=== PATIENT | female | born 1970 | race Caucasian/White ===

== ENCOUNTER 2023-01-21 00:21 | Inpatient (IN) | payer MEDICAID, SELFPAY ==
[2023-01-21] VITALS (17 sets, daily range): BP systolic 100–178; BP diastolic 54–98; PULSE 78–92; RESP 16–22; TEMP 36.9–37.3; O2SAT 88–97; BMI 44.4
--- NOTE | ~2023-01-21 | XR_ITS ---
EXAMINATION: XR CHEST CLINICAL INFORMATION: Shortness of breath COMPARISON: 11/08/2013 TECHNIQUE: Frontal view of the chest was obtained. FINDINGS: Lung volumes are symmetric. Evaluation is limited due to patient rotation. Central vascular appears prominent which may indicate a degree of congestion. No focal consolidation is seen. No evidence of pneumothorax or significant pleural effusion. Cardiac silhouette appears prominent. Partially visualized right shoulder arthroplasty hardware. XR/XR chest 1V IMPRESSION: Limited assessment due to patient rotation. Prominent central vasculature may indicate a degree of congestion.
--- NOTE | 2023-01-21 00:27 | ECG_ITS ---
Test Reason : Shortness of breath Blood Pressure : / mmHG Vent. Rate : 081 BPM Atrial Rate : 081 BPM P-R Int : 134 ms QRS Dur : 086 ms QT Int : 416 ms P-R-T Axes : 059 000 025 degrees QTc Int : 483 ms Normal sinus rhythm Septal infarct , age undetermined Abnormal ECG When compared with ECG of 03-MAR-2002 16:53, Septal infarct is now Present QT has lengthened Referred By: Fina Gaston Electronically Signed By:LIS BELL MD
[2023-01-21] MEDS: methylPREDNISolone Sod Succ 125 MG/2 ML VIAL IVPUSH (00:28)
[2023-01-21] MEDS: Albuterol Sulfate (0.083%) 2.5 MG/3 ML VIAL.NEB 10 MG INHALE (00:28)
--- NOTE | 2023-01-21 00:40 | ED.SOB ---
HPI - SOB/Dyspnea General Chief Complaint: Dyspnea Stated Complaint: Resp Distress Time Seen by Provider: 01/21/23 00:27 Source: patient and EMS Mode of arrival: EMS History of Present Illness HPI Narrative: 52-year-old female with history of CHF, COPD who presents with worsening shortness of breath throughout the day not associated with any fever, chills, chest pain. Patient states she did not take her diuretic today either. Related Data Allergies Allergy/AdvReac Type Severity Reaction Status Date / Time aspirin [ASPIRIN] Allergy Unknown N/V Unverified 08/10/20 15:34 fentanyl [FENTANYL] Allergy Unknown NAUSEA & Unverified 08/10/20 15:34 VOMITING lithium [LITHIUM] Allergy Unknown RASH/HIVES/ Unverified 08/10/20 15:34 VOMITING naproxen [From NAPROSYN] Allergy Unknown N/V Unverified 08/10/20 15:34 Adhesive Bandages Allergy Unknown Uncoded 08/18/13 00:00 FENTANYL Allergy Unknown itching Uncoded 08/18/13 00:00 PLASTIC TAPE Allergy Unknown REDNESS Uncoded 08/10/20 15:34 Review of Systems Review of Systems: Pertinent positives and negatives as stated in HPI PMFSH Past Medical History Source: nursing notes reviewed Social History Social History Alcohol intake: never Smoked in Last 30 Days: No Use of substances other than those prescribed or required for medical reasons: No Advance Directives: No Patient : No Physical Exam Vital Signs: Vital Signs: Last Vital Signs Pulse 86 01/21/23 01:36 Resp 20 01/21/23 01:46 BP 177/82 H 01/21/23 01:09 Pulse Ox 97 01/21/23 01:09 O2 Del Method 01/21/23 01:09 O2 Flow Rate 7 01/21/23 01:09 BMI result Body Mass Index 44.4 VITAL SIGNS: Reviewed. GENERAL: Well developed, well nourished, in no acute distress. HEAD: Normocephalic/atraumatic EYES: PERRLA, EOMI OROPHARYNX: no oral lesions noted, posterior pharynx clear NECK: Supple, no adenopathy LUNGS: Decreased breath sounds bilaterally with expiratory wheeze. Tachypnea+ SpO2<93> 6 L oxygen while receiving albuterol CARDIOVASCULAR: Regular rate and rhythm without noted murmurs, no JVD or lower extremity edema. ABDOMEN: Soft, non-tender, non-distended with bowel sounds. MUSCULOSKELETAL: No tenderness, deformities, or effusions noted on gross inspection. EXTREMITIES: No cyanosis, clubbing or edema. SKIN: Inspection of the skin reveals no rashes NEUROLOGIC: Alert and oriented x 4. Strength and sensation to light touch were grossly intact x 4. Medications Administered Discontinued Medications Generic Name Dose Route Start Last Admin Trade Name Nateq PRN Reason Stop Dose Admin Albuterol Sulfate 10 mg 01/21/23 00:27 01/21/23 00:28 Albuterol Sulfate (0.083%) 2.5 Mg/3 Ml Vial.Neb INHALE 01/21/23 00:28 10 mg ONCE ONE Administration Albuterol Sulfate 10 mg/ 0 mg 01/21/23 01:08 01/21/23 01:31 Ipratropium [place] 0.5 mg INHALE 01/21/23 01:09 1 each ONCE ONE Administration Furosemide 80 mg 01/21/23 01:40 01/21/23 01:46 Furosemide 100 Mg/10 Ml Vial IVPUSH 01/21/23 01:41 80 mg ONCE ONE Administration Protocol Methylprednisolone Sodium Succinate 125 mg 01/21/23 00:27 01/21/23 00:28 Methylprednisolone Sod Succ 125 Mg/2 Ml Vial IVPUSH 01/21/23 00:28 125 mg ONCE ONE Administration Medical Decision Making Medical Decision Making [facility] Narrative: 0045: 52-year-old female with history and clinical presentation consistent with acute respiratory failure likely a combination of medical comorbidities. Patient receiving nebulized treatments, steroids, Lasix. No evidence to suggest acute infection, no increased sputum production so this time antibiotics are not given. Reviewed all investigations, there is no leukocytosis, patient is afebrile and on re-evaluation she is improving and will repeat VBG keep the patient on BiPAP at this time and re-evaluate after VBG and viral testing. Patient is signed out to Dr Shaw. Differential Diagnosis Please see the discussion above Lab Data Please see the discussion above 01/21/23 00:46 01/21/23 00:46 Labs: Lab Results 01/21/23 01/21/23 01/21/23 Range/Units 00:46 00:46 00:46 WBC 8.6 (4.8-10.8) X10*3/uL RBC 4.72 (4.20-5.50) X10*6/uL Hgb 13.5 (12.0-16.0) g/dl Hct 43.8 (37.0-47.0) % MCV 92.8 (80.0-98.0) fL MCH 28.6 (27.0-33.0) pg MCHC 30.8 L (31.0-35.0) g/dl RDW 13.2 (11.0-16.0) % Plt Count 222 (160-400) X10*3/uL MPV 9.1 L (9.4-12.3) fL Immature Gran % (Auto) 0.1 (0.0-0.4) % Neut % (Auto) 57.6 (45-73) % Lymph % (Auto) 33.1 (20-40) % [place] % (Auto) 7.3 (2-11) % Eos % (Auto) 1.7 (0-4) % Baso % (Auto) 0.2 (0-2) % Lymph # (Auto) 2.9 (1.2-4.9) X10*3/uL [place] # (Auto) 0.6 (0.1-1.2) X10*3/uL Eos # (Auto) 0.2 (0.0-0.4) X10*3/uL Baso # (Auto) 0.0 (0.0-0.2) X10*3/uL Abs Immat Gran (auto) 0.01 (0.00-0.03) X10*3/uL Absolute Neuts (auto) 5.0 (2.0-8.3) x10*3/uL Absolute Nucleated RBC 0.000 (0.0-0.012) X10*3/uL Nucleated RBC % (auto) 0.0 (0.0-0.2) /100WBC PT 10.4 (10.0-13.1) SEC INR 0.9 (0.9-1.1) VBG pH (7.32-7.43) VBG pCO2 mmHg VBG pO2 mmHg VBG HCO3 (22-26) mmol/L VBG O2 Saturation % VBG Base Excess mmol/L Sodium 144 (135-145) mmol/L Potassium 4.1 (3.3-5.1) mmol/L Chloride 97 (96-108) mmol/L Carbon Dioxide 40 H* (22-29) mmol/L Anion Gap 11 L (12-20) BUN 14 (9-16) mg/dL Creatinine 0.68 (0.5-1.4) mg/dL Estim Creat Clear Calc 108.9 Estimated GFR > 60 Random Glucose 110 (60-115) mg/dL Lactic Acid (0.5-2.0) mmol/L Calcium 9.3 (8.4-10.2) mg/dL Total Bilirubin 0.2 (0.0-1.0) mg/dL AST 15 (5-31) U/L ALT 17 (0-31) U/L Alkaline Phosphatase 77 (39-117) U/L Troponin I High Sens (<3.5-17.0) ng/L B-Natriuretic Peptide (<100) pg/mL Total Protein 6.4 L (6.5-8.0) g/dL Albumin 4.3 (3.5-5.0) g/dL 01/21/23 01/21/23 01/21/23 Range/Units 00:46 00:46 00:49 WBC (4.8-10.8) X10*3/uL RBC (4.20-5.50) X10*6/uL Hgb (12.0-16.0) g/dl Hct (37.0-47.0) % MCV (80.0-98.0) fL MCH (27.0-33.0) pg MCHC (31.0-35.0) g/dl RDW (11.0-16.0) % Plt Count (160-400) X10*3/uL MPV (9.4-12.3) fL Immature Gran % (Auto) (0.0-0.4) % Neut % (Auto) (45-73) % Lymph % (Auto) (20-40) % [place] % (Auto) (2-11) % Eos % (Auto) (0-4) % Baso % (Auto) (0-2) % Lymph # (Auto) (1.2-4.9) X10*3/uL [place] # (Auto) (0.1-1.2) X10*3/uL Eos # (Auto) (0.0-0.4) X10*3/uL Baso # (Auto) (0.0-0.2) X10*3/uL Abs Immat Gran (auto) (0.00-0.03) X10*3/uL Absolute Neuts (auto) (2.0-8.3) x10*3/uL Absolute Nucleated RBC (0.0-0.012) X10*3/uL Nucleated RBC % (auto) (0.0-0.2) /100WBC PT (10.0-13.1) SEC INR (0.9-1.1) VBG pH 7.27 L (7.32-7.43) VBG pCO2 94 mmHg VBG pO2 98 mmHg VBG HCO3 44 H (22-26) mmol/L VBG O2 Saturation 96.0 % VBG Base Excess 12.6 mmol/L Sodium (135-145) mmol/L Potassium (3.3-5.1) mmol/L Chloride (96-108) mmol/L Carbon Dioxide (22-29) mmol/L Anion Gap (12-20) BUN (9-16) mg/dL Creatinine (0.5-1.4) mg/dL Estim Creat Clear Calc Estimated GFR Random Glucose (60-115) mg/dL Lactic Acid (0.5-2.0) mmol/L Calcium (8.4-10.2) mg/dL Total Bilirubin (0.0-1.0) mg/dL AST (5-31) U/L ALT (0-31) U/L Alkaline Phosphatase (39-117) U/L Troponin I High Sens 13.3 (<3.5-17.0) ng/L B-Natriuretic Peptide 83 (<100) pg/mL Total Protein (6.5-8.0) g/dL Albumin (3.5-5.0) g/dL 01/21/23 Range/Units 01:13 WBC (4.8-10.8) X10*3/uL RBC (4.20-5.50) X10*6/uL Hgb (12.0-16.0) g/dl Hct (37.0-47.0) % MCV (80.0-98.0) fL MCH (27.0-33.0) pg MCHC (31.0-35.0) g/dl RDW (11.0-16.0) % Plt Count (160-400) X10*3/uL MPV (9.4-12.3) fL Immature Gran % (Auto) (0.0-0.4) % Neut % (Auto) (45-73) % Lymph % (Auto) (20-40) % [place] % (Auto) (2-11) % Eos % (Auto) (0-4) % Baso % (Auto) (0-2) % Lymph # (Auto) (1.2-4.9) X10*3/uL [place] # (Auto) (0.1-1.2) X10*3/uL Eos # (Auto) (0.0-0.4) X10*3/uL Baso # (Auto) (0.0-0.2) X10*3/uL Abs Immat Gran (auto) (0.00-0.03) X10*3/uL Absolute Neuts (auto) (2.0-8.3) x10*3/uL Absolute Nucleated RBC (0.0-0.012) X10*3/uL Nucleated RBC % (auto) (0.0-0.2) /100WBC PT (10.0-13.1) SEC INR (0.9-1.1) VBG pH (7.32-7.43) VBG pCO2 mmHg VBG pO2 mmHg VBG HCO3 (22-26) mmol/L VBG O2 Saturation % VBG Base Excess mmol/L Sodium (135-145) mmol/L Potassium (3.3-5.1) mmol/L Chloride (96-108) mmol/L Carbon Dioxide (22-29) mmol/L Anion Gap (12-20) BUN (9-16) mg/dL Creatinine (0.5-1.4) mg/dL Estim Creat Clear Calc Estimated GFR Random Glucose (60-115) mg/dL Lactic Acid 0.7 (0.5-2.0) mmol/L Calcium (8.4-10.2) mg/dL Total Bilirubin (0.0-1.0) mg/dL AST (5-31) U/L ALT (0-31) U/L Alkaline Phosphatase (39-117) U/L Troponin I High Sens (<3.5-17.0) ng/L B-Natriuretic Peptide (<100) pg/mL Total Protein (6.5-8.0) g/dL Albumin (3.5-5.0) g/dL Independent Interpretation I performed an independent interpretation of an: EKG Interpretation: Normal sinus rhythm, HR-81, no STEMI, TX/QRS/QTC is within normal limits. Critical Care Time Critical Care Time Critical Care Time: Yes Total Critical Care Time: 45 Attestation: I personally attest to this time spent taking care of the patient. Discharge Plan Discharge Clinical Impression: COPD exacerbation, CHF exacerbation, Acute respiratory failure Patient Disposition: Still a Patient
[2023-01-21 00:52] LABS: Basophils Percent Auto 0.2 % (0-2); Eosinophils Absolute Auto 0.2 X10*3/uL (0.0-0.4); Eosinophils Percent Auto 1.7 % (0-4); Hematocrit 43.8 % (37.0-47.0); Hemoglobin 13.5 g/dl (12.0-16.0); Imm Gran Abs Auto 0.01 X10*3/uL (0.00-0.03); Imm Gran Pct Auto 0.1 % (0.0-0.4); Lymphocytes Absolute Auto 2.9 X10*3/uL (1.2-4.9); Lymphocytes Percent Auto 33.1 % (20-40); MANUAL DIFF FLAG NO; Mean Corpuscular HGB Conc 30.8 g/dl (31.0-35.0); Mean Corpuscular Hemoglobin 28.6 pg (27.0-33.0); Mean Corpuscular Volume 92.8 fL (80.0-98.0); Mean Platelet Volume 9.1 fL (9.4-12.3); Monocytes Absolute Auto 0.6 X10*3/uL (0.1-1.2); Monocytes Percent Auto 7.3 % (2-11); Neutrophils Percent Auto 57.6 % (45-73); Platelet Count 222 X10*3/uL (160-400); Red Blood Count 4.72 X10*6/uL (4.20-5.50); Red Cell Distribution Width 13.2 % (11.0-16.0); White Blood Count 8.6 X10*3/uL (4.8-10.8)
[2023-01-21 00:58] LABS: Venous Blood Gas Refer to POC result
[2023-01-21 00:58] LABS: VBG Base Excess 12.6 mmol/L; VBG HCO3 44 mmol/L (22-26); VBG pCO2 94 mmHg; VBG pH 7.27 (7.32-7.43); VBG pO2 98 mmHg
[2023-01-21 00:58] LABS: INTERNATIONAL NORM RATIO 0.9 (0.9-1.1); Prothrombin Time 10.4 SEC (10.0-13.1)
[2023-01-21 01:12] LABS: B Type Natriuretic Peptide 83 pg/mL (<100); Troponin-I High Sensitivity 13.3 ng/L (<3.5-17.0)
[2023-01-21 01:13] LABS: Alanine Aminotransferase 17 U/L (0-31); Albumin Level 4.3 g/dL (3.5-5.0); Alkaline Phosphatase 77 U/L (39-117); Anion Gap 11 (12-20); Aspartate Amino Transferase 15 U/L (5-31); Bilirubin Total 0.2 mg/dL (0.0-1.0); Blood Urea Nitrogen 14 mg/dL (9-16); Calcium 9.3 mg/dL (8.4-10.2); Carbon Dioxide 40 mmol/L (22-29); Chloride 97 mmol/L (96-108); Creatinine Clr Calc Pharmacy 108.9; Estimated Glomerular Filt Rate > 60; Glucose Random 110 mg/dL (60-115); Potassium 4.1 mmol/L (3.3-5.1); Sodium 144 mmol/L (135-145); Total Protein 6.4 g/dL (6.5-8.0)
[2023-01-21 01:32] LABS: Lactic Acid 0.7 mmol/L (0.5-2.0)
[2023-01-21] MEDS: Furosemide 100 MG/10 ML VIAL 80 MG IVPUSH (01:46)
[2023-01-21 02:45] LABS: COVID-19 Test Negative (Negative); IDNOW Serial# 16C4AD1C; IDNOW Serial# BCCEAD1C; Influenza A Negative (Negative); Influenza B2 Negative (Negative)
[2023-01-21 03:02] LABS: VBG HCO3 45 mmol/L (22-26); VBG pCO2 89 mmHg; VBG pO2 78 mmHg
[2023-01-21 03:30] LABS: Venous Blood Gas Refer to POC result
--- NOTE | 2023-01-21 04:11 | PC.NURSE ---
Pt presented to ER with shortness of breath lasting all day. Pt has hx of COPD and CHF, on 3 LPM via NC at baseline. EMS gave a duoneb with improvement, and pt was put on 7 LPM via oximask. An IV was placed on the left hand and pt was put on continuous cardiac and O2 monitoring. Respiratory has been at the bedside throughout pt's viisit. CPAP is being administered. Pt is able to be shaken awake and will answer questions appropriately, but struggles to stay awake. Oxygen has been decreasing when pt falls asleep as she slumps to her right side. Oxygen is remaining around 89%. Provider and RT are aware of pt condition. No new orders at this time.
--- NOTE | 2023-01-21 05:00 | PC.NURSE ---
Addendum entered by Deirdre Ledbetter RN 01/21/23 05:13: Jenkins catheter placed, initial output 1400mL. Urine is clear and light yun in color, no clots, discharge, or blood noted in the urine. Pt tolerated placement well. Original Note: Pt has not been voiding urine despite getting lasix. A bladder scan was done and resulted in >999 mL in the bladder. MD aware, verbal ordered a jenkins catheter.
[2023-01-21 05:07] LABS: Venous Blood Gas Refer to POC result
[2023-01-21 05:08] LABS: VBG Base Excess 13.4 mmol/L; VBG HCO3 43 mmol/L (22-26); VBG pCO2 79 mmHg; VBG pH 7.34 (7.32-7.43); VBG pO2 64 mmHg
--- NOTE | 2023-01-21 05:23 | MHC.EDTECH ---
Pt bed pads and pillow case changed. Pt given warm blanket and call abdalla in reach. Pt Goodman emptied at 1400
[2023-01-21 05:34] LABS: Appearance Urine Clear; Color Urine Yellow; Glucose Urine UA >=1000 mg/dL (Negative); Leukocyte Esterase Urine Negative (Negative); Nitrite Urine Negative (Negative); Specific Gravity - Urine 1.015 (1.005-1.025); UMIC TRIGGER UACC YES; Urine Blood Negative (Negative); Urine Ketones Negative (Negative); Urine Protein 30 (1+) mg/dL (Neg-Trace)
[2023-01-21 05:39] LABS: Bacteria Urine None Seen (None Seen); Hyaline Casts Urine 0-2 /LPF (0-2); RBC Urine 0-2 /HPF (0-2); Squamous Epithelial Cell Urine 0-2 /HPF (0-2); WBC Urine 0-5 /HPF (0-5)
[2023-01-21 08:27] LABS: ABG Base Excess 10.8 mmol/L; ABG HCO3 38 mmol/L (22-26); ABG pCO2 64 mmHg (32-45); ABG pH 7.38 (7.35-7.45); ABG pO2 61 mmHg (83-108)
[2023-01-21] MEDS: Acetaminophen 325 MG TABLET 975 MG PO (09:46)
[2023-01-21] MEDS: oxyCODONE HCl Immed Release 5 MG TABLET 10 MG PO (09:47)
--- NOTE | 2023-01-21 12:57 | PM.IMHP ---
History of Present Illness Date of Service: 01/21/23 Chief Complaint: Shortness of breath 52-year-old woman presented to the ER with complaints of worsening shortness of breath over the last several days. She has a history of COPD and reports that she smokes maybe 1-2 cigarettes a day. She had been previously heavy smoker for over 20 years. She is on chronic oxygen 2 L via nasal cannula. Patient denied chest pain, nausea, vomiting, diarrhea, recent travel, sick contacts. COVID, flu and RSV negative, no overt consolidation on chest x-ray. Labs all within acceptable limits. BNP 83, troponin 13.3. VBG 7.27/94/98/44, placed on BiPAP in the ER with good effect. Patient now on 2 L via nasal cannula. She was given IV Solu-Medrol, albuterol, IV Lasix, Reglan, Benadryl, aspirin, Tylenol, oxycodone. She will be admitted for further management and treatment of acute hypoxic/hypercarbic respiratory failure secondary to COPD exacerbation possible CHF. Review of Systems Review of Systems: Appearing in no acute distress head is normocephalic atraumatic eyes pupils are PERRLA sclera is anicteric mouth throat mucous membranes are intact and moist neck is supple no lymphadenopathy, no JVD noted lung sounds are clear to auscultation heart regular rate rhythm, clear S1, S2 positive bowel sounds, abdomen is soft, nontender neuro patient is alert x3, no focal deficits [facility] Medical History (Updated 01/21/23 @ 13:25 by Lorena Delgado NP) Anxiety Asthma Bipolar disorder COPD (chronic obstructive pulmonary disease) Depression Diabetes mellitus Fibromyalgia GERD (gastroesophageal reflux disease) Hypertension Obstructive sleep apnea Pertinent family history: no cardiac disease Surgical History (Updated 01/21/23 @ 13:25 by Lorena Delgado NP) H/O: hysterectomy Social History (Updated 01/21/23 @ 13:31 by Lorena Delgado NP) Alcohol intake: never Patient Tobacco Use Status: Current someday Tobacco user Tobacco use type: Cigarette Cigarettes Per Day: 2 Smoked in Last 30 Days: No Use of substances other than those prescribed or required for medical reasons: No Advance Directives: No Nutrition Risks: No Nutritional Risk Patient : No Meds Allergies Allergy/AdvReac Type Severity Reaction Status Date / Time aspirin [ASPIRIN] Allergy Unknown N/V Unverified 08/10/20 15:34 fentanyl [FENTANYL] Allergy Unknown NAUSEA & Unverified 08/10/20 15:34 VOMITING lithium [LITHIUM] Allergy Unknown RASH/HIVES/ Unverified 08/10/20 15:34 VOMITING naproxen [From NAPROSYN] Allergy Unknown N/V Unverified 08/10/20 15:34 Adhesive Bandages Allergy Unknown Uncoded 08/18/13 00:00 FENTANYL Allergy Unknown itching Uncoded 08/18/13 00:00 PLASTIC TAPE Allergy Unknown REDNESS Uncoded 08/10/20 15:34 Active Medications: Current Medications Pharmacy Consult (Consult Rx Perform Med Rec) 1 each MISCELLANE ONCE PRN PRN Reason: Consult order Home Medications Medication Instructions Recorded Confirmed Last Taken Type albuterol sulfate 2.5 mg/3 mL 2.5 mg inhalation BID PRN Wheezing 01/21/23 01/21/23 01/20/23 History (0.083 %) solution for nebulization albuterol sulfate 90 mcg/actuation 1 inh inhalation QID PRN Wheezing 01/21/23 01/21/23 01/20/23 History aerosol inhaler aluminum chloride in alcohol 6.25 1 appl topical BEDTIME 01/21/23 01/21/23 01/20/23 History % topical solution amiodarone 400 mg tablet 400 mg PO DAILY 01/21/23 01/21/23 01/20/23 History aripiprazole 10 mg tablet (Abilify) 10 mg PO DAILY 01/21/23 01/21/23 01/20/23 History ascorbic acid (vitamin C) 250 mg 1,000 mg PO DAILY 01/21/23 01/21/23 01/20/23 History tablet aspirin 81 mg tablet,delayed 81 mg PO DAILY 01/21/23 01/21/23 01/20/23 History release atorvastatin 80 mg tablet 80 mg PO DAILY 01/21/23 01/21/23 01/20/23 History azithromycin 250 mg tablet 250 mg PO DAILY 01/21/23 01/21/23 01/20/23 History bupropion HCl 150 mg 24 hr tablet, 150 mg PO QAM 01/21/23 01/21/23 01/20/23 History extended release ezchouhtpu-abcqhbqsdiyei-vragzqsb 1 tab PO DAILY PRN Headache 01/21/23 01/21/23 01/20/23 History 50 mg-325 mg-40 mg tablet calcium carbonate 600 mg calcium 600 mg PO BID 01/21/23 01/21/23 01/20/23 History (1,500 mg) tablet carvedilol 25 mg tablet 25 mg PO BID 01/21/23 01/21/23 01/20/23 History cholecalciferol (vitamin D3) 50 50 mcg PO DAILY 01/21/23 01/21/23 01/20/23 History mcg (2,000 unit) capsule (Vitamin D3) clonazepam 0.5 mg tablet 0.5 mg PO BID PRN Anxiety 01/21/23 01/21/23 01/20/23 History clotrimazole 1 % topical cream 1 appl topical BID 01/21/23 01/21/23 01/20/23 History cyanocobalamin (vitamin B-12) 5,000 mcg PO DAILY 01/21/23 01/21/23 01/20/23 History 2,500 mcg tablet dapagliflozin 10 mg tablet 10 mg PO DAILY 01/21/23 01/21/23 01/20/23 History diclofenac sodium 1 % topical gel 2 g topical TID 01/21/23 01/21/23 01/20/23 History dicyclomine 10 mg capsule 10 mg PO TID PRN Spasms 01/21/23 01/21/23 01/20/23 History dulaglutide 1.5 mg/0.5 mL 1.5 mg subcut QWEEK 01/21/23 01/21/23 Unknown History subcutaneous pen injector (Trulicity) duloxetine 60 mg capsule,delayed 60 mg PO DAILY 01/21/23 01/21/23 01/20/23 History release dupilumab 300 mg/2 mL subcutaneous 300 mg subcut Q2W 01/21/23 01/21/23 Unknown History pen injector (Dupixent) fenofibrate micronized 134 mg 134 mg PO DAILY 01/21/23 01/21/23 01/20/23 History capsule fluticasone propionate 250 1 inh inhalation BID 01/21/23 01/21/23 01/20/23 History mcg/actuation blister powder for inhalation (Flovent Diskus) fluticasone propionate 50 1 spray intranasal BID 01/21/23 01/21/23 01/20/23 History mcg/actuation nasal spray,suspension gabapentin 300 mg capsule 600 mg PO TID 01/21/23 01/21/23 01/20/23 History hydroxyzine HCl 25 mg tablet 25 mg PO BID PRN Itching 01/21/23 01/21/23 01/20/23 History insulin glargine 100 unit/mL (3 5 unit subcut BEDTIME 01/21/23 01/21/23 01/20/23 History mL) subcutaneous pen (Lantus Solostar U-100 Insulin) insulin lispro 100 unit/mL 1 sliding scale dose subcut 01/21/23 01/21/23 01/20/23 History subcutaneous pen USEASDIRECTD ipratropium 0.5 mg-albuterol 3 mg 3 ml inhalation BID 01/21/23 01/21/23 01/20/23 History (2.5 mg base)/3 mL nebulization soln loratadine 10 mg tablet 10 mg PO DAILY 01/21/23 01/21/23 01/20/23 History magnesium 250 mg tablet 500 mg PO DAILY 01/21/23 01/21/23 01/20/23 History metoprolol succinate 200 mg 200 mg PO DAILY 01/21/23 01/21/23 01/20/23 History tablet,extended release 24 hr montelukast 10 mg tablet 10 mg PO BEDTIME 01/21/23 01/21/23 01/20/23 History multivitamin 1 tab PO DAILY 01/21/23 01/21/23 01/20/23 History nystatin 100,000 unit/gram topical 1 appl topical BID 01/21/23 01/21/23 01/20/23 History powder nystatin 100,000 unit/mL oral 5 ml PO Q6H 01/21/23 01/21/23 01/20/23 History suspension omega 7-mvt-rie-fish oil 1,000 mg 1 cap PO DAILY 01/21/23 01/21/23 01/20/23 History (120 mg-180 mg) capsule (Fish Oil) omeprazole 20 mg capsule,delayed 20 mg PO BID 01/21/23 01/21/23 01/20/23 History release ondansetron 4 mg disintegrating 4 mg PO DAILY PRN Nausea And 01/21/23 01/21/23 01/20/23 History tablet Vomiting oxybutynin chloride 10 mg 10 mg PO DAILY 01/21/23 01/21/23 01/20/23 History tablet,extended release 24 hr oxycodone-acetaminophen 5 mg-325 1 - 2 tab PO Q4H PRN Pain 01/21/23 01/21/23 01/20/23 History mg tablet prednisone 1 mg tablet 3 mg PO DAILY 01/21/23 01/21/23 01/20/23 History roflumilast 500 mcg tablet 500 mcg PO DAILY 01/21/23 01/21/23 01/20/23 History (Daliresp) ropinirole 1 mg tablet 1 - 2 mg PO BEDTIME 01/21/23 01/21/23 01/20/23 History sacubitril 49 mg-valsartan 51 mg 1 tab PO BID 01/21/23 01/21/23 01/20/23 History tablet (Entresto) tobramycin with nebulizer 300 mg/5 300 mg inhalation BID 01/21/23 01/21/23 01/20/23 History mL solution for nebulization torsemide 10 mg tablet 20 mg PO DAILY 01/21/23 01/21/23 01/20/23 History valacyclovir 1 gram tablet 1,000 mg PO BID 01/21/23 01/21/23 01/20/23 History zileuton 600 mg tablet (Zyflo) 600 mg PO QID 01/21/23 01/21/23 01/20/23 History Physical Exam Vital Signs and Narrative: Vital Signs: Last Vital Signs Temp 98.6 F 01/21/23 09:13 Pulse 90 01/21/23 09:13 Resp 19 01/21/23 09:13 BP 127/54 L 01/21/23 09:13 Pulse Ox 92 01/21/23 05:42 O2 Del Method Nasal Cannula 01/21/23 09:13 O2 Flow Rate 7 01/21/23 01:09 BMI result Body Mass Index 44.4 Results Labs 01/21/23 00:46 01/21/23 00:46 Labs: Laboratory Results - last 24 hr 01/21/23 01/21/23 01/21/23 00:46 00:46 00:46 MCV 92.8 MCH 28.6 MCHC 30.8 L RDW 13.2 Plt Count 222 MPV 9.1 L Immature Gran % (Auto) 0.1 Neut % (Auto) 57.6 Lymph % (Auto) 33.1 [place] % (Auto) 7.3 Eos % (Auto) 1.7 Baso % (Auto) 0.2 Lymph # (Auto) 2.9 [place] # (Auto) 0.6 Eos # (Auto) 0.2 Baso # (Auto) 0.0 Abs Immat Gran (auto) 0.01 Absolute Neuts (auto) 5.0 Absolute Nucleated RBC 0.000 Nucleated RBC % (auto) 0.0 PT 10.4 INR 0.9 O2 Saturation ABG pH at Pt Temp ABG pCO2 at Pt Temp ABG pO2 at Pt Temp ABG HCO3 ABG Base Excess (Actual) VBG pH VBG pCO2 VBG pO2 VBG HCO3 VBG O2 Saturation VBG Base Excess Anion Gap 11 L Estim Creat Clear Calc 108.9 Estimated GFR > 60 Random Glucose 110 Lactic Acid Calcium 9.3 Total Bilirubin 0.2 AST 15 ALT 17 Alkaline Phosphatase 77 Troponin I High Sens B-Natriuretic Peptide Total Protein 6.4 L Albumin 4.3 Urine Color Urine Appearance Urine pH Ur Specific [place] Urine Protein Urine Glucose (UA) Urine Ketones Urine Blood Urine Nitrite Ur Leukocyte Esterase Urine RBC Urine WBC Ur Squamous Epith Cells Urine Bacteria Hyaline Casts COVID-19 ([facility]) COVID-19 Clin Com Influenza Type A (HU) Influenza Type B (HU) Influenza A & B Note 01/21/23 01/21/23 01/21/23 00:46 00:46 00:49 MCV MCH MCHC RDW Plt Count MPV Immature Gran % (Auto) Neut % (Auto) Lymph % (Auto) [place] % (Auto) Eos % (Auto) Baso % (Auto) Lymph # (Auto) [place] # (Auto) Eos # (Auto) Baso # (Auto) Abs Immat Gran (auto) Absolute Neuts (auto) Absolute Nucleated RBC Nucleated RBC % (auto) PT INR O2 Saturation ABG pH at Pt Temp ABG pCO2 at Pt Temp ABG pO2 at Pt Temp ABG HCO3 ABG Base Excess (Actual) VBG pH 7.27 L VBG pCO2 94 VBG pO2 98 VBG HCO3 44 H VBG O2 Saturation 96.0 VBG Base Excess 12.6 Anion Gap Estim Creat Clear Calc Estimated GFR Random Glucose Lactic Acid Calcium Total Bilirubin AST ALT Alkaline Phosphatase Troponin I High Sens 13.3 B-Natriuretic Peptide 83 Total Protein Albumin Urine Color Urine Appearance Urine pH Ur Specific [place] Urine Protein Urine Glucose (UA) Urine Ketones Urine Blood Urine Nitrite Ur Leukocyte Esterase Urine RBC Urine WBC Ur Squamous Epith Cells Urine Bacteria Hyaline Casts COVID-19 ([facility]) COVID-19 Clin Com Influenza Type A (HU) Influenza Type B (HU) Influenza A & B Note 01/21/23 01/21/23 01/21/23 01:13 02:21 02:21 MCV MCH MCHC RDW Plt Count MPV Immature Gran % (Auto) Neut % (Auto) Lymph % (Auto) [place] % (Auto) Eos % (Auto) Baso % (Auto) Lymph # (Auto) [place] # (Auto) Eos # (Auto) Baso # (Auto) Abs Immat Gran (auto) Absolute Neuts (auto) Absolute Nucleated RBC Nucleated RBC % (auto) PT INR O2 Saturation ABG pH at Pt Temp ABG pCO2 at Pt Temp ABG pO2 at Pt Temp ABG HCO3 ABG Base Excess (Actual) VBG pH VBG pCO2 VBG pO2 VBG HCO3 VBG O2 Saturation VBG Base Excess Anion Gap Estim Creat Clear Calc Estimated GFR Random Glucose Lactic Acid 0.7 Calcium Total Bilirubin AST ALT Alkaline Phosphatase Troponin I High Sens B-Natriuretic Peptide Total Protein Albumin Urine Color Urine Appearance Urine pH Ur Specific [place] Urine Protein Urine Glucose (UA) Urine Ketones Urine Blood Urine Nitrite Ur Leukocyte Esterase Urine RBC Urine WBC Ur Squamous Epith Cells Urine Bacteria Hyaline Casts COVID-19 ([facility]) Negative COVID-19 Clin Com See Note Influenza Type A (HU) Negative Influenza Type B (HU) Negative Influenza A & B Note See Note 01/21/23 01/21/23 01/21/23 02:51 05:00 05:20 MCV MCH MCHC RDW Plt Count MPV Immature Gran % (Auto) Neut % (Auto) Lymph % (Auto) [place] % (Auto) Eos % (Auto) Baso % (Auto) Lymph # (Auto) [place] # (Auto) Eos # (Auto) Baso # (Auto) Abs Immat Gran (auto) Absolute Neuts (auto) Absolute Nucleated RBC Nucleated RBC % (auto) PT INR O2 Saturation ABG pH at Pt Temp ABG pCO2 at Pt Temp ABG pO2 at Pt Temp ABG HCO3 ABG Base Excess (Actual) VBG pH 7.30 L 7.34 VBG pCO2 89 79 VBG pO2 78 64 VBG HCO3 45 H 43 H VBG O2 Saturation 92.0 88.0 VBG Base Excess 14.0 13.4 Anion Gap Estim Creat Clear Calc Estimated GFR Random Glucose Lactic Acid Calcium Total Bilirubin AST ALT Alkaline Phosphatase Troponin I High Sens B-Natriuretic Peptide Total Protein Albumin Urine Color Yellow Urine Appearance Clear Urine pH 6.0 Ur Specific [place] 1.015 Urine Protein 30 (1+) H Urine Glucose (UA) >=1000 H Urine Ketones Negative Urine Blood Negative Urine Nitrite Negative Ur Leukocyte Esterase Negative Urine RBC 0-2 Urine WBC 0-5 Ur Squamous Epith Cells 0-2 Urine Bacteria None Seen Hyaline Casts 0-2 COVID-19 ([facility]) COVID-19 Clin Com Influenza Type A (HU) Influenza Type B (HU) Influenza A & B Note 01/21/23 08:20 MCV MCH MCHC RDW Plt Count MPV Immature Gran % (Auto) Neut % (Auto) Lymph % (Auto) [place] % (Auto) Eos % (Auto) Baso % (Auto) Lymph # (Auto) [place] # (Auto) Eos # (Auto) Baso # (Auto) Abs Immat Gran (auto) Absolute Neuts (auto) Absolute Nucleated RBC Nucleated RBC % (auto) PT INR O2 Saturation 86.0 ABG pH at Pt Temp 7.38 ABG pCO2 at Pt Temp 64 H* ABG pO2 at Pt Temp 61 L ABG HCO3 38 H ABG Base Excess (Actual) 10.8 VBG pH VBG pCO2 VBG pO2 VBG HCO3 VBG O2 Saturation VBG Base Excess Anion Gap Estim Creat Clear Calc Estimated GFR Random Glucose Lactic Acid Calcium Total Bilirubin AST ALT Alkaline Phosphatase Troponin I High Sens B-Natriuretic Peptide Total Protein Albumin Urine Color Urine Appearance Urine pH Ur Specific [place] Urine Protein Urine Glucose (UA) Urine Ketones Urine Blood Urine Nitrite Ur Leukocyte Esterase Urine RBC Urine WBC Ur Squamous Epith Cells Urine Bacteria Hyaline Casts COVID-19 ([facility]) COVID-19 Clin Com Influenza Type A (HU) Influenza Type B (HU) Influenza A & B Note Imaging Radiologist's Impressions: Impressions Chest X-Ray 01/21/23 01:17 IMPRESSION: Limited assessment due to patient rotation. Prominent central vasculature may indicate a degree of congestion. Assessment and Plan (1) COPD exacerbation: Status: Acute Plan 52 year old women admitted with acute respiratory failure sec to COPD exacerbation Acute hypoxic/hypercarbic respiratory failure secondary to COPD exacerbation Placed on BiPAP in the ER and weaned off. ABG 7.8/64/61/38 Now on 2 L of nasal cannula Continue schedule steroids, DuoNebs every 4 hours while awake Cough suppressant as needed No consolidation on chest x-ray Acute on chronic respiratory failure hx of COPD on 2 liters baseline oxygen CHF, unspecified Not appear to be in overt failure at this time Patient reported that she missed her diuretic today Continue Entresto and torsemide Limited echocardiogram Diabetes ss, ada diet HLD statin BASSEM not complaint at home ordered cpap for inpatient Mental health continue home medications Morbid obesity. BMI 44.4 Discussed importance of weight management as this may be contributing to worsening of other comorbidities DVT prophylaxis with [facility] attending attending Dr. Lazar Full code Patient requires 2 inpatient midnights for treatment of acute on chronic respiratory failure required BiPAP, close monitoring, IV steroids and scheduled DuoNebs Time Spent With Patient Time: Total time managing care of this patient today ____ minutes. Quality Stroke Does the patient have a stroke diagnosis?: No VTE Prior VTE?: No VTE Risk Level:: Medical - moderate - high VTE Device Contraindication: Treatment Not Indicated VTE Drug Contraindication: N/A - Med Ordered
[2023-01-21 14:38] LABS: ABG Refer to POC result
[2023-01-21] MEDS: Albuterol Sulfate (0.083%) 2.5 MG/3 ML VIAL.NEB INHALE ×2 (14:49→20:09)
[2023-01-21] MEDS: Enoxaparin Sodium 40 MG/0.4 ML SYRINGE SUBCUT (15:22)
[2023-01-21] MEDS: Gabapentin 300 MG CAPSULE 600 MG PO ×2 (15:22→20:08)
[2023-01-21] MEDS: buPROPion HCl XL 150 MG TAB.ER.24H PO (15:22)
[2023-01-21] MEDS: Nystatin Oral Susp 500,000 UNIT/5 ML ORAL.SUSP 500000 UNIT PO ×2 (15:22→20:08)
[2023-01-21] MEDS: methylPREDNISolone Sod Succ 40 MG/ML VIAL IVPUSH ×2 (15:23→21:30)
[2023-01-21] MEDS: oxyCODONE HCl Immed Release 5 MG TABLET PO ×2 (15:32→21:44)
[2023-01-21] MEDS: Nystatin Powder 15 GM BOTTLE 1 APPL TOPICAL (15:32)
[2023-01-21] MEDS: Acetaminophen 325 MG TABLET 650 MG PO ×2 (15:32→21:44)
[2023-01-21] MEDS: Omeprazole 20 MG CAPSULE.DR PO (15:33)
[2023-01-21] MEDS: valACYclovir HCL 1,000 MG TABLET 1000 MG PO (20:08)
[2023-01-21] MEDS: clonazePAM 0.5 MG TABLET PO (20:08)
[2023-01-21] MEDS: carvediloL 25 MG TABLET PO (20:08)
[2023-01-21] MEDS: Fluticasone Propionate 250 MCG BLST.W.DEV 1 PUFF INHALE (20:09)
[2023-01-21] MEDS: Montelukast Sodium 10 MG TABLET PO (20:09)
[2023-01-21] MEDS: Insulin Glargine,Hum.rec.anlog 100 UNIT/ML 10 ML VIAL SUBCUT (20:09)
[2023-01-21] MEDS: Fluticasone Propionate Nasal 16 GM SPRAY 1 SPRAY NOSTRIL-B (21:30)
[2023-01-21] MEDS: rOPINIRole HCL 1 MG TABLET PO (21:30)
[2023-01-21] MEDS: Sacubitril/Valsartan 49/51 1 TAB TABLET PO (21:31)
--- NOTE | 2023-01-21 22:00 | PC.NURSE ---
Assumed care of pt at 1900. Pt aox4 sitting upright, with four pillows, on a reclyner for comfort. O2 sat 88% on 4L NC. O2 sat decreases with movement/exertion. Goodman cath in place with clear yellow urine inside the collection bag. Pt reports back and leg pain, 08/03. States oxycodone and tylenol is not helping for the pain. Pt is also requesting medication for sleep. Baxter text sent to Dr Castle with these concerns. Pt medicated as ordered and tolerated well. Provided with food and liquid. Pt aware of plan of care and will continue to monitor.
[2023-01-22] VITALS (12 sets, daily range): BP systolic 140–185; BP diastolic 67–101; PULSE 75–87; RESP 15–20; TEMP 36.4–37; O2SAT 88–98
--- NOTE | 2023-01-22 00:31 | MHC.EDTECH ---
Patient giving a sandwich and a cup of diet gingerale.Patient is sitting in recliner with call abdalla in reach.
[2023-01-22] MEDS: Morphine Sulfate 2 MG/ML CARTRIDGE IVPUSH (02:04)
[2023-01-22] MEDS: diphenhydrAMINE HCL 50 MG/ML VIAL IVPUSH (02:05)
[2023-01-22] MEDS: 0.9 % Sodium Chloride Flush 3 ML SYRINGE IVFLUSH ×3 (02:05→15:37)
[2023-01-22] MEDS: Nystatin Oral Susp 500,000 UNIT/5 ML ORAL.SUSP 500000 UNIT PO ×4 (02:05→21:04)
--- NOTE | 2023-01-22 02:20 | PC.RT ---
Pt refusing CPAP for NOC support. Pt requests to stay on NC for night. will call for respiratory if she changes her mind. RN aware
--- NOTE | 2023-01-22 04:00 | PC.NURSE ---
Pt assisted into bed. Head of the bed elevated and four pillows applied. O2 sat 88% 4L NC. Will continue to monitor.
[2023-01-22 04:48] LABS: Basophils Percent Auto 0.1 % (0-2); Eosinophils Percent Auto 0.1 % (0-4); Hematocrit 42.4 % (37.0-47.0); Hemoglobin 13.7 g/dl (12.0-16.0); Imm Gran Abs Auto 0.05 X10*3/uL (0.00-0.03); Imm Gran Pct Auto 0.5 % (0.0-0.4); Lymphocytes Absolute Auto 1.3 X10*3/uL (1.2-4.9); MANUAL DIFF FLAG SCAN; Mean Corpuscular HGB Conc 32.3 g/dl (31.0-35.0); Mean Corpuscular Hemoglobin 29.2 pg (27.0-33.0); Mean Corpuscular Volume 90.4 fL (80.0-98.0); Mean Platelet Volume 10.4 fL (9.4-12.3); Monocytes Absolute Auto 0.4 X10*3/uL (0.1-1.2); Monocytes Percent Auto 4.1 % (2-11); Neutrophils Absolute Auto 8.4 x10*3/uL (2.0-8.3); Neutrophils Percent Auto 82.2 % (45-73); PLT CLUMP 1; Red Blood Count 4.69 X10*6/uL (4.20-5.50); Red Cell Distribution Width 13.1 % (11.0-16.0); SCAN SMEAR FLAG 1
[2023-01-22 04:49] LABS: White Blood Count 10.2 X10*3/uL (4.8-10.8)
[2023-01-22 05:05] LABS: Platelet Count 199 X10*3/uL (160-400); SLIDE REVIEW VERIFIED
[2023-01-22 05:21] LABS: Alanine Aminotransferase 17 U/L (0-31); Albumin Level 4.3 g/dL (3.5-5.0); Alkaline Phosphatase 70 U/L (39-117); Anion Gap 11 (12-20); Aspartate Amino Transferase 13 U/L (5-31); Bilirubin Total 0.2 mg/dL (0.0-1.0); Blood Urea Nitrogen 16 mg/dL (9-16); Calcium 9.5 mg/dL (8.4-10.2); Carbon Dioxide 38 mmol/L (22-29); Chloride 97 mmol/L (96-108); Creatinine Clr Calc Pharmacy 125.5; Estimated Glomerular Filt Rate > 60; Glucose Random 140 mg/dL (60-115); Potassium 4.4 mmol/L (3.3-5.1); Sodium 142 mmol/L (135-145); Total Protein 6.6 g/dL (6.5-8.0)
[2023-01-22] MEDS: Omeprazole 20 MG CAPSULE.DR PO ×2 (06:16→16:48)
[2023-01-22] MEDS: methylPREDNISolone Sod Succ 40 MG/ML VIAL IVPUSH ×3 (06:16→21:15)
--- NOTE | 2023-01-22 07:00 | CA_ITS ---
Transthoracic Echocardiogram Patient (Last, First, Middle): Merle Guillen M Gender: Female Date of : 1970 Age: 52 Procedure Date: 01/22/2023 Procedure Type: Transthoracic Echocardiogram Location: [facility] [place] Height: 154.94 cm Weight: 106.6 kg BSA: 2.02 m2 Heart Rate: 80 bpm BP: 150 / 75 mmHg Head End Desizing Machine Operator: BEL Bullock MD: Lorena Delgado NP Fire Lieutenant: Rodo Mancilla MD Symptoms: CHF Study Quality: Adequate/Contrast ECG Rhythm: Sinus Conclusions: - 1. Technically difficult study despite use of contrast agent 2. Normal LV systolic function with mild LVH with impaired relaxation filling pattern, in adequate information to calculate filling pressures 3. Mitral and calcification with limited but cardiac valvular Dopplers within normal limits 4. Normal right atrial pressures Findings Procedure Information Contrast agent, definity, is being given per protocol without apparent complications. Left Ventricle Normal left ventricular size and systolic function. There is mildly increased left ventricular wall thickness. The visually estimated ejection fraction is between 55-60%. Spectral Doppler is indicative of an impaired relaxation filling pattern. Right Ventricle The right ventricle was not well visualized. Atria The left atrium is normal in size. Interatrial shunt cannot be excluded. The right atrium was not well visualized. Aortic Valve The aortic valve was not well visualized. There is no aortic valve stenosis. There is no aortic valve regurgitation. Mitral Valve The mitral valve was not well visualized. There is no mitral valve regurgitation. There is no mitral valve stenosis. Pulmonic Valve The pulmonic valve was not well visualized. Tricuspid Valve The tricuspid valve was not well visualized. Tricuspid regurgitation envelope is inadequate for calculation of right ventricular systolic pressure. Normal right atrial pressure. Great Vessels The aorta was not well visualized. The pulmonary artery was not well visualized. Venous The inferior vena cava is normal in size and collapses greater than 50% with inspiration. Pericardium/Pleural The pericardium was not well visualized. Prior Study Comparison No prior study available for comparison. Measurements 2D Linear Measurements IVSd: 1.19 0.6-0.9/0.6-1.0 cm LVIDd: 6.20 3.9-5.3/4.2-5.9 cm LVIDd Index: 3.07 2.4-3.2/2.2-3.1 cm/m2 LVIDs: 4.21 2.0-3.6 cm LVPWd: 1.29 0.7-1.1 cm LA Diam: 4.20 2.7-3.8/3.0-4.0 cm LAIDs Index: 2.08 1.5-2.3 cm/m2 LV Mass: 432.27 67-162/88-224 g LV Mass Index: 213.99 43-95/49-115 g/m2 LVOT Diam: 2.10 3.0+(-)1.3 cm 2D Systolic Function EF 4C: 54.80 >55% EF 2C: 61.30 >55% EF BiP: 58.90 >55% Mitral Valve MV Pk E: 1.04 MV PK A: 1.42 MV Decel Time: 293.00 E/A: 0.70 E'Lateral: 6.09 E'Medial: 4.03 E/E' Med: 25.80 E/E' Lat: 17.10 PHT: 86.00 MVA PHT: 2.56 Decel [place]: 3.55 Aortic Valve AoV Pk Wade: 1.84 AoV Mn Wade: 1.28 AoV VTI: 0.35 AoV Pk Grad: 14.00 Aov Mn Grad: 7.00 DUNIA Cont.VTI: 2.16 LVOT LVOT Pk Wade: 0.98 LVOT Mn Wade: 0.78 LVOT VTI: 0.22 LVOT Pk Grad: 4.00 LVOT Mn Grad: 3.00 LVOT Diam: 2.10 LVOT Area: 3.46 Diastolic Function MV Pk E: 1.04 MV Pk A: 1.42 E/A: 0.70 E'Medial: 4.03 E/E' Med: 25.80 E' Laterial: 6.09 E/E' Lat: 17.10 Right Ventricle TAPSE (mm): 27.50 TVS' Wade: 17.40 Tricuspid Valve RA Press: 8.00 Great Vessels Aorta Sinus of Valsalva: 3.10 2.0-3.5 cm Ao Asc: 3.30 2.1-3.4 cm Updated in Other Vendor System with Status of Final Rodo Mancilla MD electronically signed on 01/22/2023 1:53:40 PM with status of Final
[2023-01-22] MEDS: Torsemide 20 MG TABLET PO (08:07)
[2023-01-22] MEDS: Albuterol Sulfate (0.083%) 2.5 MG/3 ML VIAL.NEB INHALE ×4 (08:07→19:54)
[2023-01-22] MEDS: Cyanocobalamin (Vitamin B-12) 1,000 MCG TABLET 5000 MCG PO (08:07)
[2023-01-22] MEDS: oxyBUTYnin chloride ER 5 MG TAB.ER.24 10 MG PO (08:08)
[2023-01-22] MEDS: Multivitamin TABLET 1 TAB PO (08:08)
[2023-01-22] MEDS: Gabapentin 300 MG CAPSULE 600 MG PO ×3 (08:08→21:05)
[2023-01-22] MEDS: Cholecalciferol (Vitamin D3) 25 MCG TABLET 50 MCG PO (08:08)
[2023-01-22] MEDS: Ascorbic Acid 500 MG TABLET 1000 MG PO (08:09)
[2023-01-22] MEDS: Atorvastatin Calcium 80 MG TABLET PO (08:09)
[2023-01-22] MEDS: Metoprolol Succinate ER 100 MG TAB.ER.24H 200 MG PO (08:09)
[2023-01-22] MEDS: valACYclovir HCL 1,000 MG TABLET 1000 MG PO ×2 (08:09→21:04)
[2023-01-22] MEDS: buPROPion HCl XL 150 MG TAB.ER.24H PO (08:09)
[2023-01-22] MEDS: DULoxetine HCl 60 MG CAPSULE.DR PO (08:10)
[2023-01-22] MEDS: Loratadine 10 MG TABLET PO (08:10)
[2023-01-22] MEDS: Amiodarone HCL 200 MG TABLET 400 MG PO (08:10)
[2023-01-22] MEDS: Magnesium Oxide 400 MG TABLET PO (08:11)
[2023-01-22] MEDS: Fluticasone Propionate 250 MCG BLST.W.DEV 1 PUFF INHALE ×2 (08:12→20:38)
--- NOTE | 2023-01-22 08:26 | PC.NURSE ---
pt tolerated breakfast, currently getting resp treatments, jenkins care done. facial swelling noted on 2l nc etco2 31 will be admitted to [id number]
--- NOTE | 2023-01-22 08:50 | MHC.CM.PN ---
Addendum entered by Faiza Marquis 01/22/23 09:10: HCP COMPLETED AND IN RECORD HODAN FERNANDES PRIMARY AGENT MARIS EULOGIO ALTERNATE AGENT Original Note: PT REPORTS SHE LIVES AT HOME WITH HER PARENTS SHE HAS DAILY GYNAECOLOGICAL ONCOLOGIST SERVICES THROUGH [employer] SHE SAYS SHE USES A ROLLATOR, HOME O2, NEBULIZER, AND CPAP SHE REPORTS SHE IS COVID VAX AND BOOSTED PER REPORT, HER PCP IS MADISON THOMAS AND SHE ALSO SEES [facility] SHE WILL CONSIDER COMPLETING A HCP WHILE HERE SHE REPORTS SHE WILL NAME HER MOTHER, HODAN FERNANDES, AND DAUGHTER, MARIS KRISHNAN, HER AGENTS SHE WILL DECIDE WHO IS PRIMARY PRIOR TO COMPLETION DCP: HOME, RESUME GYNAECOLOGICAL ONCOLOGIST SERVICES FAMILY TO TRANSPORT
--- NOTE | 2023-01-22 10:21 | P.PNIM_ITS ---
Subjective Subjective Date of Service: 01/22/23 Review of Systems Follow up COPD exaacerbation feeling better today no sob feeling shaky Physical Exam Vital Signs: Vital Signs: Last Vital Signs Temp 97.5 F 01/22/23 09:54 Pulse 83 01/22/23 09:54 Resp 20 01/22/23 09:54 BP 185/101 H 01/22/23 09:54 Pulse Ox 92 01/22/23 09:54 O2 Del Method 01/22/23 09:54 O2 Flow Rate 3 01/22/23 09:54 BMI result Body Mass Index 44.4 Appearing in no acute distress lung sounds exp wheezing, dim heart regular rate rhythm, clear S1, S2 positive bowel sounds, abdomen is soft, nontender neuro patient is alert x3, no focal deficits Objective Data Active Medications Acetaminophen (Acetaminophen 325 Mg Tablet) 650 mg PO Q6H PRN PRN Reason: Pain, Mild (Pain Scale 1-3) Last Admin: 01/21/23 21:44 Dose: 650 mg Documented By: LISA Acetaminophen/Butalbital/Caffeine (Butalb/Acetamin/Caff 50/325/40 Tablet) 1 tab PO DAILY PRN PRN Reason: Headache Albuterol Sulfate (Albuterol Sulfate (0.083%) 2.5 Mg/3 Ml Vial.Neb) 2.5 mg INHALE RQ4H WHILE AWAKE [facility] Last Admin: 01/22/23 08:07 Dose: 2.5 mg Documented By: KOREY Amiodarone HCl (Amiodarone Hcl 200 Mg Tablet) 400 mg PO DAILY [facility] Last Admin: 01/22/23 08:10 Dose: 400 mg Documented By: TALITA Aripiprazole (Aripiprazole 10 Mg Tablet) 10 mg PO DAILY [facility] Ascorbic Acid (Ascorbic Acid 500 Mg Tablet) 1,000 mg PO DAILY [facility] Last Admin: 01/22/23 08:09 Dose: 1,000 mg Documented By: TALITA Aspirin (Aspirin Enteric Coated 81 Mg Tablet.) 81 mg PO DAILY [facility] Atorvastatin Calcium (Atorvastatin Calcium 80 Mg Tablet) 80 mg PO DAILY [facility] Last Admin: 01/22/23 08:09 Dose: 80 mg Documented By: TALITA Benzonatate (Benzonatate 100 Mg Capsule) 100 mg PO TID PRN PRN Reason: Cough Bupropion HCl (Bupropion Hcl Xl 150 Mg Tab.Er.24h) 150 mg PO DAILY [facility] Last Admin: 01/22/23 08:09 Dose: 150 mg Documented By: TALITA Calcium Carbonate (Calcium Carbonate 500 Mg Tablet) 500 mg PO BID [facility] Last Admin: 01/22/23 08:10 Dose: 500 mg Documented By: TALITA Carvedilol (Carvedilol 25 Mg Tablet) 25 mg PO BID [facility]; Protocol Last Admin: 01/21/23 20:08 Dose: 25 mg Documented By: LISA Clonazepam (Clonazepam 0.5 Mg Tablet) 0.5 mg PO BID PRN PRN Reason: Anxiety Last Admin: 01/21/23 20:08 Dose: 0.5 mg Documented By: LISA Cyanocobalamin (Cyanocobalamin (Vitamin B-12) 1,000 Mcg Tablet) 5,000 mcg PO DAILY [facility] Last Admin: 01/22/23 08:07 Dose: 5,000 mcg Documented By: TALITA Dicyclomine HCl (Dicyclomine Hcl 10 Mg Capsule) 10 mg PO TID PRN PRN Reason: Spasms Duloxetine HCl (Duloxetine Hcl 60 Mg Capsule.Dr) 60 mg PO DAILY [facility] Last Admin: 01/22/23 08:10 Dose: 60 mg Documented By: TALITA Empagliflozin (Empagliflozin 10 Mg Tablet) 10 mg PO DAILY [facility] Enoxaparin Sodium (Enoxaparin Sodium 40 Mg/0.4 Ml Syringe) 40 mg SUBCUT Q24H [facility] Last Admin: 01/21/23 15:22 Dose: 40 mg Documented By: HITESH Fenofibrate (Fenofibrate,Micronized 134 Mg Capsule) 134 mg PO DAILY [facility] Fluticasone Propionate (Fluticasone Propionate 250 Mcg Blst.W.Dev) 1 puff INHAL E RBID [facility] Last Admin: 01/22/23 08:12 Dose: 1 puff Documented By: KOREY Fluticasone Propionate (Fluticasone Propionate Nasal 16 Gm [place]) 1 spray NOSTRIL-B BID [facility] Last Admin: 01/21/23 21:30 Dose: 1 spray Documented By: LISA Gabapentin (Gabapentin 300 Mg Capsule) 600 mg PO TID [facility] Last Admin: 01/22/23 08:08 Dose: 600 mg Documented By: TALITA Hydroxyzine HCl (Hydroxyzine Hcl 25 Mg Tablet) 25 mg PO BID PRN PRN Reason: Itching Insulin Glargine (Insulin Glargine,Hum.Rec.Anlog 100 Unit/Ml 10 Ml Vial) 5 unit SUBCUT BEDTIME [facility] Last Admin: 01/21/23 20:09 Dose: 5 unit Documented By: LISA Loratadine (Loratadine 10 Mg Tablet) 10 mg PO DAILY [facility] Last Admin: 01/22/23 08:10 Dose: 10 mg Documented By: TALITA Magnesium Oxide (Magnesium Oxide 400 Mg Tablet) 400 mg PO DAILY [facility] Last Admin: 01/22/23 08:11 Dose: 400 mg Documented By: TALITA Methylprednisolone Sodium Succinate (Methylprednisolone Sod Succ 40 Mg/Ml Vial) 40 mg IVPUSH Q8H [facility] Last Admin: 01/22/23 06:16 Dose: 40 mg Documented By: LISA Metoprolol Succinate (Metoprolol Succinate Er 100 Mg Tab.Er.24h) 200 mg PO DAILY [facility]; Protocol Last Admin: 01/22/23 08:09 Dose: 200 mg Documented By: TALITA Montelukast Sodium (Montelukast Sodium 10 Mg Tablet) 10 mg PO BEDTIME [facility] Last Admin: 01/21/23 20:09 Dose: 10 mg Documented By: LISA Multivitamins/Vitamin C (Multivitamin Tablet) 1 tab PO DAILY [facility] Last Admin: 01/22/23 08:08 Dose: 1 tab Documented By: TALITA Non-Formulary Medication (Roflumilast [Daliresp]) 500 mcg PO DAILY [facility] Nystatin (Nystatin Powder 15 Gm Bottle) 1 appl TOPICAL BID [facility]; Protocol Last Admin: 01/21/23 15:32 Dose: 1 appl Documented By: HITESH Nystatin (Nystatin Oral Susp 500,000 Unit/5 Ml Oral.Susp) 500,000 unit PO Q6H [facility]; Protocol Last Admin: 01/22/23 08:06 Dose: 500,000 unit Documented By: TALITA Omeprazole (Omeprazole 20 Mg Capsule.Dr) 20 mg PO BID@0630,1630 [facility] Last Admin: 01/22/23 06:16 Dose: 20 mg Documented By: LISA Ondansetron HCl (Ondansetron Hcl 4 Mg/2 Ml Vial) 4 mg IVPUSH Q8H PRN PRN Reason: Nausea and Vomiting Oxybutynin Chloride (Oxybutynin Chloride Er 5 Mg Tab.Er.24) 10 mg PO DAILY [facility] Last Admin: 01/22/23 08:08 Dose: 10 mg Documented By: TALITA Oxycodone HCl (Oxycodone Hcl Immed Release 5 Mg Tablet) 5 mg PO Q6H PRN PRN Reason: Pain, Severe (Pain Scale 7-10) Last Admin: 01/21/23 21:44 Dose: 5 mg Documented By: LISA Pharmacy Consult (Consult Rx Perform Med Rec) 1 each MISCELLANE ONCE PRN PRN Reason: Consult order Ropinirole HCl (Ropinirole Hcl 1 Mg Tablet) 1 - 2 mg PO BEDTIME [facility] Last Admin: 01/21/23 21:30 Dose: 1 mg Documented By: LISA Sacubitril/Valsartan (Sacubitril/Valsartan 49/51 1 Tab Tablet) 1 tab PO BID [facility]; Protocol Last Admin: 01/21/23 21:31 Dose: 1 tab Documented By: LISA Sodium Chloride (0.9 % Sodium Chloride Flush 3 Ml Syringe) 3 ml IVFSH [facility] Last Admin: 01/22/23 02:05 Dose: 3 ml Documented By: LISA Torsemide (Torsemide 20 Mg Tablet) 20 mg PO DAILY [facility]; Protocol Last Admin: 01/22/23 08:07 Dose: 20 mg Documented By: TALITA Valacyclovir HCl (Valacyclovir Hcl 1,000 Mg Tablet) 1,000 mg PO BID [facility] Last Admin: 01/22/23 08:09 Dose: 1,000 mg Documented By: TALITA Vitamin D (Cholecalciferol (Vitamin D3) 25 Mcg Tablet) 50 mcg PO DAILY [facility] Last Admin: 01/22/23 08:08 Dose: 50 mcg Documented By: TALITA Labs 01/22/23 04:41 01/22/23 04:41 Labs: Laboratory Results - last 24 hr 01/22/23 01/22/23 04:41 04:41 MCV 90.4 MCH 29.2 MCHC 32.3 RDW 13.1 Plt Count 199 MPV 10.4 Immature Gran % (Auto) 0.5 H Neut % (Auto) 82.2 H Lymph % (Auto) 13.0 L [place] % (Auto) 4.1 Eos % (Auto) 0.1 Baso % (Auto) 0.1 Lymph # (Auto) 1.3 [place] # (Auto) 0.4 Eos # (Auto) 0.0 Baso # (Auto) 0.0 Abs Immat Gran (auto) 0.05 H Absolute Neuts (auto) 8.4 H Absolute Nucleated RBC 0.000 Nucleated RBC % (auto) 0.0 Smear Tech's Comments VERIFIED Anion Gap 11 L Estim Creat Clear Calc 125.5 Estimated GFR > 60 Random Glucose 140 H Calcium 9.5 Total Bilirubin 0.2 AST 13 ALT 17 Alkaline Phosphatase 70 Total Protein 6.6 Albumin 4.3 Microbiology Microbiology Results: Microbiology 01/21/23 01:13 Blood Culture - Preliminary Blood - Venous No growth after 24 hours. 01/21/23 01:13 Blood Culture - Preliminary Blood - Venous No growth after 24 hours. Assessment and Plan (1) COPD exacerbation: Status: Acute Plan 52 year old women admitted with acute respiratory failure sec to COPD exa cerbation Acute hypoxic/hypercarbic respiratory failure secondary to COPD exacerbation Placed on BiPAP in the ER and weaned off. ABG 7.8/64/61/38 Now on 2 L of nasal cannula Continue schedule steroids, DuoNebs every 4 hours while awake Cough suppressant as needed No consolidation on chest x-ray Acute on chronic respiratory failure hx of COPD on 2-3 liters baseline oxygen CHF, unspecified Not appear to be in overt failure at this time Patient reported that she missed her diuretic today Continue Entresto and torsemide Limited echocardiogram Diabetes ss, ada diet HLD statin BASSEM not complaint at home ordered cpap for inpatient Mental health continue home medications Morbid obesity. BMI 44.4 Discussed importance of weight management as this may be contributing to worsening of other comorbidities DVT prophylaxis with Lovenox attending Dr. Lazar Full code continued hospital stay for treatment of acute on chronic respiratory failure required BiPAP, close monitoring, IV steroids and scheduled DuoNebs Time Spent With Patient Time: Total time managing care of this patient today ____ minutes. Quality Stroke Does the patient have a stroke diagnosis?: No VTE Prior VTE?: No VTE Risk Level:: Medical - moderate - high VTE Device Contraindication: Treatment Not Indicated VTE Drug Contraindication: N/A - Med Ordered
[2023-01-22 11:11] LABS: Glucose, Whole Blood 220 mg/dL (60-115)
[2023-01-22] MEDS: Empagliflozin 10 MG TABLET PO (11:42)
[2023-01-22] MEDS: Sacubitril/Valsartan 49/51 1 TAB TABLET PO ×2 (11:42→21:05)
[2023-01-22] MEDS: Fenofibrate,Micronized 134 MG CAPSULE PO (11:42)
[2023-01-22] MEDS: ARIPiprazole 10 MG TABLET PO (11:42)
[2023-01-22] MEDS: Aspirin Enteric Coated 81 MG TABLET.DR PO (11:49)
[2023-01-22] MEDS: Dicyclomine HCl 10 MG CAPSULE PO (11:50)
[2023-01-22] MEDS: oxyCODONE HCl Immed Release 5 MG TABLET PO ×2 (11:50→17:35)
[2023-01-22] MEDS: carvediloL 25 MG TABLET PO ×2 (11:50→21:05)
[2023-01-22] MEDS: clonazePAM 0.5 MG TABLET PO (12:37)
[2023-01-22] MEDS: Enoxaparin Sodium 40 MG/0.4 ML SYRINGE SUBCUT (14:35)
[2023-01-22 16:06] LABS: Glucose, Whole Blood 112 mg/dL (60-115)
[2023-01-22] MEDS: Butalb/Acetamin/Caff 50/325/40 TABLET 1 TAB PO (16:48)
[2023-01-22 19:56] LABS: Glucose, Whole Blood 155 mg/dL (60-115)
[2023-01-22] MEDS: rOPINIRole HCL 1 MG TABLET PO (21:04)
[2023-01-22] MEDS: Montelukast Sodium 10 MG TABLET PO (21:05)
[2023-01-22] MEDS: Insulin Glargine,Hum.rec.anlog 100 UNIT/ML 10 ML VIAL SUBCUT (22:30)
[2023-01-22] MEDS: Insulin Lispro 100 UNIT/ML 3 ML VIAL SUBCUT (22:30)
[2023-01-22] MEDS: oxyCODONE HCl Immed Release 5 MG TABLET 10 MG PO (22:56)
[2023-01-23] VITALS (10 sets, daily range): BP systolic 132–184; BP diastolic 61–89; PULSE 65–93; RESP 18–24; TEMP 35.8–37.1; O2SAT 89–99
[2023-01-23] MEDS: Nystatin Oral Susp 500,000 UNIT/5 ML ORAL.SUSP 500000 UNIT PO ×4 (01:35→20:29)
[2023-01-23] MEDS: Acetaminophen 325 MG TABLET 650 MG PO (01:35)
[2023-01-23] MEDS: 0.9 % Sodium Chloride Flush 3 ML SYRINGE IVFLUSH ×4 (01:38→20:31)
[2023-01-23] MEDS: oxyCODONE HCl Immed Release 5 MG TABLET 10 MG PO ×4 (04:07→20:59)
[2023-01-23] MEDS: methylPREDNISolone Sod Succ 40 MG/ML VIAL IVPUSH ×3 (05:43→20:29)
[2023-01-23] MEDS: Omeprazole 20 MG CAPSULE.DR PO ×2 (05:43→17:04)
[2023-01-23 07:31] LABS: Glucose, Whole Blood 157 mg/dL (60-115)
[2023-01-23] MEDS: Albuterol Sulfate (0.083%) 2.5 MG/3 ML VIAL.NEB INHALE ×3 (08:06→20:03)
[2023-01-23] MEDS: Fluticasone Propionate 250 MCG BLST.W.DEV 1 PUFF INHALE ×2 (08:07→20:05)
[2023-01-23 08:43] LABS: Venous Blood Gas Refer to POC result
[2023-01-23] MEDS: Insulin Lispro 100 UNIT/ML 3 ML VIAL SUBCUT ×2 (08:44→20:30)
[2023-01-23] MEDS: Cholecalciferol (Vitamin D3) 25 MCG TABLET 50 MCG PO (08:45)
[2023-01-23 08:46] LABS: VBG Base Excess 15.1 mmol/L; VBG HCO3 43 mmol/L (22-26); VBG pCO2 67 mmHg; VBG pH 7.41 (7.32-7.43); VBG pO2 35 mmHg
[2023-01-23] MEDS: Metoprolol Succinate ER 100 MG TAB.ER.24H 200 MG PO (08:46)
[2023-01-23] MEDS: Multivitamin TABLET 1 TAB PO (08:46)
[2023-01-23] MEDS: valACYclovir HCL 1,000 MG TABLET 1000 MG PO ×2 (08:46→20:28)
[2023-01-23] MEDS: Empagliflozin 10 MG TABLET PO (08:46)
[2023-01-23] MEDS: oxyBUTYnin chloride ER 5 MG TAB.ER.24 10 MG PO (08:46)
[2023-01-23] MEDS: DULoxetine HCl 60 MG CAPSULE.DR PO (08:47)
[2023-01-23] MEDS: buPROPion HCl XL 150 MG TAB.ER.24H PO (08:47)
[2023-01-23] MEDS: Atorvastatin Calcium 80 MG TABLET PO (08:47)
[2023-01-23] MEDS: Ascorbic Acid 500 MG TABLET 1000 MG PO (08:47)
[2023-01-23] MEDS: Gabapentin 300 MG CAPSULE 600 MG PO ×2 (08:47→14:28)
[2023-01-23] MEDS: carvediloL 25 MG TABLET PO ×2 (08:47→20:29)
[2023-01-23] MEDS: ARIPiprazole 10 MG TABLET PO (08:48)
[2023-01-23] MEDS: Loratadine 10 MG TABLET PO (08:48)
[2023-01-23] MEDS: Cyanocobalamin (Vitamin B-12) 1,000 MCG TABLET 5000 MCG PO (08:48)
[2023-01-23] MEDS: Sacubitril/Valsartan 49/51 1 TAB TABLET PO ×2 (08:48→20:28)
[2023-01-23] MEDS: Aspirin Enteric Coated 81 MG TABLET.DR PO (08:48)
[2023-01-23] MEDS: Fenofibrate,Micronized 134 MG CAPSULE PO (08:48)
[2023-01-23] MEDS: Amiodarone HCL 200 MG TABLET 400 MG PO (08:48)
[2023-01-23] MEDS: Torsemide 20 MG TABLET PO (08:49)
[2023-01-23] MEDS: Magnesium Oxide 400 MG TABLET PO (08:50)
[2023-01-23] MEDS: ondansetron HCL 4 MG/2 ML VIAL IVPUSH (08:55)
[2023-01-23 09:57] LABS: Hemoglobin 14.2 g/dl (12.0-16.0); Mean Corpuscular HGB Conc 31.6 g/dl (31.0-35.0); Mean Corpuscular Hemoglobin 28.7 pg (27.0-33.0); Mean Corpuscular Volume 90.9 fL (80.0-98.0); Mean Platelet Volume 9.7 fL (9.4-12.3); Platelet Count 244 X10*3/uL (160-400); Red Blood Count 4.95 X10*6/uL (4.20-5.50); Red Cell Distribution Width 13.2 % (11.0-16.0); White Blood Count 10.5 X10*3/uL (4.8-10.8)
[2023-01-23 11:24] LABS: Glucose, Whole Blood 147 mg/dL (60-115)
[2023-01-23 11:43] LABS: ABG HCO3 39 mmol/L (22-26); ABG pCO2 63 mmHg (32-45); ABG pH 7.39 (7.35-7.45); ABG pO2 87 mmHg (83-108)
--- NOTE | 2023-01-23 11:51 | HO.PM.IMPN ---
Subjective Subjective Date of Service: 01/23/23 Interval History: seen and examined this morning follow up for COPD exacerbation patient falling asleep in chair - moved to bed. continued to be sleepy but was easily arousable to verbal stimuli, answering questions appropriately Review of Systems Review of Systems: Yes all other systems are reviewed and are negative Constitutional Constitutional: Denies chills and Denies fever(s) Cardiovascular Cardiovascular: Denies chest pain and Denies palpitations Gastrointestinal Gastrointestinal: Reports abdominal pain (lower abdominal pain; intermitent blood in stool) Endocrine Endocrine: Denies palpitations Physical Exam Vital Signs: Vital Signs: Last Vital Signs Temp 98.2 F 01/23/23 11:39 Pulse 75 01/23/23 11:39 Resp 24 H 01/23/23 11:39 BP 158/74 H 01/23/23 11:39 Pulse Ox 90 L 01/23/23 11:39 O2 Del Method 01/23/23 11:39 O2 Flow Rate 3 01/23/23 11:39 BMI result Body Mass Index 44.4 Const: Other: sleepy but easily arousable to verbal stimuli General: comfortable and no acute distress Nutritional Appearance: obese Orientation/consciousness: patient oriented x3 Resp: Other: diminished breath sounds Effort & Inspection: normal respiratory effort, no respiratory distress and no use of accessory muscles Cardio: Rate: regular rate Heart sounds: S1 normal heart sound present and S2 normal heart sound present GI: Inspection: No distended and Yes obesity Palpation (GI): Soft to palpation and nontender Neuro: General: patient oriented x3 and CN's II-XI intact bilaterally Extrem: General: Yes no pedal edema Objective Data Active Medications Acetaminophen (Acetaminophen 325 Mg Tablet) 650 mg PO Q6H PRN PRN Reason: Pain, Mild (Pain Scale 1-3) Last Admin: 01/23/23 01:35 Dose: 650 mg Documented By: JOANA Acetaminophen/Butalbital/Caffeine (Butalb/Acetamin/Caff 50/325/40 Tablet) 1 tab PO DAILY PRN PRN Reason: Headache Last Admin: 01/22/23 16:48 Dose: 1 tab Documented By: FUNMILAYO Albuterol Sulfate (Albuterol Sulfate (0.083%) 2.5 Mg/3 Ml Vial.Neb) 2.5 mg INHALE RQ4H WHILE AWAKE [facility] Last Admin: 01/23/23 11:15 Dose: Not Given Documented By: SIMONA Non-Admin Reason: pt not avia; Amiodarone HCl (Amiodarone Hcl 200 Mg Tablet) 400 mg PO DAILY [facility] Last Admin: 01/23/23 08:48 Dose: 400 mg Documented By: ANA PAULA Aripiprazole (Aripiprazole 10 Mg Tablet) 10 mg PO DAILY [facility] Last Admin: 01/23/23 08:48 Dose: 10 mg Documented By: ANA PAULA Ascorbic Acid (Ascorbic Acid 500 Mg Tablet) 1,000 mg PO DAILY [facility] Last Admin: 01/23/23 08:47 Dose: 1,000 mg Documented By: ANA PAULA Aspirin (Aspirin Enteric Coated 81 Mg Tablet.) 81 mg PO DAILY [facility] Last Admin: 01/23/23 08:48 Dose: 81 mg Documented By: ANA PAULA Atorvastatin Calcium (Atorvastatin Calcium 80 Mg Tablet) 80 mg PO DAILY [facility] Last Admin: 01/23/23 08:47 Dose: 80 mg Documented By: ANA PAULA Benzonatate (Benzonatate 100 Mg Capsule) 100 mg PO TID PRN PRN Reason: Cough Bupropion HCl (Bupropion Hcl Xl 150 Mg Tab.Er.24h) 150 mg PO DAILY [facility] Last Admin: 01/23/23 08:47 Dose: 150 mg Documented By: ANA PAULA Calcium Carbonate (Calcium Carbonate 500 Mg Tablet) 500 mg PO BID [facility] Last Admin: 01/23/23 08:50 Dose: 500 mg Documented By: ANA PAULA Carvedilol (Carvedilol 25 Mg Tablet) 25 mg PO BID [facility]; Protocol Last Admin: 01/23/23 08:47 Dose: 25 mg Documented By: ANA PAULA Clonazepam (Clonazepam 0.5 Mg Tablet) 0.5 mg PO BID PRN PRN Reason: Anxiety Last Admin: 01/22/23 12:37 Dose: 0.5 mg Documented By: BRYCE Cyanocobalamin (Cyanocobalamin (Vitamin B-12) 1,000 Mcg Tablet) 5,000 mcg PO DAILY [facility] Last Admin: 01/23/23 08:48 Dose: 5,000 mcg Documented By: ANA PAULA Dextrose (Dextrose 50 % 25 Gm/50 Ml Vial) 25 gm IVPUSH Q15M PRN; Protocol PRN Reason: per Hypoglycemia Standing Ord. Dicyclomine HCl (Dicyclomine Hcl 10 Mg Capsule) 10 mg PO TID PRN PRN Reason: Spasms Last Admin: 01/22/23 11:50 Dose: 10 mg Documented By: TONNY Duloxetine HCl (Duloxetine Hcl 60 Mg Capsule.) 60 mg PO DAILY [facility] Last Admin: 01/23/23 08:47 Dose: 60 mg Documented By: ANA PAULA Empagliflozin (Empagliflozin 10 Mg Tablet) 10 mg PO DAILY [facility] Last Admin: 01/23/23 08:46 Dose: 10 mg Documented By: ANA PAULA Enoxaparin Sodium (Enoxaparin Sodium 40 Mg/0.4 Ml Syringe) 40 mg SUBCUT Q24H [facility] Last Admin: 01/22/23 14:35 Dose: 40 mg Documented By: BRYCE Fenofibrate (Fenofibrate,Micronized 134 Mg Capsule) 134 mg PO DAILY [facility] Last Admin: 01/23/23 08:48 Dose: 134 mg Documented By: ANA PAULA Fluticasone Propionate (Fluticasone Propionate 250 Mcg Blst.W.Dev) 1 puff INHALE RBID [facility] Last Admin: 01/23/23 08:07 Dose: 1 puff Documented By: SIMONA Fluticasone Propionate (Fluticasone Propionate Nasal 16 Gm [place]) 1 spray NOSTRIL-B BID [facility] Last Admin: 01/23/23 10:32 Dose: Not Given Documented By: DEEP Non-Admin Reason: call pharmacy Gabapentin (Gabapentin 300 Mg Capsule) 600 mg PO TID [facility] Last Admin: 01/23/23 08:47 Dose: 600 mg Documented By: ANA PAULA Glucose (Glucose Gel 15 Gm Gel..Gram.) 15 gm PO Q15M PRN; Protocol PRN Reason: per Hypoglycemia Standing Ord. Hydroxyzine HCl (Hydroxyzine Hcl 25 Mg Tablet) 25 mg PO BID PRN PRN Reason: Itching Insulin Glargine (Insulin Glargine,Hum.Rec.Anlog 100 Unit/Ml 10 Ml Vial) 5 unit SUBCUT BEDTIME [facility] Last Admin: 01/22/23 22:30 Dose: 5 unit Documented By: JOANA Insulin Human Lispro (Insulin Lispro 100 Unit/Ml 3 Ml Vial) 0 unit SUBCUT QIDACHS [facility]; Protocol Last Admin: 01/23/23 11:08 Dose: Not Given Documented By: DEPE Non-Admin Reason: No Insulin Coverage Loratadine (Loratadine 10 Mg Tablet) 10 mg PO DAILY [facility] Last Admin: 01/23/23 08:48 Dose: 10 mg Documented By: ANA PAULA Magnesium Oxide (Magnesium Oxide 400 Mg Tablet) 400 mg PO DAILY [facility] Last Admin: 01/23/23 08:50 Dose: 400 mg Documented By: ANA PAULA Methylprednisolone Sodium Succinate (Methylprednisolone Sod Succ 40 Mg/Ml Vial) 40 mg IVPUSH Q8H [facility] Last Admin: 01/23/23 05:43 Dose: 40 mg Documented By: JOANA Metoprolol Succinate (Metoprolol Succinate Er 100 Mg Tab.Er.24h) 200 mg PO DAILY [facility]; Protocol Last Admin: 01/23/23 08:46 Dose: 200 mg Documented By: ANA PAULA Montelukast Sodium (Montelukast Sodium 10 Mg Tablet) 10 mg PO BEDTIME [facility] Last Admin: 01/22/23 21:05 Dose: 10 mg Documented By: JOANA Multivitamins/Vitamin C (Multivitamin Tablet) 1 tab PO DAILY [facility] Last Admin: 01/23/23 08:46 Dose: 1 tab Documented By: ANA PAULA Non-Formulary Medication (Roflumilast [Daliresp]) 500 mcg PO DAILY [facility] Nystatin (Nystatin Powder 15 Gm Bottle) 1 appl TOPICAL BID [facility]; Protocol Last Admin: 01/23/23 10:32 Dose: Not Given Documented By: DEEP Non-Admin Reason: called pharmacyy Nystatin (Nystatin Oral Susp 500,000 Unit/5 Ml Oral.Susp) 500,000 unit PO Q6H [facility]; Protocol Last Admin: 01/23/23 08:45 Dose: 500,000 unit Documented By: ANA PAULA Omeprazole (Omeprazole 20 Mg Capsule.Dr) 20 mg PO BID@0630,1630 [facility] Last Admin: 01/23/23 05:43 Dose: 20 mg Documented By: JOANA Ondansetron HCl (Ondansetron Hcl 4 Mg/2 Ml Vial) 4 mg IVPUSH Q8H PRN PRN Reason: Nausea and Vomiting Last Admin: 01/23/23 08:55 Dose: 4 mg Documented By: ANA PAULA Oxybutynin Chloride (Oxybutynin Chloride Er 5 Mg Tab.Er.24) 10 mg PO DAILY [facility] Last Admin: 01/23/23 08:46 Dose: 10 mg Documented By: ANA PAULA Oxycodone HCl (Oxycodone Hcl Immed Release 5 Mg Tablet) 10 mg PO Q4H PRN PRN Reason: Pain, Severe (Pain Scale 7-10) Last Admin: 01/23/23 04:07 Dose: 10 mg Documented By: JOANA Pharmacy Consult (Consult Rx Perform Med Rec) 1 each MISCELLANE ONCE PRN PRN Reason: Consult order Ropinirole HCl (Ropinirole Hcl 1 Mg Tablet) 1 - 2 mg PO BEDTIME [facility] Last Admin: 01/22/23 21:04 Dose: 1 mg Documented By: JOANA Sacubitril/Valsartan (Sacubitril/Valsartan 49/51 1 Tab Tablet) 1 tab PO BID [facility]; Protocol Last Admin: 01/23/23 08:48 Dose: 1 tab Documented By: ANA PAULA Sodium Chloride (0.9 % Sodium Chloride Flush 3 Ml Syringe) [facility] Last Admin: 01/23/23 08:52 Dose: 3 ml Documented By: ANA PAULA Torsemide (Torsemide 20 Mg Tablet) 20 mg PO DAILY [facility]; Protocol Last Admin: 01/23/23 08:49 Dose: 20 mg Documented By: ANA PAULA Valacyclovir HCl (Valacyclovir Hcl 1,000 Mg Tablet) 1,000 mg PO BID [facility] Last Admin: 01/23/23 08:46 Dose: 1,000 mg Documented By: ANA PAULA Vitamin D (Cholecalciferol (Vitamin D3) 25 Mcg Tablet) 50 mcg PO DAILY [facility] Last Admin: 01/23/23 08:45 Dose: 50 mcg Documented By: ANA PAULA Labs 01/23/23 09:28 01/22/23 04:41 Labs: Laboratory Results - last 24 hr 01/22/23 01/22/23 01/23/23 15:58 19:13 07:20 MCV MCH MCHC RDW Plt Count MPV Absolute Nucleated RBC Nucleated RBC % (auto) O2 Saturation ABG pH at Pt Temp ABG pCO2 at Pt Temp ABG pO2 at Pt Temp ABG HCO3 ABG Base Excess (Actual) VBG pH VBG pCO2 VBG pO2 VBG HCO3 VBG O2 Saturation VBG Base Excess POC Glucose 112 155 H 157 H 01/23/23 01/23/23 01/23/23 08:40 09:28 11:06 MCV 90.9 MCH 28.7 MCHC 31.6 RDW 13.2 Plt Count 244 MPV 9.7 Absolute Nucleated RBC 0.000 Nucleated RBC % (auto) 0.0 O2 Saturation ABG pH at Pt Temp ABG pCO2 at Pt Temp ABG pO2 at Pt Temp ABG HCO3 ABG Base Excess (Actual) VBG pH 7.41 VBG pCO2 67 VBG pO2 35 VBG HCO3 43 H VBG O2 Saturation 49.0 VBG Base Excess 15.1 POC Glucose 147 H 01/23/23 11:35 MCV MCH MCHC RDW Plt Count MPV Absolute Nucleated RBC Nucleated RBC % (auto) O2 Saturation 93.0 ABG pH at Pt Temp 7.39 ABG pCO2 at Pt Temp 63 H* ABG pO2 at Pt Temp 87 ABG HCO3 39 H ABG Base Excess (Actual) 11.0 VBG pH VBG pCO2 VBG pO2 VBG HCO3 VBG O2 Saturation VBG Base Excess POC Glucose Microbiology Microbiology Results: Microbiology 01/21/23 01:13 Blood Culture - Preliminary Blood - Venous No growth after 48 hours. 01/21/23 01:13 Blood Culture - Preliminary Blood - Venous No growth after 48 hours. Assessment and Plan (1) COPD exacerbation: Status: Acute (2) Acute respiratory failure: Status: Acute Plan 52 year old women admitted with acute respiratory failure sec to COPD exacerbation Acute hypoxic/hypercarbic respiratory failure secondary to COPD exacerbation Placed on BiPAP in the ER and weaned off. ABG 7.8/64/61/38 Now on 4 L of nasal cannula - hypoxia with o2 sat 85-88%; goal o2 saturation around 88-92%- avoid over-oxygenating to prevent co2 retention Continue schedule steroids, DuoNebs every 4 hours while awake Cough suppressant as needed No consolidation on chest x-ray sleepy but easily arousable - will check ABG pulmonary evaluation Acute on chronic respiratory failure hx of COPD on 2-3 liters baseline oxygen likely multifactorial r/t COPD, BASSEM, and obesity hypoventilation CHF, appears to be diastolic limited echo technically difficult but EF appears 55-60% Not appear to be in overt failure at this time Continue Entresto and torsemide Rectal bleeding pt reports h/o Crohns dz has intermittent rectal bleeding CBC WNL Diabetes ss, ada diet HLD statin BASSEM not complaint at home continue cpap for inpatient Mental health continue home medications Morbid obesity. BMI 44.4 Discussed importance of weight management as this may be contributing to worsening of other comorbidities DVT prophylaxis with Lovenox attending Dr. Rose Full code continued hospital stay for treatment of acute on chronic respiratory failure required BiPAP, close monitoring, IV steroids and scheduled DuoNebs Time Spent With Patient Time: Total time managing care of this patient today ____ minutes. Quality Stroke Does the patient have a stroke diagnosis?: No VTE Prior VTE?: No VTE Risk Level:: Medical - moderate - high VTE Device Contraindication: Treatment Not Indicated VTE Drug Contraindication: N/A - Med Ordered
[2023-01-23] MEDS: Enoxaparin Sodium 40 MG/0.4 ML SYRINGE SUBCUT (14:29)
[2023-01-23 14:47] LABS: ABG Refer to POC result
--- NOTE | 2023-01-23 14:52 | P.CDIM_ITS ---
PROVIDER RESPONSE TEXT: To clarify, the appropriate diagnosis supported by the clinical indicators: Other (explain): HTN. no end organ damage. likely related to alcohol withdrawal QUERY TEXT: PHYSICIAN'S DOCUMENTATION REQUEST Date of Query: 01/23/2023 02:34 PM EST Patient Name: Merle Guillen Admit Date: 01/21/2023 Dear Merissa Haque, A review of the medical record indicates additional documentation may be needed. Please review below and update the documentation accordingly. Clinical Indicators: Per provider progress notes: PMH: HTN Vitals: BP on 01/22 - 185/101 BP on 01/23 - 184/89 Current medications: -Coreg -Metoprolol Clarify which, if any of the following, is a more accurate diagnosis reflecting the type and acuity o f the documented hypertension: Hypertensive emergency Hypertensive urgency Other (explain) Clinically unable to determine (explain) Thank you, Susie Horn MS, RN, CCRN Use of terms such as suspected, likely, concern for, or probable (associated with a specific diagnosi s that is being evaluated, monitored, or treated as if it exists) are acceptable and can be coded in the inpatient se tting, when documented at the time of discharge. Please use your independent medical judgment in providing your response. THIS QUERY IS PART OF THE PERMANENT MEDICAL RECORD
--- NOTE | 2023-01-23 15:37 | P.CDIM_ITS ---
PROVIDER RESPONSE TEXT: To clarify, the appropriate diagnosis supported by the clinical indicators: Other (explain): HTN. few High bp readings, but not consistently in 180s and no end organ damage QUERY TEXT: PHYSICIAN'S DOCUMENTATION REQUEST Date of Query: 01/23/2023 03:07 PM EST Patient Name: Merle Guillen Admit Date: 01/21/2023 Dear Merissa Haque, A review of the medical record indicates additional documentation may be needed. Please review below and update the documentation accordingly. Clinical Indicators: Per provider progress notes: PMH: HTN Vitals: BP on 01/22 - 185/101 BP on 01/23 - 184/89 Current medications: -Coreg -Metoprolol Clarify which, if any of the following, is a more accurate diagnosis reflecting the type and acuity o f the documented hypertension: Hypertensive emergency Hypertensive urgency Other (explain) Clinically unable to determine (explain) Thank you, Susie Horn MS, RN, CCRN Use of terms such as suspected, likely, concern for, or probable (associated with a specific diagnosi s that is being evaluated, monitored, or treated as if it exists) are acceptable and can be coded in the inpatient se tting, when documented at the time of discharge. Please use your independent medical judgment in providing your response. THIS QUERY IS PART OF THE PERMANENT MEDICAL RECORD
[2023-01-23 16:05] LABS: Glucose, Whole Blood 130 mg/dL (60-115)
--- NOTE | 2023-01-23 17:31 | PM.CNPUL ---
History of Present Illness History of Present Illness Consult date: 01/23/23 Reason for consult: dyspnea, cough, COPD and hypoxemia Chief complaint: COPD exacerabation Narrative: I have seen this patient for pulmonary consultation. 52 years old female with morbid obesity and longstanding history of obstructive sleep apnea/hypoventilation syndrome. She also has chronic obstructive and restrictive pulmonary disorder with ongoing respiratory failure. 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 Javier , but admits that she has not seen her for long time. She does have history of chronic respiratory failure and is supposed to be on a BiPAP at nighttime. She confessed that she has not been using it regularly. She does also use oxygen 2 L/minute at night and day time. She has a longstanding history of smoking even though currently she admits of smoking only a few cigarettes per day. This time she is admitted with the chief complaint of increased shortness of breath over the last many days, she has slight increase in the cough without much expectoration. She feels tired and somewhat sleepy, sort of fogged out. Evaluation in the emergency room has shown that she has is serious degree of respiratory failure with hypercapnia. She was started on BiPAP therapy in the emergency room and, did use last night also, with some improvement in the level of PCO 2. *VBG 7.27/94/98/44 . Past history includes the diabetes mellitus,, bipolar disorder, and depression. [facility] reviewed . Review of Systems Review of Systems:?? ?Appearing in no acute distress Review of Systems Review of Systems: Yes all other systems are reviewed and are negative [facility] Past Medical History Medical History (Updated 01/23/23 @ 17:33 by Wilda William MD) Anxiety Asthma Bipolar disorder COPD (chronic obstructive pulmonary disease) Depression Diabetes mellitus Fibromyalgia GERD (gastroesophageal reflux disease) Hypertension Obesity hypoventilation syndrome Obstructive sleep apnea BASSEM (obstructive sleep apnea) Respiratory failure with hypoxia and hypercapnia Surgical History Surgical History (Updated 01/21/23 @ 13:25 by Lorena Delgado NP) H/O: hysterectomy Social History Social History (Updated 01/21/23 @ 13:31 by Lorena Delgado NP) Household Members: Family Housing: House Do you presently have visiting nurse or other home services: No Alcohol intake: never Patient Tobacco Use Status: Current everyday Tobacco user Tobacco use type: Cigarette Cigarettes Per Day: 1 Smoked in Last 30 Days: No Patient Interested in Nicotine Replacement: Yes Use of substances other than those prescribed or required for medical reasons: No Currently Displaying Signs/Symptoms of Drug Intoxication Withdrawal: No Have you been hit, kicked, punched, or otherwise hurt by someone within the past year? If so, by whom?: No Do you feel safe in your current relationship?: Yes Is there a partner from a previous relationship who is making you feel unsafe now?: No Are you made to feel afraid or neglected: No Advance Directives: Yes Advance Directives on File: Yes Advance Directives Date on File: 01/22/23 Do you have thoughts of harming others: None Do you have a plan to hurt others: No Plan Recently lost weight without trying: No Nutrition Risks: No Nutritional Risk Patient : No : No Poor oral hygiene: No service: No Current occupational status: disabled Meds Allergies Allergy/AdvReac Type Severity Reaction Status Date / Time aspirin [ASPIRIN] Allergy Unknown N/V Verified 01/22/23 08:06 fentanyl [FENTANYL] Allergy Unknown NAUSEA & Verified 01/22/23 08:06 VOMITING lithium [LITHIUM] Allergy Unknown RASH/HIVES/ Verified 01/22/23 08:06 VOMITING naproxen [From NAPROSYN] Allergy Unknown N/V Verified 01/22/23 08:06 Adhesive Bandages Allergy Unknown Rash Uncoded 01/22/23 08:06 FENTANYL Allergy Unknown itching Uncoded 08/18/13 00:00 PLASTIC TAPE Allergy Unknown REDNESS Uncoded 08/10/20 15:34 Active Medications: Current Medications Acetaminophen (Acetaminophen 325 Mg Tablet) 650 mg PO Q6H PRN PRN Reason: Pain, Mild (Pain Scale 1-3) Last Admin: 01/23/23 01:35 Dose: 650 mg Acetaminophen/Butalbital/Caffeine (Butalb/Acetamin/Caff 50/325/40 Tablet) 1 tab PO DAILY PRN PRN Reason: Headache Last Admin: 01/22/23 16:48 Dose: 1 tab Albuterol Sulfate (Albuterol Sulfate (0.083%) 2.5 Mg/3 Ml Vial.Neb) 2.5 mg INHALE RQ4H WHILE AWAKE BRYAN Last Admin: 01/23/23 15:57 Dose: 2.5 mg Amiodarone HCl (Amiodarone Hcl 200 Mg Tablet) 400 mg PO DAILY [facility] Last Admin: 01/23/23 08:48 Dose: 400 mg Aripiprazole (Aripiprazole 10 Mg Tablet) 10 mg PO DAILY [facility] Last Admin: 01/23/23 08:48 Dose: 10 mg Ascorbic Acid (Ascorbic Acid 500 Mg Tablet) 1,000 mg PO DAILY [facility] Last Admin: 01/23/23 08:47 Dose: 1,000 mg Aspirin (Aspirin Enteric Coated 81 Mg Tablet.) 81 mg PO DAILY [facility] Last Admin: 01/23/23 08:48 Dose: 81 mg Atorvastatin Calcium (Atorvastatin Calcium 80 Mg Tablet) 80 mg PO DAILY [facility] Last Admin: 01/23/23 08:47 Dose: 80 mg Benzonatate (Benzonatate 100 Mg Capsule) 100 mg PO TID PRN PRN Reason: Cough Bupropion HCl (Bupropion Hcl Xl 150 Mg Tab.Er.24h) 150 mg PO DAILY [facility] Last Admin: 01/23/23 08:47 Dose: 150 mg Calcium Carbonate (Calcium Carbonate 500 Mg Tablet) 500 mg PO BID [facility] Last Admin: 01/23/23 08:50 Dose: 500 mg Carvedilol (Carvedilol 25 Mg Tablet) 25 mg PO BID [facility]; Protocol Last Admin: 01/23/23 08:47 Dose: 25 mg Clonazepam (Clonazepam 0.5 Mg Tablet) 0.5 mg PO BID PRN PRN Reason: Anxiety Last Admin: 01/22/23 12:37 Dose: 0.5 mg Cyanocobalamin (Cyanocobalamin (Vitamin B-12) 1,000 Mcg Tablet) 5,000 mcg PO DAILY [facility] Last Admin: 01/23/23 08:48 Dose: 5,000 mcg Dextrose (Dextrose 50 % 25 Gm/50 Ml Vial) 25 gm IVPUSH Q15M PRN; Protocol PRN Reason: per Hypoglycemia Standing Ord. Dicyclomine HCl (Dicyclomine Hcl 10 Mg Capsule) 10 mg PO TID PRN PRN Reason: Spasms Last Admin: 01/22/23 11:50 Dose: 10 mg Duloxetine HCl (Duloxetine Hcl 60 Mg Capsule.) 60 mg PO DAILY [facility] Last Admin: 01/23/23 08:47 Dose: 60 mg Empagliflozin (Empagliflozin 10 Mg Tablet) 10 mg PO DAILY [facility] Last Admin: 01/23/23 08:46 Dose: 10 mg Enoxaparin Sodium (Enoxaparin Sodium 40 Mg/0.4 Ml Syringe) 40 mg SUBCUT Q24H [facility] Last Admin: 01/23/23 14:29 Dose: 40 mg Fenofibrate (Fenofibrate,Micronized 134 Mg Capsule) 134 mg PO DAILY [facility] Last Admin: 01/23/23 08:48 Dose: 134 mg Fluticasone Propionate (Fluticasone Propionate 250 Mcg Blst.W.Dev) 1 puff INHALE RBID [facility] Last Admin: 01/23/23 08:07 Dose: 1 puff Fluticasone Propionate (Fluticasone Propionate Nasal 16 Gm [place]) 1 spray NOSTRIL-B BID [facility] Last Admin: 01/23/23 10:32 Dose: Not Given Gabapentin (Gabapentin 300 Mg Capsule) 600 mg PO TID [facility] Last Admin: 01/23/23 14:28 Dose: 600 mg Glucose (Glucose Gel 15 Gm Gel..Gram.) 15 gm PO Q15M PRN; Protocol PRN Reason: per Hypoglycemia Standing Ord. Hydroxyzine HCl (Hydroxyzine Hcl 25 Mg Tablet) 25 mg PO BID PRN PRN Reason: Itching Insulin Glargine (Insulin Glargine,Hum.Rec.Anlog 100 Unit/Ml 10 Ml Vial) 5 unit SUBCUT BEDTIME [facility] Last Admin: 01/22/23 22:30 Dose: 5 unit Insulin Human Lispro (Insulin Lispro 100 Unit/Ml 3 Ml Vial) 0 unit SUBCUT QIDACHS [facility]; Protocol Last Admin: 01/23/23 16:10 Dose: Not Given Loratadine (Loratadine 10 Mg Tablet) 10 mg PO DAILY [facility] Last Admin: 01/23/23 08:48 Dose: 10 mg Magnesium Oxide (Magnesium Oxide 400 Mg Tablet) 400 mg PO DAILY [facility] Last Admin: 01/23/23 08:50 Dose: 400 mg Methylprednisolone Sodium Succinate (Methylprednisolone Sod Succ 40 Mg/Ml Vial) 40 mg IVPUSH Q8H [facility] Last Admin: 01/23/23 14:29 Dose: 40 mg Metoprolol Succinate (Metoprolol Succinate Er 100 Mg Tab.Er.24h) 200 mg PO DAILY [facility]; Protocol Last Admin: 01/23/23 08:46 Dose: 200 mg Montelukast Sodium (Montelukast Sodium 10 Mg Tablet) 10 mg PO BEDTIME [facility] Last Admin: 01/22/23 21:05 Dose: 10 mg Multivitamins/Vitamin C (Multivitamin Tablet) 1 tab PO DAILY [facility] Last Admin: 01/23/23 08:46 Dose: 1 tab Non-Formulary Medication (Roflumilast [Daliresp]) 500 mcg PO DAILY [facility] Nystatin (Nystatin Powder 15 Gm Bottle) 1 appl TOPICAL BID [facility]; Protocol Last Admin: 01/23/23 10:32 Dose: Not Given Nystatin (Nystatin Oral Susp 500,000 Unit/5 Ml Oral.Susp) 500,000 unit PO Q6H [facility]; Protocol Last Admin: 01/23/23 14:28 Dose: 500,000 unit Omeprazole (Omeprazole 20 Mg Capsule.Dr) 20 mg PO BID@0630,1630 [facility] Last Admin: 01/23/23 17:04 Dose: 20 mg Ondansetron HCl (Ondansetron Hcl 4 Mg/2 Ml Vial) 4 mg IVPUSH Q8H PRN PRN Reason: Nausea and Vomiting Last Admin: 01/23/23 08:55 Dose: 4 mg Oxybutynin Chloride (Oxybutynin Chloride Er 5 Mg Tab.Er.24) 10 mg PO DAILY [facility] Last Admin: 01/23/23 08:46 Dose: 10 mg Oxycodone HCl (Oxycodone Hcl Immed Release 5 Mg Tablet) 10 mg PO Q6H PRN PRN Reason: Pain, Severe (Pain Scale 7-10) Pharmacy Consult (Consult Rx Perform Med Rec) 1 each MISCELLANE ONCE PRN PRN Reason: Consult order Ropinirole HCl (Ropinirole Hcl 1 Mg Tablet) 1 - 2 mg PO BEDTIME [facility] Last Admin: 01/22/23 21:04 Dose: 1 mg Sacubitril/Valsartan (Sacubitril/Valsartan 49/51 1 Tab Tablet) 1 tab PO BID [facility]; Protocol Last Admin: 01/23/23 08:48 Dose: 1 tab Sodium Chloride (0.9 % Sodium Chloride Flush 3 Ml Syringe) 3 ml IVFLUSH QSHIFT [facility] Last Admin: 01/23/23 16:10 Dose: 3 ml Torsemide (Torsemide 20 Mg Tablet) 20 mg PO DAILY [facility]; Protocol Last Admin: 01/23/23 08:49 Dose: 20 mg Valacyclovir HCl (Valacyclovir Hcl 1,000 Mg Tablet) 1,000 mg PO BID [facility] Last Admin: 01/23/23 08:46 Dose: 1,000 mg Vitamin D (Cholecalciferol (Vitamin D3) 25 Mcg Tablet) 50 mcg PO DAILY [facility] Last Admin: 01/23/23 08:45 Dose: 50 mcg Home Medications Medication Instructions Recorded Confirmed Last Taken Type albuterol sulfate 2.5 mg/3 mL 2.5 mg inhalation BID PRN Wheezing 01/21/23 01/21/23 01/20/23 History (0.083 %) solution for nebulization albuterol sulfate 90 mcg/actuation 1 inh inhalation QID PRN Wheezing 01/21/23 01/21/23 01/20/23 History aerosol inhaler aluminum chloride in alcohol 6.25 1 appl topical BEDTIME 01/21/23 01/21/23 01/20/23 History % topical solution amiodarone 400 mg tablet 400 mg PO DAILY 01/21/23 01/21/23 01/20/23 History aripiprazole 10 mg tablet (Abilify) 10 mg PO DAILY 01/21/23 01/21/23 01/20/23 History ascorbic acid (vitamin C) 250 mg 1,000 mg PO DAILY 01/21/23 01/21/23 01/20/23 History tablet aspirin 81 mg tablet,delayed 81 mg PO DAILY 01/21/23 01/21/23 01/20/23 History release atorvastatin 80 mg tablet 80 mg PO DAILY 01/21/23 01/21/23 01/20/23 History azithromycin 250 mg tablet 250 mg PO DAILY 01/21/23 01/21/23 01/20/23 History bupropion HCl 150 mg 24 hr tablet, 150 mg PO QAM 01/21/23 01/21/23 01/20/23 History extended release [id number] 1 tab PO DAILY PRN Headache 01/21/23 01/21/23 01/20/23 History 50 mg-325 mg-40 mg tablet calcium carbonate 600 mg calcium 600 mg PO BID 01/21/23 01/21/23 01/20/23 History (1,500 mg) tablet carvedilol 25 mg tablet 25 mg PO BID 01/21/23 01/21/23 01/20/23 History cholecalciferol (vitamin D3) 50 50 mcg PO DAILY 01/21/23 01/21/23 01/20/23 History mcg (2,000 unit) capsule (Vitamin D3) clonazepam 0.5 mg tablet 0.5 mg PO BID PRN Anxiety 01/21/23 01/21/23 01/20/23 History clotrimazole 1 % topical cream 1 appl topical BID 01/21/23 01/21/23 01/20/23 History cyanocobalamin (vitamin B-12) 5,000 mcg PO DAILY 01/21/23 01/21/23 01/20/23 History 2,500 mcg tablet dapagliflozin 10 mg tablet 10 mg PO DAILY 01/21/23 01/21/23 01/20/23 History diclofenac sodium 1 % topical gel 2 g topical TID 01/21/23 01/21/23 01/20/23 History dicyclomine 10 mg capsule 10 mg PO TID PRN Spasms 01/21/23 01/21/23 01/20/23 History dulaglutide 1.5 mg/0.5 mL 1.5 mg subcut QWEEK 01/21/23 01/21/23 Unknown History subcutaneous pen injector (Trulicity) duloxetine 60 mg capsule,delayed 60 mg PO DAILY 01/21/23 01/21/23 01/20/23 History release dupilumab 300 mg/2 mL subcutaneous 300 mg subcut Q2W 01/21/23 01/21/23 Unknown History pen injector (Dupixent) fenofibrate micronized 134 mg 134 mg PO DAILY 01/21/23 01/21/23 01/20/23 History capsule fluticasone propionate 250 1 inh inhalation BID 01/21/23 01/21/23 01/20/23 History mcg/actuation blister powder for inhalation (Flovent Diskus) fluticasone propionate 50 1 spray intranasal BID 01/21/23 01/21/23 01/20/23 History mcg/actuation nasal spray,suspension gabapentin 300 mg capsule 600 mg PO TID 01/21/23 01/21/23 01/20/23 History hydroxyzine HCl 25 mg tablet 25 mg PO BID PRN Itching 01/21/23 01/21/23 01/20/23 History insulin glargine 100 unit/mL (3 5 unit subcut BEDTIME 01/21/23 01/21/23 01/20/23 History mL) subcutaneous pen (Lantus Solostar U-100 Insulin) insulin lispro 100 unit/mL 1 sliding scale dose subcut 01/21/23 01/21/23 01/20/23 History subcutaneous pen USEASDIRECTD ipratropium 0.5 mg-albuterol 3 mg 3 ml inhalation BID 01/21/23 01/21/23 01/20/23 History (2.5 mg base)/3 mL nebulization soln loratadine 10 mg tablet 10 mg PO DAILY 01/21/23 01/21/23 01/20/23 History magnesium 250 mg tablet 500 mg PO DAILY 01/21/23 01/21/23 01/20/23 History metoprolol succinate 200 mg 200 mg PO DAILY 01/21/23 01/21/23 01/20/23 History tablet,extended release 24 hr montelukast 10 mg tablet 10 mg PO BEDTIME 01/21/23 01/21/23 01/20/23 History multivitamin 1 tab PO DAILY 01/21/23 01/21/23 01/20/23 History nystatin 100,000 unit/gram topical 1 appl topical BID 01/21/23 01/21/23 01/20/23 History powder nystatin 100,000 unit/mL oral 5 ml PO Q6H 01/21/23 01/21/23 01/20/23 History suspension omega 2-laq-ppe-fish oil 1,000 mg 1 cap PO DAILY 01/21/23 01/21/23 01/20/23 History (120 mg-180 mg) capsule (Fish Oil) omeprazole 20 mg capsule,delayed 20 mg PO BID 01/21/23 01/21/23 01/20/23 History release ondansetron 4 mg disintegrating 4 mg PO DAILY PRN Nausea And 01/21/23 01/21/23 01/20/23 History tablet Vomiting oxybutynin chloride 10 mg 10 mg PO DAILY 01/21/23 01/21/23 01/20/23 History tablet,extended release 24 hr oxycodone-acetaminophen 5 mg-325 1 - 2 tab PO Q4H PRN Pain 01/21/23 01/21/23 01/20/23 History mg tablet prednisone 1 mg tablet 3 mg PO DAILY 01/21/23 01/21/23 01/20/23 History roflumilast 500 mcg tablet 500 mcg PO DAILY 01/21/23 01/21/23 01/20/23 History (Daliresp) ropinirole 1 mg tablet 1 - 2 mg PO BEDTIME 01/21/23 01/21/23 01/20/23 History sacubitril 49 mg-valsartan 51 mg 1 tab PO BID 01/21/23 01/21/23 01/20/23 History tablet (Entresto) tobramycin with nebulizer 300 mg/5 300 mg inhalation BID 01/21/23 01/21/23 01/20/23 History mL solution for nebulization torsemide 10 mg tablet 20 mg PO DAILY 01/21/23 01/21/23 01/20/23 History valacyclovir 1 gram tablet 1,000 mg PO BID 01/21/23 01/21/23 01/20/23 History zileuton 600 mg tablet (Zyflo) 600 mg PO QID 01/21/23 01/21/23 01/20/23 History Physical Exam Vital Signs: Vital Signs: Last Vital Signs Temp 98.7 F 01/23/23 15:53 Pulse 82 01/23/23 16:00 Resp 18 01/23/23 16:00 BP 139/77 01/23/23 15:53 Pulse Ox 93 01/23/23 15:53 O2 Del Method 01/23/23 15:53 O2 Flow Rate 2 01/23/23 15:53 BMI result Body Mass Index 44.4 Patient is morbidly obese, she is in a wheelchair, she is relatively immobile by. Has a round face , obese neck, and very narrow oropharynx, features typical of obstructive sleep apnea. Const: General: healthy appearing, comfortable, no acute distress, alert and awake Orientation/consciousness: patient oriented x3 HEENT: Head: Yes normal to inspection General nose exam: No nasal polyps present and No nasal discharge present Face and sinus: Yes sinuses nontender Mouth: oropharynx abnormals (Narrow and crowded) Throat: Yes posterior oropharynx normal Eyes: General: appearance normal, both eyes and all related structures Neck: Neck: Yes normal visual inspection, Yes no lymphadenopathy, Yes trachea midline, Yes no JVD and Yes other (Neck is short and very obese) Thyroid: Thyroid normal Chest: Chest palpation & inspection: normal inspection of the chest, normal palpation of entire chest wall and no tenderness Resp: Other: Percussion note is not perceptible due to thick chest wall. Breath sounds are distant with prolonged expiratory phase, especially decreased over the basilar areas. No wheezes or rhonchi are heard. Cardio: Palpation: PMI not normal (Not palpable) Rate: regular rate Rhythm: regular rhythm Heart sounds: no gallops and no murmurs GI: Palpation (GI): not soft, nontender, No hepatosplenomegaly present, Palpable mass present and Other GI palpation findings present (Abdomen grossly obese and protuberant) Back/Spine/Pelvis: Other: Not examine Skin: General skin exam: no rashes or lesions noted Neuro: General: patient oriented x3, No gait normal (Patient markedly impaired gait) and no focal motor deficits Cranial nerves: Yes CN's II-XII intact bilaterally Extrem: General: Yes normal to inspection, Yes no calf tenderness and Yes venous stasis dermatitis Psych: Appearance: well kempt Mental Status: mental status grossly normal Results Laboratory Findings 01/23/23 09:28 01/22/23 04:41 ABG, PT/INR, D-dimer: PT/INR, D-dimer PT 10.4 SEC (10.0-13.1) 01/21/23 00:46 INR 0.9 (0.9-1.1) 01/21/23 00:46 Abnormal lab findings: Abnormal Labs 01/21/23 01/21/23 01/21/23 00:46 00:46 00:49 MCHC 30.8 L MPV 9.1 L Immature Gran % (Auto) Neut % (Auto) Lymph % (Auto) Abs Immat Gran (auto) Absolute Neuts (auto) ABG pCO2 at Pt Temp ABG pO2 at Pt Temp ABG HCO3 VBG pH 7.27 L VBG HCO3 44 H Carbon Dioxide 40 H* Anion Gap 11 L POC Glucose Random Glucose Total Protein 6.4 L Urine Protein Urine Glucose (UA) 01/21/23 01/21/23 01/21/23 02:51 05:00 05:20 MCHC MPV Immature Gran % (Auto) Neut % (Auto) Lymph % (Auto) Abs Immat Gran (auto) Absolute Neuts (auto) ABG pCO2 at Pt Temp ABG pO2 at Pt Temp ABG HCO3 VBG pH 7.30 L VBG HCO3 45 H 43 H Carbon Dioxide Anion Gap POC Glucose Random Glucose Total Protein Urine Protein 30 (1+) H Urine Glucose (UA) >=1000 H 01/21/23 01/22/23 01/22/23 08:20 04:41 04:41 MCHC MPV Immature Gran % (Auto) 0.5 H Neut % (Auto) 82.2 H Lymph % (Auto) 13.0 L Abs Immat Gran (auto) 0.05 H Absolute Neuts (auto) 8.4 H ABG pCO2 at Pt Temp 64 H* ABG pO2 at Pt Temp 61 L ABG HCO3 38 H VBG pH VBG HCO3 Carbon Dioxide 38 H Anion Gap 11 L POC Glucose Random Glucose 140 H Total Protein Urine Protein Urine Glucose (UA) 01/22/23 01/22/23 01/23/23 11:07 19:13 07:20 MCHC MPV Immature Gran % (Auto) Neut % (Auto) Lymph % (Auto) Abs Immat Gran (auto) Absolute Neuts (auto) ABG pCO2 at Pt Temp ABG pO2 at Pt Temp ABG HCO3 VBG pH VBG HCO3 Carbon Dioxide Anion Gap POC Glucose 220 H 155 H 157 H Random Glucose Total Protein Urine Protein Urine Glucose (UA) 01/23/23 01/23/23 01/23/23 08:40 11:06 11:35 MCHC MPV Immature Gran % (Auto) Neut % (Auto) Lymph % (Auto) Abs Immat Gran (auto) Absolute Neuts (auto) ABG pCO2 at Pt Temp 63 H* ABG pO2 at Pt Temp ABG HCO3 39 H VBG pH VBG HCO3 43 H Carbon Dioxide Anion Gap POC Glucose 147 H Random Glucose Total Protein Urine Protein Urine Glucose (UA) 01/23/23 16:00 MCHC MPV Immature Gran % (Auto) Neut % (Auto) Lymph % (Auto) Abs Immat Gran (auto) Absolute Neuts (auto) ABG pCO2 at Pt Temp ABG pO2 at Pt Temp ABG HCO3 VBG pH VBG HCO3 Carbon Dioxide Anion Gap POC Glucose 130 H Random Glucose Total Protein Urine Protein Urine Glucose (UA) Microbiology: Microbiology 01/21/23 01:13 Blood - Venous Blood Culture - Preliminary No growth after 48 hours. 01/21/23 01:13 Blood - Venous Blood Culture - Preliminary No growth after 48 hours. Diagnostic Findings Chest x-ray: report reviewed and image reviewed Assessment and Plan (1) COPD exacerbation: Status: Acute (2) Obesity hypoventilation syndrome: Status: Acute (3) BASSEM (obstructive sleep apnea): Status: Acute (4) Respiratory failure with hypoxia and hypercapnia: Status: Acute Plan THIS PATIENT WITH MORBID OBESITY, IS A CASE OF BASSEM/ OBESITY REALLY RELATED HYPOVENTILATION SYNDROME. SHE ALSO HAS RESTRICTIVE PULMONARY DISORDER WELL COPD. SHE HAS LONG-STANDING HISTORY OF RESPIRATORY FAILURE. SHE NEEDS TO BE ON BIPAP TREATMENT , PRESSURE SETTING 16-6 CM, FOR 8 HOURS EVERY NIGHT. O2 SUPPLEMENTATION TO KEEP O2 SAT JUST BETWEEN 88-92% IS FINE. SHE WILL DO BETTER WITH DUONEB UPDRAFT TREATMENTS Q 6 HOURS WHILE AWAKE AND ALBUTEROL UPDRAFT ONLY P.R.N.. SHE SHOULD BE ENCOURAGED TO DO DEEP BREATHING EXERCISES WITH PURSED LIP TECHNIQUE. MONITOR VENOUS BLOOD GAS DAILY, HER CHRONIC BASELINE PCO2 IS EXPECTED TO BE IN MID 60S. Time Spent With Patient Time: Total time managing care of this patient today ____ minutes. Procedures Date of Service Date of Service: 01/23/23
[2023-01-23 20:06] LABS: Glucose, Whole Blood 165 mg/dL (60-115)
[2023-01-23] MEDS: Montelukast Sodium 10 MG TABLET PO (20:28)
[2023-01-23] MEDS: Insulin Glargine,Hum.rec.anlog 100 UNIT/ML 10 ML VIAL SUBCUT (20:29)
[2023-01-23] MEDS: rOPINIRole HCL 1 MG TABLET PO (20:29)
[2023-01-23 21:25] LABS: OBS Int Ctl Valid YES; OBS1 NEGATIVE (NEGATIVE)
[2023-01-24] VITALS (9 sets, daily range): BP systolic 137–179; BP diastolic 72–94; PULSE 61–96; RESP 18–20; TEMP 36.1–37; O2SAT 91–100
[2023-01-24] MEDS: methylPREDNISolone Sod Succ 40 MG/ML VIAL IVPUSH ×3 (06:05→20:48)
[2023-01-24] MEDS: Omeprazole 20 MG CAPSULE.DR PO ×2 (06:05→16:28)
[2023-01-24] MEDS: oxyCODONE HCl Immed Release 5 MG TABLET 10 MG PO ×4 (06:18→22:56)
[2023-01-24 07:34] LABS: Glucose, Whole Blood 122 mg/dL (60-115)
[2023-01-24] MEDS: Fluticasone Propionate Nasal 16 GM SPRAY 1 SPRAY NOSTRIL-B ×2 (07:46→20:50)
[2023-01-24] MEDS: Nystatin Powder 15 GM BOTTLE 1 APPL TOPICAL (07:46)
[2023-01-24] MEDS: Cyanocobalamin (Vitamin B-12) 1,000 MCG TABLET 5000 MCG PO (07:47)
[2023-01-24] MEDS: Ascorbic Acid 500 MG TABLET 1000 MG PO (07:48)
[2023-01-24] MEDS: ARIPiprazole 10 MG TABLET PO (07:48)
[2023-01-24] MEDS: carvediloL 25 MG TABLET PO ×2 (07:48→20:49)
[2023-01-24] MEDS: Sacubitril/Valsartan 49/51 1 TAB TABLET PO ×2 (07:48→20:48)
[2023-01-24] MEDS: Atorvastatin Calcium 80 MG TABLET PO (07:48)
[2023-01-24] MEDS: Metoprolol Succinate ER 100 MG TAB.ER.24H 200 MG PO (07:48)
[2023-01-24] MEDS: oxyBUTYnin chloride ER 5 MG TAB.ER.24 10 MG PO (07:49)
[2023-01-24] MEDS: Cholecalciferol (Vitamin D3) 25 MCG TABLET 50 MCG PO (07:49)
[2023-01-24] MEDS: Fenofibrate,Micronized 134 MG CAPSULE PO (07:49)
[2023-01-24] MEDS: Amiodarone HCL 200 MG TABLET 400 MG PO (07:49)
[2023-01-24] MEDS: Torsemide 20 MG TABLET PO (07:50)
[2023-01-24] MEDS: valACYclovir HCL 1,000 MG TABLET 1000 MG PO ×2 (07:50→20:48)
[2023-01-24] MEDS: Multivitamin TABLET 1 TAB PO (07:50)
[2023-01-24] MEDS: Empagliflozin 10 MG TABLET PO (07:50)
[2023-01-24] MEDS: buPROPion HCl XL 150 MG TAB.ER.24H PO (07:50)
[2023-01-24] MEDS: DULoxetine HCl 60 MG CAPSULE.DR PO (07:50)
[2023-01-24] MEDS: Aspirin Enteric Coated 81 MG TABLET.DR PO (07:50)
[2023-01-24] MEDS: Magnesium Oxide 400 MG TABLET PO (07:51)
[2023-01-24] MEDS: Loratadine 10 MG TABLET PO (07:51)
[2023-01-24] MEDS: Nystatin Oral Susp 500,000 UNIT/5 ML ORAL.SUSP 500000 UNIT PO ×3 (07:51→18:31)
[2023-01-24] MEDS: 0.9 % Sodium Chloride Flush 3 ML SYRINGE IVFLUSH ×3 (07:51→20:52)
[2023-01-24] MEDS: Fluticasone Propionate 250 MCG BLST.W.DEV 1 PUFF INHALE ×2 (08:05→19:05)
[2023-01-24] MEDS: Albuterol Sulfate (0.083%) 2.5 MG/3 ML VIAL.NEB INHALE ×3 (08:05→19:05)
[2023-01-24 11:05] LABS: Glucose, Whole Blood 241 mg/dL (60-115)
--- NOTE | 2023-01-24 11:07 | P.DS_ITS ---
DS: Providers Provider Date of Service: 01/24/23 Date of admission: 01/21/23 13:32 Date of discharge: 01/24/23 Primary care physician: Nerissa Sousa NP Consults: 01/23/23 11:54 Consult to Pulmonology Routine Consulting Provider: Wilda William Reason for consultation: bassem, copd, hypoxia, sleepy Has provider been notified: No Attending physician on discharge: Noam Rose Discharging clinician: Merissa Haque DS: Diagnosis Discharge Diagnosis (1) COPD exacerbation: Status: Acute (2) Obesity hypoventilation syndrome: Status: Acute (3) BASSEM (obstructive sleep apnea): Status: Acute (4) Respiratory failure with hypoxia and hypercapnia: Status: Acute DS: Summary Hospital Course Hospital Course: From H&P on day of admission 52-year-old woman presented to the ER with complaints of worsening shortness of breath over the last several days.? She has a history of COPD and reports that she smokes maybe 1-2 cigarettes a day.? She had been previously heavy smoker for over 20 years.? She is on chronic oxygen 2 L via nasal cannula.? Patient denied chest pain, nausea, vomiting, diarrhea, recent travel, sick contacts.? COVID, flu and RSV negative, no overt consolidation on chest x-ray.? Labs all within acceptable limits.? BNP 83, troponin 13.3. VBG 7.27/94/98/44, placed on NIV in the ER with good effect.? Patient now on 2 L via nasal cannula.? She was given IV Solu-Medrol, albuterol, IV Lasix, Reglan, Benadryl, aspirin, Tylenol, oxycodone.? She will be admitted for further management and treatment of acute hypoxic/hypercarbic respiratory failure secondary to COPD exacerbation possible CHF. Acute hypoxic/hypercarbic respiratory failure secondary to COPD exacerbation Placed on NIV in the ER and weaned off. goal o2 saturation around 88-92% No consolidation on chest x-ray much more awake today - likely sedating medications contributing - will start to wean gabapentin seen by pulm - recommend NIV at home. patient will need noninvasive ventilator at home to help with gas exchange and to help improve quality of life recommend outpatient follow up with primary fraud prevention analyst she will be discharged with burst of prednisone Acute on chronic respiratory failure hx of COPD on 2-3 liters baseline oxygen likely multifactorial r/t COPD, BASSEM, and obesity hypoventilation, sedating medications CHF, appears to be diastolic limited echo technically difficult but? EF appears 55-60% Not appear to be in overt failure at this time Continue Entresto and torsemide Rectal bleeding pt reports h/o Crohns dz has intermittent rectal bleeding stool occult negative and CBC stable. recommend outpatient follow up Time Spent with Patient Time attestation: Total time managing care of this patient today ____ minutes. Discharge coordination time: Greater than 30 minutes Quality: Safe Use of Opioids Does Pt have an Active Cancer Diagnosis on the Problem List?: No Quality: Stroke Does the patient have a stroke diagnosis?: No Physical Exam 2 Vital Signs: Vital Signs: Last Vital Signs Temp 97.1 F 01/24/23 07:46 Pulse 95 01/24/23 08:09 Resp 18 01/24/23 08:09 BP 179/85 H 01/24/23 07:46 Pulse Ox 99 01/24/23 07:46 O2 Del Method 01/24/23 07:46 O2 Flow Rate 2.5 01/24/23 07:46 BMI result Body Mass Index 44.4 DS: Data Data Completed and Pending Labs on day of discharge: Laboratory Results - last 24 hr 01/23/23 01/23/23 01/23/23 11:06 11:35 16:00 O2 Saturation 93.0 ABG pH at Pt Temp 7.39 ABG pCO2 at Pt Temp 63 H* ABG pO2 at Pt Temp 87 ABG HCO3 39 H ABG Base Excess (Actual) 11.0 POC Glucose 147 H 130 H Stool Occult Blood 01/23/23 01/23/23 01/24/23 20:01 21:00 07:24 O2 Saturation ABG pH at Pt Temp ABG pCO2 at Pt Temp ABG pO2 at Pt Temp ABG HCO3 ABG Base Excess (Actual) POC Glucose 165 H 122 H Stool Occult Blood NEGATIVE 01/24/23 11:01 O2 Saturation ABG pH at Pt Temp ABG pCO2 at Pt Temp ABG pO2 at Pt Temp ABG HCO3 ABG Base Excess (Actual) POC Glucose 241 H Stool Occult Blood Preliminary micro results at discharge 01/21/23 01:13 Blood Culture - Preliminary Blood - Venous No growth after 48 hours. 01/21/23 01:13 Blood Culture - Preliminary Blood - Venous No growth after 48 hours. Discharge Plan Discharge Anticipated Discharge Date/Time: 01/24/23 13:30 Patient Disposition: Home Health Service Discharge Diagnosis: acute on chronic respiratory failure with hypercarbia and hypoxia Referrals: [facility] [Other] - 1 Week Nerissa Sousa RUBBER OFF [Primary Care Provider] - 1 Week Discharge Medications: New gabapentin 400 mg capsule 400 mg PO TID 30 Days Qty: 90 0RF prednisone 20 mg tablet 40 mg PO DAILY 5 Days Qty: 10 0RF avaps AE See Rx Instructions .ROUTE .COMPLEX Qty: 1 0RF Rx Instructions: [employer] ID #[id number] length of need 99 months or lifetime Diagnosis codes J96.20 & J44.9 Settings epap - 5-15 target rate 15 pressure support 5-25 title volume 3-600 equipment [id number] Patient will need Noninvasive ventilator at home to help with gas exchange and to help improve quality of life Continued atorvastatin 80 mg Tablet 80 mg PO DAILY albuterol sulfate 2.5 mg /3 mL (0.083 %) Solution For Nebulization 2.5 mg INHALATION BID PRN (Reason: Wheezing) aspirin 81 mg Tablet,Delayed Release (Dr/Ec) 81 mg PO DAILY [id number] 50-325-40 mg Tablet 1 tab PO DAILY PRN (Reason: Headache) calcium carbonate 600 mg calcium (1,500 mg) Tablet 600 mg PO BID amiodarone 400 mg Tablet 400 mg PO DAILY ascorbic acid (vitamin C) 250 mg Tablet 1,000 mg PO DAILY aluminum chloride in alcohol 6.25 % Solution 1 appl TOPICAL BEDTIME albuterol sulfate 90 mcg/actuation Hfa Aerosol Inhaler 1 inh INHALATION QID PRN (Reason: Wheezing) aripiprazole [Abilify] 10 mg Tablet 10 mg PO DAILY bupropion HCl 150 mg Tablet Extended Release 24 Hr 150 mg PO QAM carvedilol 25 mg Tablet 25 mg PO BID Rx Instructions: must administer with a meal/food clonazepam 0.5 mg Tablet 0.5 mg PO BID PRN (Reason: Anxiety) clotrimazole 1 % Cream 1 appl TOPICAL BID Rx Instructions: APPLY TO RASH UNDER BREAST dicyclomine 10 mg Capsule 10 mg PO TID PRN (Reason: Spasms) duloxetine 60 mg Capsule,Delayed Release(Dr/Ec) 60 mg PO DAILY diclofenac sodium 1 % Gel 2 g TOPICAL TID Rx Instructions: APPLY TO BILATERAL IT BANDS roflumilast [Daliresp] 500 mcg Tablet 500 mcg PO DAILY dapagliflozin 10 mg Tablet 10 mg PO DAILY cyanocobalamin (vitamin B-12) 2,500 mcg Tablet 5,000 mcg PO DAILY Dupixent Pen 300 mg/2 mL Pen Injector 300 mg SUBCUT Q2W fenofibrate micronized 134 mg Capsule 134 mg PO DAILY hydroxyzine HCl 25 mg Tablet 25 mg PO BID PRN (Reason: Itching) magnesium 250 mg Tablet 500 mg PO DAILY Flovent Diskus 250 mcg/actuation Blister With Device 1 inh INHALATION BID fluticasone propionate 50 mcg/actuation [place],Suspension 1 spray INTRANASAL BID Rx Instructions: administer into each nostril loratadine 10 mg Tablet 10 mg PO DAILY insulin lispro 100 unit/mL Insulin Pen 1 sliding scale dose SUBCUT USEASDIRECTD insulin glargine [Lantus Solostar U-100 Insulin] 100 unit/mL (3 mL) Insulin Pen 5 unit SUBCUT BEDTIME multivitamin Tablet 1 tab PO DAILY nystatin 100,000 unit/mL Suspension 5 ml PO Q6H Rx Instructions: swish and swallow ropinirole 1 mg Tablet 1 - 2 mg PO BEDTIME Rx Instructions: administer 1-3 hours before bedtime oxybutynin chloride 10 mg Tablet Extended Release 24hr 10 mg PO DAILY valacyclovir 1 gram Tablet 1,000 mg PO BID metoprolol succinate 200 mg Tablet Extended Release 24 Hr 200 mg PO DAILY torsemide 10 mg Tablet 20 mg PO DAILY Zyflo 600 mg Tablet 600 mg PO QID oxycodone-acetaminophen 5-325 mg Tablet 1 - 2 tab PO Q4H PRN (Reason: Pain) omeprazole 20 mg Capsule,Delayed Release(Dr/Ec) 20 mg PO BID montelukast 10 mg Tablet 10 mg PO BEDTIME nystatin 100,000 unit/gram Powder 1 appl TOPICAL BID cholecalciferol (vitamin D3) [Vitamin D3] 50 mcg (2,000 unit) Capsule 50 mcg PO DAILY omega [id number] oil [Fish Oil] 1,000 mg (120 mg-180 mg) Capsule 1 cap PO DAILY Trulicity 1.5 mg/0.5 mL Pen Injector 1.5 mg SUBCUT QWEEK tobramycin with nebulizer 300 mg/5 mL Solution For Nebulization 300 mg INHALATION BID Rx Instructions: separate doses by at least 6 hours Entresto 49-51 mg Tablet 1 tab PO BID Changed ipratropium-albuterol 0.5 mg-3 mg(2.5 mg base)/3 mL Solution For Nebulization 3 ml INHALATION .q6h while awake Qty: 90 0RF Held prednisone 1 mg Tablet 3 mg PO DAILY Hold Instructions: resume home dose of prednisone after completing predisone burst Discontinued gabapentin 300 mg Capsule 600 mg PO TID ondansetron 4 mg Tablet,Disintegrating 4 mg PO DAILY PRN (Reason: Nausea And Vomiting) azithromycin 250 mg Tablet 250 mg PO DAILY Rx Instructions: start on day 2 of therapy Discharge Orders: Discharge Order (Routine); Ordered 01/27/23 Ordered By: Lorena Delgado Diet: Advance to usual diet Activity on Discharge: As tolerated Stand Alone Forms: Patient Portal Discharge page Care Plan Goals: Use AVAP as prescribed Health Concerns: acute COPD exacerbation Plan of Treatment: Take prednisone as prescribed Follow up with your primary care provider Assessment: see discharge summary Discharge Date/Time: 01/27/23 12:33
[2023-01-24 11:08] LABS: VBG Base Excess 15.1 mmol/L; VBG HCO3 43 mmol/L (22-26); VBG pCO2 63 mmHg; VBG pH 7.43 (7.32-7.43); VBG pO2 40 mmHg
[2023-01-24 11:09] LABS: Venous Blood Gas Refer to POC result
[2023-01-24] MEDS: Insulin Lispro 100 UNIT/ML 3 ML VIAL SUBCUT ×3 (11:36→20:48)
--- NOTE | 2023-01-24 12:19 | HO.PM.IMPN ---
Subjective Subjective Date of Service: 01/24/23 Interval History: seen and examined this morning follow up for respiratory failure observed sitting up in bed, awake and alert feeling much better today asking for changing pain meds back to q4h Review of Systems Review of Systems: Yes all other systems are reviewed and are negative Constitutional Constitutional: Denies chills and Denies fever(s) Cardiovascular Cardiovascular: Denies chest pain, Denies palpitations and Denies dyspnea Respiratory Respiratory: Denies dyspnea Gastrointestinal Gastrointestinal: Denies abdominal pain Endocrine Endocrine: Denies palpitations Physical Exam Vital Signs: Vital Signs: Last Vital Signs Temp 97.0 F 01/24/23 11:57 Pulse 67 01/24/23 11:57 Resp 20 01/24/23 11:57 BP 167/72 H 01/24/23 11:57 Pulse Ox 93 01/24/23 11:57 O2 Del Method 01/24/23 11:57 O2 Flow Rate 2 01/24/23 11:57 BMI result Body Mass Index 44.4 Const: General: cooperative, comfortable, no acute distress, alert and awake Nutritional Appearance: obese Orientation/consciousness: patient oriented x3 Resp: Other: diminished breath sounds Effort & Inspection: normal respiratory effort, able to speak in complete sentences, no respiratory distress and no use of accessory muscles Cardio: Rate: regular rate Heart sounds: S1 normal heart sound present and S2 normal heart sound present GI: Inspection: No distended and Yes obesity Palpation (GI): Soft to palpation and nontender Neuro: General: patient oriented x3 and CN's II-XI intact bilaterally Extrem: General: Yes no pedal edema Objective Data Active Medications Acetaminophen (Acetaminophen 325 Mg Tablet) 650 mg PO Q6H PRN PRN Reason: Pain, Mild (Pain Scale 1-3) Last Admin: 01/23/23 01:35 Dose: 650 mg Documented By: JOANA Acetaminophen/Butalbital/Caffeine (Butalb/Acetamin/Caff 50/325/40 Tablet) 1 tab PO DAILY PRN PRN Reason: Headache Last Admin: 01/22/23 16:48 Dose: 1 tab Documented By: FUNMILAYO Albuterol Sulfate (Albuterol Sulfate (0.083%) 2.5 Mg/3 Ml Vial.Neb) 2.5 mg INHALE RQ4H WHILE AWAKE BRYAN Last Admin: 01/24/23 11:47 Dose: 2.5 mg Documented By: SIMONA Amiodarone HCl (Amiodarone Hcl 200 Mg Tablet) 400 mg PO DAILY ON LICENSE OF [facility] Last Admin: 01/24/23 07:49 Dose: 400 mg Documented By: ANA PAULA Aripiprazole (Aripiprazole 10 Mg Tablet) 10 mg PO DAILY ON LICENSE OF [facility] Last Admin: 01/24/23 07:48 Dose: 10 mg Documented By: ANA PAULA Ascorbic Acid (Ascorbic Acid 500 Mg Tablet) 1,000 mg PO DAILY ON LICENSE OF [facility] Last Admin: 01/24/23 07:48 Dose: 1,000 mg Documented By: ANA PAULA Aspirin (Aspirin Enteric Coated 81 Mg Tablet.) 81 mg PO DAILY ON LICENSE OF [facility] Last Admin: 01/24/23 07:50 Dose: 81 mg Documented By: ANA PAULA Atorvastatin Calcium (Atorvastatin Calcium 80 Mg Tablet) 80 mg PO DAILY ON LICENSE OF [facility] Last Admin: 01/24/23 07:48 Dose: 80 mg Documented By: ANA PAULA Benzonatate (Benzonatate 100 Mg Capsule) 100 mg PO TID PRN PRN Reason: Cough Bupropion HCl (Bupropion Hcl Xl 150 Mg Tab.Er.24h) 150 mg PO DAILY ON LICENSE OF [facility] Last Admin: 01/24/23 07:50 Dose: 150 mg Documented By: ANA PAULA Calcium Carbonate (Calcium Carbonate 500 Mg Tablet) 500 mg PO BID ON LICENSE OF [facility] Last Admin: 01/24/23 07:51 Dose: 500 mg Documented By: ANA PAULA Carvedilol (Carvedilol 25 Mg Tablet) 25 mg PO BID ON LICENSE OF [facility]; Protocol Last Admin: 01/24/23 07:48 Dose: 25 mg Documented By: ANA PAULA Clonazepam (Clonazepam 0.5 Mg Tablet) 0.5 mg PO BID PRN PRN Reason: Anxiety Last Admin: 01/22/23 12:37 Dose: 0.5 mg Documented By: BRYCE Cyanocobalamin (Cyanocobalamin (Vitamin B-12) 1,000 Mcg Tablet) 5,000 mcg PO DAILY ON LICENSE OF [facility] Last Admin: 01/24/23 07:47 Dose: 5,000 mcg Documented By: ANA PAULA Dextrose (Dextrose 50 % 25 Gm/50 Ml Vial) 25 gm IVPUSH Q15M PRN; Protocol PRN Reason: per Hypoglycemia Standing Ord. Dicyclomine HCl (Dicyclomine Hcl 10 Mg Capsule) 10 mg PO TID PRN PRN Reason: Spasms Last Admin: 01/22/23 11:50 Dose: 10 mg Documented By: TONNY Duloxetine HCl (Duloxetine Hcl 60 Mg Capsule.Dr) 60 mg PO DAILY ON LICENSE OF [facility] Last Admin: 01/24/23 07:50 Dose: 60 mg Documented By: ANA PAULA Empagliflozin (Empagliflozin 10 Mg Tablet) 10 mg PO DAILY ON LICENSE OF [facility] Last Admin: 01/24/23 07:50 Dose: 10 mg Documented By: ANA PAULA Enoxaparin Sodium (Enoxaparin Sodium 40 Mg/0.4 Ml Syringe) 40 mg SUBCUT Q24H ON LICENSE OF [facility] Last Admin: 01/23/23 14:29 Dose: 40 mg Documented By: DEEP Fenofibrate (Fenofibrate,Micronized 134 Mg Capsule) 134 mg PO DAILY ON LICENSE OF [facility] Last Admin: 01/24/23 07:49 Dose: 134 mg Documented By: ANA PAULA Fluticasone Propionate (Fluticasone Propionate 250 Mcg Blst.W.Dev) 1 puff INHALE RBID ON LICENSE OF [facility] Last Admin: 01/24/23 08:05 Dose: 1 puff Documented By: SIMONA Fluticasone Propionate (Fluticasone Propionate Nasal 16 Gm [place]) 1 spray NOSTRIL-B BID ON LICENSE OF [facility] Last Admin: 01/24/23 07:46 Dose: 1 spray Documented By: ANA PAULA Gabapentin (Gabapentin 300 Mg Capsule) 600 mg PO TID ON LICENSE OF [facility] Last Admin: 01/23/23 14:28 Dose: 600 mg Documented By: DEEP Glucose (Glucose Gel 15 Gm Gel..Gram.) 15 gm PO Q15M PRN; Protocol PRN Reason: per Hypoglycemia Standing Ord. Hydroxyzine HCl (Hydroxyzine Hcl 25 Mg Tablet) 25 mg PO BID PRN PRN Reason: Itching Insulin Glargine (Insulin Glargine,Hum.Rec.Anlog 100 Unit/Ml 10 Ml Vial) 5 unit SUBCUT BEDTIME ON LICENSE OF [facility] Last Admin: 01/23/23 20:29 Dose: 5 unit Documented By: MACKENZIE Insulin Human Lispro (Insulin Lispro 100 Unit/Ml 3 Ml Vial) 0 unit SUBCUT QIDACHS ON LICENSE OF [facility]; Protocol Last Admin: 01/24/23 11:36 Dose: 4 unit Documented By: BIA Loratadine (Loratadine 10 Mg Tablet) 10 mg PO DAILY ON LICENSE OF [facility] Last Admin: 01/24/23 07:51 Dose: 10 mg Documented By: ANA PAULA Magnesium Oxide (Magnesium Oxide 400 Mg Tablet) 400 mg PO DAILY ON LICENSE OF [facility] Last Admin: 01/24/23 07:51 Dose: 400 mg Documented By: ANA PAULA Methylprednisolone Sodium Succinate (Methylprednisolone Sod Succ 40 Mg/Ml Vial) 40 mg IVPUSH Q8H ON LICENSE OF [facility] Last Admin: 01/24/23 06:05 Dose: 40 mg Documented By: JOANA Metoprolol Succinate (Metoprolol Succinate Er 100 Mg Tab.Er.24h) 200 mg PO DAILY ON LICENSE OF [facility]; Protocol Last Admin: 01/24/23 07:48 Dose: 200 mg Documented By: ANA PAULA Montelukast Sodium (Montelukast Sodium 10 Mg Tablet) 10 mg PO BEDTIME ON LICENSE OF [facility] Last Admin: 01/23/23 20:28 Dose: 10 mg Documented By: MACKENZIE Multivitamins/Vitamin C (Multivitamin Tablet) 1 tab PO DAILY ON LICENSE OF [facility] Last Admin: 01/24/23 07:50 Dose: 1 tab Documented By: ANA PAULA Non-Formulary Medication (Roflumilast [Daliresp]) 500 mcg PO DAILY ON LICENSE OF [facility] Nystatin (Nystatin Powder 15 Gm Bottle) 1 appl TOPICAL BID ON LICENSE OF [facility]; Protocol Last Admin: 01/24/23 07:46 Dose: 1 appl Documented By: ANA PAULA Nystatin (Nystatin Oral Susp 500,000 Unit/5 Ml Oral.Susp) 500,000 unit PO Q6H ON LICENSE OF [facility]; Protocol Last Admin: 01/24/23 07:51 Dose: 500,000 unit Documented By: ANA PAULA Omeprazole (Omeprazole 20 Mg Capsule.Dr) 20 mg PO BID@0630,1630 ON LICENSE OF [facility] Last Admin: 01/24/23 06:05 Dose: 20 mg Documented By: JOANA Ondansetron HCl (Ondansetron Hcl 4 Mg/2 Ml Vial) 4 mg IVPUSH Q8H PRN PRN Reason: Nausea and Vomiting Last Admin: 01/23/23 08:55 Dose: 4 mg Documented By: ANA PAULA Oxybutynin Chloride (Oxybutynin Chloride Er 5 Mg Tab.Er.24) 10 mg PO DAILY ON LICENSE OF [facility] Last Admin: 01/24/23 07:49 Dose: 10 mg Documented By: ANA PAULA Oxycodone HCl (Oxycodone Hcl Immed Release 5 Mg Tablet) 10 mg PO Q6H PRN PRN Reason: Pain, Severe (Pain Scale 7-10) Last Admin: 01/24/23 12:10 Dose: 10 mg Documented By: ANA PAULA Pharmacy Consult (Consult Rx Perform Med Rec) 1 each MISCELLANE ONCE PRN PRN Reason: Consult order Ropinirole HCl (Ropinirole Hcl 1 Mg Tablet) 1 - 2 mg PO BEDTIME ON LICENSE OF [facility] Last Admin: 01/23/23 20:29 Dose: 1 mg Documented By: MACKENZIE Sacubitril/Valsartan (Sacubitril/Valsartan 1 Tab Tablet) 1 tab PO BID ON LICENSE OF [facility]; Protocol Last Admin: 01/24/23 07:48 Dose: 1 tab Documented By: ANA PAULA Sodium Chloride (0.9 % Sodium Chloride Flush 3 Ml Syringe) [facility] Last Admin: 01/24/23 07:51 Dose: 3 ml Documented By: ANA PAULA Torsemide (Torsemide 20 Mg Tablet) 20 mg PO DAILY ON LICENSE OF [facility]; Protocol Last Admin: 01/24/23 07:50 Dose: 20 mg Documented By: ANA PAULA Valacyclovir HCl (Valacyclovir Hcl 1,000 Mg Tablet) 1,000 mg PO BID ON LICENSE OF [facility] Last Admin: 01/24/23 07:50 Dose: 1,000 mg Documented By: ANA PAULA Vitamin D (Cholecalciferol (Vitamin D3) 25 Mcg Tablet) 50 mcg PO DAILY ON LICENSE OF [facility] Last Admin: 01/24/23 07:49 Dose: 50 mcg Documented By: ANA PAULA Labs 01/23/23 09:28 01/22/23 04:41 Labs: Laboratory Results - last 24 hr 01/23/23 01/23/23 01/23/23 16:00 20:01 21:00 VBG pH VBG pCO2 VBG pO2 VBG HCO3 VBG O2 Saturation VBG Base Excess POC Glucose 130 H 165 H Stool Occult Blood NEGATIVE 01/24/23 01/24/23 01/24/23 07:24 11:00 11:01 VBG pH 7.43 VBG pCO2 63 VBG pO2 40 VBG HCO3 43 H VBG O2 Saturation 56.0 VBG Base Excess 15.1 POC Glucose 122 H 241 H Stool Occult Blood Assessment and Plan (1) Respiratory failure with hypoxia and hypercapnia: Status: Acute (2) BASSEM (obstructive sleep apnea): Status: Acute (3) COPD exacerbation: Status: Acute (4) Obesity hypoventilation syndrome: Status: Acute Plan 52 year old women admitted with acute respiratory failure sec to COPD exacerbation Acute hypoxic/hypercarbic respiratory failure secondary to COPD exacerbation Placed on BiPAP in the ER and weaned off. ABG 7.8/64/61/38 Now on 4 L of nasal cannula - hypoxia with o2 sat 85-88%; goal o2 saturation around 88-92%- avoid over-oxygenating to prevent co2 retention Continue schedule steroids, DuoNebs every 4 hours while awake Cough suppressant as needed No consolidation on chest x-ray much more awake today - likely sedating medications contributing - will start to wean gabapentin seen by pulm - recommend bipap at home, will eval if pt qualifies for avaps prior to discharge outpatient follow up with primary medical office asst Acute on chronic respiratory failure hx of COPD on 2-3 liters baseline oxygen likely multifactorial r/t COPD, BASSEM, and obesity hypoventilation, sedating medications CHF, appears to be diastolic limited echo technically difficult but EF appears 55-60% Not appear to be in overt failure at this time Continue Entresto and torsemide Rectal bleeding pt reports h/o Crohns dz has intermittent rectal bleeding stool occult negative CBC stable Diabetes ss, ada diet HLD statin BASSEM not complaint at home continue cpap for inpatient Mental health continue home medications Morbid obesity. BMI 44.4 Discussed importance of weight management as this may be contributing to worsening of other comorbidities DVT prophylaxis with Lovenox attending Dr. Rose Full code continued hospital stay for treatment of acute on chronic respiratory failure required BiPAP, close monitoring, IV steroids and scheduled DuoNebs Time Spent With Patient Time: Total time managing care of this patient today ____ minutes. Quality Stroke Does the patient have a stroke diagnosis?: No VTE Prior VTE?: No VTE Risk Level:: Medical - moderate - high VTE Device Contraindication: Treatment Not Indicated VTE Drug Contraindication: N/A - Med Ordered
[2023-01-24] MEDS: Enoxaparin Sodium 40 MG/0.4 ML SYRINGE SUBCUT (13:49)
[2023-01-24] MEDS: Gabapentin 400 MG CAPSULE PO ×2 (16:28→20:48)
[2023-01-24 16:53] LABS: Glucose, Whole Blood 151 mg/dL (60-115)
[2023-01-24 20:14] LABS: Glucose, Whole Blood 225 mg/dL (60-115)
[2023-01-24] MEDS: Insulin Glargine,Hum.rec.anlog 100 UNIT/ML 10 ML VIAL SUBCUT (20:48)
[2023-01-24] MEDS: rOPINIRole HCL 1 MG TABLET PO (20:48)
[2023-01-24] MEDS: Montelukast Sodium 10 MG TABLET PO (20:49)
[2023-01-25] VITALS (10 sets, daily range): BP systolic 139–182; BP diastolic 80–98; PULSE 63–78; RESP 15–20; TEMP 36.1–36.4; O2SAT 93–98
[2023-01-25] MEDS: Nystatin Oral Susp 500,000 UNIT/5 ML ORAL.SUSP 500000 UNIT PO ×4 (00:48→20:54)
[2023-01-25] MEDS: Acetaminophen 325 MG TABLET 650 MG PO (00:48)
[2023-01-25] MEDS: oxyCODONE HCl Immed Release 5 MG TABLET 10 MG PO ×5 (03:34→20:55)
[2023-01-25] MEDS: Butalb/Acetamin/Caff 50/325/40 TABLET 1 TAB PO (05:10)
[2023-01-25] MEDS: Omeprazole 20 MG CAPSULE.DR PO ×2 (05:10→16:01)
[2023-01-25] MEDS: methylPREDNISolone Sod Succ 40 MG/ML VIAL IVPUSH ×3 (05:11→20:54)
[2023-01-25] MEDS: Fluticasone Propionate 250 MCG BLST.W.DEV 1 PUFF INHALE ×2 (07:36→19:21)
[2023-01-25] MEDS: Albuterol Sulfate (0.083%) 2.5 MG/3 ML VIAL.NEB INHALE ×4 (07:36→19:17)
[2023-01-25] MEDS: Magnesium Oxide 400 MG TABLET PO (07:46)
[2023-01-25] MEDS: ARIPiprazole 10 MG TABLET PO (07:46)
[2023-01-25] MEDS: Cyanocobalamin (Vitamin B-12) 1,000 MCG TABLET 5000 MCG PO (07:46)
[2023-01-25] MEDS: Multivitamin TABLET 1 TAB PO (07:46)
[2023-01-25] MEDS: DULoxetine HCl 60 MG CAPSULE.DR PO (07:46)
[2023-01-25] MEDS: Loratadine 10 MG TABLET PO (07:47)
[2023-01-25] MEDS: Amiodarone HCL 200 MG TABLET 400 MG PO (07:47)
[2023-01-25] MEDS: Atorvastatin Calcium 80 MG TABLET PO (07:47)
[2023-01-25] MEDS: Torsemide 20 MG TABLET PO (07:47)
[2023-01-25] MEDS: Metoprolol Succinate ER 100 MG TAB.ER.24H 200 MG PO (07:47)
[2023-01-25] MEDS: Fenofibrate,Micronized 134 MG CAPSULE PO (07:47)
[2023-01-25] MEDS: Aspirin Enteric Coated 81 MG TABLET.DR PO (07:48)
[2023-01-25] MEDS: valACYclovir HCL 1,000 MG TABLET 1000 MG PO ×2 (07:48→20:56)
[2023-01-25] MEDS: Sacubitril/Valsartan 49/51 1 TAB TABLET PO ×2 (07:48→20:56)
[2023-01-25] MEDS: oxyBUTYnin chloride ER 5 MG TAB.ER.24 10 MG PO (07:48)
[2023-01-25] MEDS: Cholecalciferol (Vitamin D3) 25 MCG TABLET 50 MCG PO (07:48)
[2023-01-25] MEDS: Empagliflozin 10 MG TABLET PO (07:49)
[2023-01-25] MEDS: Gabapentin 400 MG CAPSULE PO (07:49)
[2023-01-25] MEDS: buPROPion HCl XL 150 MG TAB.ER.24H PO (07:49)
[2023-01-25] MEDS: carvediloL 25 MG TABLET PO ×2 (07:49→20:55)
[2023-01-25 07:52] LABS: Glucose, Whole Blood 233 mg/dL (60-115)
[2023-01-25] MEDS: Nystatin Powder 15 GM BOTTLE 1 APPL TOPICAL (08:06)
[2023-01-25] MEDS: Insulin Lispro 100 UNIT/ML 3 ML VIAL SUBCUT ×4 (08:06→20:57)
[2023-01-25] MEDS: 0.9 % Sodium Chloride Flush 3 ML SYRINGE IVFLUSH ×3 (08:26→20:58)
[2023-01-25] MEDS: Ascorbic Acid 500 MG TABLET 1000 MG PO (09:02)
--- NOTE | 2023-01-25 10:37 | HO.PM.IMPN ---
Subjective Subjective Date of Service: 01/25/23 Interval History: seen and examined this morning follow up for respiratory failure observed sitting up in bed, awake and alert feeling much better today Review of Systems Review of Systems: Yes all other systems are reviewed and are negative Constitutional Constitutional: Denies chills and Denies fever(s) Cardiovascular Cardiovascular: Denies chest pain, Denies palpitations and Denies dyspnea Respiratory Respiratory: Denies dyspnea Gastrointestinal Gastrointestinal: Denies abdominal pain Endocrine Endocrine: Denies palpitations Physical Exam Vital Signs: Vital Signs: Last Vital Signs Temp 97.6 F 01/25/23 07:14 Pulse 69 01/25/23 07:37 Resp 16 01/25/23 07:37 BP 174/82 H 01/25/23 07:14 Pulse Ox 95 01/25/23 07:14 O2 Del Method 01/25/23 07:14 O2 Flow Rate 3 01/25/23 07:14 BMI result Body Mass Index 44.4 Appearing in no acute distress lung sounds are clear to auscultation heart regular rate rhythm, clear S1, S2 positive bowel sounds, abdomen is soft, nontender neuro patient is alert x3, no focal deficits Objective Data Active Medications Acetaminophen (Acetaminophen 325 Mg Tablet) 650 mg PO Q6H PRN PRN Reason: Pain, Mild (Pain Scale 1-3) Last Admin: 01/25/23 00:48 Dose: 650 mg Documented By: JOSE Acetaminophen/Butalbital/Caffeine (Butalb/Acetamin/Caff 50/325/40 Tablet) 1 tab PO DAILY PRN PRN Reason: Headache Last Admin: 01/25/23 05:10 Dose: 1 tab Documented By: JOSE Albuterol Sulfate (Albuterol Sulfate (0.083%) 2.5 Mg/3 Ml Vial.Neb) 2.5 mg INHALE RQ4H WHILE AWAKE [facility] Last Admin: 01/25/23 07:36 Dose: 2.5 mg Documented By: ALISHA Amiodarone HCl (Amiodarone Hcl 200 Mg Tablet) 400 mg PO DAILY [facility] Last Admin: 01/25/23 07:47 Dose: 400 mg Documented By: JOSEPHINE Aripiprazole (Aripiprazole 10 Mg Tablet) 10 mg PO DAILY [facility] Last Admin: 01/25/23 07:46 Dose: 10 mg Documented By: JOSEPHINE Ascorbic Acid (Ascorbic Acid 500 Mg Tablet) 1,000 mg PO DAILY [facility] Last Admin: 01/24/23 07:48 Dose: 1,000 mg Documented By: ANA PAULA Aspirin (Aspirin Enteric Coated 81 Mg Tablet.) 81 mg PO DAILY [facility] Last Admin: 01/25/23 07:48 Dose: 81 mg Documented By: JOSEPHINE Atorvastatin Calcium (Atorvastatin Calcium 80 Mg Tablet) 80 mg PO DAILY [facility] Last Admin: 01/25/23 07:47 Dose: 80 mg Documented By: JOSEPHINE Benzonatate (Benzonatate 100 Mg Capsule) 100 mg PO TID PRN PRN Reason: Cough Bupropion HCl (Bupropion Hcl Xl 150 Mg Tab.Er.24h) 150 mg PO DAILY [facility] Last Admin: 01/25/23 07:49 Dose: 150 mg Documented By: JOSEPHINE Calcium Carbonate (Calcium Carbonate 500 Mg Tablet) 500 mg PO BID [facility] Last Admin: 01/25/23 07:47 Dose: 500 mg Documented By: JOSEPHINE Carvedilol (Carvedilol 25 Mg Tablet) 25 mg PO BID [facility]; Protocol Last Admin: 01/25/23 07:49 Dose: 25 mg Documented By: JOSEPHINE Clonazepam (Clonazepam 0.5 Mg Tablet) 0.5 mg PO BID PRN PRN Reason: Anxiety Last Admin: 01/22/23 12:37 Dose: 0.5 mg Documented By: BRYCE Cyanocobalamin (Cyanocobalamin (Vitamin B-12) 1,000 Mcg Tablet) 5,000 mcg PO DAILY [facility] Last Admin: 01/25/23 07:46 Dose: 5,000 mcg Documented By: JOSEPHINE Dextrose (Dextrose 50 % 25 Gm/50 Ml Vial) 25 gm IVPUSH Q15M PRN; Protocol PRN Reason: per Hypoglycemia Standing Ord. Dicyclomine HCl (Dicyclomine Hcl 10 Mg Capsule) 10 mg PO TID PRN PRN Reason: Spasms Last Admin: 01/22/23 11:50 Dose: 10 mg Documented By: TONNY Duloxetine HCl (Duloxetine Hcl 60 Mg Capsule.) 60 mg PO DAILY [facility] Last Admin: 01/25/23 07:46 Dose: 60 mg Documented By: JOSEPHINE Empagliflozin (Empagliflozin 10 Mg Tablet) 10 mg PO DAILY [facility] Last Admin: 01/25/23 07:49 Dose: 10 mg Documented By: JOSEPHINE Enoxaparin Sodium (Enoxaparin Sodium 40 Mg/0.4 Ml Syringe) 40 mg SUBCUT Q24H [facility] Last Admin: 01/24/23 13:49 Dose: 40 mg Documented By: BIA Fenofibrate (Fenofibrate,Micronized 134 Mg Capsule) 134 mg PO DAILY [facility] Last Admin: 01/25/23 07:47 Dose: 134 mg Documented By: JOSEPHINE Fluticasone Propionate (Fluticasone Propionate 250 Mcg Blst.W.Dev) 1 puff INHALE RBID [facility] Last Admin: 01/25/23 07:36 Dose: 1 puff Documented By: ALISHA Fluticasone Propionate (Fluticasone Propionate Nasal 16 Gm [place]) 1 spray NOSTRIL-B BID [facility] Last Admin: 01/24/23 20:50 Dose: 1 spray Documented By: JOSE Gabapentin (Gabapentin 400 Mg Capsule) 400 mg PO TID [facility] Last Admin: 01/25/23 07:49 Dose: 400 mg Documented By: JOSEPHINE Glucose (Glucose Gel 15 Gm Gel..Gram.) 15 gm PO Q15M PRN; Protocol PRN Reason: per Hypoglycemia Standing Ord. Hydroxyzine HCl (Hydroxyzine Hcl 25 Mg Tablet) 25 mg PO BID PRN PRN Reason: Itching Insulin Glargine (Insulin Glargine,Hum.Rec.Anlog 100 Unit/Ml 10 Ml Vial) 5 unit SUBCUT BEDTIME [facility] Last Admin: 01/24/23 20:48 Dose: 5 unit Documented By: JOSE Insulin Human Lispro (Insulin Lispro 100 Unit/Ml 3 Ml Vial) 0 unit SUBCUT QIDACHS [facility]; Protocol Last Admin: 01/25/23 08:06 Dose: 4 unit Documented By: JOSEPHINE Loratadine (Loratadine 10 Mg Tablet) 10 mg PO DAILY [facility] Last Admin: 01/25/23 07:47 Dose: 10 mg Documented By: JOSEPHINE Magnesium Oxide (Magnesium Oxide 400 Mg Tablet) 400 mg PO DAILY [facility] Last Admin: 01/25/23 07:46 Dose: 400 mg Documented By: JOSEPHINE Methylprednisolone Sodium Succinate (Methylprednisolone Sod Succ 40 Mg/Ml Vial) 40 mg IVPUSH Q8H [facility] Last Admin: 01/25/23 05:11 Dose: 40 mg Documented By: JOSE Metoprolol Succinate (Metoprolol Succinate Er 100 Mg Tab.Er.24h) 200 mg PO DAILY [facility]; Protocol Last Admin: 01/25/23 07:47 Dose: 200 mg Documented By: JOSEPHINE Montelukast Sodium (Montelukast Sodium 10 Mg Tablet) 10 mg PO BEDTIME [facility] Last Admin: 01/24/23 20:49 Dose: 10 mg Documented By: JOSE Multivitamins/Vitamin C (Multivitamin Tablet) 1 tab PO DAILY [facility] Last Admin: 01/25/23 07:46 Dose: 1 tab Documented By: JOSEPHINE Non-Formulary Medication (Roflumilast [Daliresp]) 500 mcg PO DAILY [facility] Nystatin (Nystatin Powder 15 Gm Bottle) 1 appl TOPICAL BID [facility]; Protocol Last Admin: 01/25/23 08:06 Dose: 1 appl Documented By: JOSEPHINE Nystatin (Nystatin Oral Susp 500,000 Unit/5 Ml Oral.Susp) 500,000 unit PO Q6H [facility]; Protocol Last Admin: 01/25/23 08:26 Dose: 500,000 unit Documented By: JOSEPHINE Omeprazole (Omeprazole 20 Mg Capsule.Dr) 20 mg PO BID@0630,1630 [facility] Last Admin: 01/25/23 05:10 Dose: 20 mg Documented By: JOSE Ondansetron HCl (Ondansetron Hcl 4 Mg/2 Ml Vial) 4 mg IVPUSH Q8H PRN PRN Reason: Nausea and Vomiting Last Admin: 01/23/23 08:55 Dose: 4 mg Documented By: ANA PAULA Oxybutynin Chloride (Oxybutynin Chloride Er 5 Mg Tab.Er.24) 10 mg PO DAILY [facility] Last Admin: 01/25/23 07:48 Dose: 10 mg Documented By: JOSEPHINE Oxycodone HCl (Oxycodone Hcl Immed Release 5 Mg Tablet) 10 mg PO Q4H PRN PRN Reason: Pain, Severe (Pain Scale 7-10) Last Admin: 01/25/23 07:49 Dose: 10 mg Documented By: JOSEPHINE Pharmacy Consult (Consult Rx Perform Med Rec) 1 each MISCELLANE ONCE PRN PRN Reason: Consult order Ropinirole HCl (Ropinirole Hcl 1 Mg Tablet) 1 - 2 mg PO BEDTIME [facility] Last Admin: 01/24/23 20:48 Dose: 1 mg Documented By: JOSE Sacubitril/Valsartan (Sacubitril/Valsartan 49/51 1 Tab Tablet) 1 tab PO BID [facility]; Protocol Last Admin: 01/25/23 07:48 Dose: 1 tab Documented By: JOSEPHINE Sodium Chloride (0.9 % Sodium Chloride Flush 3 Ml Syringe) 3 ml IVFLUSH QSHIFT [facility] Last Admin: 01/25/23 08:26 Dose: 3 ml Documented By: JOSEPHINE Torsemide (Torsemide 20 Mg Tablet) 20 mg PO DAILY [facility]; Protocol Last Admin: 01/25/23 07:47 Dose: 20 mg Documented By: JOSEPHINE Valacyclovir HCl (Valacyclovir Hcl 1,000 Mg Tablet) 1,000 mg PO BID [facility] Last Admin: 01/25/23 07:48 Dose: 1,000 mg Documented By: JOSEPHINE Vitamin D (Cholecalciferol (Vitamin D3) 25 Mcg Tablet) 50 mcg PO DAILY [facility] Last Admin: 01/25/23 07:48 Dose: 50 mcg Documented By: JOSEPHINE Labs 01/23/23 09:28 01/22/23 04:41 Labs: Laboratory Results - last 24 hr 01/24/23 01/24/23 01/24/23 11:00 11:01 15:24 VBG pH 7.43 VBG pCO2 63 VBG pO2 40 VBG HCO3 43 H VBG O2 Saturation 56.0 VBG Base Excess 15.1 POC Glucose 241 H 151 H 01/24/23 01/25/23 20:10 07:16 VBG pH VBG pCO2 VBG pO2 VBG HCO3 VBG O2 Saturation VBG Base Excess POC Glucose 225 H 233 H Assessment and Plan (1) Respiratory failure with hypoxia and hypercapnia: Status: Acute (2) BASSEM (obstructive sleep apnea): Status: Acute (3) COPD exacerbation: Status: Acute (4) Obesity hypoventilation syndrome: Status: Acute Plan 52 year old women admitted with acute respiratory failure sec to COPD exacerbation Acute hypoxic/hypercarbic respiratory failure secondary to COPD exacerbation Placed on BiPAP in the ER and weaned off. 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 Acute on chronic respiratory failure hx of COPD on 2-3 liters baseline oxygen likely multifactorial r/t COPD, BASSEM, and obesity hypoventilation, sedating medications CHF, appears to be diastolic limited echo technically difficult but EF appears 55-60% Not appear to be in overt failure at this time Continue Entresto and torsemide Rectal bleeding pt reports h/o Crohns dz has intermittent rectal bleeding stool occult negative CBC stable Diabetes ss, ada diet HLD statin BASSEM not complaint at home continue cpap for inpatient waiting for [facility] [place] to deliver AVAP to home, possibly Friday Mental health continue home medications Fibromyalgia Currently tapering gabapentin, 300 mg TID Morbid obesity. BMI 44.4 Discussed importance of weight management as this may be contributing to worsening of other comorbidities DVT prophylaxis with Lovenox attending Dr. Gutierrez Full code continued hospital stay for treatment of acute on chronic respiratory failure required BiPAP, close monitoring, IV steroids and scheduled DuoNebs Time Spent With Patient Time: Total time managing care of this patient today ____ minutes. Quality Stroke Does the patient have a stroke diagnosis?: No VTE Prior VTE?: No VTE Risk Level:: Medical - moderate - high VTE Device Contraindication: Treatment Not Indicated VTE Drug Contraindication: N/A - Med Ordered
[2023-01-25 11:30] LABS: Glucose, Whole Blood 171 mg/dL (60-115)
[2023-01-25] MEDS: Fluticasone Propionate Nasal 16 GM SPRAY 1 SPRAY NOSTRIL-B ×2 (12:33→20:58)
[2023-01-25] MEDS: Enoxaparin Sodium 40 MG/0.4 ML SYRINGE SUBCUT (12:38)
[2023-01-25] MEDS: Gabapentin 300 MG CAPSULE PO ×2 (16:01→22:42)
[2023-01-25 16:58] LABS: Glucose, Whole Blood 157 mg/dL (60-115)
[2023-01-25 20:52] LABS: Glucose, Whole Blood 191 mg/dL (60-115)
[2023-01-25] MEDS: Montelukast Sodium 10 MG TABLET PO (20:55)
[2023-01-25] MEDS: Insulin Glargine,Hum.rec.anlog 100 UNIT/ML 10 ML VIAL SUBCUT (20:56)
[2023-01-25] MEDS: SUMAtriptan succinate 50 MG TABLET PO (20:56)
[2023-01-25] MEDS: rOPINIRole HCL 1 MG TABLET PO (20:56)
[2023-01-26] VITALS (12 sets, daily range): BP systolic 130–168; BP diastolic 60–94; PULSE 62–82; RESP 16–20; TEMP 36–36.4; O2SAT 92–98
[2023-01-26] MEDS: oxyCODONE HCl Immed Release 5 MG TABLET 10 MG PO ×5 (04:05→21:39)
[2023-01-26] MEDS: Butalb/Acetamin/Caff 50/325/40 TABLET 1 TAB PO ×2 (05:38→22:24)
[2023-01-26] MEDS: Omeprazole 20 MG CAPSULE.DR PO ×2 (05:38→16:09)
[2023-01-26] MEDS: methylPREDNISolone Sod Succ 40 MG/ML VIAL IVPUSH (05:38)
[2023-01-26] MEDS: Albuterol Sulfate (0.083%) 2.5 MG/3 ML VIAL.NEB INHALE ×4 (07:39→19:56)
[2023-01-26] MEDS: Fluticasone Propionate 250 MCG BLST.W.DEV 1 PUFF INHALE ×2 (07:39→19:56)
[2023-01-26 07:45] LABS: Glucose, Whole Blood 160 mg/dL (60-115)
[2023-01-26] MEDS: Insulin Lispro 100 UNIT/ML 3 ML VIAL SUBCUT ×4 (08:34→21:28)
[2023-01-26] MEDS: carvediloL 25 MG TABLET PO ×2 (08:36→21:26)
[2023-01-26] MEDS: Nystatin Oral Susp 500,000 UNIT/5 ML ORAL.SUSP 500000 UNIT PO ×3 (08:36→21:26)
[2023-01-26] MEDS: Cyanocobalamin (Vitamin B-12) 1,000 MCG TABLET 5000 MCG PO (08:36)
[2023-01-26] MEDS: Ascorbic Acid 500 MG TABLET 1000 MG PO (08:36)
[2023-01-26] MEDS: buPROPion HCl XL 150 MG TAB.ER.24H PO (08:36)
[2023-01-26] MEDS: DULoxetine HCl 60 MG CAPSULE.DR PO (08:37)
[2023-01-26] MEDS: Amiodarone HCL 200 MG TABLET 400 MG PO (08:37)
[2023-01-26] MEDS: Cholecalciferol (Vitamin D3) 25 MCG TABLET 50 MCG PO (08:37)
[2023-01-26] MEDS: Fenofibrate,Micronized 134 MG CAPSULE PO (08:37)
[2023-01-26] MEDS: Torsemide 20 MG TABLET PO (08:37)
[2023-01-26] MEDS: ARIPiprazole 10 MG TABLET PO (08:37)
[2023-01-26] MEDS: Multivitamin TABLET 1 TAB PO (08:37)
[2023-01-26] MEDS: Loratadine 10 MG TABLET PO (08:38)
[2023-01-26] MEDS: Empagliflozin 10 MG TABLET PO (08:38)
[2023-01-26] MEDS: Sacubitril/Valsartan 49/51 1 TAB TABLET PO ×2 (08:38→21:26)
[2023-01-26] MEDS: Metoprolol Succinate ER 100 MG TAB.ER.24H 200 MG PO (08:38)
[2023-01-26] MEDS: oxyBUTYnin chloride ER 5 MG TAB.ER.24 10 MG PO (08:38)
[2023-01-26] MEDS: Aspirin Enteric Coated 81 MG TABLET.DR PO (08:38)
[2023-01-26] MEDS: valACYclovir HCL 1,000 MG TABLET 1000 MG PO ×2 (08:38→21:27)
[2023-01-26] MEDS: Atorvastatin Calcium 80 MG TABLET PO (08:38)
[2023-01-26] MEDS: Gabapentin 300 MG CAPSULE PO ×3 (08:39→21:26)
[2023-01-26] MEDS: Nystatin Powder 15 GM BOTTLE 1 APPL TOPICAL (08:39)
[2023-01-26] MEDS: Fluticasone Propionate Nasal 16 GM SPRAY 1 SPRAY NOSTRIL-B ×2 (08:39→21:36)
[2023-01-26] MEDS: Magnesium Oxide 400 MG TABLET PO (08:39)
[2023-01-26] MEDS: 0.9 % Sodium Chloride Flush 3 ML SYRINGE IVFLUSH ×3 (08:39→21:28)
--- NOTE | 2023-01-26 09:40 | P.PNIM_ITS ---
Subjective Subjective Date of Service: 01/26/23 Interval History: seen and examined this morning follow up for respiratory failure observed sitting up in bed, awake and alert feeling much better today Review of Systems Review of Systems: Yes all other systems are reviewed and are negative Constitutional Constitutional: Denies chills and Denies fever(s) Cardiovascular Cardiovascular: Denies chest pain, Denies palpitations and Denies dyspnea Respiratory Respiratory: Denies dyspnea Gastrointestinal Gastrointestinal: Denies abdominal pain Endocrine Endocrine: Denies palpitations Physical Exam Vital Signs: Vital Signs: Last Vital Signs Temp 97.4 F 01/26/23 07:26 Pulse 65 01/26/23 07:40 Resp 18 01/26/23 07:40 BP 150/85 H 01/26/23 07:26 Pulse Ox 95 01/26/23 07:26 O2 Del Method 01/26/23 07:26 O2 Flow Rate 3 01/26/23 07:26 BMI result Body Mass Index 44.4 Appearing in no acute distress lung sound, dim heart regular rate rhythm, clear S1, S2 positive bowel sounds, abdomen is soft, nontender neuro patient is alert x3, no focal deficits Objective Data Active Medications Acetaminophen (Acetaminophen 325 Mg Tablet) 650 mg PO Q6H PRN PRN Reason: Pain, Mild (Pain Scale 1-3) Last Admin: 01/25/23 00:48 Dose: 650 mg Documented By: JOSE Acetaminophen/Butalbital/Caffeine (Butalb/Acetamin/Caff 50/325/40 Tablet) 1 tab PO DAILY PRN PRN Reason: Headache Last Admin: 01/26/23 05:38 Dose: 1 tab Documented By: JOSE Albuterol Sulfate (Albuterol Sulfate (0.083%) 2.5 Mg/3 Ml Vial.Neb) 2.5 mg INHALE RQ4H WHILE AWAKE [facility] Last Admin: 01/26/23 07:39 Dose: 2.5 mg Documented By: ALISHA Amiodarone HCl (Amiodarone Hcl 200 Mg Tablet) 400 mg PO DAILY [facility] Last Admin: 01/26/23 08:37 Dose: 400 mg Documented By: JOSEPHINE Aripiprazole (Aripiprazole 10 Mg Tablet) 10 mg PO DAILY [facility] Last Admin: 01/26/23 08:37 Dose: 10 mg Documented By: JOSEPHINE Ascorbic Acid (Ascorbic Acid 500 Mg Tablet) 1,000 mg PO DAILY [facility] Last Admin: 01/26/23 08:36 Dose: 1,000 mg Documented By: JOSEPHINE Aspirin (Aspirin Enteric Coated 81 Mg Tablet.) 81 mg PO DAILY [facility] Last Admin: 01/26/23 08:38 Dose: 81 mg Documented By: JOSEPHINE Atorvastatin Calcium (Atorvastatin Calcium 80 Mg Tablet) 80 mg PO DAILY [facility] Last Admin: 01/26/23 08:38 Dose: 80 mg Documented By: JOSEPHINE Benzonatate (Benzonatate 100 Mg Capsule) 100 mg PO TID PRN PRN Reason: Cough Bupropion HCl (Bupropion Hcl Xl 150 Mg Tab.Er.24h) 150 mg PO DAILY [facility] Last Admin: 01/26/23 08:36 Dose: 150 mg Documented By: JOSEPHINE Calcium Carbonate (Calcium Carbonate 500 Mg Tablet) 500 mg PO BID [facility] Last Admin: 01/26/23 08:38 Dose: 500 mg Documented By: JOSEPHINE Carvedilol (Carvedilol 25 Mg Tablet) 25 mg PO BID [facility]; Protocol Last Admin: 01/26/23 08:36 Dose: 25 mg Documented By: JOSEPHINE Clonazepam (Clonazepam 0.5 Mg Tablet) 0.5 mg PO BID PRN PRN Reason: Anxiety Last Admin: 01/22/23 12:37 Dose: 0.5 mg Documented By: BRYCE Cyanocobalamin (Cyanocobalamin (Vitamin B-12) 1,000 Mcg Tablet) 5,000 mcg PO DAILY [facility] Last Admin: 01/26/23 08:36 Dose: 5,000 mcg Documented By: JOSEPHINE Dextrose (Dextrose 50 % 25 Gm/50 Ml Vial) 25 gm IVPUSH Q15M PRN; Protocol PRN Reason: per Hypoglycemia Standing Ord. Dicyclomine HCl (Dicyclomine Hcl 10 Mg Capsule) 10 mg PO TID PRN PRN Reason: Spasms Last Admin: 01/22/23 11:50 Dose: 10 mg Documented By: TONNY Duloxetine HCl (Duloxetine Hcl 60 Mg Capsule.) 60 mg PO DAILY [facility] Last Admin: 01/26/23 08:37 Dose: 60 mg Documented By: JOSEPHINE Empagliflozin (Empagliflozin 10 Mg Tablet) 10 mg PO DAILY [facility] Last Admin: 01/26/23 08:38 Dose: 10 mg Documented By: JOSEPHINE Enoxaparin Sodium (Enoxaparin Sodium 40 Mg/0.4 Ml Syringe) 40 mg SUBCUT Q24H [facility] Last Admin: 01/25/23 12:38 Dose: 40 mg Documented By: JOSEPHINE Fenofibrate (Fenofibrate,Micronized 134 Mg Capsule) 134 mg PO DAILY [facility] Last Admin: 01/26/23 08:37 Dose: 134 mg Documented By: JOSEPHINE Fluticasone Propionate (Fluticasone Propionate 250 Mcg Blst.W.Dev) 1 puff INHALE RBID [facility] Last Admin: 01/26/23 07:39 Dose: 1 puff Documented By: ALISHA Fluticasone Propionate (Fluticasone Propionate Nasal 16 Gm [place]) 1 spray NOSTRIL-B BID [facility] Last Admin: 01/26/23 08:39 Dose: 1 spray Documented By: JOSEPHINE Gabapentin (Gabapentin 300 Mg Capsule) 300 mg PO TID [facility] Last Admin: 01/26/23 08:39 Dose: 300 mg Documented By: JOSEPHINE Glucose (Glucose Gel 15 Gm Gel..Gram.) 15 gm PO Q15M PRN; Protocol PRN Reason: per Hypoglycemia Standing Ord. Hydroxyzine HCl (Hydroxyzine Hcl 25 Mg Tablet) 25 mg PO BID PRN PRN Reason: Itching Insulin Glargine (Insulin Glargine,Hum.Rec.Anlog 100 Unit/Ml 10 Ml Vial) 5 unit SUBCUT BEDTIME [facility] Last Admin: 01/25/23 20:56 Dose: 5 unit Documented By: JOSE Insulin Human Lispro (Insulin Lispro 100 Unit/Ml 3 Ml Vial) 0 unit SUBCUT QIDACHS [facility]; Protocol Last Admin: 01/26/23 08:34 Dose: 2 unit Documented By: JOSEPHINE Loratadine (Loratadine 10 Mg Tablet) 10 mg PO DAILY [facility] Last Admin: 01/26/23 08:38 Dose: 10 mg Documented By: JOSEPHINE Magnesium Oxide (Magnesium Oxide 400 Mg Tablet) 400 mg PO DAILY [facility] Last Admin: 01/26/23 08:39 Dose: 400 mg Documented By: JOSEPHINE Methylprednisolone Sodium Succinate (Methylprednisolone Sod Succ 40 Mg/Ml Vial) 40 mg IVPUSH Q8H [facility] Last Admin: 01/26/23 05:38 Dose: 40 mg Documented By: JOSE Metoprolol Succinate (Metoprolol Succinate Er 100 Mg Tab.Er.24h) 200 mg PO DAILY [facility]; Protocol Last Admin: 01/26/23 08:38 Dose: 200 mg Documented By: JOSEPHINE Montelukast Sodium (Montelukast Sodium 10 Mg Tablet) 10 mg PO BEDTIME [facility] Last Admin: 01/25/23 20:55 Dose: 10 mg Documented By: JOSE Multivitamins/Vitamin C (Multivitamin Tablet) 1 tab PO DAILY [facility] Last Admin: 01/26/23 08:37 Dose: 1 tab Documented By: JOSEPHINE Non-Formulary Medication (Roflumilast [Daliresp]) 500 mcg PO DAILY [facility] Nystatin (Nystatin Powder 15 Gm Bottle) 1 appl TOPICAL BID [facility]; Protocol Last Admin: 01/26/23 08:39 Dose: 1 appl Documented By: JOSEPHINE Nystatin (Nystatin Oral Susp 500,000 Unit/5 Ml Oral.Susp) 500,000 unit PO Q6H [facility]; Protocol Last Admin: 01/26/23 08:36 Dose: 500,000 unit Documented By: JOSEPHINE Omeprazole (Omeprazole 20 Mg Capsule.Dr) 20 mg PO BID@0630,1630 [facility] Last Admin: 01/26/23 05:38 Dose: 20 mg Documented By: JOSE Ondansetron HCl (Ondansetron Hcl 4 Mg/2 Ml Vial) 4 mg IVPUSH Q8H PRN PRN Reason: Nausea and Vomiting Last Admin: 01/23/23 08:55 Dose: 4 mg Documented By: ANA PAULA Oxybutynin Chloride (Oxybutynin Chloride Er 5 Mg Tab.Er.24) 10 mg PO DAILY [facility] Last Admin: 01/26/23 08:38 Dose: 10 mg Documented By: JOSEPHINE Oxycodone HCl (Oxycodone Hcl Immed Release 5 Mg Tablet) 10 mg PO Q4H PRN PRN Reason: Pain, Severe (Pain Scale 7-10) Last Admin: 01/26/23 08:50 Dose: 10 mg Documented By: JOSEPHINE Pharmacy Consult (Consult Rx Perform Med Rec) 1 each MISCELLANE ONCE PRN PRN Reason: Consult order Ropinirole HCl (Ropinirole Hcl 1 Mg Tablet) 1 - 2 mg PO BEDTIME [facility] Last Admin: 01/25/23 20:56 Dose: 1 mg Documented By: JOSE Sacubitril/Valsartan (Sacubitril/Valsartan 49/51 1 Tab Tablet) 1 tab PO BID [facility]; Protocol Last Admin: 01/26/23 08:38 Dose: 1 tab Documented By: JOSEPHINE Sodium Chloride (0.9 % Sodium Chloride Flush 3 Ml Syringe) 3 ml IVFLUSH QSHIFT [facility] Last Admin: 01/26/23 08:39 Dose: 3 ml Documented By: JOSEPHINE Torsemide (Torsemide 20 Mg Tablet) 20 mg PO DAILY [facility]; Protocol Last Admin: 01/26/23 08:37 Dose: 20 mg Documented By: JOSEPHINE Valacyclovir HCl (Valacyclovir Hcl 1,000 Mg Tablet) 1,000 mg PO BID [facility] Last Admin: 01/26/23 08:38 Dose: 1,000 mg Documented By: JOSEPHINE Vitamin D (Cholecalciferol (Vitamin D3) 25 Mcg Tablet) 50 mcg PO DAILY [facility] Last Admin: 01/26/23 08:37 Dose: 50 mcg Documented By: JOSEPHINE Labs 01/23/23 09:28 01/22/23 04:41 Labs: Laboratory Results - last 24 hr 01/25/23 01/25/23 01/25/23 11:09 16:45 20:41 POC Glucose 171 H 157 H 191 H 01/26/23 07:27 POC Glucose 160 H Microbiology Microbiology Results: Microbiology 01/21/23 01:13 Blood Culture - Final Blood - Venous No growth after 5 days. 01/21/23 01:13 Blood Culture - Final Blood - Venous No growth after 5 days. Assessment and Plan (1) Respiratory failure with hypoxia and hypercapnia: Status: Acute (2) BASSEM (obstructive sleep apnea): Status: Acute (3) COPD exacerbation: Status: Acute (4) Obesity hypoventilation syndrome: Status: Acute Plan 52 year old women admitted with acute respiratory failure sec to COPD exacerbation Acute hypoxic/hypercarbic respiratory failure secondary to COPD exacerbation Placed on BiPAP in the ER and weaned off. 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 Acute on chronic respiratory failure hx of COPD on 2-3 liters baseline oxygen likely multifactorial r/t COPD, BASSEM, and obesity hypoventilation, sedating medications CHF, appears to be diastolic limited echo technically difficult but EF appears 55-60% Not appear to be in overt failure at this time Continue Entresto and torsemide Rectal bleeding pt reports h/o Crohns dz has intermittent rectal bleeding stool occult negative CBC stable Diabetes ss, ada diet HLD statin BASSEM not complaint at home continue cpap for inpatient waiting for [facility] [place] to deliver AVAP to home, possibly Friday Mental health continue home medications Fibromyalgia Currently tapering gabapentin, 300 mg TID Morbid obesity. BMI 44.4 Discussed importance of weight management as this may be contributing to worsening of other comorbidities migrain headache sumatriptan prn DVT prophylaxis with Lovenox attending Dr. Gutierrez Full code continued hospital stay for treatment of acute on chronic respiratory failure required BiPAP, close monitoring, IV steroids and scheduled DuoNebs Time Spent With Patient Time: Total time managing care of this patient today ____ minutes. Quality Stroke Does the patient have a stroke diagnosis?: No VTE Prior VTE?: No VTE Risk Level:: Medical - moderate - high VTE Device Contraindication: Treatment Not Indicated VTE Drug Contraindication: N/A - Med Ordered
[2023-01-26 11:32] LABS: Glucose, Whole Blood 166 mg/dL (60-115)
[2023-01-26] MEDS: SUMAtriptan succinate 25 MG TABLET PO (12:18)
[2023-01-26] MEDS: Enoxaparin Sodium 40 MG/0.4 ML SYRINGE SUBCUT (13:08)
[2023-01-26 16:41] LABS: Glucose, Whole Blood 158 mg/dL (60-115)
[2023-01-26 21:05] LABS: Glucose, Whole Blood 342 mg/dL (60-115)
[2023-01-26] MEDS: Montelukast Sodium 10 MG TABLET PO (21:26)
[2023-01-26] MEDS: rOPINIRole HCL 1 MG TABLET PO (21:26)
[2023-01-26] MEDS: Insulin Glargine,Hum.rec.anlog 100 UNIT/ML 10 ML VIAL SUBCUT (21:27)
[2023-01-26] MEDS: clonazePAM 0.5 MG TABLET PO (22:24)
[2023-01-27 01:42] VITALS: RESP 18
[2023-01-27 03:17] VITALS: BP 142/66; PULSE 59; RESP 20; O2SAT 95
[2023-01-27] MEDS: oxyCODONE HCl Immed Release 5 MG TABLET 10 MG PO ×3 (04:09→12:31)
[2023-01-27] MEDS: Omeprazole 20 MG CAPSULE.DR PO (04:09)
[2023-01-27 07:13] VITALS: BP 116/57; PULSE 66; RESP 20; O2SAT 94
[2023-01-27 07:45] LABS: Glucose, Whole Blood 140 mg/dL (60-115)
[2023-01-27] MEDS: Fluticasone Propionate 250 MCG BLST.W.DEV 1 PUFF INHALE (08:01)
[2023-01-27] MEDS: Albuterol Sulfate (0.083%) 2.5 MG/3 ML VIAL.NEB INHALE (08:01)
[2023-01-27 08:03] VITALS: PULSE 65; RESP 18; O2SAT 94
[2023-01-27] MEDS: Nystatin Oral Susp 500,000 UNIT/5 ML ORAL.SUSP 500000 UNIT PO ×2 (09:34→12:31)
[2023-01-27] MEDS: oxyBUTYnin chloride ER 5 MG TAB.ER.24 10 MG PO (09:35)
[2023-01-27] MEDS: Amiodarone HCL 200 MG TABLET 400 MG PO (09:35)
[2023-01-27] MEDS: Acetaminophen 325 MG TABLET 650 MG PO (09:35)
[2023-01-27] MEDS: Cholecalciferol (Vitamin D3) 25 MCG TABLET 50 MCG PO (09:35)
[2023-01-27] MEDS: Multivitamin TABLET 1 TAB PO (09:36)
[2023-01-27] MEDS: Metoprolol Succinate ER 100 MG TAB.ER.24H 200 MG PO (09:36)
[2023-01-27] MEDS: carvediloL 25 MG TABLET PO (09:36)
[2023-01-27] MEDS: Fenofibrate,Micronized 134 MG CAPSULE PO (09:36)
[2023-01-27] MEDS: Sacubitril/Valsartan 49/51 1 TAB TABLET PO (09:36)
[2023-01-27] MEDS: Atorvastatin Calcium 80 MG TABLET PO (09:36)
[2023-01-27] MEDS: buPROPion HCl XL 150 MG TAB.ER.24H PO (09:36)
[2023-01-27] MEDS: Cyanocobalamin (Vitamin B-12) 1,000 MCG TABLET 5000 MCG PO (09:36)
[2023-01-27] MEDS: valACYclovir HCL 1,000 MG TABLET 1000 MG PO (09:36)
[2023-01-27] MEDS: Gabapentin 300 MG CAPSULE PO (09:37)
[2023-01-27] MEDS: ARIPiprazole 10 MG TABLET PO (09:37)
[2023-01-27] MEDS: Ascorbic Acid 500 MG TABLET 1000 MG PO (09:37)
[2023-01-27] MEDS: Torsemide 20 MG TABLET PO (09:37)
[2023-01-27] MEDS: Empagliflozin 10 MG TABLET PO (09:37)
[2023-01-27] MEDS: DULoxetine HCl 60 MG CAPSULE.DR PO (09:39)
[2023-01-27] MEDS: Aspirin Enteric Coated 81 MG TABLET.DR PO (09:40)
[2023-01-27] MEDS: Nystatin Powder 15 GM BOTTLE 1 APPL TOPICAL (09:40)
[2023-01-27] MEDS: Fluticasone Propionate Nasal 16 GM SPRAY 1 SPRAY NOSTRIL-B (09:40)
[2023-01-27] MEDS: Loratadine 10 MG TABLET PO (09:40)
[2023-01-27] MEDS: Magnesium Oxide 400 MG TABLET PO (09:40)
[2023-01-27] MEDS: 0.9 % Sodium Chloride Flush 3 ML SYRINGE IVFLUSH (09:41)
--- NOTE | 2023-01-27 10:23 | PM.DS ---
DS: Providers Provider Date of Service: 01/27/23 Date of admission: 01/21/23 13:32 Primary care physician: Nerissa Sousa NP Consults: 01/23/23 11:54 Consult to Pulmonology Routine Consulting Provider: Wilda William Reason for consultation: bassem, copd, hypoxia, sleepy Has provider been notified: No Attending physician on discharge: Gal Gutierrez Discharging clinician: Lorena Delgado DS: Diagnosis Discharge Diagnosis (1) Respiratory failure with hypoxia and hypercapnia: Status: Acute (2) BASSEM (obstructive sleep apnea): Status: Acute (3) COPD exacerbation: Status: Acute (4) Obesity hypoventilation syndrome: Status: Acute DS: Summary Hospital Course Hospital Course: From H&P on day of admission 52-year-old woman presented to the ER with complaints of worsening shortness of breath over the last several days.? She has a history of COPD and reports that she smokes maybe 1-2 cigarettes a day.? She had been previously heavy smoker for over 20 years.? She is on chronic oxygen 2 L via nasal cannula.? Patient denied chest pain, nausea, vomiting, diarrhea, recent travel, sick contacts.? COVID, flu and RSV negative, no overt consolidation on chest x-ray.? Labs all within acceptable limits.? BNP 83, troponin 13.3. VBG 7.27/94/98/44, placed on NIV in the ER with good effect.? Patient now on 2 L via nasal cannula.? She was given IV Solu-Medrol, albuterol, IV Lasix, Reglan, Benadryl, aspirin, Tylenol, oxycodone.? She will be admitted for further management and treatment of acute hypoxic/hypercarbic respiratory failure secondary to COPD exacerbation possible CHF. Acute hypoxic/hypercarbic respiratory failure secondary to COPD exacerbation Placed on NIV in the ER and weaned off. goal o2 saturation around 88-92% No consolidation on chest x-ray much more awake today - likely sedating medications contributing - will start to wean gabapentin seen by pulm - recommend NIV at home. 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 EF appears 55-60% Not appear to be in overt failure at this time Continue Entresto and torsemide Rectal bleeding pt reports h/o Crohns dz has intermittent rectal bleeding stool occult negative and CBC stable. recommend outpatient follow up Time Spent with Patient Time attestation: Total time managing care of this patient today ____ minutes. Discharge coordination time: Greater than 30 minutes Quality: Safe Use of Opioids Does Pt have an Active Cancer Diagnosis on the Problem List?: No Quality: Stroke Does the patient have a stroke diagnosis?: No Physical Exam Vital Signs: Vital Signs: Last Vital Signs Temp 96.9 F 01/26/23 23:37 Pulse 65 01/27/23 08:03 Resp 18 01/27/23 08:03 BP 116/57 L 01/27/23 07:13 Pulse Ox 94 01/27/23 07:13 O2 Del Method 01/27/23 07:13 O2 Flow Rate 3 01/27/23 07:13 BMI result Body Mass Index 44.4 Appearing in no acute distress head is normocephalic atraumatic eyes pupils are PERRLA sclera is anicteric mouth throat mucous membranes are intact and moist neck is supple no lymphadenopathy, no JVD noted lung sounds are clear to auscultation heart regular rate rhythm, clear S1, S2 positive bowel sounds, abdomen is soft, nontender neuro patient is alert x3, no focal deficits DS: Data Data Completed and Pending Labs on day of discharge: Laboratory Results - last 24 hr 01/26/23 01/26/23 01/26/23 11:22 16:34 21:02 POC Glucose 166 H 158 H 342 H 01/27/23 07:12 POC Glucose 140 H Discharge Plan Discharge Anticipated Discharge Date/Time: 01/24/23 13:30 Patient Disposition: Home Health Service Discharge Diagnosis: acute on chronic respiratory failure with hypercarbia and hypoxia Referrals: Nerissa Sousa NP [Primary Care Provider] - 1 Week Discharge Medications: New gabapentin 400 mg capsule 400 mg PO TID 30 Days Qty: 90 0RF prednisone 20 mg tablet 40 mg PO DAILY 5 Days Qty: 10 0RF avaps AE See Rx Instructions .ROUTE .COMPLEX Qty: 1 0RF Rx Instructions: [employer] ID #[id number] length of need 99 months or lifetime Diagnosis codes J96.20 & J44.9 Settings epap - 5-15 target rate 15 pressure support 5-25 title volume 3-600 equipment [id number] Patient will need Noninvasive ventilator at home to help with gas exchange and to help improve quality of life Continued atorvastatin 80 mg Tablet 80 mg PO DAILY albuterol sulfate 2.5 mg /3 mL (0.083 %) Solution For Nebulization 2.5 mg INHALATION BID PRN (Reason: Wheezing) aspirin 81 mg Tablet,Delayed Release (Dr/Ec) 81 mg PO DAILY [id number] 50-325-40 mg Tablet 1 tab PO DAILY PRN (Reason: Headache) calcium carbonate 600 mg calcium (1,500 mg) Tablet 600 mg PO BID amiodarone 400 mg Tablet 400 mg PO DAILY ascorbic acid (vitamin C) 250 mg Tablet 1,000 mg PO DAILY aluminum chloride in alcohol 6.25 % Solution 1 appl TOPICAL BEDTIME albuterol sulfate 90 mcg/actuation Hfa Aerosol Inhaler 1 inh INHALATION QID PRN (Reason: Wheezing) aripiprazole [Abilify] 10 mg Tablet 10 mg PO DAILY bupropion HCl 150 mg Tablet Extended Release 24 Hr 150 mg PO QAM carvedilol 25 mg Tablet 25 mg PO BID Rx Instructions: must administer with a meal/food clonazepam 0.5 mg Tablet 0.5 mg PO BID PRN (Reason: Anxiety) clotrimazole 1 % Cream 1 appl TOPICAL BID Rx Instructions: APPLY TO RASH UNDER BREAST dicyclomine 10 mg Capsule 10 mg PO TID PRN (Reason: Spasms) duloxetine 60 mg Capsule,Delayed Release(Dr/Ec) 60 mg PO DAILY diclofenac sodium 1 % Gel 2 g TOPICAL TID Rx Instructions: APPLY TO BILATERAL IT BANDS roflumilast [Daliresp] 500 mcg Tablet 500 mcg PO DAILY dapagliflozin 10 mg Tablet 10 mg PO DAILY cyanocobalamin (vitamin B-12) 2,500 mcg Tablet 5,000 mcg PO DAILY Dupixent Pen 300 mg/2 mL Pen Injector 300 mg SUBCUT Q2W fenofibrate micronized 134 mg Capsule 134 mg PO DAILY hydroxyzine HCl 25 mg Tablet 25 mg PO BID PRN (Reason: Itching) magnesium 250 mg Tablet 500 mg PO DAILY Flovent Diskus 250 mcg/actuation Blister With Device 1 inh INHALATION BID fluticasone propionate 50 mcg/actuation [place],Suspension 1 spray INTRANASAL BID Rx Instructions: administer into each nostril loratadine 10 mg Tablet 10 mg PO DAILY insulin lispro 100 unit/mL Insulin Pen 1 sliding scale dose SUBCUT USEASDIRECTD insulin glargine [Lantus Solostar U-100 Insulin] 100 unit/mL (3 mL) Insulin Pen 5 unit SUBCUT BEDTIME multivitamin Tablet 1 tab PO DAILY nystatin 100,000 unit/mL Suspension 5 ml PO Q6H Rx Instructions: swish and swallow ropinirole 1 mg Tablet 1 - 2 mg PO BEDTIME Rx Instructions: administer 1-3 hours before bedtime oxybutynin chloride 10 mg Tablet Extended Release 24hr 10 mg PO DAILY valacyclovir 1 gram Tablet 1,000 mg PO BID metoprolol succinate 200 mg Tablet Extended Release 24 Hr 200 mg PO DAILY torsemide 10 mg Tablet 20 mg PO DAILY Zyflo 600 mg Tablet 600 mg PO QID oxycodone-acetaminophen 5-325 mg Tablet 1 - 2 tab PO Q4H PRN (Reason: Pain) omeprazole 20 mg Capsule,Delayed Release(Dr/Ec) 20 mg PO BID montelukast 10 mg Tablet 10 mg PO BEDTIME nystatin 100,000 unit/gram Powder 1 appl TOPICAL BID cholecalciferol (vitamin D3) [Vitamin D3] 50 mcg (2,000 unit) Capsule 50 mcg PO DAILY omega 0-olp-gar-fish oil [Fish Oil] 1,000 mg (120 mg-180 mg) Capsule 1 cap PO DAILY Trulicity 1.5 mg/0.5 mL Pen Injector 1.5 mg SUBCUT QWEEK tobramycin with nebulizer 300 mg/5 mL Solution For Nebulization 300 mg INHALATION BID Rx Instructions: separate doses by at least 6 hours Entresto 49-51 mg Tablet 1 tab PO BID Changed ipratropium-albuterol 0.5 mg-3 mg(2.5 mg base)/3 mL Solution For Nebulization 3 ml INHALATION .q6h while awake Qty: 90 0RF Held prednisone 1 mg Tablet 3 mg PO DAILY Hold Instructions: resume home dose of prednisone after completing predisone burst Discontinued gabapentin 300 mg Capsule 600 mg PO TID ondansetron 4 mg Tablet,Disintegrating 4 mg PO DAILY PRN (Reason: Nausea And Vomiting) azithromycin 250 mg Tablet 250 mg PO DAILY Rx Instructions: start on day 2 of therapy Discharge Orders: Discharge Order (Routine); Ordered 01/27/23 Ordered By: Lorena Delgado Diet: Advance to usual diet Activity on Discharge: As tolerated Stand Alone Forms: Patient Portal Discharge page Care Plan Goals: Use AVAP as prescribed Health Concerns: acute COPD exacerbation Plan of Treatment: Take prednisone as prescribed Follow up with your primary care provider Assessment: see discharge summary
[2023-01-27] MEDS: predniSONE 20 MG TABLET 40 MG PO (10:34)
--- NOTE | 2023-01-27 11:26 | W.MHC.F2F ---
Service Date Service Date: 01/27/23 Encounter Date of encounter: 01/27/23 Reasons for Services Signs and symptoms assessed: Hypoxemia, COPD Reason for senior care: CV/CP assess and/or care and teach disease management Homebound: Leaving the home is medically contraindicated at this time without the asist of a device and/or another person due th the listed conditions above and below. Reason homebound: shortness of breath with minimal effort Certification: Based on the above findings, I certify that this patient is confined to the home and needs intermittent senior care care, physical therapy and/or speech therapy, or continues to need occupational therapy. The patient is under my care, and I have initiated the establishment of the plan of care. The patient will be followed by a physician who will periodically review the plan of care. Time Spent With Patient Time: Total time managing care of this patient today ____ minutes.
[2023-01-27 11:40] VITALS: PULSE 67; PULSE 71; PULSE 80; O2SAT 87; O2SAT 91
[2023-01-27 11:50] LABS: Glucose, Whole Blood 149 mg/dL (60-115)
--- NOTE | 2023-01-27 12:12 | MHC.CM.PN ---
pt requests to see a garage supervisor steve does not have a garage supervisor to see pt at home says she will need to talk with her pcp for that arrangement
== END 2023-01-27 12:33 | disposition home health service (06) | DRG 140 ==
LOC: HO.ED 09:12 → HO.EDOVER 13:37 → HO.IMC 01-22 08:19
PROVIDERS: Internal Medicine; Physician Assistant Medical; Student in an Organized Health Care Education/Training Program; Admitting Provider Nurse Practitioner Acute Care; Emergency Provider Emergency Medicine Emergency Medical Services; PCP Nurse Practitioner Family; Visit Provider Nurse Practitioner Acute Care
DX: J44.1 Chronic obstructive pulmonary disease with (acute) exacerbation (principal); J96.21 Acute and chronic respiratory failure with hypoxia; I50.32 Chronic diastolic (congestive) heart failure; I11.0 Hypertensive heart disease with heart failure; E66.2 Morbid (severe) obesity with alveolar hypoventilation; K50.911 Crohn's disease, unspecified, with rectal bleeding; J96.22 Acute and chronic respiratory failure with hypercapnia; F31.9 Bipolar disorder, unspecified; F17.210 Nicotine dependence, cigarettes, uncomplicated; Z20.822 Contact with and (suspected) exposure to COVID-19; Z71.6 Tobacco abuse counseling; G43.909 Migraine, unspecified, not intractable, without status migrainosus; Z91.199 Patient's noncompliance with other medical treatment and regimen due to unspecified reason; Z68.41 Body mass index [BMI] 40.0-44.9, adult; M79.7 Fibromyalgia; Z88.5 Allergy status to narcotic agent; Z88.6 Allergy status to analgesic agent; Z79.4 Long term (current) use of insulin; Z79.51 Long term (current) use of inhaled steroids; Z79.84 Long term (current) use of oral hypoglycemic drugs; Z79.899 Other long term (current) drug therapy
CPT/HCPCS: 36415; 36600; 71045; 80053; 81001; 82272; 82803; 82947; 83605; 83880; 84484; 85025; 85027; 85610; 87040; 87502; 87635; 93005; 93306; 94640; 94660; 99285; C1758; J1200; J1650; J1940; J2270; J2405; J2920; J2930; Q9957

== ENCOUNTER 2023-04-01 23:55 | Emergency (ER) | payer MEDICAID, OTHER, SELFPAY ==
--- NOTE | ~2023-04-01 | XR_ITS ---
EXAMINATION: XR LUMBOSACRAL SPINE CLINICAL INFORMATION: Back pain COMPARISON: 09/18/2015 TECHNIQUE: Three views of the lumbosacral spine. FINDINGS: There is a mild levoscoliosis of the lumbar spine. There is slight grade 1 anterolisthesis of L2 on L3. There is grade 2 anterolisthesis of L4 on L5 with significant disc space narrowing. This is new from 2014 and could be chronic in the setting of worsening facet arthropathy, though acute injury would be difficult to exclude in the proper clinical setting. Disc spacer is present at L5-S1. There is mild disc space narrowing in the upper lumbar spine. Vertebral body heights are maintained. Sacroiliac joints appear intact. There is atherosclerotic calcification along the aorta. XR/XR lumbar spine 2-3V IMPRESSION: 1. Grade 2 anterolisthesis of L4 on L5 which is new from 2014 and could be chronic in the setting of worsening facet arthropathy, though acute injury would be difficult to exclude in the proper clinical setting. This may be further assessed with CT as clinically warranted. 2. Slight grade 1 anterolisthesis of L2 on L3. Mild disc space narrowing in the upper lumbar spine.
--- NOTE | ~2023-04-01 | XR_ITS ---
EXAMINATION: XR HIP, LEFT CLINICAL INFORMATION: Pain COMPARISON: None available. TECHNIQUE: Two views of the left hip. FINDINGS: Alignment across the hips is anatomic with mild joint space narrowing. No acute fracture is seen. Sacroiliac joints and pubic symphysis appear intact. Moderate stool noted in the visualized colon. XR/XR hip LT w PEL1V IMPRESSION: No acute findings identified.
[2023-04-02 00:13] VITALS: BP 139/80; BP 170/90; PULSE 75; PULSE 89; RESP 20; TEMP 36.8; O2SAT 96; BMI 43.9
--- NOTE | 2023-04-02 00:52 | ED.BACK ---
HPI - Back Pain/Injury General Chief Complaint: Back Pain/Injury Stated Complaint: lower back pain Time Seen by Provider: 04/02/23 00:37 Source: patient and EMS Mode of arrival: EMS Limitations: no limitations History of Present Illness HPI Narrative: A 52-year-old female came in for evaluation of low back pain and left hip started about 6 days ago, patient declined any trauma or falling recently, patient still able to ambulate at home. Patient takes 10 mg of oxycodone every 6 hours for chronic pain daily which is not helping her pain. Patient is known to have history of osteoarthritis. Patient lives home with her parents independently. Related Data Home Medications Medication Instructions Recorded Confirmed albuterol sulfate 2.5 mg/3 mL 2.5 mg inhalation BID PRN Wheezing 01/21/23 01/21/23 (0.083 %) solution for nebulization albuterol sulfate 90 mcg/actuation 1 inh inhalation QID PRN Wheezing 01/21/23 01/21/23 aerosol inhaler aluminum chloride in alcohol 6.25 1 appl topical BEDTIME 01/21/23 01/21/23 % topical solution amiodarone 400 mg tablet 400 mg PO DAILY 01/21/23 01/21/23 aripiprazole 10 mg tablet (Abilify) 10 mg PO DAILY 01/21/23 01/21/23 ascorbic acid (vitamin C) 250 mg 1,000 mg PO DAILY 01/21/23 01/21/23 tablet aspirin 81 mg tablet,delayed 81 mg PO DAILY 01/21/23 01/21/23 release atorvastatin 80 mg tablet 80 mg PO DAILY 01/21/23 01/21/23 bupropion HCl 150 mg 24 hr tablet, 150 mg PO QAM 01/21/23 01/21/23 extended release fqawitkhni-usvrnofizlfyq-huryhqae 1 tab PO DAILY PRN Headache 01/21/23 01/21/23 50 mg-325 mg-40 mg tablet calcium carbonate 600 mg calcium 600 mg PO BID 01/21/23 01/21/23 (1,500 mg) tablet carvedilol 25 mg tablet 25 mg PO BID 01/21/23 01/21/23 cholecalciferol (vitamin D3) 50 50 mcg PO DAILY 01/21/23 01/21/23 mcg (2,000 unit) capsule (Vitamin D3) clonazepam 0.5 mg tablet 0.5 mg PO BID PRN Anxiety 01/21/23 01/21/23 clotrimazole 1 % topical cream 1 appl topical BID 01/21/23 01/21/23 cyanocobalamin (vitamin B-12) 5,000 mcg PO DAILY 01/21/23 01/21/23 2,500 mcg tablet dapagliflozin 10 mg tablet 10 mg PO DAILY 01/21/23 01/21/23 diclofenac sodium 1 % topical gel 2 g topical TID 01/21/23 01/21/23 dicyclomine 10 mg capsule 10 mg PO TID PRN Spasms 01/21/23 01/21/23 dulaglutide 1.5 mg/0.5 mL 1.5 mg subcut QWEEK 01/21/23 01/21/23 subcutaneous pen injector ([employer]) duloxetine 60 mg capsule,delayed 60 mg PO DAILY 01/21/23 01/21/23 release dupilumab 300 mg/2 mL subcutaneous 300 mg subcut Q2W 01/21/23 01/21/23 pen injector ([employer]) fenofibrate micronized 134 mg 134 mg PO DAILY 01/21/23 01/21/23 capsule fluticasone propionate 250 1 inh inhalation BID 01/21/23 01/21/23 mcg/actuation blister powder for inhalation (Flovent Diskus) fluticasone propionate 50 1 spray intranasal BID 01/21/23 01/21/23 mcg/actuation nasal spray,suspension hydroxyzine HCl 25 mg tablet 25 mg PO BID PRN Itching 01/21/23 01/21/23 insulin glargine 100 unit/mL (3 5 unit subcut BEDTIME 01/21/23 01/21/23 mL) subcutaneous pen (Lantus Solostar U-100 Insulin) insulin lispro 100 unit/mL 1 sliding scale dose subcut 01/21/23 01/21/23 subcutaneous pen USEASDIRECTD loratadine 10 mg tablet 10 mg PO DAILY 01/21/23 01/21/23 magnesium 250 mg tablet 500 mg PO DAILY 01/21/23 01/21/23 metoprolol succinate 200 mg 200 mg PO DAILY 01/21/23 01/21/23 tablet,extended release 24 hr montelukast 10 mg tablet 10 mg PO BEDTIME 01/21/23 01/21/23 multivitamin 1 tab PO DAILY 01/21/23 01/21/23 nystatin 100,000 unit/gram topical 1 appl topical BID 01/21/23 01/21/23 powder nystatin 100,000 unit/mL oral 5 ml PO Q6H 01/21/23 01/21/23 suspension omega 8-njn-swj-fish oil 1,000 mg 1 cap PO DAILY 01/21/23 01/21/23 (120 mg-180 mg) capsule (Fish Oil) omeprazole 20 mg capsule,delayed 20 mg PO BID 01/21/23 01/21/23 release oxybutynin chloride 10 mg 10 mg PO DAILY 01/21/23 01/21/23 tablet,extended release 24 hr oxycodone-acetaminophen 5 mg-325 1 - 2 tab PO Q4H PRN Pain 01/21/23 01/21/23 mg tablet prednisone 1 mg tablet 3 mg PO DAILY 01/21/23 01/21/23 roflumilast 500 mcg tablet 500 mcg PO DAILY 01/21/23 01/21/23 (Daliresp) ropinirole 1 mg tablet 1 - 2 mg PO BEDTIME 01/21/23 01/21/23 sacubitril 49 mg-valsartan 51 mg 1 tab PO BID 01/21/23 01/21/23 tablet (Entresto) tobramycin with nebulizer 300 mg/5 300 mg inhalation BID 01/21/23 01/21/23 mL solution for nebulization torsemide 10 mg tablet 20 mg PO DAILY 01/21/23 01/21/23 valacyclovir 1 gram tablet 1,000 mg PO BID 01/21/23 01/21/23 zileuton 600 mg tablet (Zyflo) 600 mg PO QID 01/21/23 01/21/23 Previous Rx's Medication Instructions Recorded avaps AE See Rx Instructions .Route 01/24/23 .COMPLEX #1 ea gabapentin 400 mg capsule 400 mg PO TID 30 days #90 caps 01/24/23 ipratropium 0.5 mg-albuterol 3 mg 3 ml inhalation .q6h while awake 01/24/23 (2.5 mg base)/3 mL nebulization #90 mL soln prednisone 20 mg tablet 40 mg PO DAILY 5 days #10 tabs 01/24/23 Allergies Allergy/AdvReac Type Severity Reaction Status Date / Time aspirin [ASPIRIN] Allergy Unknown N/V Verified 01/22/23 08:06 fentanyl [FENTANYL] Allergy Unknown NAUSEA & Verified 01/22/23 08:06 VOMITING lithium [LITHIUM] Allergy Unknown RASH/HIVES/ Verified 01/22/23 08:06 VOMITING naproxen [From NAPROSYN] Allergy Unknown N/V Verified 01/22/23 08:06 Adhesive Bandages Allergy Unknown Rash Uncoded 01/22/23 08:06 FENTANYL Allergy Unknown itching Uncoded 08/18/13 00:00 PLASTIC TAPE Allergy Unknown REDNESS Uncoded 08/10/20 15:34 Review of Systems Review of Systems: All other systems are reviewed and are negative Constitutional: Reports as per HPI and Reports no additional constitutional complaints Eyes: Reports as per HPI and Reports no additional eye complaints Reports system reviewed and no additional complaints, except as documented Cardiovascular: Reports as per HPI and Reports no additional cardiovascular complaints Respiratory: Reports as per HPI and Reports no additional respiratory complaints Gastrointestinal: Reports as per HPI and Reports no additional gastrointestinal complaints Genitourinary: Reports no additional female genitourinary complaints Musculoskeletal: Reports no additional musculoskeletal complaints Skin/Breast: Reports system reviewed and no additional complaints, except as docu Psychiatric: Reports no additional psychiatric complaints Endocrine: Reports no additional endocrine complaints Hematologic/Lymphatic: Reports no additional hematologic/lymphatic complaints Allergic/Immunologic: Reports no additional allergic/immunologic complaints Reports system reviewed and no additional complaints, except as documented and Reports Abnormal speech present [facility] Past Medical History Medical History Anxiety Asthma Bipolar disorder COPD (chronic obstructive pulmonary disease) Depression Diabetes mellitus Fibromyalgia GERD (gastroesophageal reflux disease) Hypertension Obesity hypoventilation syndrome Obstructive sleep apnea BASSEM (obstructive sleep apnea) Respiratory failure with hypoxia and hypercapnia Surgical History H/O: hysterectomy Social History Social History Household Members: Family Housing: House Do you presently have visiting nurse or other home services: No Alcohol intake: never Patient Tobacco Use Status: Current everyday Tobacco user Tobacco use type: Cigarette Cigarettes Per Day: 1 Advance Directives: Yes Advance Directives on File: Yes Advance Directives Date on File: 01/22/23 service: No Current occupational status: disabled Physical Exam Vital Signs: Vital Signs: Last Vital Signs Temp 98.1 F 04/02/23 02:45 Pulse 86 04/02/23 02:45 Resp 18 04/02/23 02:45 BP 172/76 H 04/02/23 02:45 Pulse Ox 94 04/02/23 02:45 O2 Del Method Room Air 04/02/23 02:45 O2 Flow Rate 2 04/02/23 02:45 Oxygen Flow Rate 3 04/02/23 00:13 BMI result Body Mass Index 43.9 Vital signs have been reviewed as appeared to be correct. Blood pressure normal. Heart rate normal. Respiration rate normal. Temperature normal. Oxygen saturation normal. Appearance: Alert. Oriented X3. No acute distress. Head: Normal external exam. Normocephalic. Atraumatic. No Campos signs noted. No raccoon eyes noted Eyes: PERRLA. EOMI. Conjunctiva and sclera normal. Eyelids normal. ENT: TM's Normal. Pharynx normal. Uvula midline. Moist mucous membranes. No trismus noted. No drooling noted. No muffled voice noted. Neck: Normal inspection. Neck supple. FROM. No adenopathy. Thyroid Normal. No meningeal signs. No neck mass noted. CVS: Normal heart rate and rhythm. Heart sound normal. No murmurs noted. Pulses normal throughout. Respiratory: No respiratory distress. Painless inspiration. Breath sounds normal. No wheezes/rales/rhonchi noted. Chest nontender. No accessory muscle usage noted or decreased air movement noted. Abdomen: Soft and nontender. Bowel sounds normal in all 4 quadrants. No distention noted. No organomegaly noted. No visible injury noted. Back: No CVA tenderness. Full range of motion noted. Skin: Skin warm and dry. Normal skin color. Normal skin turgor. No rashes/lesions/lacerations noted. Extremities: No lower extremity edema. Extremities exhibit normal range of motion. Extremities nontender. Neuro: Oriented X 3. Cranial nerve exam: II-XII are grossly intact No motor deficit. No sensory deficit. Reflexes normal. Course Course Course Narrative: Lower back and left pelvic pain is much better after patient was given Dilaudid in the emergency department. Patient takes 10 mg of oxycodone daily every 6 hours if needed for pain, patient was instructed to follow-up with her PCP and get pain management clinic referral. Medications Administered Discontinued Medications Generic Name Dose Route Start Last Admin Trade Name Freq PRN Reason Stop Dose Admin Hydromorphone HCl 2 mg 04/02/23 00:50 04/02/23 01:40 Hydromorphone Hcl 2 Mg/Ml Vial IM 04/02/23 00:51 2 mg ONCE ONE Administration Protocol Medical Decision Making Differential Diagnosis Differential Diagnoses: The differential diagnosis associated with the presentation includes (Lumbar spine trauma, fracture, osteoarthritis) Independent Interpretation I performed an independent interpretation of an: Plain X-Ray (Lumbar spine/left hip and pelvis:1. Grade 2 anterolisthesis of L4 on L5 which is new from 2015 and could be chronic in the setting of worsening facet arthropathy, though acute injury would be difficult to exclude in the proper clinical setting. This may be further assessed with CT as clinically war) Radiology Impression Discussion of test interpretation with radiology: I have reviewed the radiologist's reading. Discharge Plan Discharge Clinical Impression: Strain of lumbar region, Sciatica Patient Disposition: Home, Self-Care Instructions: Acute Low Back Pain (ED) Additional Instructions: Follow-up with your PCP. Prescriptions: No Action atorvastatin 80 mg Tablet 80 mg PO DAILY albuterol sulfate 2.5 mg /3 mL (0.083 %) Solution For Nebulization 2.5 mg INHALATION BID PRN (Reason: Wheezing) aspirin 81 mg Tablet,Delayed Release (Dr/Ec) 81 mg PO DAILY spoekdxquj-zpltuycdjiflb-mkto 50-325-40 mg Tablet 1 tab PO DAILY PRN (Reason: Headache) calcium carbonate 600 mg calcium (1,500 mg) Tablet 600 mg PO BID amiodarone 400 mg Tablet 400 mg PO DAILY ascorbic acid (vitamin C) 250 mg Tablet 1,000 mg PO DAILY aluminum chloride in alcohol 6.25 % Solution 1 appl TOPICAL BEDTIME albuterol sulfate 90 mcg/actuation Hfa Aerosol Inhaler 1 inh INHALATION QID PRN (Reason: Wheezing) aripiprazole [Abilify] 10 mg Tablet 10 mg PO DAILY bupropion HCl 150 mg Tablet Extended Release 24 Hr 150 mg PO QAM carvedilol 25 mg Tablet 25 mg PO BID Rx Instructions: must administer with a meal/food clonazepam 0.5 mg Tablet 0.5 mg PO BID PRN (Reason: Anxiety) clotrimazole 1 % Cream 1 appl TOPICAL BID Rx Instructions: APPLY TO RASH UNDER BREAST dicyclomine 10 mg Capsule 10 mg PO TID PRN (Reason: Spasms) duloxetine 60 mg Capsule,Delayed Release(Dr/Ec) 60 mg PO DAILY diclofenac sodium 1 % Gel 2 g TOPICAL TID Rx Instructions: APPLY TO BILATERAL IT BANDS roflumilast [Daliresp] 500 mcg Tablet 500 mcg PO DAILY dapagliflozin 10 mg Tablet 10 mg PO DAILY cyanocobalamin (vitamin B-12) 2,500 mcg Tablet 5,000 mcg PO DAILY Dupixent Pen 300 mg/2 mL Pen Injector 300 mg SUBCUT Q2W fenofibrate micronized 134 mg Capsule 134 mg PO DAILY hydroxyzine HCl 25 mg Tablet 25 mg PO BID PRN (Reason: Itching) magnesium 250 mg Tablet 500 mg PO DAILY Flovent Diskus 250 mcg/actuation Blister With Device 1 inh INHALATION BID fluticasone propionate 50 mcg/actuation [place],Suspension 1 spray INTRANASAL BID Rx Instructions: administer into each nostril loratadine 10 mg Tablet 10 mg PO DAILY insulin lispro 100 unit/mL Insulin Pen 1 sliding scale dose SUBCUT USEASDIRECTD insulin glargine [Lantus Solostar U-100 Insulin] 100 unit/mL (3 mL) Insulin Pen 5 unit SUBCUT BEDTIME multivitamin Tablet 1 tab PO DAILY nystatin 100,000 unit/mL Suspension 5 ml PO Q6H Rx Instructions: swish and swallow ropinirole 1 mg Tablet 1 - 2 mg PO BEDTIME Rx Instructions: administer 1-3 hours before bedtime oxybutynin chloride 10 mg Tablet Extended Release 24hr 10 mg PO DAILY valacyclovir 1 gram Tablet 1,000 mg PO BID metoprolol succinate 200 mg Tablet Extended Release 24 Hr 200 mg PO DAILY torsemide 10 mg Tablet 20 mg PO DAILY Zyflo 600 mg Tablet 600 mg PO QID oxycodone-acetaminophen 5-325 mg Tablet 1 - 2 tab PO Q4H PRN (Reason: Pain) omeprazole 20 mg Capsule,Delayed Release(Dr/Ec) 20 mg PO BID montelukast 10 mg Tablet 10 mg PO BEDTIME nystatin 100,000 unit/gram Powder 1 appl TOPICAL BID cholecalciferol (vitamin D3) [Vitamin D3] 50 mcg (2,000 unit) Capsule 50 mcg PO DAILY omega 1-mma-lla-fish oil [Fish Oil] 1,000 mg (120 mg-180 mg) Capsule 1 cap PO DAILY Trulicity 1.5 mg/0.5 mL Pen Injector 1.5 mg SUBCUT QWEEK tobramycin with nebulizer 300 mg/5 mL Solution For Nebulization 300 mg INHALATION BID Rx Instructions: separate doses by at least 6 hours prednisone 1 mg Tablet 3 mg PO DAILY Hold Instructions: resume home dose of prednisone after completing predisone burst Entresto 49-51 mg Tablet 1 tab PO BID gabapentin 400 mg capsule 400 mg PO TID 30 Days Qty: 90 0RF ipratropium-albuterol 0.5 mg-3 mg(2.5 mg base)/3 mL Solution For Nebulization 3 ml INHALATION .q6h while awake Qty: 90 0RF prednisone 20 mg tablet 40 mg PO DAILY 5 Days Qty: 10 0RF avaps AE See Rx Instructions .ROUTE .COMPLEX Qty: 1 0RF Rx Instructions: [facility] ID #[id number] length of need 99 months or lifetime Diagnosis codes J96.20 & J44.9 Settings epap - 5-15 target rate 15 pressure support 5-25 title volume 3-600 equipment [id number] Patient will need Noninvasive ventilator at home to help with gas exchange and to help improve quality of life
[2023-04-02] MEDS: HYDROmorphone HCl 2 MG/ML VIAL IM (01:40)
[2023-04-02 02:45] VITALS: BP 172/76; PULSE 86; RESP 18; TEMP 36.7; O2SAT 94
[2023-04-02 05:01] VITALS: BP 169/70; PULSE 95; RESP 18; TEMP 36.3; O2SAT 93
[2023-04-02] MEDS: HYDROmorphone HCl 1 MG/ML SYRINGE IM (05:02)
--- NOTE | 2023-04-02 05:27 | PC.NURSE ---
late entry- pt medicated according to jan. pt reporting 9/10 pain. pt calm and cooperative
--- NOTE | 2023-04-02 05:28 | PC.NURSE ---
late entry- pt up for discharge. pt called father for ride home. pt's father arrived for ride home without portable oxygen tank. pt father will return with portable tank to transport pt home with as pt wears oxygen at baseline
--- NOTE | 2023-04-02 05:29 | PC.NURSE ---
pt medicated for continued pain. this rn assisted pt to transfer into wheelchair for ride to pt's fathers vehicle for ride home. pt provided with discharge packet. pt verbalized understanding of discharge plan
== END 2023-04-02 05:31 | disposition home or self-care (01) ==
PROVIDERS: Emergency Provider Emergency Medicine; PCP Nurse Practitioner Family
DX: M54.42 Lumbago with sciatica, left side (principal); S39.012A Strain of muscle, fascia and tendon of lower back, initial encounter; X58.XXXA Exposure to other specified factors, initial encounter; G89.4 Chronic pain syndrome; E11.9 Type 2 diabetes mellitus without complications; I10 Essential (primary) hypertension; F17.210 Nicotine dependence, cigarettes, uncomplicated; E66.2 Morbid (severe) obesity with alveolar hypoventilation; Z68.41 Body mass index [BMI] 40.0-44.9, adult; Z79.891 Long term (current) use of opiate analgesic; Z79.82 Long term (current) use of aspirin; Z79.02 Long term (current) use of antithrombotics/antiplatelets; Z79.899 Other long term (current) drug therapy; Z79.4 Long term (current) use of insulin; Y93.89 Activity, other specified; Y92.9 Unspecified place or not applicable; Y99.9 Unspecified external cause status
CPT/HCPCS: 72100; 73502; 96372; 99284; J1170

== ENCOUNTER → 2023-05-05 13:10 | Outpatient (BNVA) | payer OTHER, SELFPAY | PROVIDERS: PCP Nurse Practitioner Family; Visit Provider Internal Medicine ==

== ENCOUNTER 2023-06-30 11:25 | Outpatient (AMB) | payer OTHER, SELFPAY ==
[2023-06-30 11:27] VITALS: BP 190/88; PULSE 120; RESP 14; BMI 43.5
--- NOTE | 2023-06-30 11:27 | MHC.OFFVIS ---
Intake Vital Signs 06/30/23 11:27 Height 5 ft 1 in Weight 230 lb BMI 43.5 BP 190/88 H Blood Pressure Location Lt radial Position Sitting Respiration 14 Pulse 120 H Pulse Source Pulse Oximeter Intake Visit Reasons: MRI Results Allergies fentanyl [FENTANYL] Allergy (Unknown, Verified 06/30/23 11:30) NAUSEA & VOMITING lithium [LITHIUM] Allergy (Unknown, Verified 06/30/23 11:30) RASH/HIVES/VOMITING naproxen [From NAPROSYN] Allergy (Unknown, Verified 06/30/23 11:30) N/V gabapentin Adverse Reaction (Severe, Verified 06/30/23 11:30) lethargy Adhesive Bandages Allergy (Unknown, Uncoded 06/30/23 11:30) Rash PLASTIC TAPE Allergy (Unknown, Uncoded 06/30/23 11:30) REDNESS HPI MRI Results HPI Details 53-year-old female presenting today for a review of MRI scan result. She has a past history of lumbar spine surgery that she recalls as targeting the L3, L4, and L5 region about [address] Jerry, possibly ALIF. Walking and exercise makes the pain worse and interferes with her daily activities and sleep. Sitting and resting alleviates the pain. She notices an occasional popping sound in her back when she wakes up in the morning. The patient is currently on 3L of oxygen through a nasal cannula. She is also using a CPAP machine. She has SOB while ambulating, and her pain triggers her anxiety. She is currently on oxycodone and tolerating it well. She states that her oxycodone dose was weaned down to 1-2 pills per four hours by her prescribing provider. She states she tolerated her previous regimen for years without problems . She is occasionally using Clonazepam P.R.N. for her anxiety. She requests facilitation to restore her pain medications to her original dosage of 280 percocets/month. She is amenable to cutting down on the clonazepam. She last had anesthesia for her surgery about 13 years ago. At that time, she was not on portable oxygen. [facility] Medical History (Updated 05/05/23 @ 13:55 by Oscar Calero MD) Anxiety Asthma Bipolar disorder COPD (chronic obstructive pulmonary disease) Depression Diabetes mellitus Fibromyalgia GERD (gastroesophageal reflux disease) Hypertension Obesity hypoventilation syndrome Obstructive sleep apnea BASSEM (obstructive sleep apnea) Respiratory failure with hypoxia and hypercapnia Surgical History (Updated 05/05/23 @ 14:01 by Dani Brady) H/O: hysterectomy History of lumbar fusion History of right shoulder replacement Social History Household Members: Family Housing: House Do you presently have visiting nurse or other home services: No Alcohol intake: never Patient Tobacco Use Status: Current everyday Tobacco user Tobacco use type: Cigarette Cigarettes Per Day: 1 Advance Directives Date on File: 01/22/23 service: No Current occupational status: disabled Review of Systems Const All systems reviewed & are unremarkable except as noted in HPI and below Physical Exam Vital Signs: Last Vital Signs Pulse 120 H 06/30/23 11:27 Resp 14 06/30/23 11:27 BP 190/88 H 06/30/23 11:27 BMI result Body Mass Index 43.5 General: Appears afebrile. Alert and oriented. Mood and affect appropriate. Follows and participates in conversation appropriately. Respiratory effort is unlabored. Able to transition from sit to stand unassisted. Ambulates with bilaterally normal heel strike and toe off. Results Reviewed Results Reviewed: 06/14/23: MR LUMBAR SPINE WO CONTRAST Assessment & Plan Assessment & Plan (1) Lumbar radicular pain: Code(s): M54.16 - Radiculopathy, lumbar region (2) Spinal stenosis of lumbar region with neurogenic claudication: Code(s): M48.062 - Spinal stenosis, lumbar region with neurogenic claudication Plan Ordered a flex ex x-ray of the lumbar spine for further evaluation of spondylolisthesis. We discussed both SCS and surgical correction as possible treatment options. I reviewed the risks of anesthesia with her that both those options would entail. She understands the risks but is willing to think about it. I will discuss the case with anesthesia and see if they have reservations. Meanwhile, given her past tolerance to 90 MME of daily oxycodone usage, I think it's reasonable to restore that dose given her poorly controlled pain symptoms. She is amenable to weaning down her clonazepam to reduce risk of cumulative sedative effect with Percocet. I did inform her that our office is not accepting new patients on chronic narcotics and that she would have to continue to follow-up with her primary care provider regarding this potential change in prescription. Patient expressed understanding. Scribed for Dr. Calero by Dani Brady, medical assistant float, on 06/30/2023. I, Dr. Calero, have personally reviewed and agree with the information entered by the scribe. Orders: Orders XR lumbar spine 6V w bending 06/30/23 M54.16 - Radiculopathy, lumbar region Coding Level of Care Code Est Pt Level 4 (92377) Diagnoses Lumbar radicular pain M54.16 Spinal stenosis of lumbar region with neurogenic claudication M48.062
== END 2023-06-30 11:54 | disposition home or self-care (01) ==
PROVIDERS: PCP Nurse Practitioner Family; Visit Provider Internal Medicine
DX: M54.16 Radiculopathy, lumbar region (principal); M48.062 Spinal stenosis, lumbar region with neurogenic claudication
CPT/HCPCS: 99214

== ENCOUNTER 2023-06-30 11:25 | Outpatient (REF) | payer OTHER, SELFPAY ==
--- NOTE | ~2023-06-30 | XR_ITS ---
EXAMINATION: XR LUMBOSACRAL SPINE WITH OBLIQUES CLINICAL INFORMATION: Radiculopathy of lumbar region. COMPARISON: Lumbar spine radiographs from 04/02/2023. Lumbar MRI from 09/18/2015. TECHNIQUE: 7 views of the lumbar spine, including lateral views obtained during flexion and extension. 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 Prior discectomy, bone graft fusion at L5-S1. Mild multilevel narrowing of disc space and anterior vertebral osteophyte formation of the lumbar spine with exception of L4-L5. At L4-L5, there is facet osteoarthritis, severe loss of disc space with subarticular endplate sclerosis and mild kyphosis. There is 0.6 cm of grade 1 anterolisthesis of L4 on L5; this is unchanged on flexion and extension. There is mild, approximately 0.3 cm of anterolisthesis of L2 on L3; this does not significantly change during flexion or extension. Otherwise, lumbar vertebra have normal alignment. No compression fractures or pars interarticularis defects. There is atherosclerotic calcification of aorta and iliac arteries. XR/XR lumbar spine 6V w bending IMPRESSION: The main abnormalities within the lumbar spine are facet osteoarthritis, degenerative disc disease and grade 1 anterolisthesis at L4-L5. No worsening of the vertebral subluxation during flexion or extension. Also noted is mild degenerative anterolisthesis at L2-L3. There are no vertebral compression fractures.
== END 2023-06-30 11:26 | disposition home or self-care (01) ==
LOC: HO.XRAY 11:25
PROVIDERS: PCP Nurse Practitioner Family; Visit Provider Internal Medicine
DX: M54.16 Radiculopathy, lumbar region (principal); M48.062 Spinal stenosis, lumbar region with neurogenic claudication
CPT/HCPCS: 72114

== ENCOUNTER 2023-07-07 13:17 | Outpatient (AMB) | payer OTHER, SELFPAY ==
--- NOTE | 2023-07-07 13:17 | A.OFFVIS_ITS ---
Intake Intake Visit Reasons: XRAY RESULTS Allergies fentanyl [FENTANYL] Allergy (Unknown, Verified 06/30/23 11:30) NAUSEA & VOMITING lithium [LITHIUM] Allergy (Unknown, Verified 06/30/23 11:30) RASH/HIVES/VOMITING naproxen [From NAPROSYN] Allergy (Unknown, Verified 06/30/23 11:30) N/V gabapentin Adverse Reaction (Severe, Verified 06/30/23 11:30) lethargy Adhesive Bandages Allergy (Unknown, Uncoded 06/30/23 11:30) Rash PLASTIC TAPE Allergy (Unknown, Uncoded 06/30/23 11:30) REDNESS HPI XRAY RESULTS HPI Details 53-year-old female is presenting today on tele-health visit for a follow-up review of x-ray result. The patient states that she has thought more about considering the surgical option. She understands the risks of anesthesia, but would like to at least get a consultation with the neurosurgeon. On review, there is no evidence of instability on the x-ray. [facility] Medical History (Updated 05/05/23 @ 13:55 by Oscar Calero MD) Anxiety Asthma Bipolar disorder COPD (chronic obstructive pulmonary disease) Depression Diabetes mellitus Fibromyalgia GERD (gastroesophageal reflux disease) Hypertension Obesity hypoventilation syndrome Obstructive sleep apnea BASSEM (obstructive sleep apnea) Respiratory failure with hypoxia and hypercapnia Surgical History (Updated 05/05/23 @ 14:01 by Dani Brady) H/O: hysterectomy History of lumbar fusion History of right shoulder replacement Social History Household Members: Family Housing: House Do you presently have visiting nurse or other home services: No Alcohol intake: never Patient Tobacco Use Status: Current everyday Tobacco user Tobacco use type: Cigarette Cigarettes Per Day: 1 Advance Directives Date on File: 01/22/23 service: No Current occupational status: disabled Review of Systems Const All systems reviewed & are unremarkable except as noted in HPI and below Results Reviewed Results Reviewed: 06/30/23: XR LUMBOSACRAL SPINE WITH OBLIQUES FINDINGS: Again noted is rotatory levoscoliosis of the degenerated lumbar spine. Prior discectomy, bone graft fusion at L5-S1. Mild multilevel narrowing of disc space and anterior vertebral osteophyte formation of the lumbar spine with exception of L4-L5. At L4-L5, there is facet osteoarthritis, severe loss of disc space with subarticular endplate sclerosis and mild kyphosis. There is 0.6 cm of grade 1 anterolisthesis of L4 on L5; this is unchanged on flexion and extension. There is mild, approximately 0.3 cm of anterolisthesis of L2 on L3; this does not significantly change during flexion or extension. Otherwise, lumbar vertebra have normal alignment. No compression fractures or pars interarticularis defects. There is atherosclerotic calcification of aorta and iliac arteries. IMPRESSION: The main abnormalities within the lumbar spine are facet osteoarthritis, degenerative disc disease and grade 1 anterolisthesis at L4-L5. No worsening of the vertebral subluxation during flexion or extension. Also noted is mild degenerative anterolisthesis at L2-L3. There are no vertebral compression fractures. Assessment & Plan Assessment & Plan (1) Post laminectomy syndrome: Code(s): M96.1 - Postlaminectomy syndrome, not elsewhere classified (2) Spinal stenosis of lumbar region with neurogenic claudication: Code(s): M48.062 - Spinal stenosis, lumbar region with neurogenic claudication Plan A referral was provided for neurosurgery to discuss surgical intervention for her lumbar spinal stenosis/spondylolisthesis. The patient will receive a call to schedule an appointment. If she is deemed non-surgical due to her spinal condition and co-morbidities, we can see her back for consideration of neuromo dulation therapies. Scribed for Dr. Calero by Dani Brady, medical technologist microbiology, on 07/07/2023. I, Dr. Calero, have personally reviewed and agree with the information entered by the scribe. Orders: Referrals Neurosurgery Referral M48.062 - Spinal stenosis, lumbar region with neurogenic claudication, M96.1 - Postlaminectomy syndrome, not elsewhere classified Telehealth Telehealth Location of provider rendering services: practice address Location of patient: address on file Patient Identification confirmed using: Name, : Yes Telehealth method: voice only Patient verbally consented to treatment: Yes Patient verbally consented to billing insurance company: Yes Patient informed of any privacy concerns related to visit: Yes Minutes spent on Phone/Video with Pt.: 3 Coding Level of Care Code Tele Est Pt Level 3 (77883) Diagnoses Post laminectomy syndrome M96.1 Spinal stenosis of lumbar region with neurogenic claudication M48.062
== END 2023-07-07 13:17 | disposition home or self-care (01) ==
LOC: HO.PMC 13:17
PROVIDERS: PCP Nurse Practitioner Family; Visit Provider Internal Medicine
DX: M96.1 Postlaminectomy syndrome, not elsewhere classified (principal); M48.062 Spinal stenosis, lumbar region with neurogenic claudication
CPT/HCPCS: 99213

== ENCOUNTER → 2023-07-07 13:17 | Outpatient (BNVA) | payer OTHER, SELFPAY | PROVIDERS: PCP Nurse Practitioner Family; Visit Provider Internal Medicine ==

== ENCOUNTER 2023-08-04 11:28 | Outpatient (REF) | payer OTHER, SELFPAY ==
--- NOTE | ~2023-08-04 | XR_ITS ---
EXAMINATION: XR LUMBOSACRAL SPINE CLINICAL INFORMATION: Spondylolisthesis. COMPARISON: Most recent lumbar spine radiographs dated 06/30/2023. TECHNIQUE: AP, lateral, flexion, and extension views of the lumbosacral spine. FINDINGS: Levocurvature of the lumbar spine is redemonstrated. The lumbar lordosis is maintained. Grade 1 anterolisthesis of L4 on L5 which is not significantly changed with flexion or extension. This appears similar when compared to the prior radiographs. No acute fracture. No loss of vertebral body height. Multilevel loss of intervertebral disc height with degenerative endplate changes and facet arthropathy, similar when compared to the prior examination. Prominent atherosclerotic calcifications. XR/XR lumbar spine 4V min IMPRESSION: 1. Grade 1 anterolisthesis of L4 on L5, not significantly changed with flexion or extension. 2. Levocurvature of the lumbar spine, unchanged. 3. Multilevel degenerative disc disease and facet arthropathy, unchanged.
== END 2023-08-04 11:29 | disposition home or self-care (01) ==
LOC: HO.HOSX 11:28
PROVIDERS: PCP Nurse Practitioner Family; Visit Provider Physician Assistant
DX: M43.16 Spondylolisthesis, lumbar region (principal)
CPT/HCPCS: 72110

== ENCOUNTER 2023-08-04 11:28 | Outpatient (AMB) | payer OTHER, SELFPAY ==
--- NOTE | 2023-08-04 12:33 | A.SPINEOV_ITS ---
Intake Intake Visit Reasons: low back pain Intake Note: Ms. Guillen is here today c/o low back pain. MRI done @ [facility]/brought disc. 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: No Allergies fentanyl [FENTANYL] Allergy (Unknown, Verified 06/30/23 11:30) NAUSEA & VOMITING lithium [LITHIUM] Allergy (Unknown, Verified 06/30/23 11:30) RASH/HIVES/VOMITING naproxen [From NAPROSYN] Allergy (Unknown, Verified 06/30/23 11:30) N/V gabapentin Adverse Reaction (Severe, Verified 06/30/23 11:30) lethargy Adhesive Bandages Allergy (Unknown, Uncoded 06/30/23 11:30) Rash PLASTIC TAPE Allergy (Unknown, Uncoded 06/30/23 11:30) REDNESS Assessment & Plan Assessment & Plan (1) Lumbar radicular pain: Code(s): M54.16 - Radiculopathy, lumbar region (2) Spondylolisthesis, lumbar region: Code(s): M43.16 - Spondylolisthesis, lumbar region Plan Dear Dr Calero, Thank you for referring Mrs Guillen to our office today. She is a 53-year-old female with COPD, on home oxygen, heart failure who had previous surgery at L L5-S1 by Dr. Jerry about 15 years ago, presents to the office today for evaluation of chronic low back pain and pain going down both of her legs when she stands and walks. She believes that the previous surgery that she had with Dr. Jerry was fusion surgery. She tells me that she has had the pain for 30 years or more. The surgery that she had done did not necessarily improve her symptoms. She takes Percocet to help with the pain. She has been through ph ysical therapy, chiropractic as well as cortisone injections and nothing seems to be helping. She was sen sent todayy for surgical evaluation. PMH: Her medical history is complicated, she has a history of advanced COPD and asthma, she is followed by a wire stitcher operator as well as a level vial setter Dr. Jeffrey Shell. She is not clear on all the details of what is wrong with her but does report that she has had pulmonary function test done before they showed better results. She continues to smoke a few cigarettes a day however. She also has heart failure but can not describe exactly if this is something that has to do with her heart is pumping power or if it is strictly from her COPD. She has a history of diabetes, her last A1c was 6.5 IBS, Crohn's, fibromyalgia, neuropathy, hysterectomy Social hx: As above she does still smoke a few cigarettes a day Medications: She has extensive list of medications that are included in the [employer] medical record which I will not review here, but I have seen them and of note she is on amiodarone and torsemide , she takes a number of different inhalers. She takes no blood thinners. Allergies: Please see the [employer] list Physical exam: She is morbidly obese female, on oxygen in today, just having a conversation with her she is sweating and occasionally out of breath, her strength in her lower extremities is full, reflexes diminished at the patella and Achilles. No Briggs sign. Imaging review: Lumbar MRI done at [facility] shows grade 1-2 spondylolisthesis at L4-5 with severe bilateral neuroforaminal stenosis and bilateral L4-5 facet arthropathy. Her x-ray show evidence of solid fusion noninstrumented at the L5- S1 region. There is a grade 1-2 spondylolisthesis at L4-5. Impression: 53-year-old female with significant medical comorbidities including respiratory failure, severe COPD on home oxygen of unknown FEV1, diabetes, heart failure with previous L5-S1 non instrumented fusion who presents to the office today for evaluation of back pain and bilateral leg pain which looks to be adjacent segment disease at L4-5 with grade 1-2 spondylolisthesis with severe collapse of the foramen and bilateral facet arthropathy causing moderate central canal stenosis. This seems to be the best explanation for the source of her symptoms. However, there needs to be some clarification as to exactly what the status of her heart and her lungs are before we consider undertaking surgery. I have asked her to speak with her wire stitcher operator, her PCP so we could better understand what the issues would be going into an operation. I would also like to get a noncontrast lumbar CT to evaluate the bony anatomy. My suspicion is she may have osteoporosis and the CT scan will help us better delineate the chance of hardware failure. Once we have these things put together we will see her back and I can review her situation with Dr. Dove to see if he would consider surgery on her. Most likely would be OLIF vs trans Kambin interbody fusion at L4-5 Thank you for allowing us to care for your patient. The total time spent with this visit with this patient was 45 minutes reviewing history, physical exam, lumbar imaging review, and implementation of treatment plan or further diagnostic testing Garret Dove MD,PhD [facility] Orders: Orders CT lumbar spine wo IV con Today M54.16 - Radiculopathy, lumbar region XR lumbar spine 4V min Today M43.16 - Spondylolisthesis, lumbar region Coding Level of Care Code New Pt Level 4 (96981) Diagnoses Lumbar radicular pain M54.16 Spondylolisthesis, lumbar region M43.16
== END 2023-08-04 13:33 | disposition home or self-care (01) ==
PROVIDERS: PCP Nurse Practitioner Family; Referring Provider Internal Medicine; Visit Provider Physician Assistant
DX: M54.16 Radiculopathy, lumbar region (principal); M43.16 Spondylolisthesis, lumbar region
CPT/HCPCS: 99204

== ENCOUNTER 2023-08-14 10:40 | Inpatient (IN) | payer MEDICAID, SELFPAY ==
[2023-08-14] VITALS (19 sets, daily range): BP systolic 140–176; BP diastolic 70–98; PULSE 102–114; RESP 12–26; TEMP 36.3–37.8; O2SAT 78–97; BMI 50.5; BMI 50.2
--- NOTE | ~2023-08-14 | CT_ITS ---
EXAMINATION: CT HEAD WITHOUT CONTRAST CLINICAL INFORMATION: Altered mental status. COMPARISON: MRI brain on 08/28/2016. TECHNIQUE: Contiguous axial imaging was performed from the skull base to vertex without intravenous administration of contrast. This CT examination was performed using dose optimization techniques as appropriate, variously including the following: *Automated exposure control *Adjustment of mA and/or kV according to patient size (this includes techniques or standardized protocols for targeted exams where dose is matched to indication/reason for exam; i.e. extremities or head) *Use of iterative reconstruction technique DLP: 727.85 mGy-cm FINDINGS: No acute intracranial hemorrhage or infarct. The freeman-white matter differentiation is preserved. No midline shift or hydrocephalus. No acute extra-axial fluid collections. The osseous structures are unremarkable. No orbital pathology. The paranasal sinuses and mastoid air cells are clear. CT/CT head/brain wo IV con IMPRESSION: No acute intracranial hemorrhage or infarct. Please note that MRI is more sensitive for detection of small ischemic infarcts.
--- NOTE | ~2023-08-14 | XR_ITS ---
EXAMINATION: XR CHEST CLINICAL INFORMATION: Shortness of breath COMPARISON: 01/21/2023 TECHNIQUE: Frontal view of the chest was obtained. FINDINGS: There is mild cardiac enlargement. There is mild upper zone redistribution. No gross pulmonary edema. Some bibasilar atelectasis is seen, increased when compared to prior. No large effusions or lung masses are seen. Right reverse shoulder prosthesis again noted. XR/XR chest 1V IMPRESSION: Cardiomegaly with mild upper zone redistribution but no gross pulmonary edema.
--- NOTE | 2023-08-14 10:48 | ECG_ITS ---
Test Reason : DYSPNEA Blood Pressure : / mmHG Vent. Rate : 107 BPM Atrial Rate : 107 BPM P-R Int : 146 ms QRS Dur : 076 ms QT Int : 366 ms P-R-T Axes : 067 -01 014 degrees QTc Int : 488 ms Sinus tachycardia Possible Left atrial enlargement Septal infarct (cited on or before 21-JAN-2023) Abnormal ECG When compared with ECG of 21-JAN-2023 01:00, No significant change was found Referred By: Miller Franco Electronically Signed By:VIRA CONNELLY
[2023-08-14 10:54] LABS: Glucose, Whole Blood 150 mg/dL (60-115)
--- NOTE | 2023-08-14 11:00 | ED.SOB ---
HPI - SOB/Dyspnea General Chief Complaint: Dyspnea Stated Complaint: RESP DISTRESS HX COPD Source: EMS and old records reviewed Mode of arrival: EMS Limitations: altered mental status History of Present Illness HPI Narrative: 53 yo female with PMH of COPD O2 dependent on 2L or 4L [place] EMS unsure as family told them 4L [place], chronic pain, chronic respiratory failure, obesity hypoventilation syndrome, was reportedly found sleeping at her kitchen table which is not unusual for the patient. She was not responding to her family or whomever she lived with so they left her for about 30 min. EMS notes they were not appropriate she was found on O2 with about 100ft of tubing sitting face down at kitchen table 78% on O2. She was bagged and put on NRB. On arrival she wakes to loud verbal stimuli is moaning, touches her face and is able to cough when asked. EMS gave IV narcan as she has hx of oxycodone use and had pinpoint pupils it did not help. End tidal was 99 on EMS arrival. MD elicited complaint: shortness of breath Pertinent past history: COPD and congestive heart failure Onset (ago): unknown Context: other (chronic resp failure) Timing: other (EMS notes it is improving) Severity: severe Exacerbating factors: nothing Relieving factors: oxygen, bronchodilators and upright position Known history of: COPD and congestive heart failure Associated symptoms: denies other symptoms Treatment prior to arrival: oxygen and other (narcan) Related Data Home Medications Medication Instructions Recorded Confirmed albuterol sulfate 2.5 mg/3 mL 2.5 mg inhalation BID PRN Wheezing 01/21/23 05/05/23 (0.083 %) solution for nebulization albuterol sulfate 90 mcg/actuation 1 inh inhalation QID PRN Wheezing 01/21/23 05/05/23 aerosol inhaler aluminum chloride in alcohol 6.25 1 appl topical BEDTIME 01/21/23 05/05/23 % topical solution amiodarone 400 mg tablet 400 mg PO DAILY 01/21/23 05/05/23 aripiprazole 10 mg tablet (Abilify) 10 mg PO DAILY 01/21/23 05/05/23 ascorbic acid (vitamin C) 250 mg 1,000 mg PO DAILY 01/21/23 05/05/23 tablet aspirin 81 mg tablet,delayed 81 mg PO DAILY 01/21/23 05/05/23 release atorvastatin 80 mg tablet 80 mg PO DAILY 01/21/23 05/05/23 bupropion HCl 150 mg 24 hr tablet, 150 mg PO QAM 01/21/23 05/05/23 extended release ygyqehtyte-kzsqaswozmkzc-vbjkooix 1 tab PO DAILY PRN Headache 01/21/23 05/05/23 50 mg-325 mg-40 mg tablet calcium carbonate 600 mg calcium 600 mg PO BID 01/21/23 05/05/23 (1,500 mg) tablet carvedilol 25 mg tablet 25 mg PO BID 01/21/23 05/05/23 cholecalciferol (vitamin D3) 50 50 mcg PO DAILY 01/21/23 05/05/23 mcg (2,000 unit) capsule (Vitamin D3) clonazepam 0.5 mg tablet 0.5 mg PO BID PRN Anxiety 01/21/23 05/05/23 clotrimazole 1 % topical cream 1 appl topical BID 01/21/23 05/05/23 cyanocobalamin (vitamin B-12) 5,000 mcg PO DAILY 01/21/23 05/05/23 2,500 mcg tablet dapagliflozin propanediol 10 mg 10 mg PO DAILY 01/21/23 05/05/23 tablet diclofenac sodium 1 % topical gel 2 g topical TID 01/21/23 05/05/23 dicyclomine 10 mg capsule 10 mg PO TID PRN Spasms 01/21/23 05/05/23 dulaglutide 1.5 mg/0.5 mL 1.5 mg subcut QWEEK 01/21/23 05/05/23 subcutaneous pen injector (Trulicity) duloxetine 60 mg capsule,delayed 60 mg PO DAILY 01/21/23 05/05/23 release dupilumab 300 mg/2 mL subcutaneous 300 mg subcut Q2W 01/21/23 05/05/23 pen injector (Dupixent) fenofibrate micronized 134 mg 134 mg PO DAILY 01/21/23 05/05/23 capsule fluticasone propionate 250 1 inh inhalation BID 01/21/23 05/05/23 mcg/actuation blister powder for inhalation (Flovent Diskus) fluticasone propionate 50 1 spray intranasal BID 01/21/23 05/05/23 mcg/actuation nasal spray,suspension hydroxyzine HCl 25 mg tablet 25 mg PO BID PRN Itching 01/21/23 05/05/23 insulin glargine 100 unit/mL (3 5 unit subcut BEDTIME 01/21/23 05/05/23 mL) subcutaneous pen (Lantus Solostar U-100 Insulin) insulin lispro 100 unit/mL 1 sliding scale dose subcut 01/21/23 05/05/23 subcutaneous pen USEASDIRECTD loratadine 10 mg tablet 10 mg PO DAILY 01/21/23 05/05/23 magnesium 250 mg tablet 500 mg PO DAILY 01/21/23 05/05/23 metoprolol succinate 200 mg 200 mg PO DAILY 01/21/23 05/05/23 tablet,extended release 24 hr montelukast 10 mg tablet 10 mg PO BEDTIME 01/21/23 05/05/23 multivitamin 1 tab PO DAILY 01/21/23 05/05/23 nystatin 100,000 unit/gram topical 1 appl topical BID 01/21/23 05/05/23 powder nystatin 100,000 unit/mL oral 5 ml PO Q6H 01/21/23 05/05/23 suspension omega [id number]-wuh-ukd-fish oil 1,000 mg 1 cap PO DAILY 01/21/23 05/05/23 (120 mg-180 mg) capsule (Fish Oil) omeprazole 20 mg capsule,delayed 20 mg PO BID 01/21/23 05/05/23 release oxybutynin chloride 10 mg 10 mg PO DAILY 01/21/23 05/05/23 tablet,extended release 24 hr oxycodone-acetaminophen 5 mg-325 1 - 2 tab PO Q4H PRN Pain 01/21/23 05/05/23 mg tablet prednisone 1 mg tablet 3 mg PO DAILY 01/21/23 05/05/23 roflumilast 500 mcg tablet 500 mcg PO DAILY 01/21/23 05/05/23 (Daliresp) ropinirole 1 mg tablet 1 - 2 mg PO BEDTIME 01/21/23 05/05/23 sacubitril 49 mg-valsartan 51 mg 1 tab PO BID 01/21/23 05/05/23 tablet (Entresto) tobramycin with nebulizer 300 mg/5 300 mg inhalation BID 01/21/23 05/05/23 mL solution for nebulization torsemide 10 mg tablet 20 mg PO DAILY 01/21/23 05/05/23 valacyclovir 1 gram tablet 1,000 mg PO BID 01/21/23 05/05/23 zileuton 600 mg tablet (Zyflo) 600 mg PO QID 01/21/23 05/05/23 Previous Rx's Medication Instructions Recorded avaps AE See Rx Instructions .Route 01/24/23 .COMPLEX #1 ea ipratropium 0.5 mg-albuterol 3 mg 3 ml inhalation .q6h while awake 01/24/23 (2.5 mg base)/3 mL nebulization #90 mL soln Allergies Allergy/AdvReac Type Severity Reaction Status Date / Time fentanyl [FENTANYL] Allergy Unknown NAUSEA & Verified 06/30/23 11:30 VOMITING lithium [LITHIUM] Allergy Unknown RASH/HIVES/ Verified 06/30/23 11:30 VOMITING naproxen [From NAPROSYN] Allergy Unknown N/V Verified 06/30/23 11:30 gabapentin AdvReac Severe lethargy Verified 06/30/23 11:30 Adhesive Bandages Allergy Unknown Rash Uncoded 06/30/23 11:30 PLASTIC TAPE Allergy Unknown REDNESS Uncoded 06/30/23 11:30 Review of Systems Review of Systems: ROS unable to be obtained due to altered mental status [facility] Past Medical History Source: old records reviewed Medical History Respiratory failure with hypoxia and hypercapnia BASSEM (obstructive sleep apnea) Obesity hypoventilation syndrome Obstructive sleep apnea Anxiety Bipolar disorder GERD (gastroesophageal reflux disease) Fibromyalgia Hypertension Diabetes mellitus Depression Asthma COPD (chronic obstructive pulmonary disease) Surgical History History of right shoulder replacement History of lumbar fusion H/O: hysterectomy Social History Social History Household Members: Family Housing: House Do you presently have visiting nurse or other home services: No Alcohol intake: current Alcohol intake frequency: 3 or more drinks per day Alcohol type: hard liquor Patient Tobacco Use Status: Current everyday Tobacco user Tobacco use type: Cigarette Cigarettes Per Day: 1 Smoked in Last 30 Days: Yes Use of substances other than those prescribed or required for medical reasons: Yes Substance Use Type: Crack/Cocaine, Marijuana and Prescription Drugs Advance Directives: Yes Advance Directives on File: Yes Advance Directives Date on File: 01/22/23 Patient : No service: No Current occupational status: disabled Physical Exam Vital Signs: Vital Signs: Last Vital Signs Temp 98.5 F 08/14/23 15:20 Pulse 114 H 08/14/23 15:20 Resp 22 H 08/14/23 15:37 BP 149/81 H 08/14/23 15:20 Pulse Ox 87 L 08/14/23 15:20 O2 Del Method High Flow Nasal C annula 08/14/23 15:20 O2 Flow Rate 55 08/14/23 15:20 Oxygen Flow Rate 15 08/14/23 10:48 BMI result Body Mass Index 50.5 Appearance: Somnolent wakes to tactile and loud verbal stimuli, coughs on own and touches face moderate acute distress. Eyes: Pupils equal, round and reactive to light. ENT: Pharynx normal. Neck: Normal inspection. Neck supple. CVS: tachycardic heart rate and rhythm. Pulses normal. Respiratory: Moderate respiratory distress tachypnea. Breath sounds diminshed throughout Abdomen: Soft and nontender. Skin: Skin warm and dry. Normal skin color. Normal skin turgor. Extremities: 1+ lower extremity edema. No calf ttp Neuro: squeezes hand, touches face, follows some commands otherwise cannot participate Course Course Course Narrative: pupils becoming pinpoint - IV narcan pushed patient more awake now and able to talk to daughter Reevaluation(s) Reevaluation #1: good response to narcan then falls asleep at this time she responds to stimuli and daughter's voice will place on narcan gtt and keep assessing. Reevaluation #2: on hiflo and narcan gtt talking and conversing she is much better at this time. Reevaluation #3: wide awake now asking for pain medications will stop narcan gtt doing well on hiflo 243pm Additional Reevaluation(s): increase in lactic acidosis due to albuterol and not infection or severe sepsis 30kg bolus held due to concern for clinical overload has turned around well I think she can be admitted to the floors does not need ICU level of care - off narcan gtt for an hour asking for pain medications, eating ice chips, mentating well alert and oriented x 3 Medications Administered Generic Name Dose Route Start Last Admin Trade Name Freq PRN Reason Stop Dose Admin Naloxone HCl 5 mg/ Dextrose 100 mls @ 20 mls/hr 08/14/23 11:45 08/14/23 14:42 IV 0 mg/hr .Q5H BRYAN 0 mls/hr Infusion 1 MG/HR Azithromycin 500 mg/ Sodium 250 mls @ 125 mls/hr 08/14/23 14:06 08/14/23 14:46 Chloride IV 08/14/23 16:05 125 mls/hr ONCE ONE Administration Discontinued Medications Generic Name Dose Route Start Last Admin Trade Name Vincent PRN Reason Stop Dose Admin Albuterol Sulfate 5 mg/ 7.5 mg 08/14/23 12:21 08/14/23 12:27 Albuterol Sulfate 2.5 mg INHALE 08/14/23 12:22 7.5 mg ONCE ONE Administration Albuterol/Ipratropium 3 ml 08/14/23 11:04 08/14/23 11:07 Albuterol/Iprat 2.5/0.5mg 3 Ml Ampul.Neb INHALE 08/14/23 11:05 3 ml ONCE ONE Administration Furosemide 40 mg 08/14/23 10:59 08/14/23 11:22 Furosemide 40 Mg/4 Ml Vial IVPUSH 08/14/23 11:00 40 mg ONCE ONE Administration Protocol Ceftriaxone Sodium 1 gm/ 50 mls @ 100 mls/hr 08/14/23 10:55 08/14/23 13:44 Sodium Chloride IV 08/14/23 11:24 Infused ONCE ONE Infusion Sodium Chloride 500 mls @ 500 mls/hr 08/14/23 12:30 08/14/23 14:02 Ns IV 08/14/23 13:29 Infused .Q1H BRYAN Infusion Methylprednisolone Sodium Succinate 60 mg 08/14/23 10:48 08/14/23 11:22 Methylprednisolone Sod Succ 125 Mg/2 Ml Vial IVPUSH 08/14/23 10:49 60 mg ONCE ONE Administration Naloxone HCl 0.4 mg 08/14/23 11:13 08/14/23 11:22 Naloxone Hcl 0.4 Mg/Ml Vial IVPUSH 08/14/23 11:14 0.4 mg STAT STA Administration Ondansetron HCl 4 mg 08/14/23 11:37 08/14/23 11:40 Ondansetron Hcl 4 Mg/2 Ml Vial IVPUSH 09/21/23 11:38 4 mg ONCE ONE Administration Medical Decision Making Medical Decision Making MDM Narrative: 53 yo female with PMH of COPD O2 dependent on 2L or 4L [place] EMS unsure as family told them 4L [place], chronic pain, chronic respiratory failure, obesity hypoventilation syndrome here with somnolence respiratory distress and concern for CO2 narcosis - the amyer who is LEAD NUC[employer] MEDICINE TECHNOLOGIST reports she has not been compliant for 3 weeks with her home CPAP due to stress and anxiety and has habit of sharing her opiates with her parents whom the patient lives with. The patient is improving slowly and is able to cough, touch her face, follow commands - will trial NIPPV - RN in room. Nebs, steroids, IV lasix, labs, cultures, CXR and CT head. Full CODE has been making vague SI statements towards her daughter and today is the daughter's birthday and she suspects she might have taken something such as opiates this AM which the patient did report opiate use this AM Differential Diagnosis Differential Diagnoses: The differential diagnosis associated with the presentation includes COPD, chronic resp failure, opiate abuse Admission/Observation Consideration of admission/observation: Escalation of care including admission/observation considered admit for observation. Consult Healthcare Provider Management of the patient was discussed with: Hospitalist and Glass Enamel Mixer hospitalist agrees to admit Lab Data [facility] Lab Attestation statement: I reviewed the patient's lab results. 08/14/23 11:20 08/14/23 12:06 Labs: Lab Results 08/14/23 08/14/23 08/14/23 Range/Units 10:47 11:05 11:20 WBC 13.8 H (4.8-10.8) X10*3/uL RBC 4.69 (4.20-5.50) X10*6/uL Hgb 13.8 (12.0-16.0) g/dl Hct 44.2 (37.0-47.0) % MCV 94.2 (80.0-98.0) fL MCH 29.4 (27.0-33.0) pg MCHC 31.2 (31.0-35.0) g/dl RDW 13.2 (11.0-16.0) % Plt Count 259 (160-400) X10*3/uL MPV 10.1 (9.4-12.3) fL Immature Gran % (Auto) 0.9 H (0.0-0.4) % Neut % (Auto) 87.9 H (45-73) % Lymph % (Auto) 5.6 L (20-40) % [place] % (Auto) 5.4 (2-11) % Eos % (Auto) 0.1 (0-4) % Baso % (Auto) 0.1 (0-2) % Lymph # (Auto) 0.8 L (1.2-4.9) X10*3/uL [place] # (Auto) 0.7 (0.1-1.2) X10*3/uL Eos # (Auto) 0.0 (0.0-0.4) X10*3/uL Baso # (Auto) 0.0 (0.0-0.2) X10*3/uL Abs Immat Gran (auto) 0.12 H (0.00-0.03) X10*3/uL Absolute Neuts (auto) 12.1 H (2.0-8.3) x10*3/uL Absolute Nucleated RBC 0.000 (0.0-0.012) X10*3/uL Nucleated RBC % (auto) 0.0 (0.0-0.2) /100WBC PT 11.0 L (11.1-13.3) SEC INR 0.9 (0.9-1.1) O2 Saturation 91.0 % ABG pH at Pt Temp 7.33 L (7.35-7.45) ABG pCO2 at Pt Temp 84 H* (32-45) mmHg ABG pO2 at Pt Temp 65 L (83-108) mmHg ABG HCO3 45 H (22-26) mmol/L ABG Base Excess (Actual) 14.6 mmol/L VBG pH (7.32-7.43) VBG pCO2 mmHg VBG pO2 mmHg VBG HCO3 (22-26) mmol/L VBG O2 Saturation % VBG Base Excess mmol/L Sodium (135-145) mmol/L Potassium (3.3-5.1) mmol/L Chloride (96-108) mmol/L Carbon Dioxide (22-29) mmol/L Anion Gap (12-20) BUN (9-16) mg/dL Creatinine (0.5-1.4) mg/dL Estim Creat Clear Calc Estimated GFR POC Glucose 150 H (60-115) mg/dL Random Glucose (60-115) mg/dL Lactic Acid (0.5-2.0) mmol/L Lactic Acid F/U @ 2Hr (0.5-2.0) mmol/L Calcium (8.4-10.2) mg/dL Magnesium (1.6-2.6) mg/dL Total Bilirubin (0.0-1.0) mg/dL AST (5-31) U/L ALT (0-31) U/L Alkaline Phosphatase (39-117) U/L Ammonia (13-55) umol/L Troponin I High Sens 38.0 H D (<3.5-17.0) ng/L B-Natriuretic Peptide 92 (<100) pg/mL Total Protein (6.5-8.0) g/dL Albumin (3.5-5.0) g/dL Salicylates (15-30) mg/dL Urine Opiates Screen (Not Detect) Urine Fentanyl Screen (Not Detect) Acetaminophen (<30) mcg/mL Ur Barbiturates Screen (Not Detect) Ur Phencyclidine Scrn (Not Detect) Ur Amphetamines Screen (Not Detect) U Benzodiazepines Scrn (Not Detect) Urine Cocaine Screen (Not Detect) U Marijuana (THC) Screen (Not Detect) Ethyl Alcohol Cancelled 08/14/23 08/14/23 08/14/23 Range/Units 11:57 12:06 12:07 WBC (4.8-10.8) X10*3/uL RBC (4.20-5.50) X10*6/uL Hgb (12.0-16.0) g/dl Hct (37.0-47.0) % MCV (80.0-98.0) fL MCH (27.0-33.0) pg MCHC (31.0-35.0) g/dl RDW (11.0-16.0) % Plt Count (160-400) X10*3/uL MPV (9.4-12.3) fL Immature Gran % (Auto) (0.0-0.4) % Neut % (Auto) (45-73) % Lymph % (Auto) (20-40) % [place] % (Auto) (2-11) % Eos % (Auto) (0-4) % Baso % (Auto) (0-2) % Lymph # (Auto) (1.2-4.9) X10*3/uL [place] # (Auto) (0.1-1.2) X10*3/uL Eos # (Auto) (0.0-0.4) X10*3/uL Baso # (Auto) (0.0-0.2) X10*3/uL Abs Immat Gran (auto) (0.00-0.03) X10*3/uL Absolute Neuts (auto) (2.0-8.3) x10*3/uL Absolute Nucleated RBC (0.0-0.012) X10*3/uL Nucleated RBC % (auto) (0.0-0.2) /100WBC PT (11.1-13.3) SEC INR (0.9-1.1) O2 Saturation % ABG pH at Pt Temp (7.35-7.45) ABG pCO2 at Pt Temp (32-45) mmHg ABG pO2 at Pt Temp (83-108) mmHg ABG HCO3 (22-26) mmol/L ABG Base Excess (Actual) mmol/L VBG pH 7.45 H (7.32-7.43) VBG pCO2 61 mmHg VBG pO2 64 mmHg VBG HCO3 43 H (22-26) mmol/L VBG O2 Saturation 93.0 % VBG Base Excess 15.8 mmol/L Sodium 143 (135-145) mmol/L Potassium 3.8 (3.3-5.1) mmol/L Chloride 90 L (96-108) mmol/L Carbon Dioxide 41 H* (22-29) mmol/L Anion Gap 16 (12-20) BUN 11 (9-16) mg/dL Creatinine 0.58 (0.5-1.4) mg/dL Estim Creat Clear Calc 121.1 Estimated GFR > 60 POC Glucose (60-115) mg/dL Random Glucose 148 H (60-115) mg/dL Lactic Acid 3.3 H* (0.5-2.0) mmol/L Lactic Acid F/U @ 2Hr (0.5-2.0) mmol/L Calcium 9.7 (8.4-10.2) mg/dL Magnesium 1.7 (1.6-2.6) mg/dL Total Bilirubin 0.3 (0.0-1.0) mg/dL AST 24 (5-31) U/L ALT 24 (0-31) U/L Alkaline Phosphatase 89 (39-117) U/L Ammonia 52 (13-55) umol/L Troponin I High Sens (<3.5-17.0) ng/L B-Natriuretic Peptide (<100) pg/mL Total Protein 7.7 (6.5-8.0) g/dL Albumin 4.7 (3.5-5.0) g/dL Salicylates < 5.0 L (15-30) mg/dL Urine Opiates Screen (Not Detect) Urine Fentanyl Screen (Not Detect) Acetaminophen < 17 (<30) mcg/mL Ur Barbiturates Screen (Not Detect) Ur Phencyclidine Scrn (Not Detect) Ur Amphetamines Screen (Not Detect) U Benzodiazepines Scrn (Not Detect) Urine Cocaine Screen (Not Detect) U Marijuana (THC) Screen (Not Detect) Ethyl Alcohol < 10 08/14/23 08/14/23 Range/Units 12:16 14:13 WBC (4.8-10.8) X10*3/uL RBC (4.20-5.50) X10*6/uL Hgb (12.0-16.0) g/dl Hct (37.0-47.0) % MCV (80.0-98.0) fL MCH (27.0-33.0) pg MCHC (31.0-35.0) g/dl RDW (11.0-16.0) % Plt Count (160-400) X10*3/uL MPV (9.4-12.3) fL Immature Gran % (Auto) (0.0-0.4) % Neut % (Auto) (45-73) % Lymph % (Auto) (20-40) % [place] % (Auto) (2-11) % Eos % (Auto) (0-4) % Baso % (Auto) (0-2) % Lymph # (Auto) (1.2-4.9) X10*3/uL [place] # (Auto) (0.1-1.2) X10*3/uL Eos # (Auto) (0.0-0.4) X10*3/uL Baso # (Auto) (0.0-0.2) X10*3/uL Abs Immat Gran (auto) (0.00-0.03) X10*3/uL Absolute Neuts (auto) (2.0-8.3) x10*3/uL Absolute Nucleated RBC (0.0-0.012) X10*3/uL Nucleated RBC % (auto) (0.0-0.2) /100WBC PT (11.1-13.3) SEC INR (0.9-1.1) O2 Saturation % ABG pH at Pt Temp (7.35-7.45) ABG pCO2 at Pt Temp (32-45) mmHg ABG pO2 at Pt Temp (83-108) mmHg ABG HCO3 (22-26) mmol/L ABG Base Excess (Actual) mmol/L VBG pH (7.32-7.43) VBG pCO2 mmHg VBG pO2 mmHg VBG HCO3 (22-26) mmol/L VBG O2 Saturation % VBG Base Excess mmol/L Sodium (135-145) mmol/L Potassium (3.3-5.1) mmol/L Chloride (96-108) mmol/L Carbon Dioxide (22-29) mmol/L Anion Gap (12-20) BUN (9-16) mg/dL Creatinine (0.5-1.4) mg/dL Estim Creat Clear Calc Estimated GFR POC Glucose (60-115) mg/dL Random Glucose (60-115) mg/dL Lactic Acid (0.5-2.0) mmol/L Lactic Acid F/U @ 2Hr 3.9 H* (0.5-2.0) mmol/L Calcium (8.4-10.2) mg/dL Magnesium (1.6-2.6) mg/dL Total Bilirubin (0.0-1.0) mg/dL AST (5-31) U/L ALT (0-31) U/L Alkaline Phosphatase (39-117) U/L Ammonia (13-55) umol/L Troponin I High Sens (<3.5-17.0) ng/L B-Natriuretic Peptide (<100) pg/mL Total Protein (6.5-8.0) g/dL Albumin (3.5-5.0) g/dL Salicylates (15-30) mg/dL Urine Opiates Screen POSITIVE H (Not Detect) Urine Fentanyl Screen Not Detected (Not Detect) Acetaminophen (<30) mcg/mL Ur Barbiturates Screen Not Detected (Not Detect) Ur Phencyclidine Scrn Not Detected (Not Detect) Ur Amphetamines Screen Not Detected (Not Detect) U Benzodiazepines Scrn Not Detected (Not Detect) Urine Cocaine Screen Not Detected (Not Detect) U Marijuana (THC) Screen Not Detected (Not Detect) Ethyl Alcohol ABG Data Attestation ABG: I personally reviewed and interpreted this ABG as follows: Interpretation: resp acidosis Independent Interpretation I performed an independent interpretation of an: EKG, Plain X-Ray (?aspiration) and CT Scan (no ICH) Interpretation: Rate: 107 Rhythm: sinus tachycardia Spring: normal Normal P waves. Normal LACY. Normal QRS complex. ST T wave : normal no ELVIA qTC: normal prior studies: no acute ischemia The study has been interpreted contemporaneously by me. . Radiology Impression Discussion of test interpretation with radiology: I have reviewed the radiologist's reading. Independent Historian Clinical information obtained from an independent historian. History obtained from or confirmed by: EMS and Other (daughter) External Record Review External record reviewed: Inpatient record Critical Care Time Critical Care Time Critical Care Time: Yes Total Critical Care Time: 90 Attestation: bipap management, repeat ABG, family discussion, titration off NIPPV to high flow, CT head, IV antibiotics, admission, consult to ICU I attest to this time spent taking care of the patient Discharge Plan Discharge Clinical Impression: COPD exacerbation, Obesity hypoventilation syndrome Respiratory failure with hypoxia and hypercapnia Qualifiers: Chronicity: acute on chronic Qualified Code(s): J96.21 - Acute and chronic respiratory failure with hypoxia Opiate overdose Qualifiers: Encounter type: initial encounter Injury intent: undetermined intent Qualified Code(s): T40.604A - Poisoning by unspecified narcotics, undetermined, initial encounter Patient Disposition: Admitted As Inpatient Sepsis Bolus Exclusion Sepsis Bolus Exclusion CHF/Renal Failure This patient met severe sepsis criteria due to the following condition(s):: Lactate>=4mmol/L In my clinical judgement the administration of 30 ml/kg of crystalloid would be detrimental to this patient due to the patient's following conditions:: Concern for fluid overload Replace the 30 mls/kg with (*zero amount not acceptable): Crystalloids amount given in mls: (rate must be at least 150cc/hr): 500 Colloids amount given in mls:: 0
[2023-08-14] MEDS: Albuterol/Iprat 2.5/0.5MG 3 ML AMPUL.NEB INHALE ×3 (11:07→19:51)
[2023-08-14 11:11] LABS: ABG Refer to POC result
[2023-08-14 11:16] LABS: ABG Base Excess 14.6 mmol/L; ABG HCO3 45 mmol/L (22-26); ABG pCO2 84 mmHg (32-45); ABG pH 7.33 (7.35-7.45); ABG pO2 65 mmHg (83-108)
[2023-08-14] MEDS: Furosemide 40 MG/4 ML VIAL IVPUSH (11:22)
[2023-08-14] MEDS: Naloxone HCl 0.4 MG/ML VIAL IVPUSH (11:22)
[2023-08-14] MEDS: methylPREDNISolone Sod Succ 125 MG/2 ML VIAL 60 MG IVPUSH (11:22)
--- NOTE | 2023-08-14 11:28 | PC.NURSE ---
pt BIBA from home where she was found unresponsive by family who she lives with, pt was found asleep, slumped at the kitchen table with diff breathing, called at 30 min. per EMS pt normally on 4L NC. hx COPD and CHF. pt found to be 78% on 4L. was bagged for a short time by EMS before being transitioned to a NRB at 15L. given 2mg Narcan nasally by EMS for pin point pupils. 18G placed in RAC 60mg Solumedrol given IV at 1048. 4mg Zofran given IV at 1050 Narcan 0.4mg given IV at 1120 meds documented in JAN. daughter currently at bedside. ean reports she lives with her parents who smoke heavily. pt is supposed to be on cpap at home but does not use it often. daughter reports pt has ?SI statements recently as daughter has been trying to get pt to move back in with her but pt feels faheem a burden. daughter reports pt drinks 10+ nips daily. has hx of cocaine use. daughter questions if this could have been an intentional OD as pt has prescription narcs (oxycodone) at home. daughter reports pt also shares meds with people she llives with.
[2023-08-14 11:29] LABS: MANUAL DIFF FLAG NO
[2023-08-14] MEDS: ondansetron HCL 4 MG/2 ML VIAL IVPUSH (11:40)
[2023-08-14 11:41] LABS: Basophils Percent Auto 0.1 % (0-2); Eosinophils Percent Auto 0.1 % (0-4); Hematocrit 44.2 % (37.0-47.0); Hemoglobin 13.8 g/dl (12.0-16.0); Imm Gran Abs Auto 0.12 X10*3/uL (0.00-0.03); Imm Gran Pct Auto 0.9 % (0.0-0.4); Lymphocytes Absolute Auto 0.8 X10*3/uL (1.2-4.9); Lymphocytes Percent Auto 5.6 % (20-40); Mean Corpuscular HGB Conc 31.2 g/dl (31.0-35.0); Mean Corpuscular Hemoglobin 29.4 pg (27.0-33.0); Mean Corpuscular Volume 94.2 fL (80.0-98.0); Mean Platelet Volume 10.1 fL (9.4-12.3); Monocytes Absolute Auto 0.7 X10*3/uL (0.1-1.2); Monocytes Percent Auto 5.4 % (2-11); Neutrophils Absolute Auto 12.1 x10*3/uL (2.0-8.3); Neutrophils Percent Auto 87.9 % (45-73); Platelet Count 259 X10*3/uL (160-400); Red Blood Count 4.69 X10*6/uL (4.20-5.50); Red Cell Distribution Width 13.2 % (11.0-16.0); White Blood Count 13.8 X10*3/uL (4.8-10.8)
[2023-08-14 11:46] LABS: INTERNATIONAL NORM RATIO 0.9 (0.9-1.1)
[2023-08-14 12:02] LABS: B Type Natriuretic Peptide 92 pg/mL (<100)
[2023-08-14 12:12] LABS: Venous Blood Gas Refer to POC result
[2023-08-14] MEDS: Naloxone HCl 5 MG in Dextrose 5 % 95 ML 20 MG IV (12:12)
[2023-08-14 12:14] LABS: VBG Base Excess 15.8 mmol/L; VBG HCO3 43 mmol/L (22-26); VBG pCO2 61 mmHg; VBG pH 7.45 (7.32-7.43); VBG pO2 64 mmHg
[2023-08-14 12:15] LABS: Lactic Acid 3.3 mmol/L (0.5-2.0)
[2023-08-14 12:18] LABS: Ammonia 52 umol/L (13-55)
[2023-08-14 12:27] LABS: Acetaminophen LAB < 17 mcg/mL (<30); Salicylate < 5.0 mg/dL (15-30)
[2023-08-14] MEDS: Albuterol Sulfate 5 MG, Albuterol Sulfate (0.083%) 2.5 MG 7.5 MG INHALE (12:27)
[2023-08-14 12:29] LABS: Alanine Aminotransferase 24 U/L (0-31); Albumin Level 4.7 g/dL (3.5-5.0); Alkaline Phosphatase 89 U/L (39-117); Anion Gap 16 (12-20); Aspartate Amino Transferase 24 U/L (5-31); Bilirubin Total 0.3 mg/dL (0.0-1.0); Blood Urea Nitrogen 11 mg/dL (9-16); Calcium 9.7 mg/dL (8.4-10.2); Carbon Dioxide 41 mmol/L (22-29); Chloride 90 mmol/L (96-108); Creatinine Clr Calc Pharmacy 121.1; Estimated Glomerular Filt Rate > 60; Ethanol < 10 mg/dL; Glucose Random 148 mg/dL (60-115); Magnesium 1.7 mg/dL (1.6-2.6); Potassium 3.8 mmol/L (3.3-5.1); Sodium 143 mmol/L (135-145); Total Protein 7.7 g/dL (6.5-8.0)
[2023-08-14 12:30] LABS: Amphetamine Screen Urine Not Detected (Not Detect); Barbiturates, Urine Not Detected (Not Detect); Benzodiazepines Screen Urine Not Detected (Not Detect); Cannabinoid Screen Urine Not Detected (Not Detect); Cocaine Screen Urine Not Detected (Not Detect); Fentanyl, urine Not Detected (Not Detect); Opiate Screen Urine POSITIVE (Not Detect); Phencyclidine Screen Urine Not Detected (Not Detect)
--- NOTE | 2023-08-14 12:35 | PC.NURSE ---
pt a difficult poke. unable to place a 2nd IV line at this time. aware. request for u/s guided line made after 3 nurses attempted peripheral lines. abx hung late due to necessary for narcan gtt
[2023-08-14] MEDS: cefTRIAXone sodium 1 GM in 0.9 % Sodium Chloride 50 ML IV (13:02)
[2023-08-14] MEDS: 0.9 % Sodium Chloride 500 ML IV (13:03)
--- NOTE | 2023-08-14 13:10 | PC.NURSE ---
per daughter - pt is normally on 2L NC but pt often will increase herself to 4L
--- NOTE | 2023-08-14 13:13 | PC.NURSE ---
health care proxy (daughter)
[2023-08-14 13:53] LABS: Reflex Lactate? Lactic Acid Added
--- NOTE | 2023-08-14 14:01 | PC.NURSE ---
pt transitioned to hiflow 55% 40L
[2023-08-14 14:31] LABS: ~Lactic Acid-LAB USE ONLY 3.9 mmol/L (0.5-2.0)
[2023-08-14] MEDS: Azithromycin 500 MG in 0.9 % Sodium Chloride 250 ML 125 MG IV (14:46)
--- NOTE | 2023-08-14 15:02 | PC.NURSE ---
pt narcan gtt paused, pt alert at this time, oriented, requesting pain meds Hi Flow titrated 45% 55L . pt reports that her overdose was not intentional and she was not trying to kill herself, reports she has her daughter and grand-kids to stay alive for. pt reports feeling depressed, but denies any thoughts of SI/SHB
[2023-08-14 16:16] LABS: Reflex Lactate? 2 Y
--- NOTE | 2023-08-14 16:44 | PHA.MEDREC ---
Pharmacy Consult ? Medication Reconciliation Pharmacy has completed the medication reconciliation. Patient had list from [facility] from February 2023. Reference list with claim history. Patient last filled lantus in dec 2022, patient reports taking 1 untis of lantus. Patient has carvedilol and metorpolol on medication list, claim history has not record of metoprolol. Called [facility] to confirm, metoprolol was last fill 03/2022 and the prescription was inactivated. Patient reported use nebiluzier BID. Jackie Pimentel, LuluD
[2023-08-14 16:57] LABS: ~Lactic Acid-LAB USE ONLY 3.9 mmol/L (0.5-2.0)
--- NOTE | 2023-08-14 17:33 | PC.NURSE ---
attempt to trial pt on oxymask titrated down from hiflow. pt currently on oxymask 6L satting 89-91%,
[2023-08-14 17:48] LABS: Glucose, Whole Blood 149 mg/dL (60-115)
[2023-08-14] MEDS: Lactated Ringers 1,000 ML 999 ML IV (18:17)
--- NOTE | 2023-08-14 18:34 | PC.NURSE ---
pt CIWA 6 - pt is diaphoretic, daughter at bedside reports pt is diaphoretic as baseline. pt tremulous, daughter also reports she has tremors at baseline but not this bad . pt with 8/10 CULVER. she is oriented.
--- NOTE | 2023-08-14 18:49 | PC.NURSE ---
pt reports her last drink was this morning she reports drinking 4-5 hard drinks a day plus beers. pt has no hx of alcohol withdrawal. reports she has been drinking more heavily lately as she feels more depressed lately. would benefit from a psych consult.
[2023-08-14] MEDS: PHENobarbitaL sodium 130 MG/ML IM ONCE 180 MG IM (19:31)
--- NOTE | 2023-08-14 19:41 | PC.NURSE ---
pt assisted to commodebennie changed .
--- NOTE | 2023-08-14 19:41 | PC.NURSE ---
pt was on oxy mask, requested to try nasal cannula, placed on 4 L NC sating 92
--- NOTE | 2023-08-14 20:01 | P.HPHOSP_ITS ---
History of Present Illness Date of Service: 08/14/23 Attending physician on admission: Irena Cuevas Chief Complaint: AMS, hypoxia Pt is a 53-year-old female with a PMH significant for COPD?chronically on 3 L home O2, HFpEF, HTN, HLD, insulin-dependent diabetes type 2, GERD, chronic pain syndrome on chronic opioids, hypoventilation syndrome, and mood disorder who presents to the ED after being found sleeping and unresponsive at the kitchen table by her family. Patient was noted to be satting at 78% on O2 by EMS when they arrived. She was bagged and put on non-rebreather by EMS, who also gave her IV Narcan due to her history of chronic oxycodone use and current pinpoint pupils. Patient was mildly more responsive and arousable to loud verbal stimuli by the time she reached the ED. Patient was initially placed on BiPAP and then on Narcan drip with slow improvement to her mental status. Patient was eventually weaned off BiPAP and placed on high-flow and then eventually to 6 L NC. Patient states that last night she became ?very depressed? after having an argument with an old friend S started drinking alcohol. Reports continue drinking alcohol throughout the whole night and into the next morning. Patient states she may have taken some Tylenol, but adamantly denies taking any Percocet. Patient also denies SI or was attempting to intentionally overdose. Patient states only drinks socially, maybe 1-2 beers a week. Patient complains of chronic back pain and headache. Also experiences some left-sided abdominal pain she associates with coughing. Denies chest pain/pressure, palpitations. Mild shortness of breath at baseline. Denies fever, chills, nausea, vomiting, diarrhea. In the ED patient was afebrile but tachycardic up to 120, tachypneic up to 26, and hypertensive up to 176/98, satting as low as 78%. Patient was brought in on a non-rebreather by EMS, initially placed on BiPAP, then transitioned to high- flow, then placed on OxyMask 6 L. Labs were significant for leukocytosis of 13.8, carbon dioxide 41, lactic acid 3.3 with repeats 3.9 and 3.9, troponin 38.0. ABG of 7.3 with pCO2 of 84, PO2 65, bicarb 45. Ethyl alcohol negative Hepatic function baseline. BMP WNL at 92. Renal function baseline. CXR showed cardiomegaly with mild upper zone redistribution but no gross pulmonary edema. CT?of head showed no acute intracranial hemorrhage or infarct. EKG demonstrated sinus tachycardia with no evidence of ST elevations or depressions. Pt was treated with DuoNebs, Solu-Medrol, Lasix, Narcan IV push, Narcan drip, ceftriaxone, azithromycin, and was started on phenobarb protocol. Pt will be admitted to the hospital for treatment further evaluation of acute hypoxic respiratory failure in the setting of likely prescription opioid overdose. Review of Systems 2 Review of Systems: Altered mental status Hypoxia Headache Chronic lower back pain hip baseline Chronic SOB at baseline Nonproductive cough Denies chest pain/pressure, palpitations No fever, chills, nausea, vomiting, diarrhea Yes all other systems are reviewed and are negative [facility] Medical History Respiratory failure with hypoxia and hypercapnia BASSEM (obstructive sleep apnea) Obesity hypoventilation syndrome Obstructive sleep apnea Anxiety Bipolar disorder GERD (gastroesophageal reflux disease) Fibromyalgia Hypertension Diabetes mellitus Depression Asthma COPD (chronic obstructive pulmonary disease) Surgical History History of right shoulder replacement History of lumbar fusion H/O: hysterectomy Social History Household Members: Family Household Members Other:: parents Housing: House Do you presently have visiting nurse or other home services: No Alcohol intake: current Alcohol intake frequency: 3 or more drinks per day Alcohol type: hard liquor Patient Tobacco Use Status: Current everyday Tobacco user Tobacco use type: Cigarette Cigarettes Per Day: 1 Smoked in Last 30 Days: Yes Frequency of e-Cigarette/Vaping Use: daily Use of substances other than those prescribed or required for medical reasons: No Substance Use Type: Crack/Cocaine, Marijuana and Prescription Drugs Last Used Substance: Unknown Currently Displaying Signs/Symptoms of Drug Intoxication Withdrawal: No Have you been hit, kicked, punched, or otherwise hurt by someone within the past year? If so, by whom?: No Do you feel safe in your current relationship?: No Current Relationship Is there a partner from a previous relationship who is making you feel unsafe now?: No Are you made to feel afraid or neglected: No Advance Directives: Yes Advance Directives on File: Yes Advance Directives Date on File: 01/22/23 Do you have thoughts of harming others: None Do you have a plan to hurt others: No Plan Recently lost weight without trying: No Nutrition Risks: No Nutritional Risk Patient : No : No Poor oral hygiene: No service: No Current occupational status: disabled Meds Allergies Allergy/AdvReac Type Severity Reaction Status Date / Time fentanyl [FENTANYL] Allergy Unknown NAUSEA & Verified 06/30/23 11:30 VOMITING lithium [LITHIUM] Allergy Unknown RASH/HIVES/ Verified 06/30/23 11:30 VOMITING naproxen [From NAPROSYN] Allergy Unknown N/V Verified 06/30/23 11:30 gabapentin AdvReac Severe lethargy Verified 06/30/23 11:30 Adhesive Bandages Allergy Unknown Rash Uncoded 06/30/23 11:30 PLASTIC TAPE Allergy Unknown REDNESS Uncoded 06/30/23 11:30 Active Medications: Current Medications Acetaminophen (Acetaminophen 325 Mg Tablet) 650 mg PO Q6H PRN PRN Reason: Pain, Mild (Pain Scale 1-3) Albuterol/Ipratropium (Albuterol/Iprat 2.5/0.5mg 3 Ml Ampul.Neb) 3 ml INHALE RQ4H WHILE AWAKE [facility] Last Admin: 08/14/23 19:51 Dose: 3 ml Docusate Sodium (Docusate Sodium 100 Mg Capsule) 100 mg PO DAILY PRN PRN Reason: Constipation Enoxaparin Sodium (Enoxaparin Sodium 40 Mg/0.4 Ml Syringe) 40 mg SUBCUT Q24H [facility] Guaifenesin/Dextromethorphan (Guaifenesin Dm 200/20/10 Ml 10 Ml Syrup) 10 ml PO Q6H PRN PRN Reason: Cough Naloxone HCl 5 mg/ Dextrose 100 mls @ 20 mls/hr IV .Q5H [facility] Last Admin: 08/14/23 17:12 Dose: Not Given Ondansetron HCl (Ondansetron Hcl 4 Mg/2 Ml Vial) 4 mg IVPUSH Q8H PRN PRN Reason: Nausea and Vomiting Pharmacy Consult (Consult Rx Etoh Phenob Im/Po) 1 each MISCELLANE ONCE PRN; Protocol PRN Reason: Consult order Phenobarbital (Phenobarbital 30 Mg Tablet) 30 mg PO BID [facility]; Protocol Stop: 08/16/23 21:01 Phenobarbital (Phenobarbital 15 Mg Tablet) 15 mg PO BID BRYAN; Protocol Stop: 08/18/23 21:01 Phenobarbital (Phenobarbital 15 Mg Tablet) 15 mg PO DAILY BRYAN; Protocol Stop: 08/20/23 09:01 Phenobarbital Sodium (Phenobarbital Sodium 130 Mg/Ml Vial Im Q3hx2) 135 mg IM Q3H BRYAN; Protocol Stop: 08/15/23 01:01 Sodium Chloride (0.9 % Sodium Chloride Flush 3 Ml Syringe) 3 ml IVFLUSH QSHIFT [facility] Home Medications Medication Instructions Recorded Confirmed Last Taken Type albuterol sulfate 2.5 mg/3 mL 2.5 mg inhalation BID PRN Wheezing 01/21/23 08/14/23 01/20/23 History (0.083 %) solution for nebulization albuterol sulfate 90 mcg/actuation 1 inh inhalation QID PRN Wheezing 01/21/23 08/14/23 01/20/23 History aerosol inhaler amiodarone 400 mg tablet 400 mg PO DAILY 01/21/23 08/14/23 01/20/23 History aripiprazole 10 mg tablet (Abilify) 10 mg PO DAILY 01/21/23 08/14/23 01/20/23 History ascorbic acid (vitamin C) 250 mg 1,000 mg PO DAILY 01/21/23 08/14/23 01/20/23 History tablet aspirin 81 mg tablet,delayed 81 mg PO DAILY 01/21/23 08/14/23 01/20/23 History release atorvastatin 80 mg tablet 80 mg PO DAILY 01/21/23 08/14/23 01/20/23 History bupropion HCl 150 mg 24 hr tablet, 150 mg PO QAM 01/21/23 08/14/23 01/20/23 History extended release aylwcmbsqh-hthnkaytukjos-jbghulkb 1 tab PO DAILY PRN Headache 01/21/23 08/14/23 01/20/23 History 50 mg-325 mg-40 mg tablet calcium carbonate 600 mg calcium 600 mg PO BID 01/21/23 08/14/23 01/20/23 History (1,500 mg) tablet carvedilol 25 mg tablet 25 mg PO BID 01/21/23 08/14/23 01/20/23 History cholecalciferol (vitamin D3) 50 50 mcg PO DAILY 01/21/23 08/14/23 01/20/23 History mcg (2,000 unit) capsule (Vitamin D3) clonazepam 0.5 mg tablet 0.5 mg PO BID PRN Anxiety 01/21/23 08/14/23 01/20/23 History clotrimazole 1 % topical cream 1 appl topical BID 01/21/23 08/14/23 01/20/23 History cyanocobalamin (vitamin B-12) 5,000 mcg PO DAILY 01/21/23 08/14/23 01/20/23 History 2,500 mcg tablet dapagliflozin propanediol 10 mg 10 mg PO DAILY 01/21/23 08/14/23 01/20/23 History tablet diclofenac sodium 1 % topical gel 2 g topical TID 01/21/23 08/14/23 01/20/23 History dicyclomine 10 mg capsule 10 mg PO TID PRN Spasms 01/21/23 08/14/23 01/20/23 History dulaglutide 1.5 mg/0.5 mL 1.5 mg subcut QWEEK 01/21/23 08/14/23 Unknown History subcutaneous pen injector (Trulicity) dupilumab 300 mg/2 mL subcutaneous 300 mg subcut Q2W 01/21/23 08/14/23 Unknown History pen injector (Dupixent) fenofibrate micronized 134 mg 134 mg PO DAILY 01/21/23 08/14/23 01/20/23 History capsule fluticasone propionate 250 1 inh inhalation BID 01/21/23 08/14/23 01/20/23 History mcg/actuation blister powder for inhalation (Flovent Diskus) fluticasone propionate 50 1 spray intranasal BID 01/21/23 08/14/23 01/20/23 History mcg/actuation nasal spray,suspension hydroxyzine HCl 25 mg tablet 25 mg PO BID PRN Itching 01/21/23 08/14/23 01/20/23 History insulin glargine 100 unit/mL (3 1 unit subcut BEDTIME 01/21/23 08/14/23 01/20/23 History mL) subcutaneous pen (Lantus Solostar U-100 Insulin) insulin lispro 100 unit/mL 1 sliding scale dose subcut 01/21/23 08/14/23 01/20/23 History subcutaneous pen USEASDIRECTD loratadine 10 mg tablet 10 mg PO DAILY 01/21/23 08/14/23 01/20/23 History magnesium 250 mg tablet 500 mg PO DAILY 01/21/23 08/14/23 01/20/23 History montelukast 10 mg tablet 10 mg PO BEDTIME 01/21/23 08/14/23 01/20/23 History multivitamin 1 tab PO DAILY 01/21/23 08/14/23 01/20/23 History nystatin 100,000 unit/gram topical 1 appl topical BID 01/21/23 08/14/23 01/20/23 History powder nystatin 100,000 unit/mL oral 5 ml PO Q6H 01/21/23 08/14/23 01/20/23 History suspension omega 9-uul-glx-fish oil 1,000 mg 1 cap PO DAILY 01/21/23 08/14/23 01/20/23 History (120 mg-180 mg) capsule (Fish Oil) omeprazole 20 mg capsule,delayed 20 mg PO MOWEFR 01/21/23 08/14/23 01/20/23 History release oxycodone-acetaminophen 5 mg-325 1 - 2 tab PO Q4H PRN Pain 01/21/23 08/14/23 01/20/23 History mg tablet roflumilast 500 mcg tablet 500 mcg PO DAILY 01/21/23 08/14/23 01/20/23 History (Daliresp) ropinirole 1 mg tablet 1 - 2 mg PO BEDTIME 01/21/23 08/14/23 01/20/23 History sacubitril 49 mg-valsartan 51 mg 1 tab PO BID 01/21/23 08/14/23 01/20/23 History tablet (Entresto) tobramycin with nebulizer 300 mg/5 300 mg inhalation BID 01/21/23 08/14/23 01/20/23 History mL solution for nebulization torsemide 10 mg tablet 20 mg PO DAILY 01/21/23 08/14/23 01/20/23 History zileuton 600 mg tablet (Zyflo) 600 mg PO QID 01/21/23 08/14/23 01/20/23 History duloxetine 30 mg capsule,delayed 30 mg PO QPM 08/14/23 08/14/23 Unknown History release ipratropium 0.5 mg-albuterol 3 mg 3 ml inhalation BID 08/14/23 08/14/23 Unknown History (2.5 mg base)/3 mL nebulization soln Physical Exam 2 Vital Signs and Narrative: Vital Signs: Last Vital Signs Temp 100.1 F 08/14/23 19:22 Pulse 107 H 08/14/23 19:53 Resp 24 H 08/14/23 19:53 BP 163/87 H 08/14/23 19:22 Pulse Ox 90 L 08/14/23 19:22 O2 Del Method Nasal Cannula 08/14/23 19:22 O2 Flow Rate 4 08/14/23 19:22 Oxygen Flow Rate 15 08/14/23 10:48 BMI result Body Mass Index 50.5 General: AOx3, uncomfortable looking, in no acute distress Resp: CTA bilaterally CVS: S1, S2, regular rhythm, tachycardic GI: +BS, NT, no distention Skin: No rash Neuro: Cranial nerves II-XII grossly intact bilaterally. Motor grossly intact bilaterally Extremities: No edema Psych: Appropriate affect Results Labs 08/15/23 06:25 08/15/23 06:25 Labs: Laboratory Results - last 24 hr 08/14/23 08/14/23 08/14/23 10:47 11:05 11:20 MCV 94.2 MCH 29.4 MCHC 31.2 RDW 13.2 Plt Count 259 MPV 10.1 Immature Gran % (Auto) 0.9 H Neut % (Auto) 87.9 H Lymph % (Auto) 5.6 L [place] % (Auto) 5.4 Eos % (Auto) 0.1 Baso % (Auto) 0.1 Lymph # (Auto) 0.8 L [place] # (Auto) 0.7 Eos # (Auto) 0.0 Baso # (Auto) 0.0 Abs Immat Gran (auto) 0.12 H Absolute Neuts (auto) 12.1 H Absolute Nucleated RBC 0.000 Nucleated RBC % (auto) 0.0 PT 11.0 L INR 0.9 O2 Saturation 91.0 ABG pH at Pt Temp 7.33 L ABG pCO2 at Pt Temp 84 H* ABG pO2 at Pt Temp 65 L ABG HCO3 45 H ABG Base Excess (Actual) 14.6 VBG pH VBG pCO2 VBG pO2 VBG HCO3 VBG O2 Saturation VBG Base Excess Anion Gap Estim Creat Clear Calc Estimated GFR POC Glucose 150 H Random Glucose Lactic Acid Lactic Acid F/U @ 2Hr Lactic Acid F/U @ 4Hr Calcium Magnesium Total Bilirubin AST ALT Alkaline Phosphatase Ammonia B-Natriuretic Peptide 92 Total Protein Albumin Salicylates Urine Opiates Screen Urine Fentanyl Screen Acetaminophen Ur Barbiturates Screen Ur Phencyclidine Scrn Ur Amphetamines Screen U Benzodiazepines Scrn Urine Cocaine Screen U Marijuana (THC) Screen Ethyl Alcohol Cancelled 08/14/23 08/14/23 08/14/23 11:57 12:06 12:07 MCV MCH MCHC RDW Plt Count MPV Immature Gran % (Auto) Neut % (Auto) Lymph % (Auto) [place] % (Auto) Eos % (Auto) Baso % (Auto) Lymph # (Auto) [place] # (Auto) Eos # (Auto) Baso # (Auto) Abs Immat Gran (auto) Absolute Neuts (auto) Absolute Nucleated RBC Nucleated RBC % (auto) PT INR O2 Saturation ABG pH at Pt Temp ABG pCO2 at Pt Temp ABG pO2 at Pt Temp ABG HCO3 ABG Base Excess (Actual) VBG pH 7.45 H VBG pCO2 61 VBG pO2 64 VBG HCO3 43 H VBG O2 Saturation 93.0 VBG Base Excess 15.8 Anion Gap 16 Estim Creat Clear Calc 121.1 Estimated GFR > 60 POC Glucose Random Glucose 148 H Lactic Acid 3.3 H* Lactic Acid F/U @ 2Hr Lactic Acid F/U @ 4Hr Calcium 9.7 Magnesium 1.7 Total Bilirubin 0.3 AST 24 ALT 24 Alkaline Phosphatase 89 Ammonia 52 B-Natriuretic Peptide Total Protein 7.7 Albumin 4.7 Salicylates < 5.0 L Urine Opiates Screen Urine Fentanyl Screen Acetaminophen < 17 Ur Barbiturates Screen Ur Phencyclidine Scrn Ur Amphetamines Screen U Benzodiazepines Scrn Urine Cocaine Screen U Marijuana (THC) Screen Ethyl Alcohol < 10 08/14/23 08/14/23 08/14/23 12:16 14:13 16:39 MCV MCH MCHC RDW Plt Count MPV Immature Gran % (Auto) Neut % (Auto) Lymph % (Auto) [place] % (Auto) Eos % (Auto) Baso % (Auto) Lymph # (Auto) [place] # (Auto) Eos # (Auto) Baso # (Auto) Abs Immat Gran (auto) Absolute Neuts (auto) Absolute Nucleated RBC Nucleated RBC % (auto) PT INR O2 Saturation ABG pH at Pt Temp ABG pCO2 at Pt Temp ABG pO2 at Pt Temp ABG HCO3 ABG Base Excess (Actual) VBG pH VBG pCO2 VBG pO2 VBG HCO3 VBG O2 Saturation VBG Base Excess Anion Gap Estim Creat Clear Calc Estimated GFR POC Glucose Random Glucose Lactic Acid Lactic Acid F/U @ 2Hr 3.9 H* Lactic Acid F/U @ 4Hr 3.9 H* Calcium Magnesium Total Bilirubin AST ALT Alkaline Phosphatase Ammonia B-Natriuretic Peptide Total Protein Albumin Salicylates Urine Opiates Screen POSITIVE H Urine Fentanyl Screen Not Detected Acetaminophen Ur Barbiturates Screen Not Detected Ur Phencyclidine Scrn Not Detected Ur Amphetamines Screen Not Detected U Benzodiazepines Scrn Not Detected Urine Cocaine Screen Not Detected U Marijuana (THC) Screen Not Detected Ethyl Alcohol 08/14/23 17:43 MCV MCH MCHC RDW Plt Count MPV Immature Gran % (Auto) Neut % (Auto) Lymph % (Auto) [place] % (Auto) Eos % (Auto) Baso % (Auto) Lymph # (Auto) [place] # (Auto) Eos # (Auto) Baso # (Auto) Abs Immat Gran (auto) Absolute Neuts (auto) Absolute Nucleated RBC Nucleated RBC % (auto) PT INR O2 Saturation ABG pH at Pt Temp ABG pCO2 at Pt Temp ABG pO2 at Pt Temp ABG HCO3 ABG Base Excess (Actual) VBG pH VBG pCO2 VBG pO2 VBG HCO3 VBG O2 Saturation VBG Base Excess Anion Gap Estim Creat Clear Calc Estimated GFR POC Glucose 149 H Random Glucose Lactic Acid Lactic Acid F/U @ 2Hr Lactic Acid F/U @ 4Hr Calcium Magnesium Total Bilirubin AST ALT Alkaline Phosphatase Ammonia B-Natriuretic Peptide Total Protein Albumin Salicylates Urine Opiates Screen Urine Fentanyl Screen Acetaminophen Ur Barbiturates Screen Ur Phencyclidine Scrn Ur Amphetamines Screen U Benzodiazepines Scrn Urine Cocaine Screen U Marijuana (THC) Screen Ethyl Alcohol Imaging Radiologist's Impressions: Impressions Head CT 08/14/23 12:56 IMPRESSION: No acute intracranial hemorrhage or infarct. Please note that MRI is more sensitive for detection of small ischemic infarcts. Chest X-Ray 08/14/23 12:58 IMPRESSION: Cardiomegaly with mild upper zone redistribution but no gross pulmonary edema. Assessment and Plan (1) Opiate overdose: Qualifiers: Encounter type: initial encounter Injury intent: undetermined intent Qualified Code(s): T40.604A - Poisoning by unspecified narcotics, undetermined, initial encounter Status: Acute (2) Respiratory failure with hypoxia and hypercapnia: Qualifiers: Chronicity: acute on chronic Qualified Code(s): J96.21 - Acute and chronic respiratory failure with hypoxia; J96.22 - Acute and chronic respiratory failure with hypercapnia Status: Acute Plan Pt is a 53-year-old female with a PMH significant for COPD?chronically on 3 L home O2, HFpEF, HTN, HLD, insulin-dependent diabetes type 2, GERD, chronic pain syndrome on chronic opioids, hypoventilation syndrome, and mood disorder who presents to the ED after being found sleeping and unresponsive at the kitchen table by her family. Pt will be admitted to the hospital for treatment further evaluation of acute hypoxic respiratory failure in the setting of likely prescription opioid overdose. Acute hypoxic respiratory failure in the setting of likely prescription opioid overdose Patient satting as low as 78% on 3 L NC Patient states she had been depressed after a fight with a long-time friend and started drinking throughout the night into the morning Patient with access to multiple prescriptions of Percocet: Her own, and her parents whom she lives with Patient denies SI, intentional overdose Patient motion BiPAP, then high-flow, now weaned to 6 L NC Titrate supplemental O2<92, wean as tolerated Narcan p.r.n. Will monitor on telemetry Lactic acidosis Lactic acid 3.3 with repeats 3.9 and 3.9 Likely secondary to hypoxia, not severe sepsis Patient given IVF, antibiotics in ED Repeat lactic acid COPD exacerbation Patient with wheezing on examination Continue home inhalers DuoNebs Solu-Medrol Azithromycin 500 mg daily Leukocytosis WBC elevated at 13.8 No clear source of infection: Patient afebrile, UA negative, CXR negative Likely reactionary IVF Patient received antibiotics in the ED, Will continue azithromycin for COPD exacerbation but hold off on additional antibiotics for now Follow CBC Elevated troponin Troponin 38.0 Patient asymptomatic, EKG nonischemic Likely type 2 in the setting of demand ischemia Will get 2nd troponin Question of alcohol withdrawal Patient states she normally only drinks socially, 1-2 beers weekly States she drank heavily last night into this morning Ethyl alcohol negative at 12:06 today Patient started on phenobarb protocol in the ED, continue for now CIWA Monitor on telemetry Chronic back pain Will hold home opioids d/t likely overdose Tylenol, lidocaine patches, capsaicin cream GERD PPI HTN Continue home meds HLD Statin Full Code Attending:?Dr. Cuevas DVT Prophylaxis: Lovenox Pt will require a hospitalization of at least two nights for treatment of?acute hypoxic respiratory failure in the setting of likely prescription opioid overdose with close monitoring, respiratory therapy, and supplemental O2. Time Spent With Patient Time: Total time managing care of this patient today ____ minutes. Quality Stroke Does the patient have a stroke diagnosis?: No VTE Prior VTE?: No VTE Risk Level:: Medical - moderate - high VTE Device Contraindication: Treatment Not Indicated VTE Drug Contraindication: N/A - Med Ordered
[2023-08-14] MEDS: Acetaminophen 325 MG TABLET 650 MG PO (20:13)
[2023-08-14 22:12] LABS: Troponin-I High Sensitivity 65.5 ng/L (<3.5-17.0)
[2023-08-14] MEDS: buPROPion HCl XL 150 MG TAB.ER.24H PO (22:21)
[2023-08-14] MEDS: methylPREDNISolone Sod Succ 40 MG/ML VIAL IVPUSH (22:21)
[2023-08-14] MEDS: DULoxetine HCl 30 MG CAPSULE.DR PO (22:21)
[2023-08-14] MEDS: carvediloL 25 MG TABLET PO (22:21)
[2023-08-14] MEDS: PHENobarbitaL sodium 130 MG/ML VIAL IM Q3Hx2 135 MG IM (22:22)
[2023-08-14] MEDS: Enoxaparin Sodium 40 MG/0.4 ML SYRINGE SUBCUT (22:22)
[2023-08-14] MEDS: Montelukast Sodium 10 MG TABLET PO (22:25)
--- NOTE | 2023-08-14 22:37 | PC.NURSE ---
called reports to [facility] nurse. some meds not able to be administered due to non being available in pxysis
[2023-08-14] MEDS: rOPINIRole HCL 1 MG TABLET PO (23:43)
[2023-08-14] MEDS: Sacubitril/Valsartan 49/51 1 TAB TABLET PO (23:43)
[2023-08-15] VITALS (12 sets, daily range): BP systolic 112–174; BP diastolic 57–91; PULSE 86–104; RESP 16–20; TEMP 36.1–37.2; O2SAT 89–94
[2023-08-15] MEDS: PHENobarbitaL sodium 130 MG/ML VIAL IM Q3Hx2 135 MG IM (00:57)
[2023-08-15] MEDS: clonazePAM 0.5 MG TABLET PO (00:58)
[2023-08-15] MEDS: 0.9 % Sodium Chloride Flush 3 ML SYRINGE IVFLUSH ×3 (00:59→17:11)
[2023-08-15] MEDS: Acetaminophen 325 MG TABLET 650 MG PO ×2 (04:48→21:19)
[2023-08-15] MEDS: hydrOXYzine HCL 25 MG TABLET PO (05:05)
[2023-08-15 07:24] LABS: Hematocrit 40.2 % (37.0-47.0); Hemoglobin 12.9 g/dl (12.0-16.0); Mean Corpuscular HGB Conc 32.1 g/dl (31.0-35.0); Mean Corpuscular Hemoglobin 29.4 pg (27.0-33.0); Mean Corpuscular Volume 91.6 fL (80.0-98.0); Platelet Count 301 X10*3/uL (160-400); Red Blood Count 4.39 X10*6/uL (4.20-5.50); Red Cell Distribution Width 12.8 % (11.0-16.0); White Blood Count 16.1 X10*3/uL (4.8-10.8)
[2023-08-15 07:51] LABS: Anion Gap 10 (12-20); Blood Urea Nitrogen 9 mg/dL (9-16); Calcium 9.3 mg/dL (8.4-10.2); Carbon Dioxide 40 mmol/L (22-29); Chloride 92 mmol/L (96-108); Creatinine Clr Calc Pharmacy 131.9; Estimated Glomerular Filt Rate > 60; Glucose Random 139 mg/dL (60-115); Potassium 3.2 mmol/L (3.3-5.1); Sodium 139 mmol/L (135-145)
[2023-08-15] MEDS: Fluticasone Propionate 250 MCG BLST.W.DEV 1 PUFF INHALE ×2 (08:09→19:32)
[2023-08-15] MEDS: Albuterol/Iprat 2.5/0.5MG 3 ML AMPUL.NEB INHALE ×3 (08:12→19:32)
[2023-08-15 08:46] LABS: ABG Base Excess 19.2 mmol/L; ABG HCO3 48 mmol/L (22-26); ABG pCO2 71 mmHg (32-45); ABG pH 7.43 (7.35-7.45); ABG pO2 79 mmHg (83-108)
[2023-08-15] MEDS: Atorvastatin Calcium 80 MG TABLET PO (09:12)
[2023-08-15] MEDS: buPROPion HCl XL 150 MG TAB.ER.24H PO (09:12)
[2023-08-15] MEDS: Aspirin Enteric Coated 81 MG TABLET.DR PO (09:12)
[2023-08-15] MEDS: PHENobarbitaL 30 MG TABLET PO (09:12)
[2023-08-15] MEDS: Fenofibrate,Micronized 134 MG CAPSULE PO (09:12)
[2023-08-15] MEDS: ARIPiprazole 10 MG TABLET PO (09:13)
[2023-08-15] MEDS: Torsemide 20 MG TABLET PO (09:13)
[2023-08-15] MEDS: carvediloL 25 MG TABLET PO ×2 (09:13→20:35)
[2023-08-15] MEDS: Sacubitril/Valsartan 49/51 1 TAB TABLET PO ×2 (09:13→20:35)
[2023-08-15] MEDS: Loratadine 10 MG TABLET PO (09:13)
[2023-08-15] MEDS: Amiodarone HCL 200 MG TABLET 400 MG PO (09:13)
[2023-08-15] MEDS: Roflumilast 500 MCG TABLET PO (09:13)
[2023-08-15] MEDS: methylPREDNISolone Sod Succ 40 MG/ML VIAL IVPUSH ×2 (09:15→20:35)
[2023-08-15 09:36] LABS: Troponin-I High Sensitivity 62.5 ng/L (<3.5-17.0)
--- NOTE | 2023-08-15 10:42 | MHC.CM.PN ---
CM attempted to meet with Patient but she appeared unable to respond appropriately to questions. CM spoke with Patient's Mother/HCP/Vanessa at [phone].Patient lives in a house with her Parents, she uses a walker and w/c for mobility, and she is active with [facility](Mom was unsure of the name). Home/resume said services is the tentative plan and CM will continue to follow (DC planning initiated). PCP/[facility] ARCHITECT is Nerissa Sousa.
[2023-08-15 10:55] LABS: ABG Base Excess 18.4 mmol/L; ABG HCO3 46 mmol/L (22-26); ABG pCO2 64 mmHg (32-45); ABG pH 7.46 (7.35-7.45); ABG pO2 71 mmHg (83-108)
--- NOTE | 2023-08-15 11:23 | HO.PM.IMPN ---
Subjective Subjective Date of Service: 08/15/23 Interval History: seen and examined this morning follow up for respiratory failure, overdose awake, and alert; sweaty; breathing is normal no specific complaints Review of Systems Review of Systems: Yes all other systems are reviewed and are negative Constitutional Constitutional: Denies chills and Denies fever(s) Cardiovascular Cardiovascular: Denies chest pain, Denies palpitations and Denies dyspnea Respiratory Respiratory: Denies cough and Denies dyspnea Gastrointestinal Gastrointestinal: Denies abdominal pain Endocrine Endocrine: Denies palpitations Physical Exam Vital Signs: Vital Signs: Last Vital Signs Temp 97.5 F 08/15/23 10:18 Pulse 89 08/15/23 10:18 Resp 17 08/15/23 10:18 BP 112/57 L 08/15/23 10:18 Pulse Ox 94 08/15/23 10:18 O2 Del Method Nasal Cannula 08/15/23 10:18 O2 Flow Rate 3 08/15/23 10:18 FiO2 28 08/15/23 04:00 Oxygen Flow Rate 15 08/14/23 10:48 BMI result Body Mass Index 50.2 Const: Other: awake and talking Nutritional Appearance: obese Resp: Effort & Inspection: normal respiratory effort, no respiratory distress and no use of accessory muscles Cardio: Rate: regular rate GI: Inspection: No distended and Yes obesity Palpation (GI): Soft to palpation and nontender Neuro: General: moves all extremities Extrem: General: Yes no pedal edema Objective Data Active Medications Acetaminophen (Acetaminophen 325 Mg Tablet) 650 mg PO Q6H PRN PRN Reason: Pain, Mild (Pain Scale 1-3) Last Admin: 08/15/23 04:48 Dose: 650 mg Documented By: XU Acetaminophen/Butalbital/Caffeine (Butalb/Acetamin/Caff 50/325/40 Tablet) 1 tab PO DAILY PRN PRN Reason: Headache Acetazolamide (Acetazolamide Sodium 500 Mg Vial) 500 mg IVPUSH BID BRYAN Stop: 08/15/23 21:01 Albuterol Sulfate (Albuterol Sulfate (0.083%) 2.5 Mg/3 Ml Vial.Neb) 2.5 mg INHALE RBID PRN PRN Reason: Wheezing Albuterol Sulfate (Albuterol Sulfate 90 Mcg 8 Gm Inhaler) 1 puff INHALE RQID PRN PRN Reason: Wheezing Albuterol/Ipratropium (Albuterol/Iprat 2.5/0.5mg 3 Ml Ampul.Neb) 3 ml INHALE RQ4H WHILE AWAKE [facility] Last Admin: 08/15/23 08:12 Dose: 3 ml Documented By: JOEY Amiodarone HCl (Amiodarone Hcl 200 Mg Tablet) 400 mg PO DAILY [facility] Last Admin: 08/15/23 09:13 Dose: 400 mg Documented By: KASHMIR Aripiprazole (Aripiprazole 10 Mg Tablet) 10 mg PO DAILY [facility] Last Admin: 08/15/23 09:13 Dose: 10 mg Documented By: KASHMIR Ascorbic Acid (Ascorbic Acid 500 Mg Tablet) 1,000 mg PO DAILY [facility] Aspirin (Aspirin Enteric Coated 81 Mg Tablet.) 81 mg PO DAILY [facility] Last Admin: 08/15/23 09:12 Dose: 81 mg Documented By: KASHMIR Atorvastatin Calcium (Atorvastatin Calcium 80 Mg Tablet) 80 mg PO DAILY [facility] Last Admin: 08/15/23 09:12 Dose: 80 mg Documented By: KASHMIR Bupropion HCl (Bupropion Hcl Xl 150 Mg Tab.Er.24h) 150 mg PO DAILY [facility] Last Admin: 08/15/23 09:12 Dose: 150 mg Documented By: KASHMIR Capsaicin (Capsaicin 0.025% Cream 60 Gm Tube) 1 appl TOPICAL QID PRN; Protocol PRN Reason: Pain, Mild (Pain Scale 1-3) Carvedilol (Carvedilol 25 Mg Tablet) 25 mg PO BID [facility]; Protocol Last Admin: 08/15/23 09:13 Dose: 25 mg Documented By: KASHMIR Cyanocobalamin (Cyanocobalamin (Vitamin B-12) 1,000 Mcg Tablet) 5,000 mcg PO DAILY [facility] Dicyclomine HCl (Dicyclomine Hcl 10 Mg Capsule) 10 mg PO TID PRN PRN Reason: Spasms Docusate Sodium (Docusate Sodium 100 Mg Capsule) 100 mg PO DAILY PRN PRN Reason: Constipation Duloxetine HCl (Duloxetine Hcl 30 Mg Capsule.) 30 mg PO BEDTIME [facility] Last Admin: 08/14/23 22:28 Dose: Not Given Documented By: GLEN Non-Admin Reason: Duplicate Order Enoxaparin Sodium (Enoxaparin Sodium 40 Mg/0.4 Ml Syringe) 40 mg SUBCUT Q24H [facility] Last Admin: 08/14/23 22:22 Dose: 40 mg Documented By: GLEN Fenofibrate (Fenofibrate,Micronized 134 Mg Capsule) 134 mg PO DAILY [facility] Last Admin: 08/15/23 09:12 Dose: 134 mg Documented By: KASHMIR Fluticasone Propionate (Fluticasone Propionate 250 Mcg Blst.W.Dev) 1 puff INHALE RBID [facility] Last Admin: 08/15/23 08:09 Dose: 1 puff Documented By: JOEY Fluticasone Propionate (Fluticasone Propionate Nasal 16 Gm [place]) 1 spray NOSTRIL-B BID [facility] Last Admin: 08/14/23 23:43 Dose: Not Given Documented By: XU Non-Admin Reason: Med Not Available Guaifenesin/Dextromethorphan (Guaifenesin Dm 200/20/10 Ml 10 Ml Syrup) 10 ml PO Q6H PRN PRN Reason: Cough Lidocaine (Lidocaine 4 % Patch Adh..Patch) 1 patch TRANSDERMA DAILY PRN; Protocol PRN Reason: Pain, Mild (Pain Scale 1-3) Loratadine (Loratadine 10 Mg Tablet) 10 mg PO DAILY [facility] Last Admin: 08/15/23 09:13 Dose: 10 mg Documented By: KASHMIR Methylprednisolone Sodium Succinate (Methylprednisolone Sod Succ 40 Mg/Ml Vial) 40 mg IVPUSH Q12H [facility] Last Admin: 08/15/23 09:15 Dose: 40 mg Documented By: KASHMIR Montelukast Sodium (Montelukast Sodium 10 Mg Tablet) 10 mg PO BEDTIME [facility] Last Admin: 08/14/23 22:25 Dose: 10 mg Documented By: GLEN Multivitamins/Vitamin C (Multivitamin Tablet) 1 tab PO DAILY [facility] Naloxone HCl (Naloxone Hcl 0.4 Mg/Ml Vial) 0.2 mg IVPUSH Q2M PRN PRN Reason: Respiratory Rate < 10 Omeprazole (Omeprazole 20 Mg Capsule.Dr) 20 mg PO [id number] [facility] Ondansetron HCl (Ondansetron Hcl 4 Mg/2 Ml Vial) 4 mg IVPUSH Q8H PRN PRN Reason: Nausea and Vomiting Pharmacy Consult (Consult Rx Etoh Phenob Im/Po) 1 each MISCELLANE ONCE PRN; Protocol PRN Reason: Consult order Phenobarbital (Phenobarbital 30 Mg Tablet) 30 mg PO BID [facility]; Protocol Last Admin: 08/15/23 09:12 Dose: 30 mg Documented By: KASHMIR Phenobarbital (Phenobarbital 15 Mg Tablet) 15 mg PO BID [facility]; Protocol Stop: 08/18/23 21:01 Phenobarbital (Phenobarbital 15 Mg Tablet) 15 mg PO DAILY [facility]; Protocol Stop: 08/20/23 09:01 Roflumilast (Roflumilast 500 Mcg Tablet) 500 mcg PO DAILY [facility] Last Admin: 08/15/23 09:13 Dose: 500 mcg Documented By: KASHMIR Ropinirole HCl (Ropinirole Hcl 1 Mg Tablet) 1 mg PO BEDTIME MRX1 [facility] Last Admin: 08/15/23 01:02 Dose: Not Given Documented By: XU Non-Admin Reason: Patient Refused Sacubitril/Valsartan (Sacubitril/Valsartan 49/51 1 Tab Tablet) 1 tab PO BID [facility]; Protocol Last Admin: 08/15/23 09:13 Dose: 1 tab Documented By: KASHMIR Sodium Chloride (0.9 % Sodium Chloride Flush 3 Ml Syringe) 3 ml IVFLUSH QSHIFT [facility] Last Admin: 08/15/23 09:15 Dose: 3 ml Documented By: KASHMIR Torsemide (Torsemide 20 Mg Tablet) 20 mg PO DAILY [facility]; Protocol Last Admin: 08/15/23 09:13 Dose: 20 mg Documented By: KASHMIR Vitamin D (Cholecalciferol (Vitamin D3) 25 Mcg Tablet) 50 mcg PO DAILY [facility] Labs 08/15/23 06:25 08/15/23 06:25 Labs: Laboratory Results - last 24 hr 08/14/23 08/14/23 08/14/23 11:20 11:57 12:06 MCV 94.2 MCH 29.4 MCHC 31.2 RDW 13.2 Plt Count 259 MPV 10.1 Immature Gran % (Auto) 0.9 H Neut % (Auto) 87.9 H Lymph % (Auto) 5.6 L [place] % (Auto) 5.4 Eos % (Auto) 0.1 Baso % (Auto) 0.1 Lymph # (Auto) 0.8 L [place] # (Auto) 0.7 Eos # (Auto) 0.0 Baso # (Auto) 0.0 Abs Immat Gran (auto) 0.12 H Absolute Neuts (auto) 12.1 H Absolute Nucleated RBC 0.000 Nucleated RBC % (auto) 0.0 PT 11.0 L INR 0.9 O2 Saturation ABG pH at Pt Temp ABG pCO2 at Pt Temp ABG pO2 at Pt Temp ABG HCO3 ABG Base Excess (Actual) VBG pH VBG pCO2 VBG pO2 VBG HCO3 VBG O2 Saturation VBG Base Excess Anion Gap 16 Estim Creat Clear Calc 121.1 Estimated GFR > 60 POC Glucose Random Glucose 148 H Lactic Acid 3.3 H* Lactic Acid F/U @ 2Hr Lactic Acid F/U @ 4Hr Calcium 9.7 Magnesium 1.7 Total Bilirubin 0.3 AST 24 ALT 24 Alkaline Phosphatase 89 Ammonia 52 B-Natriuretic Peptide 92 Total Protein 7.7 Albumin 4.7 Salicylates < 5.0 L Urine Opiates Screen Urine Fentanyl Screen Acetaminophen < 17 Ur Barbiturates Screen Ur Phencyclidine Scrn Ur Amphetamines Screen U Benzodiazepines Scrn Urine Cocaine Screen U Marijuana (THC) Screen Ethyl Alcohol Cancelled < 10 08/14/23 08/14/23 08/14/23 12:07 12:16 14:13 MCV MCH MCHC RDW Plt Count MPV Immature Gran % (Auto) Neut % (Auto) Lymph % (Auto) [place] % (Auto) Eos % (Auto) Baso % (Auto) Lymph # (Auto) [place] # (Auto) Eos # (Auto) Baso # (Auto) Abs Immat Gran (auto) Absolute Neuts (auto) Absolute Nucleated RBC Nucleated RBC % (auto) PT INR O2 Saturation ABG pH at Pt Temp ABG pCO2 at Pt Temp ABG pO2 at Pt Temp ABG HCO3 ABG Base Excess (Actual) VBG pH 7.45 H VBG pCO2 61 VBG pO2 64 VBG HCO3 43 H VBG O2 Saturation 93.0 VBG Base Excess 15.8 Anion Gap Estim Creat Clear Calc Estimated GFR POC Glucose Random Glucose Lactic Acid Lactic Acid F/U @ 2Hr 3.9 H* Lactic Acid F/U @ 4Hr Calcium Magnesium Total Bilirubin AST ALT Alkaline Phosphatase Ammonia B-Natriuretic Peptide Total Protein Albumin Salicylates Urine Opiates Screen POSITIVE H Urine Fentanyl Screen Not Detected Acetaminophen Ur Barbiturates Screen Not Detected Ur Phencyclidine Scrn Not Detected Ur Amphetamines Screen Not Detected U Benzodiazepines Scrn Not Detected Urine Cocaine Screen Not Detected U Marijuana (THC) Screen Not Detected Ethyl Alcohol 08/14/23 08/14/23 08/15/23 16:39 17:43 06:25 MCV 91.6 MCH 29.4 MCHC 32.1 RDW 12.8 Plt Count 301 MPV 10.0 Immature Gran % (Auto) Neut % (Auto) Lymph % (Auto) [place] % (Auto) Eos % (Auto) Baso % (Auto) Lymph # (Auto) [place] # (Auto) Eos # (Auto) Baso # (Auto) Abs Immat Gran (auto) Absolute Neuts (auto) Absolute Nucleated RBC 0.000 Nucleated RBC % (auto) 0.0 PT INR O2 Saturation ABG pH at Pt Temp ABG pCO2 at Pt Temp ABG pO2 at Pt Temp ABG HCO3 ABG Base Excess (Actual) VBG pH VBG pCO2 VBG pO2 VBG HCO3 VBG O2 Saturation VBG Base Excess Anion Gap 10 L Estim Creat Clear Calc 131.9 Estimated GFR > 60 POC Glucose 149 H Random Glucose 139 H Lactic Acid Lactic Acid F/U @ 2Hr Lactic Acid F/U @ 4Hr 3.9 H* Calcium 9.3 Magnesium Total Bilirubin AST ALT Alkaline Phosphatase Ammonia B-Natriuretic Peptide Total Protein Albumin Salicylates Urine Opiates Screen Urine Fentanyl Screen Acetaminophen Ur Barbiturates Screen Ur Phencyclidine Scrn Ur Amphetamines Screen U Benzodiazepines Scrn Urine Cocaine Screen U Marijuana (THC) Screen Ethyl Alcohol 08/15/23 08/15/23 08:40 10:49 MCV MCH MCHC RDW Plt Count MPV Immature Gran % (Auto) Neut % (Auto) Lymph % (Auto) [place] % (Auto) Eos % (Auto) Baso % (Auto) Lymph # (Auto) [place] # (Auto) Eos # (Auto) Baso # (Auto) Abs Immat Gran (auto) Absolute Neuts (auto) Absolute Nucleated RBC Nucleated RBC % (auto) PT INR O2 Saturation 95.0 92.0 ABG pH at Pt Temp 7.43 7.46 H ABG pCO2 at Pt Temp 71 H* 64 H* ABG pO2 at Pt Temp 79 L 71 L ABG HCO3 48 H 46 H ABG Base Excess (Actual) 19.2 18.4 VBG pH VBG pCO2 VBG pO2 VBG HCO3 VBG O2 Saturation VBG Base Excess Anion Gap Estim Creat Clear Calc Estimated GFR POC Glucose Random Glucose Lactic Acid Lactic Acid F/U @ 2Hr Lactic Acid F/U @ 4Hr Calcium Magnesium Total Bilirubin AST ALT Alkaline Phosphatase Ammonia B-Natriuretic Peptide Total Protein Albumin Salicylates Urine Opiates Screen Urine Fentanyl Screen Acetaminophen Ur Barbiturates Screen Ur Phencyclidine Scrn Ur Amphetamines Screen U Benzodiazepines Scrn Urine Cocaine Screen U Marijuana (THC) Screen Ethyl Alcohol Assessment and Plan (1) Opiate overdose: Status: Acute (2) Respiratory failure with hypoxia and hypercapnia: Status: Acute (3) Obesity hypoventilation syndrome: Status: Acute Plan This is a 53-year-old female with a PMH significant for COPD?chronically on 3 L home O2, HFpEF, HTN, HLD, insulin-dependent diabetes type 2, GERD, chronic pain syndrome on chronic opioids, hypoventilation syndrome, and mood disorder who presents to the ED after being found sleeping and unresponsive at the kitchen table by her family. Pt will be admitted to the hospital for treatment further evaluation of acute hypoxic respiratory failure in the setting of likely prescription opioid overdose. Acute on chronic hypercarbic and hypoxic respiratory failure likely multifactorial r/t COPD, BASSEM, and obesity hypoventilation, sedating medications initially on BiPAP, then high-flow, now weaned to 3 L NC - avoid over-oxygenation due to tendency to retain co2 ABG compensated Titrate supplemental O2<92, wean as tolerated sedating meds on hold follow respiratory status closely Lactic acidosis Likely secondary to hypoxia, not severe sepsis acute COPD exacerbation continue DuoNebs, Solu-Medrol continue baseline inhalers supplemental oxygen as above Leukocytosis WBC elevated No clear source of infection, UA negative, CXR negative Likely reactive/related to steroids no indication for abx at this time blood cultures pending Elevated troponin repeat trop have remained flat Patient asymptomatic, EKG nonischemic Likely type 2 in the setting of demand ischemia Question of alcohol withdrawal does not appear to be in withdrawal at this time Initially treated with phenobarbitol, will hold to prevent sedation Follow CIWA HFpEF continue baseline torsemide continue entresto will start acetazolamide DM SSI, POCs, ADA diet Chronic back pain Will hold home opioids d/t likely overdose Tylenol, lidocaine patches, capsaicin cream GERD PPI HTN Continue home meds HLD Statin Full Code Attending:?Dr. Rose DVT Prophylaxis: Lovenox Patient requires ongoing inpatient stay for management of?acute hypoxic respiratory failure with close monitoring, respiratory therapy, and supplemental O2. Time Spent With Patient Time: Total time managing care of this patient today ____ minutes. Quality Stroke Does the patient have a stroke diagnosis?: No VTE Prior VTE?: No VTE Risk Level:: Medical - moderate - high VTE Device Contraindication: Treatment Not Indicated VTE Drug Contraindication: N/A - Med Ordered
[2023-08-15 11:49] LABS: Glucose, Whole Blood 169 mg/dL (60-115)
[2023-08-15] MEDS: Cholecalciferol (Vitamin D3) 25 MCG TABLET 50 MCG PO (12:41)
[2023-08-15] MEDS: Cyanocobalamin (Vitamin B-12) 1,000 MCG TABLET 5000 MCG PO (12:42)
[2023-08-15] MEDS: Ascorbic Acid 500 MG TABLET 1000 MG PO (12:42)
[2023-08-15] MEDS: Multivitamin TABLET 1 TAB PO (12:42)
[2023-08-15] MEDS: acetaZOLAMIDE sodium 500 MG VIAL IVPUSH ×2 (12:42→20:35)
--- NOTE | 2023-08-15 13:37 | P.CDIM_ITS ---
PROVIDER RESPONSE TEXT: To clarify, the appropriate diagnosis supported by the clinical indicators: Severe or Morbid Obesity With alveolar hypoventilation QUERY TEXT: PHYSICIAN'S DOCUMENTATION REQUEST Date of Query: 08/15/2023 11:46 AM EDT Patient Name: Merle Guillen Admit Date: 08/14/2023 Dear Merissa Haque, A review of the medical record indicates additional documentation may be needed. Please review below and update the documentation accordingly. Clinical Indicators: BMI 50.2 4ft 10in 108.9kg Nursing notes Height and Weight: Extreme obesity class III If possible, please provide an associated diagnosis related to the abnormal BMI, such as: Severe or Morbid Obesity With alveolar hypoventilation Severe or Morbid Obesity Without alveolar hypoventilation Obesity Other (explain)Clinically unable to determine (explain)Thank you, Duyen Cazares, CCS, CDIS Use of terms such as suspected, likely, concern for, or probable (associated with a specific diagnosi s that is being evaluated, monitored, or treated as if it exists) are acceptable and can be coded in the inpatient se tting, when documented at the time of discharge. Please use your independent medical judgment in providing your response. THIS QUERY IS PART OF THE PERMANENT MEDICAL RECORD
--- NOTE | 2023-08-15 13:40 | P.CDIM_ITS ---
PROVIDER RESPONSE TEXT: To clarify, the appropriate diagnosis supported by the clinical indicators: Type 2 myocardial infarction QUERY TEXT: PHYSICIAN'S DOCUMENTATION REQUEST Date of Query: 08/15/2023 11:57 AM EDT Patient Name: Merle Guillen Admit Date: 08/14/2023 Dear Merissa Haque, A review of the medical record indicates additional documentation may be needed. Please review below and update the documentation accordingly. Clinical Indicators: LABS: Troponins 38.0 65.5 H 62.8 H PN: Elevated troponin repeat trop have remained flat patient asymptomatic likely type 2 in the setting of demand ischemia Based on the above, could you clarify the appropriate diagnosis for the elevated troponins if known: NSTEMI due to demand ischemia Type 2 myocardial infarction Elevated troponins due to other etiology please specify Other (explain)Clinically unable to determine (explain)Thank you, Duyen Cazares, CCS, CDIS Use of terms such as suspected, likely, concern for, or probable (associated with a specific diagnosi s that is being evaluated, monitored, or treated as if it exists) are acceptable and can be coded in the inpatient se tting, when documented at the time of discharge. Please use your independent medical judgment in providing your response. THIS QUERY IS PART OF THE PERMANENT MEDICAL RECORD
[2023-08-15 16:17] LABS: Glucose, Whole Blood 187 mg/dL (60-115)
[2023-08-15] MEDS: Potassium Chloride Packet 20 MEQ PACKET 40 MEQ PO (17:11)
[2023-08-15] MEDS: Insulin Lispro 100 UNIT/ML 3 ML VIAL SUBCUT (17:11)
--- NOTE | 2023-08-15 17:51 | PC.NURSE ---
Pt lethargic this am difficult to arouse and maintain awake state. When able to remain awake is A&OX3. Extremely diaphoretic. Sonorous breathing on 4L nasal cannula satting low 90's, desats to 70 when removed. Periods of apnea while asleep desats to low 80's. Tatiana RIOS notified of labs and concerns in am, on unit to see patient. ABG ordered and completed by RT. Pt more awake late am although continues to have periods of sleep with difficulty arousing to awake state. LS dim NS/ST on tele. BS+X4 abdomen soft non-tender denies nausea/vomiting, incont of loose watery stool this am. Purewick in place with yellow urine. Up to chair during shift. Potassium replaced per order. Will continue to monitor and report changes
[2023-08-15 20:24] LABS: Glucose, Whole Blood 130 mg/dL (60-115)
[2023-08-15] MEDS: Enoxaparin Sodium 40 MG/0.4 ML SYRINGE SUBCUT (20:34)
[2023-08-15] MEDS: rOPINIRole HCL 1 MG TABLET PO (20:35)
[2023-08-15] MEDS: Montelukast Sodium 10 MG TABLET PO (20:35)
[2023-08-15] MEDS: Omeprazole 20 MG CAPSULE.DR PO (20:38)
[2023-08-15] MEDS: Fluticasone Propionate Nasal 16 GM SPRAY 1 SPRAY NOSTRIL-B (20:38)
[2023-08-15 23:25] LABS: ABG Refer to POC result
[2023-08-15 23:26] LABS: ABG Refer to POC result
[2023-08-16] VITALS (12 sets, daily range): BP systolic 125–162; BP diastolic 72–94; PULSE 85–98; RESP 17–24; TEMP 35.9–36.7; O2SAT 91–96
[2023-08-16] MEDS: Lidocaine 4 % Patch ADH..PATCH 1 PATCH TRANSDERMA ×2 (06:00→20:25)
[2023-08-16] MEDS: Acetaminophen 325 MG TABLET 650 MG PO ×2 (06:22→20:23)
[2023-08-16 07:21] LABS: Glucose, Whole Blood 211 mg/dL (60-115)
[2023-08-16 07:35] LABS: Anion Gap 18 (12-20); Blood Urea Nitrogen 16 mg/dL (9-16); Calcium 9.6 mg/dL (8.4-10.2); Carbon Dioxide 28 mmol/L (22-29); Chloride 97 mmol/L (96-108); Creatinine Clr Calc Pharmacy 102.9; Estimated Glomerular Filt Rate > 60; Glucose Random 207 mg/dL (60-115); Potassium 3.2 mmol/L (3.3-5.1); Sodium 140 mmol/L (135-145)
[2023-08-16] MEDS: Albuterol/Iprat 2.5/0.5MG 3 ML AMPUL.NEB INHALE ×2 (07:41→21:09)
[2023-08-16] MEDS: ARIPiprazole 10 MG TABLET PO (08:32)
[2023-08-16] MEDS: Atorvastatin Calcium 80 MG TABLET PO (08:32)
[2023-08-16] MEDS: Aspirin Enteric Coated 81 MG TABLET.DR PO (08:32)
[2023-08-16] MEDS: Fenofibrate,Micronized 134 MG CAPSULE PO (08:32)
[2023-08-16] MEDS: Sacubitril/Valsartan 49/51 1 TAB TABLET PO ×2 (08:32→20:23)
[2023-08-16] MEDS: Cholecalciferol (Vitamin D3) 25 MCG TABLET 50 MCG PO (08:32)
[2023-08-16] MEDS: buPROPion HCl XL 150 MG TAB.ER.24H PO (08:33)
[2023-08-16] MEDS: Roflumilast 500 MCG TABLET PO (08:33)
[2023-08-16] MEDS: carvediloL 25 MG TABLET PO ×2 (08:33→20:23)
[2023-08-16] MEDS: Ascorbic Acid 500 MG TABLET 1000 MG PO (08:33)
[2023-08-16] MEDS: Torsemide 20 MG TABLET PO (08:33)
[2023-08-16] MEDS: Loratadine 10 MG TABLET PO (08:33)
[2023-08-16] MEDS: methylPREDNISolone Sod Succ 40 MG/ML VIAL IVPUSH ×2 (08:34→20:24)
[2023-08-16] MEDS: Cyanocobalamin (Vitamin B-12) 1,000 MCG TABLET 5000 MCG PO (08:34)
[2023-08-16] MEDS: Insulin Lispro 100 UNIT/ML 3 ML VIAL SUBCUT ×4 (08:34→20:26)
[2023-08-16] MEDS: Amiodarone HCL 200 MG TABLET 400 MG PO (08:34)
[2023-08-16] MEDS: Multivitamin TABLET 1 TAB PO (08:34)
[2023-08-16] MEDS: 0.9 % Sodium Chloride Flush 3 ML SYRINGE IVFLUSH ×4 (08:35→20:26)
[2023-08-16] MEDS: oxyCODONE HCl Immed Release 5 MG TABLET PO ×2 (10:34→14:05)
[2023-08-16 11:17] LABS: Glucose, Whole Blood 214 mg/dL (60-115)
--- NOTE | 2023-08-16 13:42 | HO.PM.IMPN ---
Subjective Subjective Date of Service: 08/16/23 Interval History: seen and examined this morning follow up for respiratory failure feeling better reporting back pain, asking for pain meds to be resumed denies fever or chills Review of Systems Review of Systems: Yes all other systems are reviewed and are negative Constitutional Constitutional: Denies chills and Denies fever(s) Cardiovascular Cardiovascular: Denies chest pain, Denies palpitations and Reports dyspnea Respiratory Respiratory: Denies cough and Reports dyspnea Gastrointestinal Gastrointestinal: Denies abdominal pain Endocrine Endocrine: Denies palpitations Physical Exam Vital Signs: Vital Signs: Last Vital Signs Temp 96.7 F L 08/16/23 11:52 Pulse 90 08/16/23 11:52 Resp 20 08/16/23 11:52 BP 125/75 08/16/23 12:00 Pulse Ox 92 08/16/23 11:52 O2 Del Method Nasal Cannula 08/16/23 11:52 O2 Flow Rate 3 08/16/23 11:52 FiO2 28 08/15/23 04:00 Oxygen Flow Rate 15 08/14/23 10:48 BMI result Body Mass Index 50.2 Const: Other: sweating (chronic) pt states she always sweats and her PCP is looking into it General: cooperative, comfortable, no acute distress, alert and awake Nutritional Appearance: obese Orientation/consciousness: patient oriented x3 Resp: Other: b/l wheezing Effort & Inspection: normal respiratory effort, no respiratory distress and no use of accessory muscles Cardio: Rate: regular rate GI: Inspection: No distended and Yes obesity Palpation (GI): Soft to palpation and nontender Neuro: General: patient oriented x3, moves all extremities and CN's II-XI intact bilaterally Extrem: General: Yes no pedal edema Objective Data Active Medications Acetaminophen (Acetaminophen 325 Mg Tablet) 650 mg PO Q6H PRN PRN Reason: Pain, Mild (Pain Scale 1-3) Last Admin: 08/16/23 06:22 Dose: 650 mg Documented By: TREV Acetaminophen/Butalbital/Caffeine (Butalb/Acetamin/Caff 50/325/40 Tablet) 1 tab PO DAILY PRN PRN Reason: Headache Albuterol Sulfate (Albuterol Sulfate (0.083%) 2.5 Mg/3 Ml Vial.Neb) 2.5 mg INHALE RBID PRN PRN Reason: Wheezing Albuterol/Ipratropium (Albuterol/Iprat 2.5/0.5mg 3 Ml Ampul.Neb) 3 ml INHALE RQ4H WHILE AWAKE [facility] [place] Last Admin: 08/16/23 11:19 Dose: Not Given Documented By: CHEPE Non-Admin Reason: Patient Refused Amiodarone HCl (Amiodarone Hcl 200 Mg Tablet) 400 mg PO DAILY [facility] [place] Last Admin: 08/16/23 08:34 Dose: 400 mg Documented By: BLAKE Aripiprazole (Aripiprazole 10 Mg Tablet) 10 mg PO DAILY [facility] [place] Last Admin: 08/16/23 08:32 Dose: 10 mg Documented By: BLAKE Ascorbic Acid (Ascorbic Acid 500 Mg Tablet) 1,000 mg PO DAILY [facility] [place] Last Admin: 08/16/23 08:33 Dose: 1,000 mg Documented By: BLAKE Aspirin (Aspirin Enteric Coated 81 Mg Tablet.Dr) 81 mg PO DAILY [facility] [place] Last Admin: 08/16/23 08:32 Dose: 81 mg Documented By: BLAKE Atorvastatin Calcium (Atorvastatin Calcium 80 Mg Tablet) 80 mg PO DAILY [facility] [place] Last Admin: 08/16/23 08:32 Dose: 80 mg Documented By: BLAKE Bupropion HCl (Bupropion Hcl Xl 150 Mg Tab.Er.24h) 150 mg PO DAILY [facility] [place] Last Admin: 08/16/23 08:33 Dose: 150 mg Documented By: BLAKE Capsaicin (Capsaicin 0.025% Cream 60 Gm Tube) 1 appl TOPICAL QID PRN; Protocol PRN Reason: Pain, Mild (Pain Scale 1-3) Carvedilol (Carvedilol 25 Mg Tablet) 25 mg PO BID [facility] [place]; Protocol Last Admin: 08/16/23 08:33 Dose: 25 mg Documented By: BLAKE Cyanocobalamin (Cyanocobalamin (Vitamin B-12) 1,000 Mcg Tablet) 5,000 mcg PO DAILY [facility] [place] Last Admin: 08/16/23 08:34 Dose: 5,000 mcg Documented By: BLAKE Dextrose (Dextrose 50 % 25 Gm/50 Ml Syringe) 25 gm IVPUSH Q15M PRN; Protocol PRN Reason: per Hypoglycemia Standing Ord. Dicyclomine HCl (Dicyclomine Hcl 10 Mg Capsule) 10 mg PO TID PRN PRN Reason: Spasms Docusate Sodium (Docusate Sodium 100 Mg Capsule) 100 mg PO DAILY PRN PRN Reason: Constipation Duloxetine HCl (Duloxetine Hcl 30 Mg Capsule.Dr) 30 mg PO BEDTIME [facility] [place] Last Admin: 08/14/23 22:28 Dose: Not Given Documented By: GLEN Non-Admin Reason: Duplicate Order Enoxaparin Sodium (Enoxaparin Sodium 40 Mg/0.4 Ml Syringe) 40 mg SUBCUT Q24H [facility] [place] Last Admin: 08/15/23 20:34 Dose: 40 mg Documented By: XU Fenofibrate (Fenofibrate,Micronized 134 Mg Capsule) 134 mg PO DAILY [facility] [place] Last Admin: 08/16/23 08:32 Dose: 134 mg Documented By: BLAKE Fluticasone Propionate (Fluticasone Propionate 250 Mcg Blst.W.Dev) 1 puff INHALE RBID [facility] [place] Last Admin: 08/16/23 07:53 Dose: Not Given Documented By: CHEPE Non-Admin Reason: Med Not Available Fluticasone Propionate (Fluticasone Propionate Nasal 16 Gm Gould) 1 spray NOSTRIL-B BID [facility] [place] Last Admin: 08/16/23 08:39 Dose: Not Given Documented By: BLAKE Non-Admin Reason: Patient Refused Glucose (Glucose Gel 15 Gm Gel..Gram.) 15 gm PO Q15M PRN; Protocol PRN Reason: per Hypoglycemia Standing Ord. Guaifenesin/Dextromethorphan (Guaifenesin Dm 200/20/10 Ml 10 Ml Syrup) 10 ml PO Q6H PRN PRN Reason: Cough Insulin Human Lispro (Insulin Lispro 100 Unit/Ml 3 Ml Vial) 0 unit SUBCUT QIDACHS [facility] [place]; Protocol Last Admin: 08/16/23 12:13 Dose: 4 unit Documented By: BLAKE Lidocaine (Lidocaine 4 % Patch Adh..Patch) 1 patch TRANSDERMA DAILY PRN; Protocol PRN Reason: Pain, Mild (Pain Scale 1-3) Last Admin: 08/16/23 06:00 Dose: 1 patch Documented By: EDSON Loratadine (Loratadine 10 Mg Tablet) 10 mg PO DAILY [facility] [place] Last Admin: 08/16/23 08:33 Dose: 10 mg Documented By: BLAKE Methylprednisolone Sodium Succinate (Methylprednisolone Sod Succ 40 Mg/Ml Vial) 40 mg IVPUSH Q12H [facility] [place] Last Admin: 08/16/23 08:34 Dose: 40 mg Documented By: BLAKE Montelukast Sodium (Montelukast Sodium 10 Mg Tablet) 10 mg PO BEDTIME [facility] [place] Last Admin: 08/15/23 20:35 Dose: 10 mg Documented By: XU Multivitamins/Vitamin C (Multivitamin Tablet) 1 tab PO DAILY [facility] [place] Last Admin: 08/16/23 08:34 Dose: 1 tab Documented By: BLAKE Naloxone HCl (Naloxone Hcl 0.4 Mg/Ml Vial) 0.2 mg IVPUSH Q2M PRN PRN Reason: Respiratory Rate < 10 Omeprazole (Omeprazole 20 Mg Capsule.Dr) 20 mg PO MoWeFr@0630 [facility] [place] Last Admin: 08/15/23 20:38 Dose: 20 mg Documented By: XU Ondansetron HCl (Ondansetron Hcl 4 Mg/2 Ml Vial) 4 mg IVPUSH Q8H PRN PRN Reason: Nausea and Vomiting Pharmacy Consult (Consult Rx Etoh Phenob Im/Po) 1 each MISCELLANE ONCE PRN; Protocol PRN Reason: Consult order Potassium Chloride (Potassium Chloride Packet 20 Meq Packet) 40 meq PO ONCE ONE Stop: 08/16/23 13:42 Roflumilast (Roflumilast 500 Mcg Tablet) 500 mcg PO DAILY [facility] [place] Last Admin: 08/16/23 08:33 Dose: 500 mcg Documented By: BLAKE Ropinirole HCl (Ropinirole Hcl 1 Mg Tablet) 1 mg PO BEDTIME MRX1 [facility] [place] Last Admin: 08/15/23 23:34 Dose: Not Given Documented By: XU Non-Admin Reason: not needed Sacubitril/Valsartan (Sacubitril/Valsartan 49/51 1 Tab Tablet) 1 tab PO BID [facility] [place]; Protocol Last Admin: 08/16/23 08:32 Dose: 1 tab Documented By: BLAKE Sodium Chloride (0.9 % Sodium Chloride Flush 3 Ml Syringe) 3 ml IVFLUSH QSHIFT [facility] [place] Last Admin: 08/16/23 08:35 Dose: 3 ml Documented By: BLAKE Torsemide (Torsemide 20 Mg Tablet) 20 mg PO DAILY [facility] [place]; Protocol Last Admin: 08/16/23 08:33 Dose: 20 mg Documented By: BLAKE Vitamin D (Cholecalciferol (Vitamin D3) 25 Mcg Tablet) 50 mcg PO DAILY [facility] Last Admin: 08/16/23 08:32 Dose: 50 mcg Documented By: BLAKE Labs 08/15/23 06:25 08/16/23 06:41 Labs: Laboratory Results - last 24 hr 08/15/23 08/15/23 08/16/23 16:14 20:21 06:41 Anion Gap 18 Estim Creat Clear Calc 102.9 Estimated GFR > 60 POC Glucose 187 H 130 H Random Glucose 207 H Calcium 9.6 08/16/23 08/16/23 07:17 11:06 Anion Gap Estim Creat Clear Calc Estimated GFR POC Glucose 211 H 214 H Random Glucose Calcium Microbiology Microbiology Results: Microbiology 08/14/23 11:44 Blood Culture - Preliminary Blood - Venous No growth after 24 hours. 08/14/23 11:57 Blood Culture - Preliminary Blood - Venous No growth after 24 hours. Assessment and Plan (1) Obesity hypoventilation syndrome: Status: Acute (2) COPD exacerbation: Status: Acute (3) Respiratory failure with hypoxia and hypercapnia: Status: Acute Plan This is a 53-year-old female with a PMH significant for COPD?chronically on 3 L home O2, HFpEF, HTN, HLD, insulin-dependent diabetes type 2, GERD, chronic pain syndrome on chronic opioids, hypoventilation syndrome, and mood disorder who presents to the ED after being found sleeping and unresponsive at the kitchen table by her family. Pt will be admitted to the hospital for treatment further evaluation of acute hypoxic respiratory failure in the setting of likely prescription opioid overdose. Acute on chronic hypercarbic and hypoxic respiratory failure likely multifactorial r/t COPD, BASSEM, obesity hypoventilation, multiple sedating medications initially on BiPAP, then high-flow, now weaned to 3 L NC - avoid over-oxygenation due to tendency to retain co2, goal o2 89-92% bicarb improved with acetazolamide ABG compensated sedating meds on hold initially, pt requesting pain meds to be resumed phenobarb d/c to prevent oversedation follow respiratory status closely Lactic acidosis Likely secondary to hypoxia, not severe sepsis acute COPD exacerbation continue DuoNebs, Solu-Medrol continue baseline inhalers supplemental oxygen as above hypokalemia replace and follow Leukocytosis WBC elevated No clear source of infection, UA negative, CXR negative Likely reactive/related to steroids no indication for abx at this time blood cultures pending Elevated troponin repeat trop have remained flat Patient asymptomatic, EKG nonischemic Likely type 2 in the setting of demand ischemia Question of alcohol withdrawal does not appear to be in withdrawal at this time Initially treated with phenobarbitol, will hold to prevent sedation CIWA 2 - pt denies daily alcohol use HFpEF continue baseline torsemide continue entresto bassem pt noncompliant at home, but tolerating bipap here DM SSI, POCs, ADA diet Chronic back pain on chronic narcotics Will resume lower dose of baseline meds, patient awake alert continue Tylenol, lidocaine patches, capsaicin cream addiction medicine consult pending mood on multiple sedating meds atarax, cymbalta, clonazepam on hold for now psych consult to ?need for med adjustment due to multiple sedating meds likely contributing to respiratory failure GERD PPI HTN Continue home meds HLD Statin morbid obesity with obesity hypoventilation bmi 50 contributing to recurrent respiratory failure weight loss recommended Full Code Attending:?Dr. Cuevsa DVT Prophylaxis: Lovenox Patient requires ongoing inpatient stay for management of?acute hypoxic respiratory failure with close monitoring, respiratory therapy, and supplemental O2. Time Spent With Patient Time: Total time managing care of this patient today ____ minutes. Quality Stroke Does the patient have a stroke diagnosis?: No VTE Prior VTE?: No VTE Risk Level:: Medical - moderate - high VTE Device Contraindication: Treatment Not Indicated VTE Drug Contraindication: N/A - Med Ordered
[2023-08-16] MEDS: Potassium Chloride Packet 20 MEQ PACKET 40 MEQ PO (14:05)
[2023-08-16 16:12] LABS: Glucose, Whole Blood 175 mg/dL (60-115)
[2023-08-16] MEDS: Butalb/Acetamin/Caff 50/325/40 TABLET 1 TAB PO (16:24)
--- NOTE | 2023-08-16 18:34 | P.CNPS_ITS ---
History of Present Illness Date of Service: 08/16/23 Chief Complaint: Altered Mental Status , Hypoxia Reason for Consult: Medication evaluation Requesting physician: Merissa Haque Discussed with referring provider: Yes Sources of Information: patient interviewed and chart reviewed HPI Narrative: 53 yo female with complicated medical hx. Per admission note: Pt is a 53-year-old female with a PMH significant for COPD?chronically on 3 L home O2, HFpEF, HTN, HLD, insulin-dependent diabetes type 2, GERD, chronic pain syndrome on chronic opioids, hypoventilation syndrome, and mood disorder who presents to the ED after being found sleeping and unresponsive at the kitchen table by her family. Patient was noted to be satting at 78% on O2 by EMS when they arrived. She was bagged and put on non-rebreather by EMS, who also gave her IV Narcan due to her history of chronic oxycodone use and current pinpoint pupils. Patient was mildly more responsive and arousable to loud verbal stimuli by the time she reached the ED. Patient was initially placed on BiPAP and then on Narcan drip with slow improvement to her mental status. Patient was eventually weaned off BiPAP and placed on high-flow and then eventually to 6 L NC. Patient states that last night she became ?very depressed? after having an argument with an old friend S started drinking alcohol. Reports continue drinking alcohol throughout the whole night and into the next morning. Patient states she may have taken some Tylenol, but adamantly denies taking any Percocet. Patient also denies SI or was attempting to intentionally overdose. Patient states only drinks socially, maybe 1-2 beers a week. Patient complains of chronic back pain and headache. Also experiences some left-sided abdominal pain she associates with coughing. Denies chest pain/pressure, palpitations. Mild shortness of breath at baseline. Denies fever, chills, nausea, vomiting, diarrhea. Patient was seen in her room. She says I was stupid. I drank on my meds. I am feeling so much better. She reports she was depressed last night. She was thinking about her ex. They had broken up about a year ago and she became depressed and started drinking. Family found her minimally responsive and called 911. She adamantly denied she was intending to harm self. Denies any other ingested substances. She reports she is generally not depressed. She is being treated by her PCP and doesn't have a psychiatrist or a therapist. She reports I have a lot to live for. I have 5 kids and 9 grandchildren. She reports she drinks socially but yesterday it was an exception. She denies any suicide attempts. She denies inpatient psychiatric hospital stays. Consult was requested to see if medications need to be adjusted due to patient's respiratory status. She is fully alert and awake today and says I feel a lot better. She denies any problems with her medications she is maintained on at home. She reports a good support system provided by her family. She didn't want to be weak in front of them and didn't reach out for their help. No hallucinations. Past Psychiatric History: Depression No suicide attempts. 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 Medical Evaluation Reviewed: Yes REPLACED BY [facility] Medical History (Updated 08/17/23 @ 00:54 by Robert Charles MD) Respiratory failure with hypoxia and hypercapnia BASSEM (obstructive sleep apnea) Obesity hypoventilation syndrome Obstructive sleep apnea Anxiety Bipolar disorder GERD (gastroesophageal reflux disease) Fibromyalgia Hypertension Diabetes mellitus Depression Asthma COPD (chronic obstructive pulmonary disease) Surgical History History of right shoulder replacement History of lumbar fusion H/O: hysterectomy Family History: Mother depression Brother PTSD Social History: Born and raised in [place]. Lives with her mother and father. Plans to move with her daughter. On disability. once, got then was partnered for 20 years. Break up last year. Substance History: Occasional ETOH Trauma History: Positive in childhood and adulthood. Details not discussed. Diagnostics Vital Signs (24Hr): Vital Signs - 24 hr 08/15/23 19:33 08/15/23 19:59 08/16/23 00:00 Temperature 97.8 F 96.8 F Pulse Rate 103 H 104 H 95 Respiratory Rate 18 18 18 Blood Pressure 151/75 H 162/79 H Pulse Oximetry 94 95 Oxygen Delivery Method Nasal Cannula with ETCO2 Nasal Cannula with ETCO2 Oxygen Flow Rate 2 2 08/16/23 00:36 08/16/23 03:26 08/16/23 04:47 Temperature 97.1 F Pulse Rate 85 Respiratory Rate 21 H 22 H 17 Blood Pressure 150/76 H Pulse Oximetry 96 Oxygen Delivery Method BiPAP Oxygen Flow Rate 08/16/23 07:42 08/16/23 07:45 08/16/23 11:52 Temperature 97.3 F 96.7 F L Pulse Rate 91 90 Respiratory Rate 18 24 H 20 Blood Pressure 153/72 H 125/75 Pulse Oximetry 95 92 Oxygen Delivery Method Nasal Cannula Oxygen Flow Rate 3 08/16/23 12:00 08/16/23 15:36 Temperature 98.0 F Pulse Rate 94 Respiratory Rate 20 Blood Pressure 125/75 158/94 H Pulse Oximetry 93 Oxygen Delivery Method Nasal Cannula Oxygen Flow Rate 3 BMI result Body Mass Index 50.2 Labs 08/15/23 06:25 08/16/23 06:41 Labs: Laboratory Results - last 48 hr 08/14/23 08/15/23 08/15/23 21:35 06:25 08:40 WBC 16.1 H RBC 4.39 Hgb 12.9 Hct 40.2 MCV 91.6 MCH 29.4 MCHC 32.1 RDW 12.8 Plt Count 301 MPV 10.0 Absolute Nucleated RBC 0.000 Nucleated RBC % (auto) 0.0 O2 Saturation 95.0 ABG pH at Pt Temp 7.43 ABG pCO2 at Pt Temp 71 H* ABG pO2 at Pt Temp 79 L ABG HCO3 48 H ABG Base Excess (Actual) 19.2 Sodium 139 Potassium 3.2 L Chloride 92 L Carbon Dioxide 40 H* Anion Gap 10 L BUN 9 Creatinine 0.53 Estim Creat Clear Calc 131.9 Estimated GFR > 60 POC Glucose Random Glucose 139 H Calcium 9.3 Troponin I High Sens 65.5 H* D 08/15/23 08/15/23 08/15/23 08:50 10:49 11:45 WBC RBC Hgb Hct MCV MCH MCHC RDW Plt Count MPV Absolute Nucleated RBC Nucleated RBC % (auto) O2 Saturation 92.0 ABG pH at Pt Temp 7.46 H ABG pCO2 at Pt Temp 64 H* ABG pO2 at Pt Temp 71 L ABG HCO3 46 H ABG Base Excess (Actual) 18.4 Sodium Potassium Chloride Carbon Dioxide Anion Gap BUN Creatinine Estim Creat Clear Calc Estimated GFR POC Glucose 169 H Random Glucose Calcium Troponin I High Sens 62.5 H* 08/15/23 08/15/23 08/16/23 16:14 20:21 06:41 WBC RBC Hgb Hct MCV MCH MCHC RDW Plt Count MPV Absolute Nucleated RBC Nucleated RBC % (auto) O2 Saturation ABG pH at Pt Temp ABG pCO2 at Pt Temp ABG pO2 at Pt Temp ABG HCO3 ABG Base Excess (Actual) Sodium 140 Potassium 3.2 L Chloride 97 Carbon Dioxide 28 Anion Gap 18 BUN 16 Creatinine 0.68 Estim Creat Clear Calc 102.9 Estimated GFR > 60 POC Glucose 187 H 130 H Random Glucose 207 H Calcium 9.6 Troponin I High Sens 08/16/23 08/16/23 08/16/23 07:17 11:06 16:07 WBC RBC Hgb Hct MCV MCH MCHC RDW Plt Count MPV Absolute Nucleated RBC Nucleated RBC % (auto) O2 Saturation ABG pH at Pt Temp ABG pCO2 at Pt Temp ABG pO2 at Pt Temp ABG HCO3 ABG Base Excess (Actual) Sodium Potassium Chloride Carbon Dioxide Anion Gap BUN Creatinine Estim Creat Clear Calc Estimated GFR POC Glucose 211 H 214 H 175 H Random Glucose Calcium Troponin I High Sens Imaging Radiology Impressions: ITS Impressions Head CT 08/14/23 12:56 IMPRESSION: No acute intracranial hemorrhage or infarct. Please note that MRI is more sensitive for detection of small ischemic infarcts. Chest X-Ray 08/14/23 12:58 IMPRESSION: Cardiomegaly with mild upper zone redistribution but no gross pulmonary edema. Mental Status Exam Mental Status Exam Patient Appearance: Fatigued and Appropriate (hospital gown) Patient Orientation: Person, Place, Time and Situation Level of Consciousness: Awake and Alert Patient Behavior: Appropriate Mood Description: Calm and Sad Affect Description: Sad Patient Cognition Impaired: No Ability to Follow Directions: Excellent Speech Pattern: Clear Memory Description: Intact Hallucinations: None Delusions: Not Present Thought Process: Intact and Linear Thought Content: positive for Intact and positive for Goal Oriented Judgement: Fair Medications Medications Current Medications Acetaminophen (Acetaminophen 325 Mg Tablet) 650 mg PO Q6H PRN PRN Reason: Pain, Mild (Pain Scale 1-3) Last Admin: 08/16/23 06:22 Dose: 650 mg Acetaminophen/Butalbital/Caffeine (Butalb/Acetamin/Caff 50/325/40 Tablet) 1 tab PO DAILY PRN PRN Reason: Headache Last Admin: 08/16/23 16:24 Dose: 1 tab Albuterol Sulfate (Albuterol Sulfate (0.083%) 2.5 Mg/3 Ml Vial.Neb) 2.5 mg INHALE RBID PRN PRN Reason: Wheezing Albuterol/Ipratropium (Albuterol/Iprat 2.5/0.5mg 3 Ml Ampul.Neb) 3 ml INHALE RQ4H WHILE AWAKE [facility] Last Admin: 08/16/23 15:36 Dose: Not Given Amiodarone HCl (Amiodarone Hcl 200 Mg Tablet) 400 mg PO DAILY [facility] Last Admin: 08/16/23 08:34 Dose: 400 mg Aripiprazole (Aripiprazole 10 Mg Tablet) 10 mg PO DAILY [facility] Last Admin: 08/16/23 08:32 Dose: 10 mg Ascorbic Acid (Ascorbic Acid 500 Mg Tablet) 1,000 mg PO DAILY [facility] Last Admin: 08/16/23 08:33 Dose: 1,000 mg Aspirin (Aspirin Enteric Coated 81 Mg Tablet.) 81 mg PO DAILY [facility] Last Admin: 08/16/23 08:32 Dose: 81 mg Atorvastatin Calcium (Atorvastatin Calcium 80 Mg Tablet) 80 mg PO DAILY [facility] Last Admin: 08/16/23 08:32 Dose: 80 mg Bupropion HCl (Bupropion Hcl Xl 150 Mg Tab.Er.24h) 150 mg PO DAILY [facility] Last Admin: 08/16/23 08:33 Dose: 150 mg Capsaicin (Capsaicin 0.025% Cream 60 Gm Tube) 1 appl TOPICAL QID PRN; Protocol PRN Reason: Pain, Mild (Pain Scale 1-3) Carvedilol (Carvedilol 25 Mg Tablet) 25 mg PO BID [facility]; Protocol Last Admin: 08/16/23 08:33 Dose: 25 mg Cyanocobalamin (Cyanocobalamin (Vitamin B-12) 1,000 Mcg Tablet) 5,000 mcg PO DAILY [facility] Last Admin: 08/16/23 08:34 Dose: 5,000 mcg Dextrose (Dextrose 50 % 25 Gm/50 Ml Syringe) 25 gm IVPUSH Q15M PRN; Protocol PRN Reason: per Hypoglycemia Standing Ord. Dicyclomine HCl (Dicyclomine Hcl 10 Mg Capsule) 10 mg PO TID PRN PRN Reason: Spasms Docusate Sodium (Docusate Sodium 100 Mg Capsule) 100 mg PO DAILY PRN PRN Reason: Constipation Duloxetine HCl (Duloxetine Hcl 30 Mg Capsule.) 30 mg PO BEDTIME [facility] Last Admin: 08/14/23 22:28 Dose: Not Given Enoxaparin Sodium (Enoxaparin Sodium 40 Mg/0.4 Ml Syringe) 40 mg SUBCUT Q24H [facility] Last Admin: 08/15/23 20:34 Dose: 40 mg Fenofibrate (Fenofibrate,Micronized 134 Mg Capsule) 134 mg PO DAILY [facility] Last Admin: 08/16/23 08:32 Dose: 134 mg Fluticasone Propionate (Fluticasone Propionate 250 Mcg Blst.W.Dev) 1 puff INHALE RBID [facility] Last Admin: 08/16/23 07:53 Dose: Not Given Fluticasone Propionate (Fluticasone Propionate Nasal 16 Gm [place]) 1 spray NOSTRIL-B BID [facility] Last Admin: 08/16/23 08:39 Dose: Not Given Glucose (Glucose Gel 15 Gm Gel..Gram.) 15 gm PO Q15M PRN; Protocol PRN Reason: per Hypoglycemia Standing Ord. Guaifenesin/Dextromethorphan (Guaifenesin Dm 200/20/10 Ml 10 Ml Syrup) 10 ml PO Q6H PRN PRN Reason: Cough Insulin Human Lispro (Insulin Lispro 100 Unit/Ml 3 Ml Vial) 0 unit SUBCUT QIDACHS [facility]; Protocol Last Admin: 08/16/23 16:24 Dose: 2 unit Lidocaine (Lidocaine 4 % Patch Adh..Patch) 1 patch TRANSDERMA DAILY PRN; Protocol PRN Reason: Pain, Mild (Pain Scale 1-3) Last Admin: 08/16/23 06:00 Dose: 1 patch Loratadine (Loratadine 10 Mg Tablet) 10 mg PO DAILY [facility] Last Admin: 08/16/23 08:33 Dose: 10 mg Methylprednisolone Sodium Succinate (Methylprednisolone Sod Succ 40 Mg/Ml Vial) 40 mg IVPUSH Q12H [facility] Last Admin: 08/16/23 08:34 Dose: 40 mg Montelukast Sodium (Montelukast Sodium 10 Mg Tablet) 10 mg PO BEDTIME [facility] Last Admin: 08/15/23 20:35 Dose: 10 mg Multivitamins/Vitamin C (Multivitamin Tablet) 1 tab PO DAILY [facility] Last Admin: 08/16/23 08:34 Dose: 1 tab Naloxone HCl (Naloxone Hcl 0.4 Mg/Ml Vial) 0.2 mg IVPUSH Q2M PRN PRN Reason: Respiratory Rate < 10 Omeprazole (Omeprazole 20 Mg Capsule.Dr) 20 mg PO [id number] [facility] Last Admin: 08/15/23 20:38 Dose: 20 mg Ondansetron HCl (Ondansetron Hcl 4 Mg/2 Ml Vial) 4 mg IVPUSH Q8H PRN PRN Reason: Nausea and Vomiting Oxycodone HCl (Oxycodone Hcl Immed Release 5 Mg Tablet) 5 mg PO BID PRN PRN Reason: Pain, Moderate(Pain Scale 4-6) Last Admin: 08/16/23 14:05 Dose: 5 mg Pharmacy Consult (Consult Rx Etoh Phenob Im/Po) 1 each MISCELLANE ONCE PRN; Protocol PRN Reason: Consult order Roflumilast (Roflumilast 500 Mcg Tablet) 500 mcg PO DAILY [facility] Last Admin: 08/16/23 08:33 Dose: 500 mcg Ropinirole HCl (Ropinirole Hcl 1 Mg Tablet) 1 mg PO BEDTIME MRX1 [facility] Last Admin: 08/15/23 23:34 Dose: Not Given Sacubitril/Valsartan (Sacubitril/Valsartan 49/51 1 Tab Tablet) 1 tab PO BID [facility]; Protocol Last Admin: 08/16/23 08:32 Dose: 1 tab Sodium Chloride (0.9 % Sodium Chloride Flush 3 Ml Syringe) 3 ml IVFLUSH QSHIFT [facility] Last Admin: 08/16/23 16:24 Dose: 3 ml Torsemide (Torsemide 20 Mg Tablet) 20 mg PO DAILY [facility]; Protocol Last Admin: 08/16/23 08:33 Dose: 20 mg Vitamin D (Cholecalciferol (Vitamin D3) 25 Mcg Tablet) 50 mcg PO DAILY [facility] Last Admin: 08/16/23 08:32 Dose: 50 mcg Allergies Allergies Allergy/AdvReac Type Severity Reaction Status Date / Time fentanyl [FENTANYL] Allergy Unknown NAUSEA & Verified 06/30/23 11:30 VOMITING lithium [LITHIUM] Allergy Unknown RASH/HIVES/ Verified 06/30/23 11:30 VOMITING naproxen [From NAPROSYN] Allergy Unknown N/V Verified 06/30/23 11:30 gabapentin AdvReac Severe lethargy Verified 06/30/23 11:30 Adhesive Bandages Allergy Unknown Rash Uncoded 06/30/23 11:30 PLASTIC TAPE Allergy Unknown REDNESS Uncoded 06/30/23 11:30 Assessment & Plan Assessment & Plan (1) Depression: Status: Acute Code(s): F32.A - Depression, unspecified Plan 53 yo female with complicated medical hx. She presents with MS change. She had drank the night before admission. Shr is much improved and fully alert and awake. She is on low dose Clonazepam and Hydroxyzine in addition to her antidepressants. She denies any intentional self harm. - Patient isn't presenting with imminent risk of harm to self or others. No indication for inpatient admission. - I would continue to encourage adherence. - Encouraged her to reengage with the women's group she attended in the past. - Patient is a candidate for therapy. Also suggested meeting with a psychiatrist. Total time managing care of this patient today ____ minutes. Patient educated on: medication risk/benefits and substance abuse
[2023-08-16 19:50] LABS: Glucose, Whole Blood 310 mg/dL (60-115)
[2023-08-16] MEDS: DULoxetine HCl 30 MG CAPSULE.DR PO (20:23)
[2023-08-16] MEDS: rOPINIRole HCL 1 MG TABLET PO ×2 (20:23→22:00)
[2023-08-16] MEDS: Enoxaparin Sodium 40 MG/0.4 ML SYRINGE SUBCUT (20:24)
[2023-08-16] MEDS: Montelukast Sodium 10 MG TABLET PO (20:24)
[2023-08-16] MEDS: Fluticasone Propionate Nasal 16 GM SPRAY 1 SPRAY NOSTRIL-B (20:26)
[2023-08-16] MEDS: Fluticasone Propionate 250 MCG BLST.W.DEV 1 PUFF INHALE (20:26)
[2023-08-16] MEDS: clonazePAM 0.5 MG TABLET PO (22:48)
[2023-08-17] VITALS (7 sets, daily range): BP systolic 151–165; BP diastolic 72–94; PULSE 81–101; RESP 18–20; TEMP 36.1–36.7; O2SAT 92–95
[2023-08-17] MEDS: traMADoL HCL 50 MG TABLET PO (01:27)
--- NOTE | 2023-08-17 01:33 | PC.NURSE ---
pt requested something additional for 9/10 pain in back. MD notified and tramadol was ordered and given to pt. pt resting comfortably in the recliner with call abdalla within reach at this time.
[2023-08-17] MEDS: diphenhydrAMINE HCL 50 MG/ML VIAL IVPUSH (02:23)
[2023-08-17 07:50] LABS: Glucose, Whole Blood 116 mg/dL (60-115)
[2023-08-17] MEDS: Albuterol/Iprat 2.5/0.5MG 3 ML AMPUL.NEB INHALE ×3 (07:52→15:09)
[2023-08-17] MEDS: Fluticasone Propionate 250 MCG BLST.W.DEV 1 PUFF INHALE (07:52)
[2023-08-17] MEDS: Fenofibrate,Micronized 134 MG CAPSULE PO (08:27)
[2023-08-17] MEDS: Torsemide 20 MG TABLET PO (08:28)
[2023-08-17] MEDS: Roflumilast 500 MCG TABLET PO (08:28)
[2023-08-17] MEDS: Atorvastatin Calcium 80 MG TABLET PO (08:28)
[2023-08-17] MEDS: carvediloL 25 MG TABLET PO (08:29)
[2023-08-17] MEDS: buPROPion HCl XL 150 MG TAB.ER.24H PO (08:29)
[2023-08-17] MEDS: oxyCODONE HCl Immed Release 5 MG TABLET PO ×2 (08:29→15:33)
[2023-08-17] MEDS: Sacubitril/Valsartan 49/51 1 TAB TABLET PO (08:30)
[2023-08-17] MEDS: Loratadine 10 MG TABLET PO (08:30)
[2023-08-17] MEDS: Aspirin Enteric Coated 81 MG TABLET.DR PO (08:31)
[2023-08-17] MEDS: Magnesium Oxide 400 MG TABLET PO (08:31)
[2023-08-17] MEDS: ARIPiprazole 10 MG TABLET PO (08:31)
[2023-08-17] MEDS: Acetaminophen 325 MG TABLET 650 MG PO ×2 (08:32→15:33)
[2023-08-17] MEDS: Cholecalciferol (Vitamin D3) 25 MCG TABLET 50 MCG PO (08:33)
[2023-08-17] MEDS: Multivitamin TABLET 1 TAB PO (08:33)
[2023-08-17] MEDS: Amiodarone HCL 200 MG TABLET 400 MG PO (08:34)
[2023-08-17] MEDS: Cyanocobalamin (Vitamin B-12) 1,000 MCG TABLET 5000 MCG PO (08:35)
[2023-08-17] MEDS: Ascorbic Acid 500 MG TABLET 1000 MG PO (08:36)
[2023-08-17] MEDS: 0.9 % Sodium Chloride Flush 3 ML SYRINGE IVFLUSH (08:37)
[2023-08-17] MEDS: methylPREDNISolone Sod Succ 40 MG/ML VIAL IVPUSH (08:37)
[2023-08-17] MEDS: Fluticasone Propionate Nasal 16 GM SPRAY 1 SPRAY NOSTRIL-B (08:39)
[2023-08-17 08:44] LABS: Anion Gap 17 (12-20); Blood Urea Nitrogen 13 mg/dL (9-16); Calcium 10.2 mg/dL (8.4-10.2); Carbon Dioxide 29 mmol/L (22-29); Chloride 98 mmol/L (96-108); Creatinine Clr Calc Pharmacy 114.6; Estimated Glomerular Filt Rate > 60; Glucose Random 148 mg/dL (60-115); Potassium 3.3 mmol/L (3.3-5.1); Sodium 141 mmol/L (135-145)
[2023-08-17 11:33] LABS: Glucose, Whole Blood 189 mg/dL (60-115)
--- NOTE | 2023-08-17 11:53 | HO.ADDICTCON ---
History of Present Illness Date of Service: 08/17/2023 Chief Complaint: Altered Mental Status , Hypoxia Reason for Consult: overdose Discussed with referring provider: Yes Sources of Information: patient interviewed and chart reviewed HPI Narrative: Patient is a 53 year old female with multiple chronic health issues including COPD, chronic pain and depression. [place] [facility] [place] found at home minimally responsive and hypoxic. Per chart review, there was concern that patient may have intentionally taken more pain medications than prescribed along with alcohol. Patient seen in room 460, awake, alert, pleasant and engaged in interview. She reports she has been prescribed oxycodone 5mg 1-2 tabs q 4hrs PRN for several years. She states that ordinarily she takes one tab q6 hours, unless she is having increased pain, in which case she will take 2 tabs. Patient reports that about a year ago she ended a 21 year relationship and since then has been struggling with depressive sx. Prior to admission she states that she was in my head alot, and my parents house is a toxic place for me and as a result began drinking vodka and estimates that over 2 days drank approx 1/2 gallon. She emphatically denies drinking like this every before--she states that she will occasionally have a drink socially, but nothing ever like this . Reviewed increased risk for respiratory depression with current medication regimen, underlying health issues and significantly increased risk of if adding alcohol at any time. Patient verbalized understanding and relief that she is okay. She expressed challenges with sharing worsening depression with anyone my kids are all very supportive, but they all have families . Patient states that she will not be returning to her parent's home, where she had been living, and will instead be going to live with her daughter and 4 grandchildren. This poem writer expressed concern regarding medications and alcohol use, patient assured this poem writer that at her daughters home she will not be able to isolate as she had at her parents home, and again reiterated that she has never consumed alcohol in this fashion. She reports her medications are in a lock box. Denies any history of taking more medications than prescribed and states she is followed closely by her provider- Ravit reviewed. Past Psychiatric History: Depression No suicide attempts. 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 Review of Systems Constitutional: Reports as per HPI Diagnostics Vital Signs (24Hr): Vital Signs - 24 hr 08/16/23 12:00 08/16/23 15:36 08/16/23 19:05 Temperature 98.0 F 98.0 F Pulse Rate 94 98 Respiratory Rate 20 20 Blood Pressure 125/75 158/94 H 159/76 H Pulse Oximetry 93 95 Oxygen Delivery Method Nasal Cannula Nasal Cannula Oxygen Flow Rate 3 3 08/16/23 21:11 08/16/23 23:16 08/17/23 00:00 Temperature 97.0 F Pulse Rate 98 81 Respiratory Rate 20 20 20 Blood Pressure 151/81 H Pulse Oximetry 95 Oxygen Delivery Method High Flow Nasal Cannula Oxygen Flow Rate 08/17/23 03:33 08/17/23 07:20 08/17/23 07:53 Temperature 97.3 F 98.0 F Pulse Rate 92 101 H Respiratory Rate 20 20 18 Blood Pressure 165/72 H 163/94 H Pulse Oximetry 94 93 Oxygen Delivery Method Nasal Cannula Nasal Cannula Oxygen Flow Rate 2 3 08/17/23 11:21 08/17/23 11:23 Temperature 97.1 F Pulse Rate 90 89 Respiratory Rate 20 18 Blood Pressure 153/81 H Pulse Oximetry 92 Oxygen Delivery Method Nasal Cannula Oxygen Flow Rate 2.5 BMI result Body Mass Index 50.2 Labs 08/15/23 06:25 08/17/23 06:51 Labs: Laboratory Results - last 48 hr 08/15/23 08/15/23 08/16/23 16:14 20:21 06:41 Sodium 140 Potassium 3.2 L Chloride 97 Carbon Dioxide 28 Anion Gap 18 BUN 16 Creatinine 0.68 Estim Creat Clear Calc 102.9 Estimated GFR > 60 POC Glucose 187 H 130 H Random Glucose 207 H Calcium 9.6 08/16/23 08/16/23 08/16/23 07:17 11:06 16:07 Sodium Potassium Chloride Carbon Dioxide Anion Gap BUN Creatinine Estim Creat Clear Calc Estimated GFR POC Glucose 211 H 214 H 175 H Random Glucose Calcium 08/16/23 08/17/23 08/17/23 19:47 06:51 07:47 Sodium 141 Potassium 3.3 Chloride 98 Carbon Dioxide 29 Anion Gap 17 BUN 13 Creatinine 0.61 Estim Creat Clear Calc 114.6 Estimated GFR > 60 POC Glucose 310 H 116 H Random Glucose 148 H Calcium 10.2 D 08/17/23 11:22 Sodium Potassium Chloride Carbon Dioxide Anion Gap BUN Creatinine Estim Creat Clear Calc Estimated GFR POC Glucose 189 H Random Glucose Calcium Imaging Radiology Impressions: ITS Impressions Head CT 08/14/23 12:56 IMPRESSION: No acute intracranial hemorrhage or infarct. Please note that MRI is more sensitive for detection of small ischemic infarcts. Chest X-Ray 08/14/23 12:58 IMPRESSION: Cardiomegaly with mild upper zone redistribution but no gross pulmonary edema. Mental Status Exam Mental Status Exam Patient Appearance: Appropriate Patient Orientation: Person, Place, Time and Situation Level of Consciousness: Awake, Appropriate and Alert Patient Behavior: Appropriate and Talkative Affect Description: Appropriate Judgement: Fair Medications Medications Current Medications Acetaminophen (Acetaminophen 325 Mg Tablet) 650 mg PO Q6H PRN PRN Reason: Pain, Mild (Pain Scale 1-3) Last Admin: 08/17/23 08:32 Dose: 650 mg Acetaminophen/Butalbital/Caffeine (Butalb/Acetamin/Caff 50/325/40 Tablet) 1 tab PO DAILY PRN PRN Reason: Headache Last Admin: 08/16/23 16:24 Dose: 1 tab Albuterol Sulfate (Albuterol Sulfate (0.083%) 2.5 Mg/3 Ml Vial.Neb) 2.5 mg INHALE RBID PRN PRN Reason: Wheezing Albuterol/Ipratropium (Albuterol/Iprat 2.5/0.5mg 3 Ml Ampul.Neb) 3 ml INHALE RQ4H WHILE AWAKE [facility] Last Admin: 08/17/23 11:23 Dose: 3 ml Amiodarone HCl (Amiodarone Hcl 200 Mg Tablet) 400 mg PO DAILY [facility] Last Admin: 08/17/23 08:34 Dose: 400 mg Aripiprazole (Aripiprazole 10 Mg Tablet) 10 mg PO DAILY [facility] Last Admin: 08/17/23 08:31 Dose: 10 mg Ascorbic Acid (Ascorbic Acid 500 Mg Tablet) 1,000 mg PO DAILY [facility] Last Admin: 08/17/23 08:36 Dose: 1,000 mg Aspirin (Aspirin Enteric Coated 81 Mg Tablet.Dr) 81 mg PO DAILY [facility] Last Admin: 08/17/23 08:31 Dose: 81 mg Atorvastatin Calcium (Atorvastatin Calcium 80 Mg Tablet) 80 mg PO DAILY [facility] Last Admin: 08/17/23 08:28 Dose: 80 mg Bupropion HCl (Bupropion Hcl Xl 150 Mg Tab.Er.24h) 150 mg PO DAILY [facility] Last Admin: 08/17/23 08:29 Dose: 150 mg Capsaicin (Capsaicin 0.025% Cream 60 Gm Tube) 1 appl TOPICAL QID PRN; Protocol PRN Reason: Pain, Mild (Pain Scale 1-3) Carvedilol (Carvedilol 25 Mg Tablet) 25 mg PO BID [facility]; Protocol Last Admin: 08/17/23 08:29 Dose: 25 mg Clonazepam (Clonazepam 0.5 Mg Tablet) 0.5 mg PO BID PRN PRN Reason: Anxiety Last Admin: 08/16/23 22:48 Dose: 0.5 mg Cyanocobalamin (Cyanocobalamin (Vitamin B-12) 1,000 Mcg Tablet) 5,000 mcg PO DAILY [facility] Last Admin: 08/17/23 08:35 Dose: 5,000 mcg Dextrose (Dextrose 50 % 25 Gm/50 Ml Syringe) 25 gm IVPUSH Q15M PRN; Protocol PRN Reason: per Hypoglycemia Standing Ord. Dicyclomine HCl (Dicyclomine Hcl 10 Mg Capsule) 10 mg PO TID PRN PRN Reason: Spasms Docusate Sodium (Docusate Sodium 100 Mg Capsule) 100 mg PO DAILY PRN PRN Reason: Constipation Duloxetine HCl (Duloxetine Hcl 30 Mg Capsule.Dr) 30 mg PO BEDTIME [facility] Last Admin: 08/16/23 20:23 Dose: 30 mg Enoxaparin Sodium (Enoxaparin Sodium 40 Mg/0.4 Ml Syringe) 40 mg SUBCUT Q24H [facility] Last Admin: 08/16/23 20:24 Dose: 40 mg Fenofibrate (Fenofibrate,Micronized 134 Mg Capsule) 134 mg PO DAILY [facility] Last Admin: 08/17/23 08:27 Dose: 134 mg Fluticasone Propionate (Fluticasone Propionate 250 Mcg Blst.W.Dev) 1 puff INHALE RBID [facility] Last Admin: 08/17/23 07:52 Dose: 1 puff Fluticasone Propionate (Fluticasone Propionate Nasal 16 Gm Inglis) 1 spray NOSTRIL-B BID [facility] Last Admin: 08/17/23 08:39 Dose: 1 spray Glucose (Glucose Gel 15 Gm Gel..Gram.) 15 gm PO Q15M PRN; Protocol PRN Reason: per Hypoglycemia Standing Ord. Guaifenesin/Dextromethorphan (Guaifenesin Dm 200/20/10 Ml 10 Ml Syrup) 10 ml PO Q6H PRN PRN Reason: Cough Insulin Human Lispro (Insulin Lispro 100 Unit/Ml 3 Ml Vial) 0 unit SUBCUT QIDACHS [facility]; Protocol Last Admin: 08/17/23 08:26 Dose: Not Given Lidocaine (Lidocaine 4 % Patch Adh..Patch) 1 patch TRANSDERMA DAILY PRN; Protocol PRN Reason: Pain, Mild (Pain Scale 1-3) Last Admin: 08/16/23 20:25 Dose: 1 patch Loratadine (Loratadine 10 Mg Tablet) 10 mg PO DAILY [facility] Last Admin: 08/17/23 08:30 Dose: 10 mg Magnesium Oxide (Magnesium Oxide 400 Mg Tablet) 400 mg PO DAILY [facility] Last Admin: 08/17/23 08:31 Dose: 400 mg Methylprednisolone Sodium Succinate (Methylprednisolone Sod Succ 40 Mg/Ml Vial) 40 mg IVPUSH Q12H [facility] Last Admin: 08/17/23 08:37 Dose: 40 mg Montelukast Sodium (Montelukast Sodium 10 Mg Tablet) 10 mg PO BEDTIME [facility] Last Admin: 08/16/23 20:24 Dose: 10 mg Multivitamins/Vitamin C (Multivitamin Tablet) 1 tab PO DAILY [facility] Last Admin: 08/17/23 08:33 Dose: 1 tab Naloxone HCl (Naloxone Hcl 0.4 Mg/Ml Vial) 0.2 mg IVPUSH Q2M PRN PRN Reason: Respiratory Rate < 10 Omeprazole (Omeprazole 20 Mg Capsule.Dr) 20 mg PO [id number] [facility] Last Admin: 08/15/23 20:38 Dose: 20 mg Ondansetron HCl (Ondansetron Hcl 4 Mg/2 Ml Vial) 4 mg IVPUSH Q8H PRN PRN Reason: Nausea and Vomiting Oxycodone HCl (Oxycodone Hcl Immed Release 5 Mg Tablet) 5 mg PO Q6H PRN PRN Reason: Pain, Moderate(Pain Scale 4-6) Pharmacy Consult (Consult Rx Etoh Phenob Im/Po) 1 each MISCELLANE ONCE PRN; Protocol PRN Reason: Consult order Roflumilast (Roflumilast 500 Mcg Tablet) 500 mcg PO DAILY [facility] Last Admin: 08/17/23 08:28 Dose: 500 mcg Ropinirole HCl (Ropinirole Hcl 1 Mg Tablet) 1 mg PO BEDTIME MRX1 [facility] Last Admin: 08/16/23 22:00 Dose: 1 mg Sacubitril/Valsartan (Sacubitril/Valsartan 49/51 1 Tab Tablet) 1 tab PO BID [facility]; Protocol Last Admin: 08/17/23 08:30 Dose: 1 tab Sodium Chloride (0.9 % Sodium Chloride Flush 3 Ml Syringe) 3 ml IVFLUSH QSHIFT [facility] Last Admin: 08/17/23 08:37 Dose: 3 ml Torsemide (Torsemide 20 Mg Tablet) 20 mg PO DAILY [facility]; Protocol Last Admin: 08/17/23 08:28 Dose: 20 mg Vitamin D (Cholecalciferol (Vitamin D3) 25 Mcg Tablet) 50 mcg PO DAILY [facility] Last Admin: 08/17/23 08:33 Dose: 50 mcg Allergies Allergies Allergy/AdvReac Type Severity Reaction Status Date / Time fentanyl [FENTANYL] Allergy Unknown NAUSEA & Verified 06/30/23 11:30 VOMITING lithium [LITHIUM] Allergy Unknown RASH/HIVES/ Verified 06/30/23 11:30 VOMITING naproxen [From NAPROSYN] Allergy Unknown N/V Verified 06/30/23 11:30 gabapentin AdvReac Severe lethargy Verified 06/30/23 11:30 Adhesive Bandages Allergy Unknown Rash Uncoded 06/30/23 11:30 PLASTIC TAPE Allergy Unknown REDNESS Uncoded 06/30/23 11:30 Assessment & Plan Assessment & Plan (1) Opiate overdose: Qualifiers: Encounter type: initial encounter Injury intent: undetermined intent Qualified Code(s): T40.604A - Poisoning by unspecified narcotics, undetermined, initial encounter Status: Acute Code(s): T40.601A - Poisoning by unspecified narcotics, accidental (unintentional), initial encounter Assessment and Plan: discussed narcan and importance of having that in the home, she reports that she currently does not have any. Will provide nalxone at discharge overdose prevention discussion--reinforced risk of ANY amount of alcohol with medications. Discussed possibility of treatment plan (with PCP) change given risky behavior encouraged patient to practice coping strategies, such as talking with daughter, coloring, spending time with her grandchildren (all things identified by her to be effective) Total time managing care of this patient today _40___ minutes. PMFSH Past Medical History Medical History (Updated 08/17/23 @ 00:54 by Robert Charles MD) Respiratory failure with hypoxia and hypercapnia BASSEM (obstructive sleep apnea) Obesity hypoventilation syndrome Obstructive sleep apnea Anxiety Bipolar disorder GERD (gastroesophageal reflux disease) Fibromyalgia Hypertension Diabetes mellitus Depression Asthma COPD (chronic obstructive pulmonary disease) Surgical History Surgical History History of right shoulder replacement History of lumbar fusion H/O: hysterectomy Social History Social History Household Members: Family Household Members Other:: parents Housing: House Do you presently have visiting nurse or other home services: No Alcohol intake: current Alcohol intake frequency: 3 or more drinks per day Alcohol type: hard liquor Patient Tobacco Use Status: Current everyday Tobacco user Tobacco use type: Cigarette Cigarettes Per Day: 1 Smoked in Last 30 Days: Yes Frequency of e-Cigarette/Vaping Use: daily Use of substances other than those prescribed or required for medical reasons: No Substance Use Type: Crack/Cocaine, Marijuana and Prescription Drugs Last Used Substance: Unknown Currently Displaying Signs/Symptoms of Drug Intoxication Withdrawal: No Have you been hit, kicked, punched, or otherwise hurt by someone within the past year? If so, by whom?: No Do you feel safe in your current relationship?: No Current Relationship Is there a partner from a previous relationship who is making you feel unsafe now?: No Are you made to feel afraid or neglected: No Advance Directives: Yes Advance Directives on File: Yes Advance Directives Date on File: 01/22/23 Do you have thoughts of harming others: None Do you have a plan to hurt others: No Plan Recently lost weight without trying: No Nutrition Risks: No Nutritional Risk Patient : No : No Poor oral hygiene: No service: No Current occupational status: disabled
[2023-08-17] MEDS: Insulin Lispro 100 UNIT/ML 3 ML VIAL SUBCUT (12:00)
--- NOTE | 2023-08-17 12:00 | PM.DS ---
DS: Providers Provider Date of Service: 08/17/23 Date of admission: 08/14/23 19:54 Date of discharge: 08/17/23 Primary care physician: Nerissa Sousa NP Consults: 08/16/23 07:55 Addiction Medicine Routine Consulting Provider: Addiction Covering Reason for consultation: abusing opiates, etoh Has provider been notified: No Consult to Psychiatry Routine Consulting Provider: Psych Covering Reason for consultation: on multiple sedating meds contributing to respiratory failure ?med adjust Has provider been notified: No Attending physician on discharge: Roro Lazar Discharging clinician: Merissa Haque DS: Diagnosis Discharge Diagnosis (1) COPD exacerbation: Status: Acute (2) Obesity hypoventilation syndrome: Status: Acute (3) Respiratory failure with hypoxia and hypercapnia: Status: Acute DS: Summary Hospital Course Hospital Course: From H&P on day of admission Pt is a 53-year-old female with a PMH significant for COPD?chronically on 3 L home O2, HFpEF, HTN, HLD, insulin-dependent diabetes type 2, GERD, chronic pain syndrome on chronic opioids, hypoventilation syndrome, and mood disorder who presents to the ED after being found sleeping and unresponsive at the kitchen table by her family. Patient was noted to be satting at 78% on O2 by EMS when they arrived. She was bagged and put on non-rebreather by EMS, who also gave her IV Narcan due to her history of chronic oxycodone use and current pinpoint pupils. Patient was mildly more responsive and arousable to loud verbal stimuli by the time she reached the ED. Patient was initially placed on BiPAP and then on Narcan drip with slow improvement to her mental status. Patient was eventually weaned off BiPAP and placed on high-flow and then eventually to 6 L NC. Patient states that last night she became ?very depressed? after having an argument with an old friend S started drinking alcohol. Reports continue drinking alcohol throughout the whole night and into the next morning. Patient states she may have taken some Tylenol, but adamantly denies taking any Percocet. Patient also denies SI or was attempting to intentionally overdose. Patient states only drinks socially, maybe 1-2 beers a week. Patient complains of chronic back pain and headache. Also experiences some left-sided abdominal pain she associates with coughing. Denies chest pain/pressure, palpitations. Mild shortness of breath at baseline. Denies fever, chills, nausea, vomiting, diarrhea. In the ED patient was afebrile but tachycardic up to 120, tachypneic up to 26, and hypertensive up to 176/98, satting as low as 78%. Patient was brought in on a non-rebreather by EMS, initially placed on BiPAP, then transitioned to high-flow, then placed on OxyMask 6 L. Labs were significant for leukocytosis of 13.8, carbon dioxide 41, lactic acid 3.3 with repeats 3.9 and 3.9, troponin 38.0. ABG of 7.3 with pCO2 of 84, PO2 65, bicarb 45. Ethyl alcohol negative Hepatic function baseline. BMP WNL at 92. Renal function baseline. CXR showed cardiomegaly with mild upper zone redistribution but no gross pulmonary edema. CT?of head showed no acute intracranial hemorrhage or infarct. EKG demonstrated sinus tachycardia with no evidence of ST elevations or depressions. Pt was treated with DuoNebs, Solu-Medrol, Lasix, Narcan IV push, Narcan drip, ceftriaxone, azithromycin, and was started on phenobarb protocol. Pt will be admitted to the hospital for treatment further evaluation of acute hypoxic respiratory failure in the setting of likely prescription opioid overdose. Acute on chronic hypercarbic and hypoxic respiratory failure likely multifactorial r/t COPD, BASSEM, obesity hypoventilation, multiple sedating medications as well as heavy alcohol use on the day of presentation. she was initially on BiPAP, then high-flow, now weaned to 3 L NC. ABG compensated. bicarb improved with two doses of acetazolamide. sedating meds on hold initially, and gradually resumed with no evidence of over sedation. She was treated for acute copd exacerbation with breathing treatments and systemic steroids. She is currently on her baseline supplemental oxygen. Lactic acidosis was secondary to hypoxia, not severe sepsis. Noted to have Elevated troponin which remained flat. Patient asymptomatic, EKG nonischemic. Likely type 2 in the setting of demand ischemia. Recommend outpatient follow up with PCP. There was initially Question of alcohol withdrawal on admission, she did show any evidence of withdrawal. Initially treated with phenobarbitol but this was stopped to prevent sedation. CIWA has remained low and she denies daily etoh use. she states she was drinking heavily on the day of admission due to a fight with a friend. she did not express any SI/HI. she was seen by addiction medicine and was given resources for outpatient follow up. she will be given narcan to be taken home. she was seen by psych for consideration of medication adjustments due to sedation on arrival however they do not recommend any adjustments to her medications at this time. bassem - pt noncompliant at home, but tolerating during hospitalization. The importance of compliance at home was discussed. Chronic back pain on chronic narcotics. initially chronic narcotics were held and then slowly resumed as mental status improved. She was seen by addiction medicine as above. The importance of not sharing medication or over-using medications was discussed. Upon discharge she will be staying with her daughter and her medications will be in a lock box. Time Spent with Patient Time attestation: Total time managing care of this patient today ____ minutes. Discharge coordination time: Greater than 30 minutes Quality: Safe Use of Opioids Does Pt have an Active Cancer Diagnosis on the Problem List?: No Quality: Stroke Does the patient have a stroke diagnosis?: No Physical Exam Vital Signs: Vital Signs: Last Vital Signs Temp 97.1 F 08/17/23 11:21 Pulse 89 08/17/23 11:23 Resp 18 08/17/23 11:23 BP 153/81 H 08/17/23 11:21 Pulse Ox 92 08/17/23 11:21 O2 Del Method Nasal Cannula 08/17/23 11:21 O2 Flow Rate 2.5 08/17/23 11:21 FiO2 28 08/15/23 04:00 Oxygen Flow Rate 15 08/14/23 10:48 BMI result Body Mass Index 50.2 Const: General: cooperative, comfortable, no acute distress, alert and awake Nutritional Appearance: obese Orientation/consciousness: patient oriented x3 Resp: Other: no wheezing Effort & Inspection: normal respiratory effort, no respiratory distress and no use of accessory muscles Cardio: Rate: regular rate GI: Inspection: No distended and Yes obesity Palpation (GI): Soft to palpation and nontender Neuro: General: patient oriented x3, moves all extremities and CN's II-XI intact bilaterally Extrem: General: Yes no pedal edema DS: Data Data Completed and Pending Completed studies during hospitalization [Text1]: Procedures Assistance with Respiratory Ventilation, Less than 24 Consecutive Hours, Continuous Positive Airway Pressure (01/21/23) Labs on day of discharge: Laboratory Results - last 24 hr 08/16/23 08/16/23 08/17/23 16:07 19:47 06:51 Sodium 141 Potassium 3.3 Chloride 98 Carbon Dioxide 29 Anion Gap 17 BUN 13 Creatinine 0.61 Estim Creat Clear Calc 114.6 Estimated GFR > 60 POC Glucose 175 H 310 H Random Glucose 148 H Calcium 10.2 D 08/17/23 08/17/23 07:47 11:22 Sodium Potassium Chloride Carbon Dioxide Anion Gap BUN Creatinine Estim Creat Clear Calc Estimated GFR POC Glucose 116 H 189 H Random Glucose Calcium Preliminary micro results at discharge 08/14/23 11:44 Blood Culture - Preliminary Blood - Venous No growth after 48 hours. 08/14/23 11:57 Blood Culture - Preliminary Blood - Venous No growth after 48 hours. Discharge Plan Discharge Anticipated Discharge Date/Time: 08/17/23 12:19 Patient Disposition: Home, Self-Care Discharge Diagnosis: acute respiratory failure with hypoxia and hypercarbia opiate overdose copd exacerbation Referrals: Nerissa Sousa [employer]GER [Primary Care Provider] - 1 Week Discharge Medications: New prednisone 20 mg tablet 40 mg PO DAILY 5 Days Qty: 10 0RF Continued atorvastatin 80 mg Tablet 80 mg PO DAILY albuterol sulfate 2.5 mg /3 mL (0.083 %) Solution For Nebulization 2.5 mg INHALATION BID PRN (Reason: Wheezing) aspirin 81 mg Tablet,Delayed Release (Dr/Ec) 81 mg PO DAILY [id number] 50-325-40 mg Tablet 1 tab PO DAILY PRN (Reason: Headache) calcium carbonate 600 mg calcium (1,500 mg) Tablet 600 mg PO BID amiodarone 400 mg Tablet 400 mg PO DAILY ascorbic acid (vitamin C) 250 mg Tablet 1,000 mg PO DAILY albuterol sulfate 90 mcg/actuation Hfa Aerosol Inhaler 1 inh INHALATION QID PRN (Reason: Wheezing) aripiprazole [Abilify] 10 mg Tablet 10 mg PO DAILY bupropion HCl 150 mg Tablet Extended Release 24 Hr 150 mg PO QAM carvedilol 25 mg Tablet 25 mg PO BID Rx Instructions: must administer with a meal/food clonazepam 0.5 mg Tablet 0.5 mg PO BID PRN (Reason: Anxiety) clotrimazole 1 % Cream 1 appl TOPICAL BID Rx Instructions: APPLY TO RASH UNDER BREAST dicyclomine 10 mg Capsule 10 mg PO TID PRN (Reason: Spasms) diclofenac sodium 1 % Gel 2 g TOPICAL TID Rx Instructions: APPLY TO BILATERAL IT BANDS roflumilast [Daliresp] 500 mcg Tablet 500 mcg PO DAILY dapagliflozin propanediol 10 mg Tablet 10 mg PO DAILY cyanocobalamin (vitamin B-12) 2,500 mcg Tablet 5,000 mcg PO DAILY Dupixent Pen 300 mg/2 mL Pen Injector 300 mg SUBCUT Q2W fenofibrate micronized 134 mg Capsule 134 mg PO DAILY hydroxyzine HCl 25 mg Tablet 25 mg PO BID PRN (Reason: Itching) magnesium 250 mg Tablet 500 mg PO DAILY Flovent Diskus 250 mcg/actuation Blister With Device 1 inh INHALATION BID fluticasone propionate 50 mcg/actuation [place],Suspension 1 spray INTRANASAL BID Rx Instructions: administer into each nostril loratadine 10 mg Tablet 10 mg PO DAILY insulin lispro 100 unit/mL Insulin Pen 1 sliding scale dose SUBCUT USEASDIRECTD insulin glargine [Lantus Solostar U-100 Insulin] 100 unit/mL (3 mL) Insulin Pen 1 unit SUBCUT BEDTIME multivitamin Tablet 1 tab PO DAILY nystatin 100,000 unit/mL Suspension 5 ml PO Q6H Rx Instructions: swish and swallow ropinirole 1 mg Tablet 1 - 2 mg PO BEDTIME Rx Instructions: administer 1-3 hours before bedtime torsemide 10 mg Tablet 20 mg PO DAILY Zyflo 600 mg Tablet 600 mg PO QID oxycodone-acetaminophen 5-325 mg Tablet 1 - 2 tab PO Q4H PRN (Reason: Pain) omeprazole 20 mg Capsule,Delayed Release(Dr/Ec) 20 mg PO MOWEFR montelukast 10 mg Tablet 10 mg PO BEDTIME nystatin 100,000 unit/gram Powder 1 appl TOPICAL BID cholecalciferol (vitamin D3) [Vitamin D3] 50 mcg (2,000 unit) Capsule 50 mcg PO DAILY omega 3-aef-pjx-fish oil [Fish Oil] 1,000 mg (120 mg-180 mg) Capsule 1 cap PO DAILY Trulicity 1.5 mg/0.5 mL Pen Injector 1.5 mg SUBCUT QWEEK tobramycin with nebulizer 300 mg/5 mL Solution For Nebulization 300 mg INHALATION BID Rx Instructions: separate doses by at least 6 hours Entresto 49-51 mg Tablet 1 tab PO BID duloxetine 30 mg capsule,delayed release(DR/EC) 30 mg PO QPM ipratropium-albuterol 0.5 mg-3 mg(2.5 mg base)/3 mL solution for nebulization 3 ml INHALATION BID Stand Alone Forms: Patient Portal Discharge page Care Plan Goals: see below Health Concerns: respiratory failure copd exacerbation polysubstance overdose Plan of Treatment: complete course of steroids as prescribed minimize use of sedating medications including oxycodone when able. do not mix narcotics and alcohol. do not take more oxycodone then prescribed. use cpap every night recommend reengage with wom[facility] group, psychiatrist and therapist recommended call to schedule follow up with PCP Assessment: see discharge summary
--- NOTE | 2023-08-17 12:41 | MHC.CM.PN ---
PT MEDICALLY CLEARED FOR D/C HOME W/RESUMP OF [facility] SERVICES, PT REPORTS SHE WILL BE STAYING W/DTR AND BELONGINGS AND DME HAVE ALREADY BEEN MOVED FOR HER, PT WILL CALL SON FOR TRANSPORT
[2023-08-17] MEDS: Naloxone HCl Nasal TAKE HOME 4 MG SPRAY 8 MG NOSTRILALT (15:48)
== END 2023-08-17 16:21 | disposition home or self-care (01) | DRG 812 ==
LOC: HO.ED 16:44 → HO.EDOVER 20:08 → HO.IMC 21:55
PROVIDERS: Emergency Medicine; Physician Assistant; Admitting Provider Student in an Organized Health Care Education/Training Program; Emergency Provider Emergency Medicine; PCP Nurse Practitioner Family; Visit Provider Physician Assistant Medical
DX: T40.2X1A Poisoning by other opioids, accidental (unintentional), initial encounter (principal); J96.21 Acute and chronic respiratory failure with hypoxia; I21.A1 Myocardial infarction type 2; E66.2 Morbid (severe) obesity with alveolar hypoventilation; E87.20 Acidosis, unspecified; Z68.43 Body mass index [BMI] 50.0-59.9, adult; F10.139 Alcohol abuse with withdrawal, unspecified; J44.1 Chronic obstructive pulmonary disease with (acute) exacerbation; J96.22 Acute and chronic respiratory failure with hypercapnia; I11.0 Hypertensive heart disease with heart failure; Z99.81 Dependence on supplemental oxygen; I50.22 Chronic systolic (congestive) heart failure; K21.9 Gastro-esophageal reflux disease without esophagitis; E78.5 Hyperlipidemia, unspecified; M54.9 Dorsalgia, unspecified; G89.29 Other chronic pain; F17.210 Nicotine dependence, cigarettes, uncomplicated; Z71.6 Tobacco abuse counseling; Z79.4 Long term (current) use of insulin; Z79.51 Long term (current) use of inhaled steroids; Z79.899 Other long term (current) drug therapy
CPT/HCPCS: 36415; 36600; 70450; 71045; 80048; 80053; 80143; 80179; 80307; 82140; 82803; 82947; 83605; 83735; 83880; 84484; 85025; 85027; 85610; 87040; 93005; 94640; 94660; 99285; J0456; J0696; J1200; J1650; J1940; J2405; J2560; J2920; J2930

== ENCOUNTER → 2023-08-14 19:54 | Outpatient (BNV) | payer MEDICAID, SELFPAY | PROVIDERS: Admitting Provider Student in an Organized Health Care Education/Training Program; Emergency Provider Emergency Medicine; PCP Nurse Practitioner Family; Visit Provider Student in an Organized Health Care Education/Training Program | DX: J44.1 Chronic obstructive pulmonary disease with (acute) exacerbation (principal); J96.21 Acute and chronic respiratory failure with hypoxia; J96.22 Acute and chronic respiratory failure with hypercapnia; E66.2 Morbid (severe) obesity with alveolar hypoventilation; Z68.43 Body mass index [BMI] 50.0-59.9, adult | CPT/HCPCS: 99223; 99232; 99233; 99239 ==

== ENCOUNTER → 2023-08-14 19:54 | Outpatient (BNV) | payer MEDICAID, SELFPAY | PROVIDERS: Admitting Provider Student in an Organized Health Care Education/Training Program; Emergency Provider Emergency Medicine; PCP Nurse Practitioner Family; Visit Provider Psychiatry & Neurology Psychiatry | DX: F32.2 Major depressive disorder, single episode, severe without psychotic features (principal); T40.604A Poisoning by unspecified narcotics, undetermined, initial encounter | CPT/HCPCS: 99222; 99232 ==

== ENCOUNTER 2023-09-15 10:20 | Outpatient (REF) | payer MEDICAID, SELFPAY ==
--- NOTE | ~2023-09-15 | CT_ITS ---
EXAMINATION: CT LUMBAR SPINE WITHOUT CONTRAST CLINICAL INFORMATION: Radiculopathy COMPARISON: None TECHNIQUE: A multidetector CT acquisition of the lumbar spine is obtained without contrast. This CT examination was performed using dose optimization techniques as appropriate, variously including the following: *Automated exposure control *Adjustment of mA and/or kV according to patient size (this includes techniques or standardized protocols for targeted exams where dose is matched to indication/reason for exam; i.e. extremities or head) *Use of iterative reconstruction technique DLP: 1091 mGy-cm FINDINGS: Mid to lower lumbar levocurvature, apex at L3-L4. Slight right lateral listhesis at L1-L2 and left lateral listhesis at L4-L5. Preserved sagittal alignment. Grade 1 anterolisthesis at L4-L5. Vertebral body heights are maintained. There is no suspicious osseous lesion. Moderate L4-L5 disc height loss with vacuum disc phenomenon and prominent subchondral eburnation and cystic change at this level. Please not canal patency is not well assessed on this examination due to inherent limitations of CT without intrathecal contrast. Within these limitations, multilevel degenerative changes with level by level detail are as follows: L1-L2: Shallow annular disc bulge and mild bilateral facet arthrosis. No spinal canal or significant neural foraminal stenosis. L2-L3: Annular disc bulge. Soft tissue/presumably extruded disc material in the right central zone along the L2 mid to lower posterior cortex presumably arising from the L2-L3 disc space. Mild to moderate bilateral facet arthrosis and ligamentum flavum thickening and vacuum phenomenon. Prominence of the dorsal epidural fat. Mild spinal canal stenosis at and above the level of the disc space. Mild bilateral neural foraminal encroachment. L3-L4: Annular disc bulge with moderate bilateral facet arthrosis and ligamentum flavum thickening with vacuum phenomenon. Prominence of the dorsal epidural fat. Apparent mild to moderate spinal canal stenosis and mild bilateral neural foraminal stenosis. L4-L5: Uncovertebral posterior disc with partially mineralized superiorly migrated left subarticular disc extrusion, a component which extends into the left neural foramen with associated mass effect along the traversing and exiting left L5 nerve root, respectively. Advanced bilateral facet arthrosis with ligamentum flavum thickening and vacuum phenomenon. Apparent moderate to severe spinal canal and subarticular zone stenosis with mass effect along the traversing bilateral L5 nerve roots at the level of the disc space. Severe bilateral neural foraminal stenosis with compression of the exiting L4 nerve roots. L5-S1: Sequela of prior interbody fusion with solid interbody arthrodesis. No spinal canal or neural foraminal stenosis. No significant abnormalities of the paraspinal musculature. Significant calcific atherosclerotic disease without abdominal aortic aneurysm. Prominent bridging osteophytosis across the ventral right sacroiliac joint. Nonobstructive nephrolithiasis bilaterally. CT/CT lumbar spine wo IV con IMPRESSION: 1. At L4-L5, there is a partially mineralized superiorly migrated left subarticular disc extrusion with component extending into the left neural foramen causing mass effect along the traversing and exiting left L5 nerve root, respectively. Apparent moderate to severe spinal canal and subarticular zone stenosis with mass effect along the traversing bilateral L5 nerve roots at the level of the disc and severe bilateral neural foraminal stenosis with compression of the exiting L4 nerve roots. 2. At L2-L3, suspected superiorly migrated right central disc extrusion. Mild spinal canal stenosis at the level of the disc space. 3. At L3-L4, apparent mild to moderate spinal canal stenosis. 4. Sequela of prior interbody fusion at L5-S1 with solid interbody arthrodesis.
== END 2023-09-15 10:21 | disposition home or self-care (01) ==
LOC: HO.CT 10:20
PROVIDERS: PCP Nurse Practitioner Family; Visit Provider Physician Assistant
DX: M54.16 Radiculopathy, lumbar region (principal)
CPT/HCPCS: 72131

== ENCOUNTER 2023-09-24 11:29 | Outpatient (AMB) | payer OTHER, SELFPAY ==
--- NOTE | 2023-09-24 12:36 | HO.SPINEOV ---
Intake Intake Visit Reasons: CT follow up/dixcuss sx Allergies fentanyl [FENTANYL] Allergy (Unknown, Verified 06/30/23 11:30) NAUSEA & VOMITING lithium [LITHIUM] Allergy (Unknown, Verified 06/30/23 11:30) RASH/HIVES/VOMITING naproxen [From NAPROSYN] Allergy (Unknown, Verified 06/30/23 11:30) N/V gabapentin Adverse Reaction (Severe, Verified 06/30/23 11:30) lethargy Adhesive Bandages Allergy (Unknown, Uncoded 06/30/23 11:30) Rash PLASTIC TAPE Allergy (Unknown, Uncoded 06/30/23 11:30) REDNESS Assessment & Plan Assessment & Plan (1) Spondylolisthesis, lumbar region: Code(s): M43.16 - Spondylolisthesis, lumbar region Plan Dear colleague, On 09/24/2023, I saw for follow-up Merle Guillen to discuss possible surgery to treat her L4-5 spondylolisthesis causing back pain and neurogenic claudication. She is very disabled due to the symptoms. The surgery can be easily performed minimally invasive and is not the limiting factor The main limiting factor is her overall health with 3 L of oxygen for COPD/asthma. We need to obtain a risk assessment from the bindery library technical assistant to decide if our anesthesiologist would be willing to put her under anesthesia. She will visit bindery library technical assistant in 2 weeks and she will notify my office what the outcome was. Thank you for allowing me take care of this challenging patient. Luis Dove MD, PhD Spine Fellowship Trained Neurosurgeon Director, [facility] Coding Level of Care Code Est Pt Level 2 (08374) Diagnoses Spondylolisthesis, lumbar region M43.16
== END 2023-09-24 12:54 | disposition home or self-care (01) ==
PROVIDERS: PCP Nurse Practitioner Family; Visit Provider Neurological Surgery
DX: M43.16 Spondylolisthesis, lumbar region (principal)
CPT/HCPCS: 99212

== ENCOUNTER → 2023-09-24 11:29 | Outpatient (BNVA) | payer OTHER, SELFPAY | PROVIDERS: PCP Nurse Practitioner Family; Visit Provider Neurological Surgery ==

== ENCOUNTER → 2023-11-03 08:37 | Day surgery (SDC) | payer MEDICAID, SELFPAY ==
[2023-10-28 12:48] VITALS: BP 126/68; PULSE 93; RESP 16; O2SAT 96; BMI 45.0
--- NOTE | 2023-10-28 12:59 | P.CONAN_ITS ---
HPI - Anesthesia Eval Consult details Narrative: 53yo F for Pulmo cleared Cardiology cleared Medicine clearance deferred to specialists 09/2023 sinus infection tx'd with abx. Completely resolved. No chest pain at rest. Chronic CHANCE at baseline (O2 @ 3 L continuous. Quit smoking 07/2023) GERD. Well controlled with ppi DM. FBS ~110 BASSEM with Bipap QHS Chronic opioids *N/V with fenanyl* Anesthesia Pre-Procedure Meds Is the patient on any of the following meds?: Dulaglutide (Trulicity) (Last dose > 2 weeks ago) If Yes to any meds - educate patient: Pt education - increased risk of aspiration and Pt education - possibility of cancelled proc at provider's discretion PMFSH Active Problems Active Problems: All Active Problems (Updated 10/28/23 @ 12:21 by Krystal Lew RN) Spondylolisthesis, lumbar region (Acute) Lumbar radicular pain (Acute) Post laminectomy syndrome (Acute) Spinal stenosis of lumbar region with neurogenic claudication (Acute) COPD exacerbation (Acute) Obesity hypoventilation syndrome (Acute) Past Medical History Medical History (Updated 10/28/23 @ 13:01 by Krystal Lew RN) History of mechanical ventilation Arthritis Kidney stone History of headache Numbness Cough Oxygen dependent Bronchitis On beta paloma at home PVD (peripheral vascular disease) On home oxygen therapy Pulmonary nodule Pneumonia Peripheral neuropathy Back pain Osteoporosis Inflammatory bowel disease Current chronic use of systemic steroids CHF (congestive heart failure) Elevated cholesterol Respiratory failure with hypoxia and hypercapnia Obesity hypoventilation syndrome Obstructive sleep apnea Anxiety Bipolar disorder GERD (gastroesophageal reflux disease) Fibromyalgia Hypertension Diabetes mellitus Depression Asthma COPD (chronic obstructive pulmonary disease) Family History Family history of problems with anesthesia: No Surgical History Surgical History (Updated 10/28/23 @ 12:22 by Krystal Lew RN) H/O colonoscopy History of right shoulder replacement History of lumbar fusion H/O: hysterectomy History of Problems with Anesthesia: No Social History Social History Household Members: Family Household Members Other:: parents Housing: House Are you a primary caregivers homecare to a significant other at home: No Do you presently have visiting nurse or other home services: No (visiting RN three times a week) Alcohol intake: current Alcohol intake frequency: holidays/special occasions only Alcohol type: hard liquor Patient Tobacco Use Status: Former Tobacco user Quit Date: 2019 Tobacco use type: Cigarette Cigarettes Per Day: 1 Use of substances other than those prescribed or required for medical reasons: No Substance Use Type: Crack/Cocaine, Marijuana and Prescription Drugs Have you been hit, kicked, punched, or otherwise hurt by someone within the past year? If so, by whom?: No Are you DNR?: No Advance Directives: No Advance Directives Information Provided: No Advance Directives on File: No Advance Directives Date on File: 01/22/23 Recently lost weight without trying: No Eating poorly because of decreased appetite: No Nutrition Risks: No Nutritional Risk Patient : No : No Poor oral hygiene: No service: No Current occupational status: disabled Meds Allergies Allergy/AdvReac Type Severity Reaction Status Date / Time fentanyl [FENTANYL] Allergy Unknown NAUSEA & Verified 06/30/23 11:30 VOMITING lithium [LITHIUM] Allergy Unknown RASH/HIVES/ Verified 06/30/23 11:30 VOMITING naproxen [From NAPROSYN] Allergy Unknown N/V Verified 06/30/23 11:30 gabapentin AdvReac Severe lethargy Verified 06/30/23 11:30 Adhesive Bandages Allergy Unknown Rash Uncoded 06/30/23 11:30 PLASTIC TAPE Allergy Unknown REDNESS Uncoded 06/30/23 11:30 Home Medications Medication Instructions Recorded Confirmed Last Taken Type albuterol sulfate 2.5 mg/3 mL 2.5 mg inhalation BID PRN Wheezing 01/21/23 10/28/23 01/20/23 History (0.083 %) solution for nebulization albuterol sulfate 90 mcg/actuation 1 inh inhalation QID PRN Wheezing 01/21/23 10/28/23 01/20/23 History aerosol inhaler amiodarone 400 mg tablet 400 mg PO DAILY 01/21/23 10/28/23 01/20/23 History aripiprazole 10 mg tablet (Abilify) 10 mg PO DAILY 01/21/23 10/28/23 01/20/23 History ascorbic acid (vitamin C) 250 mg 1,000 mg PO DAILY 01/21/23 10/28/23 01/20/23 History tablet aspirin 81 mg tablet,delayed 81 mg PO DAILY 01/21/23 10/28/23 01/20/23 History release atorvastatin 80 mg tablet 80 mg PO BEDTIME 01/21/23 10/28/23 01/20/23 History bupropion HCl 150 mg 24 hr tablet, 150 mg PO QAM 01/21/23 10/28/23 01/20/23 History extended release yxwarqzbwi-afrkwftdcpadq-lhjdtjui 1 tab PO DAILY PRN Headache 01/21/23 10/28/23 01/20/23 History 50 mg-325 mg-40 mg tablet calcium carbonate 600 mg calcium 600 mg PO BID 01/21/23 10/28/23 01/20/23 History (1,500 mg) tablet carvedilol 25 mg tablet 25 mg PO BID 01/21/23 10/28/23 01/20/23 History cholecalciferol (vitamin D3) 50 50 mcg PO DAILY 01/21/23 10/28/23 01/20/23 History mcg (2,000 unit) capsule (Vitamin D3) clonazepam 0.5 mg tablet 0.5 mg PO BID PRN Anxiety 01/21/23 10/28/23 01/20/23 History clotrimazole 1 % topical cream 1 appl topical BID 01/21/23 10/28/23 01/20/23 History cyanocobalamin (vitamin B-12) 5,000 mcg PO DAILY 01/21/23 10/28/23 01/20/23 History 2,500 mcg tablet diclofenac sodium 1 % topical gel 2 g topical TID 01/21/23 10/28/23 01/20/23 History dicyclomine 10 mg capsule 10 mg PO TID PRN Spasms 01/21/23 10/28/23 01/20/23 History dulaglutide 1.5 mg/0.5 mL 1.5 mg subcut QWEEK 01/21/23 10/28/23 Unknown History subcutaneous pen injector (Trulicity) dupilumab 300 mg/2 mL subcutaneous 300 mg subcut Q2W 01/21/23 10/28/23 Unknown History pen injector (Dupixent) fenofibrate micronized 134 mg 134 mg PO DAILY 01/21/23 10/28/23 01/20/23 History capsule fluticasone propionate 250 1 inh inhalation BID 01/21/23 10/28/23 01/20/23 History mcg/actuation blister powder for inhalation (Flovent Diskus) fluticasone propionate 50 1 spray intranasal BID 01/21/23 10/28/23 01/20/23 History mcg/actuation nasal spray,suspension hydroxyzine HCl 25 mg tablet 25 mg PO BID PRN Itching 01/21/23 10/28/23 01/20/23 History insulin glargine 100 unit/mL (3 5 unit subcut BEDTIME 01/21/23 10/28/23 01/20/23 History mL) subcutaneous pen (Lantus Solostar U-100 Insulin) insulin lispro 100 unit/mL 1 sliding scale dose subcut TIDAC 01/21/23 10/28/23 01/20/23 History subcutaneous pen loratadine 10 mg tablet 10 mg PO DAILY 01/21/23 10/28/23 01/20/23 History magnesium 250 mg tablet 500 mg PO DAILY 01/21/23 10/28/23 01/20/23 History montelukast 10 mg tablet 10 mg PO BEDTIME 01/21/23 10/28/23 01/20/23 History multivitamin 1 tab PO DAILY 01/21/23 10/28/23 01/20/23 History nystatin 100,000 unit/gram topical 1 appl topical BID PRN Skin 01/21/23 10/28/23 01/20/23 History powder Irritation nystatin 100,000 unit/mL oral 5 ml PO QID PRN Sore Throat 01/21/23 10/28/23 01/20/23 History suspension omega 6-glh-uoh-fish oil 1,000 mg 1 cap PO DAILY 01/21/23 10/28/23 01/20/23 History (120 mg-180 mg) capsule (Fish Oil) omeprazole 20 mg capsule,delayed 20 mg PO BID 01/21/23 10/28/23 01/20/23 History release oxycodone-acetaminophen 5 mg-325 1 - 2 tab PO Q4H PRN Pain 01/21/23 10/28/23 01/20/23 History mg tablet roflumilast 500 mcg tablet 500 mcg PO DAILY 01/21/23 10/28/23 01/20/23 History (Daliresp) ropinirole 1 mg tablet 1 - 2 mg PO BEDTIME PRN Restless 01/21/23 10/28/23 01/20/23 History Leg(S) sacubitril 49 mg-valsartan 51 mg 1 tab PO BID 01/21/23 10/28/23 01/20/23 History tablet (Entresto) torsemide 10 mg tablet 40 mg PO DAILY 01/21/23 10/28/23 01/20/23 History zileuton 600 mg tablet (Zyflo) 600 mg PO QID 01/21/23 10/28/23 01/20/23 History duloxetine 30 mg capsule,delayed 30 mg PO QPM 08/14/23 10/28/23 Unknown History release Lactobacillus 1 cap PO BID 10/28/23 10/28/23 Unknown History acidophilus-Bifidobac.animalis 2 billion cell capsule amlodipine 5 mg tablet 5 mg PO DAILY 10/28/23 10/28/23 Unknown History azelastine 137 mcg (0.1 %) nasal 1 spray intranasal BID 10/28/23 10/28/23 Unknown History spray aerosol budesonide-formoterol HFA 160 2 puff inhalation BID 10/28/23 10/28/23 Unknown History mcg-4.5 mcg/actuation aerosol inhaler (Symbicort) clotrimazole 10 mg jerod 10 mg mucous membrane QID PRN Sore 10/28/23 10/28/23 Unknown History Throat cyclobenzaprine 5 mg tablet 5 mg PO BID PRN Muscle Spasm 10/28/23 10/28/23 Unknown History dapagliflozin propanediol 10 mg 10 mg PO DAILY 10/28/23 10/28/23 Unknown History tablet (Farxiga) duloxetine 60 mg capsule,delayed 60 mg PO DAILY 10/28/23 10/28/23 Unknown History release guaifenesin 600 mg tablet, 1,200 mg PO BID 10/28/23 10/28/23 Unknown History extended release 12 hr metoprolol succinate 200 mg 200 mg PO BEDTIME 10/28/23 10/28/23 Unknown History capsule sprinkle, ext. release 24 hr ondansetron HCl 4 mg tablet 4 mg PO DAILY PRN Nausea 10/28/23 10/28/23 Unknown History prednisone 1 mg tablet 3 mg PO DAILY 10/28/23 10/28/23 Unknown History sumatriptan succinate 50 mg tablet 50 mg PO DAILY PRN Migraine 10/28/23 10/28/23 Unknown History Headache tiotropium bromide 1.25 2 puff inhalation DAILY 10/28/23 10/28/23 Unknown History mcg/actuation mist for inhalation tobramycin with nebulizer 300 mg/5 300 mg inhalation BID 10/28/23 10/28/23 Unknown History mL solution for nebulization valacyclovir 1 gram tablet 1,000 mg PO BID PRN Wound Healing 10/28/23 10/28/23 Unknown History Exam Height,Weight and Vital Signs: Height 5 ft 1 in Weight 107.955 kg Last Vital Signs Pulse 93 10/28/23 12:48 Resp 16 10/28/23 12:48 BP 126/68 10/28/23 12:48 Pulse Ox 96 10/28/23 12:48 O2 Del Method Nasal Cannula 10/28/23 12:48 O2 Flow Rate 3.0 10/28/23 12:48 Pertinent Lab Results Pertinent Lab Results: Lab Results 10/28/23 10/28/23 Range/Units 13:29 13:30 WBC 10.6 (4.8-10.8) X10*3/uL RBC 4.50 (4.20-5.50) X10*6/uL Hgb 13.1 (12.0-16.0) g/dl Hct 41.4 (37.0-47.0) % MCV 92.0 (80.0-98.0) fL MCH 29.1 (27.0-33.0) pg MCHC 31.6 (31.0-35.0) g/dl RDW 12.3 (11.0-16.0) % Plt Count 289 (160-400) X10*3/uL MPV 9.8 (9.4-12.3) fL Absolute Nucleated RBC 0.000 (0.0-0.012) X10*3/uL Nucleated RBC % (auto) 0.0 (0.0-0.2) /100WBC Sodium 142 (135-145) mmol/L Potassium 4.6 D (3.3-5.1) mmol/L Chloride 102 (96-108) mmol/L Carbon Dioxide 31 H (22-29) mmol/L Anion Gap 14 (12-20) BUN 21 H (9-16) mg/dL Creatinine 0.65 (0.5-1.4) mg/dL Estim Creat Clear Calc 113.5 Estimated GFR > 60 Random Glucose 82 (60-115) mg/dL Estimat Average Glucose 143 mg/dL Hemoglobin A1c % 6.6 H (<6.0) % Calcium 9.8 (8.4-10.2) mg/dL Blood Type O Positive Antibody Screen NEGATIVE Narrative Narrative: EKG 10/27/23 ST @ 105 Septal infarct Reviewed by pts own clinical outcomes manager ECHO 01/2023 Conclusions: - 1. Technically difficult study despite use of contrast agent 2. Normal LV systolic function with mild LVH with impaired relaxation filling pattern, in adequate information to calculate filling pressures 3. Mitral and calcification with limited but cardiac valvular Dopplers within normal limits 4. Normal right atrial pressures XR chest 1V 07/2023 IMPRESSION: Cardiomegaly with mild upper zone redistribution but no gross pulmonary edema. Airway Mallampati Class: IV TM Dist: <=3cm Neck ROM: Full Loose/Missing/Broken Teeth: No Heart: RRR Lungs: CTAB Assessment and Plan Assessment Anesthesia Assessment: Anesthesia Plan Discussed and PAT Visit Final Anesthetic Review Family History of Problems with Anesthesia: No History of Problems with Anesthesia: No
[2023-10-28 14:16] LABS: Hematocrit 41.4 % (37.0-47.0); Hemoglobin 13.1 g/dl (12.0-16.0); Mean Corpuscular HGB Conc 31.6 g/dl (31.0-35.0); Mean Corpuscular Hemoglobin 29.1 pg (27.0-33.0); Mean Platelet Volume 9.8 fL (9.4-12.3); Platelet Count 289 X10*3/uL (160-400); Red Cell Distribution Width 12.3 % (11.0-16.0); White Blood Count 10.6 X10*3/uL (4.8-10.8)
[2023-10-28 14:45] LABS: Estimated Average Glucose 143 mg/dL; Hemoglobin A1c % 6.6 % (<6.0)
[2023-10-28 14:47] LABS: Anion Gap 14 (12-20); Blood Urea Nitrogen 21 mg/dL (9-16); Calcium 9.8 mg/dL (8.4-10.2); Carbon Dioxide 31 mmol/L (22-29); Chloride 102 mmol/L (96-108); Creatinine Clr Calc Pharmacy 113.5; Estimated Glomerular Filt Rate > 60; Glucose Random 82 mg/dL (60-115); Potassium 4.6 mmol/L (3.3-5.1); Sodium 142 mmol/L (135-145)
--- NOTE | 2023-11-03 07:27 | MHC.SHP ---
Pre-Procedural Eval Section A Date of Service: 11/03/23 The patient is an INPATIENT: No Changes since office visit: No Cold of Flu in the past 2 weeks, No New Medical Problems, No Changes in Medication and No Patient answered all questions The History & Physical has been completed within 30 days and I have reviewed it.: Yes Section B Chief Complaint: Spondylolisthesis, lumbar region Allergies: Allergies Allergy/AdvReac Type Severity Reaction Status Date / Time fentanyl [FENTANYL] Allergy Unknown NAUSEA & Verified 06/30/23 11:30 VOMITING lithium [LITHIUM] Allergy Unknown RASH/HIVES/ Verified 06/30/23 11:30 VOMITING naproxen [From NAPROSYN] Allergy Unknown N/V Verified 06/30/23 11:30 gabapentin AdvReac Severe lethargy Verified 06/30/23 11:30 Adhesive Bandages Allergy Unknown Rash Uncoded 06/30/23 11:30 PLASTIC TAPE Allergy Unknown REDNESS Uncoded 06/30/23 11:30 Review of Systems Sugical H&P ROS: Negative: Constitution, Cardiovascular, Respiratory, Neurological, Psychiatric, Hem-Onc, Allergic/Immunologic, Gastrointestinal, Genitourinary, Musculoskeletal, Integumentary, Endocrine and Eyes/Ears/Nose/Throat Exam Surgical H&P Exam: Not Evaluated: HEENT, Not Evaluated: Heart, Not Evaluated: Lungs, Not Evaluated: Extremities, Not Evaluated: Abdomen, Not Evaluated: Skin and Not Evaluated: Neurological Plan Diagnosis/Plan: Unchanged I have reviewed the history and physical and performed a pertinent physical examination on my patient. No changes have occurred unless specified. The patient underwent clearance from her manager of human resources and will be managed accordingly. L4-5 oblique lumbar interbody fusion Time Spent With Patient Time: Total time managing care of this patient today _6___ minutes.
[2023-11-03 08:59] VITALS: BP 149/65; PULSE 96; RESP 18; TEMP 36.9; O2SAT 94
[2023-11-03 09:06] LABS: Glucose, Whole Blood 111 mg/dL (60-115)
[2023-11-03 09:12] VITALS: PULSE 97; RESP 16; O2SAT 94
[2023-11-03] MEDS: Lactated Ringers 1,000 ML 50 ML IVCONT (09:17)
[2023-11-03] MEDS: Scopolamine 1.5 MG PATCH.TD.3 TRANSDERMA (09:17)
[2023-11-03] MEDS: Albuterol Sulfate (0.083%) 2.5 MG/3 ML VIAL.NEB INHALE (10:42)
--- NOTE | 2023-11-03 11:21 | PC.NURSE ---
Decision was made by anesthesia and surgeon to cancel case today. No medications were given to patient except the scopolamine patch that was placed, which was removed prior to patient leaving. IV removed. Patient left with all of her belongings and was brought by hospital staff via w/c to meet family member in lobby. pharmacy aware to [facility] at [facility] for return. Patient family at bedside when decision was reviewed with patient.
== END ==
LOC: HO.SSSA 11-04 08:05 → HO.SSS 11-04 08:15
PROVIDERS: Nurse Practitioner; PCP Nurse Practitioner Family; Visit Provider Neurological Surgery
DX: M43.16 Spondylolisthesis, lumbar region (principal); Z53.8 Procedure and treatment not carried out for other reasons; J44.9 Chronic obstructive pulmonary disease, unspecified; E11.9 Type 2 diabetes mellitus without complications; Z88.5 Allergy status to narcotic agent; Z88.8 Allergy status to other drugs, medicaments and biological substances; Z91.041 Radiographic dye allergy status
CPT/HCPCS: 36415; 80048; 82947; 83036; 85027; 86850; 86900; 86901; 94640; J0131; J0690

== ENCOUNTER 2024-02-16 09:54 | Outpatient (AMB) | payer MEDICAID, SELFPAY ==
--- NOTE | 2024-02-16 10:06 | MHC.OFFVIS ---
Intake Intake Visit Reasons: Flank pain Intake Note: New Patient presents for initial visit for flank pain Urology Medications: none Blood Thinner: none External Relations Director Required: No Accompanied by: Self / Same As Patient Allergies fentanyl [FENTANYL] Allergy (Unknown, Verified 02/16/24 10:54) NAUSEA & VOMITING lithium [LITHIUM] Allergy (Unknown, Verified 02/16/24 10:54) RASH/HIVES/VOMITING naproxen [From NAPROSYN] Allergy (Unknown, Verified 02/16/24 10:54) N/V gabapentin Adverse Reaction (Severe, Verified 02/16/24 10:54) lethargy Adhesive Bandages Allergy (Unknown, Uncoded 02/16/24 10:54) Rash PLASTIC TAPE Allergy (Unknown, Uncoded 02/16/24 10:54) REDNESS Medication List - Last Reconciled 02/16/24 by NANDO Krueger-JOCELINE albuterol sulfate 90 mcg/actuation 1 inh inhalation QID PRN albuterol sulfate 2.5 mg inhalation BID PRN amiodarone 400 mg PO DAILY amlodipine 5 mg PO DAILY aripiprazole (Abilify) 10 mg PO DAILY ascorbic acid (vitamin C) 1,000 mg PO DAILY aspirin 81 mg PO DAILY atorvastatin 80 mg PO BEDTIME azelastine 1 spray intranasal BID baclofen 10 mg PO BID budesonide-formoterol 160-4.5 mcg/actuation (Symbicort) 2 puffs inhalation BID bupropion HCl 150 mg PO QAM ltnmopqqhp-igcjmxrpzceaj-tgax 50-325-40 mg 1 tab PO DAILY PRN calcium carbonate 600 mg PO BID carvedilol 25 mg PO BID cholecalciferol (vitamin D3) (Vitamin D3) 50 mcg PO DAILY clonazepam 0.5 mg PO BID PRN clotrimazole 1% 1 appl topical BID clotrimazole 10 mg mucous membrane QID PRN cyanocobalamin (vitamin B-12) 5,000 mcg PO DAILY cyclobenzaprine 5 mg PO BID PRN dapagliflozin propanediol (Farxiga) 10 mg PO DAILY diclofenac sodium 1% 2 grams topical TID dicyclomine 10 mg PO TID PRN dulaglutide (Trulicity) 1.5 mg subcut QWEEK duloxetine 60 mg PO DAILY duloxetine 30 mg PO QPM dupilumab (Dupixent) 300 mg subcut Q2W fenofibrate micronized 134 mg PO DAILY fluticasone propionate 50 mcg/actuation 1 spray intranasal BID fluticasone propionate 250 mcg/actuation (Flovent Diskus) 1 inh inhalation BID guaifenesin ER 1,200 mg PO BID hydroxyzine HCl 25 mg PO BID PRN insulin glargine (Lantus Solostar U-100 Insulin) 5 units subcut BEDTIME insulin lispro 1 sliding scale dose subcut TIDAC L. acidophilus/Bifid. animalis 2 billion cell 1 cap PO BID loratadine 10 mg PO DAILY magnesium 500 mg PO DAILY metoprolol succinate ER 200 mg PO BEDTIME montelukast 10 mg PO BEDTIME multivitamin 1 tab PO DAILY nystatin 1 appl topical BID PRN nystatin 5 mL PO QID PRN omega 9-oud-mhg-fish oil 1,000 mg (120 mg-180 mg) (Fish Oil) 1 cap PO DAILY omeprazole 20 mg PO BID ondansetron HCl 4 mg PO DAILY PRN oxycodone-acetaminophen 5-325 mg 1 - 2 tabs PO Q4H PRN prednisone 3 mg PO DAILY roflumilast (Daliresp) 500 mcg PO DAILY ropinirole 1 - 2 mg PO BEDTIME PRN sacubitril-valsartan 49-51 mg (Entresto) 1 tab PO BID sumatriptan succinate 50 mg PO DAILY PRN tiotropium bromide 1.25 mcg/actuation 2 puffs inhalation DAILY tobramycin with nebulizer 300 mg/5 mL 300 mg inhalation BID torsemide 40 mg PO DAILY valacyclovir 1,000 mg PO BID PRN zileuton (Zyflo) 600 mg PO QID HPI HPI Comments History of Present Illness Details Merle is a very pleasant 53-year-old female patient of Dr. Sousa. She has a past medical history of arthritis, nephrolithiasis, headaches, COPD O2 dependence on 2-3 L nasal cannula, bronchitis, PVD, pneumonia, peripheral neuropathy, osteoporosis, inflammatory bowel disease, current chronic use of systemic steroids, CHF, hypercholesteremia, obstructive sleep apnea uses BiPAP at night, anxiety, bipolar, GERD, fibromyalgia, hypertension, diabetes, depression, and asthma. She presents to the office today as a new patient for nephrolithiasis. In discussion with the patient today she reports having follow-up with Dr. Dove for ongoing back issues at which time her lumbar imaging noted bilateral nonobstructing stones. She does report intermittent right-sided flank pain. She denies any bothersome urinary issues or concerns. When asked she denies any previous history of nephrolithiasis and or surgical intervention for nephrolithiasis. She discusses her current medical issues with needing back surgery however given her O2 dependence she is awaiting ENT appointment to further assess trach placement. When asked she denies urinary urgency, urinary frequency, incontinence, nocturia, hematuria, dysuria, foul smelling urine, changes to urinary stream, fever, and or chills. She is happy with her current voiding parameters. In office urinalysis results reviewed with the patient today. [facility] Medical History (Updated 02/16/24 @ 20:45 [facility] History of mechanical ventilation Arthritis Kidney stone History of headache Numbness Cough Oxygen dependent Bronchitis On beta paloma at home PVD (peripheral vascular disease) On home oxygen therapy Pulmonary nodule Pneumonia Peripheral neuropathy Back pain Osteoporosis Inflammatory bowel disease Current chronic use of systemic steroids CHF (congestive heart failure) Elevated cholesterol Respiratory failure with hypoxia and hypercapnia Obesity hypoventilation syndrome Obstructive sleep apnea Anxiety Bipolar disorder GERD (gastroesophageal reflux disease) Fibromyalgia Hypertension Diabetes mellitus Depression Asthma COPD (chronic obstructive pulmonary disease) Surgical History H/O colonoscopy History of right shoulder replacement History of lumbar fusion H/O: hysterectomy Social History Household Members: Family Household Members Other:: parents Housing: House Are you a primary careers adviser to a significant other at home: No Do you presently have visiting nurse or other home services: No (visiting RN three times a week) Alcohol intake: current Alcohol intake frequency: holidays/special occasions only Alcohol type: hard liquor Patient Tobacco Use Status: Former Tobacco user Quit Date: 2019 Tobacco use type: Cigarette Cigarettes Per Day: 1 Substance Use Type: Crack/Cocaine, Marijuana and Prescription Drugs Advance Directives Date on File: 01/22/23 service: No Current occupational status: disabled Review of Systems Const Reports as per HPI Eyes Reports no additional complaints ENT Reports as per HPI Card Reports as per HPI Resp Details: Patient O2 dependent via nasal cannula Reports as per HPI GI Reports as per HPI Reports as per HPI Musc Reports as per HPI Neuro Reports as per HPI Psych Reports as per HPI Endo Reports as per HPI Umer/Lymph Reports no additional complaints Aller/Immun Reports no additional complaints Physical Exam Const General: cooperative, comfortable, no acute distress, well developed, alert and awake Nutritional Appearance: overweight Orientation/consciousness: patient oriented x3 Limitations: ambulation with walker HEENT Head: Yes normal to inspection, Yes normocephalic and Yes atraumatic Ears: hearing grossly normal bilaterally Eyes General: appearance normal, both eyes and all related structures Neck Neck: Yes normal visual inspection and Yes trachea midline Chest Chest palpation & inspection: normal inspection of the chest Resp Other: Patient O2 dependent 3 L nasal cannula Effort & Inspection: normal respiratory effort and able to speak in complete sentences Cardio Rate: regular rate GI Inspection: Yes normal to inspection General: Yes no CVA tenderness Back/Spine/Pelvis Back: no CVA tenderness Skin General skin exam: no rashes or lesions noted Neuro General: patient oriented x3 Extrem General: Yes normal to inspection Psych Appearance: grossly normal and well kempt Mental Status: mental status grossly normal Speech and movement: Normal speech and movement present and Clear speech present Affect: normal affect Attitude: cooperative Thought process: Normal thought process present Thought content: Normal thought content present Insight: Fair insight present (Psych) Judgement: Fair judgement present (Psych) Results AMB Urinalysis, Automated UA Leukoctes 0 Jocy/uL Last Edit by [employer] on 02/16/24 10:51 UA Nitrite Negative Last Edit by [employer] on 02/16/24 10:51 UA Urobilinogen 0.2 mg/dL Last Edit by [employer] on 02/16/24 10:51 UA Protein 30 mg/dL Last Edit by [employer] on 02/16/24 10:51 UA pH 6.0 Last Edit by [employer] on 02/16/24 10:51 UA Blood 0 Daniele/uL Last Edit by [employer] on 02/16/24 10:51 UA Specific Acworth 1.015 Last Edit by [employer] on 02/16/24 10:51 UA Ketone Negative Last Edit by [employer] on 02/16/24 10:51 UA Bilirubin 0 mg/dL Last Edit by Vanessa Godoy on 02/16/24 10:51 UA Glucose 1000 mg/dL Last Edit by Vanessa Godoy on 02/16/24 10:51 Results Reviewed Results Reviewed: Laboratory Last Values Urine pH (Auto) 6.0 02/16/24 10:48 Specific [place]worth (Auto) 1.015 02/16/24 10:48 Urine Protein (Auto) 30 mg/dL 02/16/24 10:48 Glucose (UA)(Auto) 1000 mg/dL 02/16/24 10:48 Urine Ketones (Auto) Negative 02/16/24 10:48 Urine Blood (Auto) 0 Daniele/uL 02/16/24 10:48 Urine Nitrite (Auto) Negative 02/16/24 10:48 Urine Bilirubin (Auto) 0 mg/dL 02/16/24 10:48 Urine Urobilinogen (Auto) 0.2 mg/dL 02/16/24 10:48 Leukocyte Esterase (Auto) 0 Jocy/uL 02/16/24 10:48 Assessment & Plan Assessment & Plan (1) Kidney stone: Code(s): N20.0 - Calculus of kidney (2) Flank pain: Code(s): R10.9 - Unspecified abdominal pain Plan In office urinalysis results reviewed with the patient today; as noted above. She currently denies any bothersome urinary issues or concerns. Discussed at length potential causes of nephrolithiasis. Discussed, educated, and stressed the importance of drinking adequate amount of water daily. Discussed adding 1 oz of lemon juice to water daily. Will obtain renal ultrasound for further assessment evaluation. She is happy with her current voiding parameters. Follow-up in 1-3 months with imaging to be completed prior; or sooner with any issues, concerns, and or questions. Orders: Orders US renal BI Today N20.0 - Calculus of kidney AMB Urinalysis Automated Today Z13.9 - Encounter for screening, unspecified Patient Instructions: The patient had an opportunity to ask questions regarding the treatment plan. All questions were answered. Physical exam, labs, and imaging were discussed and reviewed in detail. As well as risks, benefits, and discussion of treatment choices. No major barriers to understanding were identified. The patient expressed understanding and agreement with the above treatment plan. The patient was made aware they should contact our office by phone for worsening of their current condition, the appearance of new symptoms, or with any questions or concerns. Compliance is encouraged with any medications and follow up testing that is ordered. It is a privilege to be allowed the opportunity to participate in? your urological care.? Again, if you have any questions or concerns If you have any questions or concerns please do not hesitate to contact me. The office is [phone]. This note is constructed using voice recognition software. While every effort has been made to ensure accuracy marine pipefitter helper errors may have been included. Yours sincerely, VANESSA Krueger Coding Level of Care Code New Pt Level 3 (61686) Diagnoses Kidney stone N20.0 Flank pain R10.9
== END 2024-02-16 10:44 | disposition home or self-care (01) ==
PROVIDERS: PCP Nurse Practitioner Family; Visit Provider Nurse Practitioner Family
DX: N20.0 Calculus of kidney (principal); R10.9 Unspecified abdominal pain
CPT/HCPCS: 99203

== ENCOUNTER → 2024-02-16 09:54 | Outpatient (BNVA) | payer MEDICAID, SELFPAY | PROVIDERS: PCP Nurse Practitioner Family; Visit Provider Nurse Practitioner Family | DX: N20.0 Calculus of kidney (principal); R10.9 Unspecified abdominal pain | CPT/HCPCS: 81003; 99202 ==

== ENCOUNTER 2024-03-24 15:20 | Outpatient (REF) | payer MEDICAID, SELFPAY ==
--- NOTE | ~2024-03-24 | US_ITS ---
EXAMINATION: US RETROPERITONEAL LIMITED (RENAL ONLY) CLINICAL INFORMATION: Calculus of kidney. COMPARISON: Lumbar spine 09/15/2023. TECHNIQUE: Real-time imaging of the kidneys. Technically limited study secondary to body habitus. FINDINGS: RIGHT KIDNEY: 12.2 x 6.0 x 7.3 cm (SAG x AP x TRV). The kidney is normal in size, contour, and echogenicity. Renal cortical thickness is normal. No focal parenchymal lesions or hydronephrosis. 7 mm nonobstructing calculus in the lower pole. LEFT KIDNEY: 12.1 x 6.3 x 6.6 cm (SAG x AP x TRV). The kidney is normal in size, contour, and echogenicity. Renal cortical thickness is normal. No renal calculi or focal parenchymal lesions. Mild hydronephrosis. US/US renal BI IMPRESSION: Mild left hydronephrosis of uncertain etiology. No calculus is seen in the left kidney or visible portion of the collecting system. On lumbar spine CT from 09/15/2023 a 7 mm stone is seen in the lower pole of the left kidney which is not seen on current ultrasound. Consider CT to evaluate for a ureteral calculus. 7 mm nonobstructing calculus in the lower right kidney without hydronephrosis.
== END 2024-03-24 15:21 | disposition home or self-care (01) ==
LOC: HO.HMGCX 15:20
PROVIDERS: PCP Nurse Practitioner Primary Care; Visit Provider Nurse Practitioner Family
DX: N20.0 Calculus of kidney (principal)
CPT/HCPCS: 76775

== ENCOUNTER 2024-04-07 10:46 | Outpatient (AMB) | payer MEDICAID, SELFPAY ==
[2024-04-07 10:58] VITALS: BP 167/72; PULSE 98; RESP 14; O2SAT 95; BMI 45.2
--- NOTE | 2024-04-07 10:58 | A.OFFVIS_ITS ---
Vital Signs 04/07/24 10:58 Height 5 ft 1 in Weight 239 lb BMI 45.2 BP 167/72 H Blood Pressure Location Lt radial Position Sitting Respiration 14 Pulse 98 Pulse Source Pulse Oximeter Pulse Oximetry (%) 95 Oxygen Delivery Method Nasal Cannula Oxygen Flow Rate 3 Intake Visit Reasons: CHRONIC PAIN, DDD,NEUROPATHY Allergies fentanyl [FENTANYL] Allergy (Unknown, Verified 04/07/24 11:00) NAUSEA & VOMITING lithium [LITHIUM] Allergy (Unknown, Verified 04/07/24 11:00) RASH/HIVES/VOMITING naproxen [From NAPROSYN] Allergy (Unknown, Verified 04/07/24 11:00) N/V gabapentin Adverse Reaction (Severe, Verified 04/07/24 11:00) lethargy Adhesive Bandages Allergy (Unknown, Uncoded 04/07/24 11:00) Rash PLASTIC TAPE Allergy (Unknown, Uncoded 04/07/24 11:00) REDNESS Medication List - Last Reconciled 04/07/24 by Marlena Duenas LPN albuterol sulfate 90 mcg/actuation 1 inh inhalation QID PRN albuterol sulfate 2.5 mg inhalation BID PRN amiodarone 400 mg PO DAILY amlodipine 5 mg PO DAILY aripiprazole (Abilify) 10 mg PO DAILY ascorbic acid (vitamin C) 1,000 mg PO DAILY aspirin 81 mg PO DAILY atorvastatin 80 mg PO BEDTIME azelastine 1 spray intranasal BID baclofen 10 mg PO BID budesonide-formoterol 160-4.5 mcg/actuation (Symbicort) 2 puffs inhalation BID bupropion HCl XL 150 mg PO QAM [id number]-fakwuobnbzbsv-[id number] 50-325-40 mg 1 tab PO DAILY PRN calcium carbonate 600 mg PO BID carvedilol 25 mg PO BID cholecalciferol (vitamin D3) (Vitamin D3) 50 mcg PO DAILY clonazepam 0.5 mg PO BID PRN clotrimazole 1% 1 appl topical BID clotrimazole 10 mg mucous membrane QID PRN cyanocobalamin (vitamin B-12) 5,000 mcg PO DAILY cyclobenzaprine 5 mg PO BID PRN dapagliflozin propanediol (Farxiga) 10 mg PO DAILY diclofenac sodium 1% 2 grams topical TID dicyclomine 10 mg PO TID PRN duloxetine 60 mg PO DAILY dupilumab (Dupixent) 300 mg subcut Q2W fenofibrate micronized 134 mg PO DAILY fluticasone propionate 50 mcg/actuation 1 spray intranasal BID fluticasone propionate 250 mcg/actuation (Flovent Diskus) 1 inh inhalation BID guaifenesin ER 1,200 mg PO BID hydroxyzine HCl 25 mg PO BID PRN insulin glargine (Lantus Solostar U-100 Insulin) 5 units subcut BEDTIME insulin lispro 1 sliding scale dose subcut TIDAC L. acidophilus/Bifid. animalis 2 billion cell 1 cap PO BID loratadine 10 mg PO DAILY magnesium 500 mg PO DAILY metoprolol succinate ER 200 mg PO BEDTIME montelukast 10 mg PO BEDTIME multivitamin 1 tab PO DAILY nystatin 1 appl topical BID PRN nystatin 5 mL PO QID PRN omega 2-ctz-bft-fish oil 1,000 mg (120 mg-180 mg) (Fish Oil) 1 cap PO DAILY omeprazole 20 mg PO BID ondansetron HCl 4 mg PO DAILY PRN oxycodone-acetaminophen 5-325 mg 1 - 2 tabs PO Q4H PRN prednisone 3 mg PO DAILY roflumilast (Daliresp) 500 mcg PO DAILY ropinirole 1 - 2 mg PO BEDTIME PRN sacubitril-valsartan 49-51 mg (Entresto) 1 tab PO BID semaglutide (Ozempic) mg subcut sumatriptan succinate 50 mg PO DAILY PRN tiotropium bromide 1.25 mcg/actuation 2 puffs inhalation DAILY tobramycin with nebulizer 300 mg/5 mL 300 mg inhalation BID torsemide 40 mg PO DAILY valacyclovir 1,000 mg PO BID PRN zileuton (Zyflo) 600 mg PO QID HPI HPI CHRONIC PAIN, DDD,NEUROPATHY: Details: 53-year-old female presents to the office today for chronic pain, DDD, neuropathy The patient has been having lower back pain, which radiates to her legs too. She reports bilateral legs weakness. It is very difficult for her to walk and climb the stairs due to the ongoing persistent pain. She cannot even walk to the bathroom without taking rests. She had trouble breathing from oxycodone as a side effect. She has been using BiPAP machine at night for sleep apnea. She has been feeling tired, sweating all day and has not been able to sleep regularly. She states she is breathing well now. [facility] Medical History (Updated 04/12/24 @ 12:34 by Oscar Calero MD) History of mechanical ventilation Arthritis Kidney stone History of headache Numbness Cough Oxygen dependent Bronchitis On beta paloma at home PVD (peripheral vascular disease) On home oxygen therapy Pulmonary nodule Pneumonia Peripheral neuropathy Back pain Osteoporosis Inflammatory bowel disease Current chronic use of systemic steroids CHF (congestive heart failure) Elevated cholesterol Respiratory failure with hypoxia and hypercapnia Obesity hypoventilation syndrome Obstructive sleep apnea Anxiety Bipolar disorder GERD (gastroesophageal reflux disease) Fibromyalgia Hypertension Diabetes mellitus Depression Asthma COPD (chronic obstructive pulmonary disease) Surgical History H/O colonoscopy History of right shoulder replacement History of lumbar fusion H/O: hysterectomy Social History Household Members: Family Household Members Other:: parents Housing: House Are you a primary critical care nurse to a significant other at home: No Do you presently have visiting nurse or other home services: No (visiting RN three times a week) Alcohol intake: current Alcohol intake frequency: holidays/special occasions only Alcohol type: hard liquor Patient Tobacco Use Status: Former Tobacco user Quit Date: 2019 Tobacco use type: Cigarette Cigarettes Per Day: 1 Substance Use Type: Crack/Cocaine, Marijuana and Prescription Drugs Advance Directives Date on File: 01/22/23 service: No Current occupational status: disabled Review of Systems Const All systems reviewed & are unremarkable except as noted in HPI and below Physical Exam Vital Signs: Last Vital Signs Pulse 98 04/07/24 10:58 Resp 14 04/07/24 10:58 BP 167/72 H 04/07/24 10:58 Pulse Ox 95 04/07/24 10:58 Oxygen Delivery Method Nasal Cannula 04/07/24 10:58 Oxygen Flow Rate 3 04/07/24 10:58 BMI result Body Mass Index 45.2 General: Appears afebrile. Alert and oriented. Mood and affect appropriate. Follows and participates in conversation appropriately. Respiratory effort is unlabored. Able to transition from sit to stand unassisted. Results Reviewed Results Reviewed: 03/24/24: US RETROPERITONEAL LIMITED (RENAL ONLY) FINDINGS: RIGHT KIDNEY: 12.2 x 6.0 x 7.3 cm (SAG x AP x TRV). The kidney is normal in size, contour, and echogenicity. Renal cortical thickness is normal. No focal parenchymal lesions or hydronephrosis. 7 mm nonobstructing calculus in the lower pole. LEFT KIDNEY: 12.1 x 6.3 x 6.6 cm (SAG x AP x TRV). The kidney is normal in size, contour, and echogenicity. Renal cortical thickness is normal. No renal calculi or focal parenchymal lesions. Mild hydronephrosis. IMPRESSION: Mild left hydronephrosis of uncertain etiology. No calculus is seen in the left kidney or visible portion of the collecting system. On lumbar spine CT from 09/15/2023 a 7 mm stone is seen in the lower pole of the left kidney which is not seen on current ultrasound. Consider CT to evaluate for a ureteral calculus. 7 mm nonobstructing calculus in the lower right kidney without hydronephrosis. 09/15/23: CT LUMBAR SPINE WITHOUT CONTRAST FINDINGS: Mid to lower lumbar levocurvature, apex at L3-L4. Slight right lateral listhesis at L1-L2 and left lateral listhesis at L4-L5. Preserved sagittal alignment. Grade 1 anterolisthesis at L4-L5. Vertebral body heights are maintained. There is no suspicious osseous lesion. Moderate L4-L5 disc height loss with vacuum disc phenomenon and prominent subchondral eburnation and cystic change at this level. Please not canal patency is not well assessed on this examination due to inherent limitations of CT without intrathecal contrast. Within these limitations, multilevel degenerative changes with level by level detail are as follows: L1-L2: Shallow annular disc bulge and mild bilateral facet arthrosis. No spinal canal or significant neural foraminal stenosis. L2-L3: Annular disc bulge. Soft tissue/presumably extruded disc material in the right central zone along the L2 mid to lower posterior cortex presumably arising from the L2-L3 disc space. Mild to moderate bilateral facet arthrosis and ligamentum flavum thickening and vacuum phenomenon. Prominence of the dorsal epidural fat. Mild spinal canal stenosis at and above the level of the disc space. Mild bilateral neural foraminal encroachment. L3-L4: Annular disc bulge with moderate bilateral facet arthrosis and ligamentum flavum thickening with vacuum phenomenon. Prominence of the dorsal epidural fat. Apparent mild to moderate spinal canal stenosis and mild bilateral neural foraminal stenosis. L4-L5: Uncovertebral posterior disc with partially mineralized superiorly migrated left subarticular disc extrusion, a component which extends into the left neural foramen with associated mass effect along the traversing and exiting left L5 nerve root, respectively. Advanced bilateral facet arthrosis with ligamentum flavum thickening and vacuum phenomenon. Apparent moderate to severe spinal canal and subarticular zone stenosis with mass effect along the traversing bilateral L5 nerve roots at the level of the disc space. Severe bilateral neural foraminal stenosis with compression of the exiting L4 nerve roots. L5-S1: Sequela of prior interbody fusion with solid interbody arthrodesis. No spinal canal or neural foraminal stenosis. No significant abnormalities of the paraspinal musculature. Significant calcific atherosclerotic disease without abdominal aortic aneurysm. Prominent bridging osteophytosis across the ventral right sacroiliac joint. Nonobstructive nephrolithiasis bilaterally. IMPRESSION: 1. At L4-L5, there is a partially mineralized superiorly migrated left subarticular disc extrusion with component extending into the left neural foramen causing mass effect along the traversing and exiting left L5 nerve root, respectively. Apparent moderate to severe spinal canal and subarticular zone stenosis with mass effect along the traversing bilateral L5 nerve roots at the level of the disc and severe bilateral neural foraminal stenosis with compression of the exiting L4 nerve roots. 2. At L2-L3, suspected superiorly migrated right central disc extrusion. Mild spinal canal stenosis at the level of the disc space. 3. At L3-L4, apparent mild to moderate spinal canal stenosis. 4. Sequela of prior interbody fusion at L5-S1 with solid interbody arthrodesis. 08/14/23: XR CHEST FINDINGS: There is mild cardiac enlargement. There is mild upper zone redistribution. No gross pulmonary edema. Some bibasilar atelectasis is seen, increased when compared to prior. No large effusions or lung masses are seen. Right reverse shoulder prosthesis again noted. IMPRESSION: Cardiomegaly with mild upper zone redistribution but no gross pulmonary edema. 06/30/23: XR LUMBOSACRAL SPINE WITH OBLIQUES FINDINGS: Again noted is rotatory levoscoliosis of the degenerated lumbar spine. Prior discectomy, bone graft fusion at L5-S1. Mild multilevel narrowing of disc space and anterior vertebral osteophyte formation of the lumbar spine with exception of L4-L5. At L4-L5, there is facet osteoarthritis, severe loss of disc space with subarticular endplate sclerosis and mild kyphosis. There is 0.6 cm of grade 1 anterolisthesis of L4 on L5; this is unchanged on flexion and extension. There is mild, approximately 0.3 cm of anterolisthesis of L2 on L3; this does not significantly change during flexion or extension. Otherwise, lumbar vertebra have normal alignment. No compression fractures or pars interarticularis defects. There is atherosclerotic calcification of aorta and iliac arteries. IMPRESSION: The main abnormalities within the lumbar spine are facet osteoarthritis, degenerative disc disease and grade 1 anterolisthesis at L4-L5. No worsening of the vertebral subluxation during flexion or extension. Also noted is mild degenerative anterolisthesis at L2-L3. There are no vertebral compression fractures. Assessment & Plan Assessment & Plan (1) Spondylolisthesis, lumbar region: Code(s): M43.16 - Spondylolisthesis, lumbar region Category: Medical (2) Lumbar radicular pain: Code(s): M54.16 - Radiculopathy, lumbar region Category: Medical (3) Post laminectomy syndrome: Code(s): M96.1 - Postlaminectomy syndrome, not elsewhere classified Category: Medical (4) Vertebrogenic low back pain: Code(s): M54.51 - Vertebrogenic low back pain Category: Medical Plan I had a long discussion with the patient and her daughter about the need to get the pain management and surgical options. She has multiple pain generators, including endplate degeneration with modic changes at L4, L5 and S1 as well as L4, L5 anterolisthesisn on lateral films. She has been offered an L4, L5 fusion in the past, but this was canceled due to anesthesia concerns for morbidity. She is currently in process of revisiting this with anesthesia department to see if they are willing to do her case after receiving clearances from her bicycle inspector, perinatal coordinator and ENT doctors. I think she would certainly benefit from an L4, L5 fusion for her symptoms of lower extremity weakness. She would also benefit from basivertebral nerve ablation at L4, L5 and S1 for the endplate degeneration related low back pain that she has with any kind of movement. However, for both, she would require anesthesia. I encourage them to follow up with the anesthesia department and see if they would be willing to do her case and if they are. Then, we could potentially proceed with BVN ablation first prior to pedicle screws being placed for the pain that she has in her lower back and then follow that up with a fusion to address the lower extremity weakness secondary to spondylolisthesis, patient is in agreement with the plan. The other option would be spinal cord stimulation implant. For both BVN ablation as well as SCS trial/implant, she will require prone positioning for a prolonged period of time that she may have to tolerate in case we chose to do these procedures without sedation. More than 40 minutes were spent on this encounter. Scribed for Dr. Calero by Spencer Pérez, medical coding manager, on 04/07/2024. I, Dr. Calero, have personally reviewed and agree with the information entered by the scribe. Coding Level of Care Code Est Pt Level 5 (02882) Diagnoses Spondylolisthesis, lumbar region M43.16 Lumbar radicular pain M54.16 Post laminectomy syndrome M96.1 Vertebrogenic low back pain M54.51
== END 2024-04-07 11:31 | disposition home or self-care (01) ==
PROVIDERS: PCP Nurse Practitioner Primary Care; Visit Provider Internal Medicine
DX: M43.16 Spondylolisthesis, lumbar region (principal); M54.16 Radiculopathy, lumbar region; M96.1 Postlaminectomy syndrome, not elsewhere classified; M54.51 Vertebrogenic low back pain
CPT/HCPCS: 99215

== ENCOUNTER → 2024-04-07 10:46 | Outpatient (BNVA) | payer MEDICAID, SELFPAY | PROVIDERS: PCP Nurse Practitioner Primary Care; Visit Provider Internal Medicine | DX: M43.16 Spondylolisthesis, lumbar region (principal); M54.16 Radiculopathy, lumbar region; M54.51 Vertebrogenic low back pain; M96.1 Postlaminectomy syndrome, not elsewhere classified; I51.7 Cardiomegaly; Z99.81 Dependence on supplemental oxygen | CPT/HCPCS: 99212 ==

== ENCOUNTER 2024-05-12 15:39 | Outpatient (AMB) | payer MEDICAID, SELFPAY ==
--- NOTE | 2024-05-12 15:39 | A.OFFVIS_ITS ---
Intake Visit Reasons: 2m/US(set) Intake Note: Patient presents for follow visit on: kidney stone and ultrasound results Imagin03/24/24 Urology Medications: none Blood Thinner: aspirin Neurobiologist Required: No Accompanied by: Self / Same As Patient Allergies fentanyl [FENTANYL] Allergy (Unknown, Verified 05/12/24 15:56) NAUSEA & VOMITING lithium [LITHIUM] Allergy (Unknown, Verified 05/12/24 15:56) RASH/HIVES/VOMITING naproxen [From NAPROSYN] Allergy (Unknown, Verified 05/12/24 15:56) N/V gabapentin Adverse Reaction (Severe, Verified 05/12/24 15:56) lethargy Adhesive Bandages Allergy (Unknown, Uncoded 05/12/24 15:56) Rash PLASTIC TAPE Allergy (Unknown, Uncoded 05/12/24 15:56) REDNESS Medication List - Last Reconciled 05/12/24 by NANDO Krueger-JOCELINE albuterol sulfate 90 mcg/actuation 1 inh inhalation QID PRN albuterol sulfate 2.5 mg inhalation BID PRN amiodarone 400 mg PO DAILY amlodipine 5 mg PO DAILY aripiprazole (Abilify) 10 mg PO DAILY ascorbic acid (vitamin C) 1,000 mg PO DAILY aspirin 81 mg PO DAILY atorvastatin 80 mg PO BEDTIME azelastine 1 spray intranasal BID baclofen 10 mg PO BID budesonide-formoterol 160-4.5 mcg/actuation (Symbicort) 2 puffs inhalation BID bupropion HCl XL 150 mg PO QAM fvuurkmlce-ietxypbifdpwg-odry 50-325-40 mg 1 tab PO DAILY PRN calcium carbonate 600 mg PO BID carvedilol 25 mg PO BID cholecalciferol (vitamin D3) (Vitamin D3) 50 mcg PO DAILY clonazepam 0.5 mg PO BID PRN clotrimazole 1% 1 appl topical BID clotrimazole 10 mg mucous membrane QID PRN cyanocobalamin (vitamin B-12) 5,000 mcg PO DAILY cyclobenzaprine 5 mg PO BID PRN dapagliflozin propanediol (Farxiga) 10 mg PO DAILY diclofenac sodium 1% 2 grams topical TID dicyclomine 10 mg PO TID PRN duloxetine 60 mg PO DAILY dupilumab (Dupixent) 300 mg subcut Q2W fenofibrate micronized 134 mg PO DAILY fluticasone propionate 50 mcg/actuation 1 spray intranasal BID fluticasone propionate 250 mcg/actuation (Flovent Diskus) 1 inh inhalation BID guaifenesin ER 1,200 mg PO BID hydroxyzine HCl 25 mg PO BID PRN insulin glargine (Lantus Solostar U-100 Insulin) 5 units subcut BEDTIME insulin lispro 1 sliding scale dose subcut TIDAC L. acidophilus/Bifid. animalis 2 billion cell 1 cap PO BID loratadine 10 mg PO DAILY magnesium 500 mg PO DAILY metoprolol succinate ER 200 mg PO BEDTIME montelukast 10 mg PO BEDTIME multivitamin 1 tab PO DAILY nystatin 1 appl topical BID PRN nystatin 5 mL PO QID PRN omega 9-rxe-zej-fish oil 1,000 mg (120 mg-180 mg) (Fish Oil) 1 cap PO DAILY omeprazole 20 mg PO BID ondansetron HCl 4 mg PO DAILY PRN oxycodone-acetaminophen 5-325 mg 1 - 2 tabs PO Q4H PRN prednisone 3 mg PO DAILY pyridoxine (vitamin B6) 100 mg PO DAILY 90 days roflumilast (Daliresp) 500 mcg PO DAILY ropinirole 1 - 2 mg PO BEDTIME PRN sacubitril-valsartan 49-51 mg (Entresto) 1 tab PO BID semaglutide (Ozempic) mg subcut sumatriptan succinate 50 mg PO DAILY PRN tiotropium bromide 1.25 mcg/actuation 2 puffs inhalation DAILY tobramycin with nebulizer 300 mg/5 mL 300 mg inhalation BID torsemide 40 mg PO DAILY valacyclovir 1,000 mg PO BID PRN zileuton (Zyflo) 600 mg PO QID HPI Comments Details: Merle is a very pleasant 53-year-old female patient of Dr. Sousa. She has a past medical history of arthritis, nephrolithiasis, headaches, COPD O2 dependence on 2-3 L nasal cannula, bronchitis, PVD, pneumonia, peripheral neuropathy, osteoporosis, inflammatory bowel disease, current chronic use of systemic steroids, CHF, hypercholesteremia, obstructive sleep apnea uses BiPAP at night, anxiety, bipolar, GERD, fibromyalgia, hypertension, diabetes, depression, and asthma. She is being followed up on today via video telehealth for history of nephrolithiasis. Recent renal imaging results reviewed with the patient today. Right kidney with 7 mm nonobstructing calculus in the lower pole. No lesions or hydronephrosis noted. Left kidney with no calculi or lesions. Mild hydronephrosis. Discussed further treatment options to include ESWL versus surveillance monitoring. Patient discusses her ongoing medical issues as she is awaiting ENT appointment for further assessment evaluation of possible trach placement. She discusses given her multiple medical issues she is not a candidate for lumbar surgery. She otherwise denies any bothersome urinary issues or concerns. She denies urinary urgency, urinary frequency, incontinence, nocturia, hematuria, dysuria, foul smelling urine, changes to urinary stream, fever, and or chills. She is happy with her current voiding parameters. [facility] Medical History History of mechanical ventilation Arthritis Kidney stone History of headache Numbness Cough Oxygen dependent Bronchitis On beta paloma at home PVD (peripheral vascular disease) On home oxygen therapy Pulmonary nodule Pneumonia Peripheral neuropathy Back pain Osteoporosis Inflammatory bowel disease Current chronic use of systemic steroids CHF (congestive heart failure) Elevated cholesterol Respiratory failure with hypoxia and hypercapnia Obesity hypoventilation syndrome Obstructive sleep apnea Anxiety Bipolar disorder GERD (gastroesophageal reflux disease) Fibromyalgia Hypertension Diabetes mellitus Depression Asthma COPD (chronic obstructive pulmonary disease) Surgical History H/O colonoscopy History of right shoulder replacement History of lumbar fusion H/O: hysterectomy Social History Household Members: Family Household Members Other:: parents Housing: House Are you a primary client care representative to a significant other at home: No Do you presently have visiting nurse or other home services: No (visiting RN three times a week) Alcohol intake: current Alcohol intake frequency: holidays/special occasions only Alcohol type: hard liquor Patient Tobacco Use Status: Former Tobacco user Tobacco use type: Cigarette Cigarettes Per Day: 1 Substance Use Type: Crack/Cocaine, Marijuana and Prescription Drugs Advance Directives Date on File: 01/22/23 service: No Current occupational status: disabled Review of Systems Const Reports as per HPI Eyes Reports no additional complaints ENT Reports as per HPI Card Reports as per HPI Resp Details: Patient O2 dependent via nasal cannula Reports as per HPI GI Reports as per HPI Reports as per HPI Musc Reports as per HPI Neuro Reports as per HPI Psych Reports as per HPI Endo Reports as per HPI Umer/Lymph Reports no additional complaints Aller/Immun Reports no additional complaints Physical Exam Const General: cooperative, healthy appearing, comfortable, no acute distress, well developed, alert and awake Orientation/consciousness: oriented to time Resp Effort & Inspection: normal respiratory effort and able to speak in complete sentences Neuro General: oriented to time Psych Appearance: well kempt Speech and movement: Clear speech present Affect: normal affect Attitude: cooperative Thought content: Normal thought content present Insight: Fair insight present (Psych) Judgement: Fair judgement present (Psych) Telehealth Telehealth Telehealth Platform: [id number] outdoors Location of provider rendering services: practice address Location of patient: address on file Patient Identification confirmed using: Name, : Yes Telehealth method: video Patient verbally consented to treatment: Yes Patient verbally consented to billing insurance company: Yes Patient informed of any privacy concerns related to visit: Yes Minutes spent on Phone/Video with Pt.: 20 Results Reviewed Results Reviewed: Date of Service: 03/24/24 EXAMINATION: US RETROPERITONEAL LIMITED (RENAL ONLY) FINDINGS: RIGHT KIDNEY: 12.2 x 6.0 x 7.3 cm (SAG x AP x TRV). The kidney is normal in size, contour, and echogenicity. Renal cortical thickness is normal. No focal parenchymal lesions or hydronephrosis. 7 mm nonobstructing calculus in the lower pole. LEFT KIDNEY: 12.1 x 6.3 x 6.6 cm (SAG x AP x TRV). The kidney is normal in size, contour, and echogenicity. Renal cortical thickness is normal. No renal calculi or focal parenchymal lesions. Mild hydronephrosis. IMPRESSION: Mild left hydronephrosis of uncertain etiology. No calculus is seen in the left kidney or visible portion of the collecting system. On lumbar spine CT from 09/15/2023 a 7 mm stone is seen in the lower pole of the left kidney which is not seen on current ultrasound. Consider CT to evaluate for a ureteral calculus. 7 mm nonobstructing calculus in the lower right kidney without hydronephrosis. Assessment & Plan Assessment & Plan (1) Kidney stone: Code(s): N20.0 - Calculus of kidney Category: Medical (2) Flank pain: Code(s): R10.9 - Unspecified abdominal pain Category: Medical Plan Recent renal imaging results reviewed with the patient today; as noted above. Start vitamin B6 as discussed and prescribed. Discussed, educated, and stressed the importance of adequate hydration. Discussed adding 1 oz of lemon juice to water daily. Discussed further treatment options for nephrolithiasis to include ESWL versus surveillance monitoring; discussed risks and benefits of these interventions at length. All questions were answered. Discussed further metabolic workup to include 24 hour urine collection and labs; however patient declines at this time. Patient currently denies any bothersome urinary issues. She reports be happy with current voiding parameters. Will obtain renal ultrasound in 3 months Follow-up in 3 months with imaging prior; or sooner with any issues, concerns, and or questions. Orders: Orders US renal BI 3 Months N20.0 - Calculus of kidney Medications: New pyridoxine (vitamin B6) 100 mg PO DAILY 90 days 90 tabs 1RF Patient Instructions: The patient had an opportunity to ask questions regarding the treatment plan. All questions were answered. Physical exam, labs, and imaging were discussed and reviewed in detail. As well as risks, benefits, and discussion of treatment choices. No major barriers to understanding were identified. The patient expressed understanding and agreement with the above treatment plan. The patient was made aware they should contact our office by phone for worsening of their current condition, the appearance of new symptoms, or with any questions or concerns. Compliance is encouraged with any medications and follow up testing that is ordered. It is a privilege to be allowed the opportunity to participate in? your urological care.? Again, if you have any questions or concerns If you have any questions or concerns please do not hesitate to contact me. The office is [phone]. This note is constructed using voice recognition software. While every effort patrick s been made to ensure accuracy salon coordinator errors may have been included. Yours sincerely, VANESSA Krueger Coding Level of Care Code Tele Est Pt Level 4 (66565) Diagnoses Kidney stone N20.0 Flank pain R10.9
== END 2024-05-12 16:09 | disposition home or self-care (01) ==
LOC: HO.HUSH 15:39
PROVIDERS: PCP Nurse Practitioner Primary Care; Visit Provider Nurse Practitioner Family
DX: N20.0 Calculus of kidney (principal); R10.9 Unspecified abdominal pain
CPT/HCPCS: 99214

== ENCOUNTER → 2024-05-12 15:39 | Outpatient (BNVA) | payer MEDICAID, SELFPAY | PROVIDERS: PCP Nurse Practitioner Primary Care; Visit Provider Nurse Practitioner Family ==

== ENCOUNTER 2024-05-24 11:18 | Emergency (ER) | payer OTHER, MEDICAID, SELFPAY ==
--- NOTE | ~2024-05-24 | XR_ITS ---
EXAMINATION: XR KNEE, LEFT CLINICAL INFORMATION: Left knee injury and pain COMPARISON: None available. TECHNIQUE: Four views of the left knee. FINDINGS: BONES: Bony structures are intact. There is no focal bone destruction or periosteal reaction seen. JOINTS: Alignment of joints is normal. SOFT TISSUE: Soft tissue is normal. No radiopaque foreign body or abnormal air collection is seen. XR/XR knee LT 4V IMPRESSION: 1. Normal x-rays of left knee. No fracture or dislocation or signs of osteomyelitis are found.
--- NOTE | ~2024-05-24 | XR_ITS ---
EXAMINATION: XR HAND/WRIST, LEFT CLINICAL INFORMATION: Left hand and left wrist injury and pain COMPARISON: None available TECHNIQUE: PA, lateral, oblique, and scaphoid views of the left hand and wrist. FINDINGS: BONES: Bony structures are intact. There is no focal bone destruction or periosteal reaction seen. JOINTS: Alignment of joints is normal. SOFT TISSUE: Soft tissue is normal. No radiopaque foreign body or abnormal air collection is seen. XR/XR hand wrist LT IMPRESSION: 1. Normal x-rays of left wrist and left hand. No fracture or dislocation or signs of osteomyelitis are found.
--- NOTE | ~2024-05-24 | XR_ITS ---
EXAMINATION: XR LUMBOSACRAL SPINE CLINICAL INFORMATION: Neck injury and pain COMPARISON: Lumbar spine x-ray on 08/04/2023 TECHNIQUE: Three views of the lumbosacral spine. FINDINGS: The visualized lumbar vertebrae are intact with anterior L4 on L5 displacement by 0.3 cm, mild L2-L3 levoscoliosis. Intervertebral disc spaces are markedly reduced at L4-L5 with vacuum disc phenomenon. L5-S1 anterior spinal fusion with surgical clips and bone graft is seen. XR/XR lumbar spine 2-3V IMPRESSION: 1. No acute fracture or dislocation. 2. Unchanged status post L5-S1 anterior spinal fusion. 3. Unchanged grade 1 L4-L5 anterolisthesis and advanced L4-L5 degenerative disc disease.
[2024-05-24 11:42] VITALS: BP 142/72; PULSE 86; RESP 18; TEMP 36.6; O2SAT 97; BMI 43.5
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
[2024-05-24 15:46] VITALS: BP 142/72; PULSE 86; RESP 18; TEMP 36.6; O2SAT 97
== END 2024-05-24 15:47 | disposition home or self-care (01) ==
LOC: HO.ED 15:45
PROVIDERS: Emergency Provider Emergency Medicine; PCP Nurse Practitioner Primary Care
DX: S39.92XA Unspecified injury of lower back, initial encounter (principal); S69.92XA Unspecified injury of left wrist, hand and finger(s), initial encounter; S89.92XA Unspecified injury of left lower leg, initial encounter; M79.642 Pain in left hand; V43.52XA Car driver injured in collision with other type car in traffic accident, initial encounter; Y93.9 Activity, unspecified; Y92.410 Unspecified street and highway as the place of occurrence of the external cause; Y99.8 Other external cause status
CPT/HCPCS: 72100; 73110; 73130; 73564; 99282; 99283

== ENCOUNTER 2024-05-29 17:01 | Emergency (ER) | payer OTHER, MEDICAID, SELFPAY ==
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
[2024-05-29 17:06] VITALS: BP 145/76; PULSE 115; RESP 20; TEMP 36.4; O2SAT 96; BMI 46.9
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
[2024-05-29 19:19] VITALS: BP 138/69; PULSE 94; RESP 20; TEMP 36.7; O2SAT 98
== END 2024-05-29 19:20 | disposition home or self-care (01) ==
PROVIDERS: Emergency Provider Emergency Medicine Emergency Medical Services; PCP Nurse Practitioner Primary Care
DX: M25.532 Pain in left wrist (principal); S60.212D Contusion of left wrist, subsequent encounter; V49.9XXD Car occupant (driver) (passenger) injured in unspecified traffic accident, subsequent encounter
CPT/HCPCS: 72100; 73110; 73130; 73560; 99282; 99283

== ENCOUNTER → 2024-06-02 13:41 | Outpatient (BNV) | payer MEDICAID, SELFPAY | PROVIDERS: PCP Nurse Practitioner Primary Care; Visit Provider Internal Medicine Cardiovascular Disease | DX: R94.31 Abnormal electrocardiogram [ECG] [EKG] (principal) | CPT/HCPCS: 93010 ==

== ENCOUNTER 2024-06-16 05:57 | Inpatient (IN) | payer MEDICAID, SELFPAY ==
--- NOTE | 2024-06-02 | ECG_ITS ---
Test Reason : pre op Blood Pressure : / mmHG Vent. Rate : 093 BPM Atrial Rate : 093 BPM P-R Int : 160 ms QRS Dur : 082 ms QT Int : 388 ms P-R-T Axes : 062 004 026 degrees QTc Int : 482 ms Normal sinus rhythm Possible Left atrial enlargement Septal infarct (cited on or before 21-JAN-2023) Abnormal ECG When compared with ECG of 14-AUG-2023 11:27, No significant change was found Referred By: Molly Johnson Electronically Signed By:Arnold Shea
[2024-06-02 12:12] VITALS: BP 172/79; PULSE 86; RESP 21; O2SAT 99; BMI 45.2
[2024-06-02 13:45] LABS: Hematocrit 40.7 % (37.0-47.0); Hemoglobin 13.7 g/dl (12.0-16.0); Mean Corpuscular HGB Conc 33.7 g/dl (31.0-35.0); Mean Corpuscular Hemoglobin 29.7 pg (27.0-33.0); Mean Corpuscular Volume 88.3 fL (80.0-98.0); Platelet Count 328 X10*3/uL (160-400); Red Blood Count 4.61 X10*6/uL (4.20-5.50); Red Cell Distribution Width 12.9 % (11.0-16.0); White Blood Count 9.2 X10*3/uL (4.8-10.8)
[2024-06-02 14:06] LABS: Alanine Aminotransferase 40 U/L (0-31); Albumin Level 4.9 g/dL (3.5-5.0); Alkaline Phosphatase 72 U/L (39-117); Anion Gap 12 (12-20); Aspartate Amino Transferase 24 U/L (5-31); Bilirubin Total 0.3 mg/dL (0.0-1.0); Blood Urea Nitrogen 15 mg/dL (9-16); Calcium 10.4 mg/dL (8.4-10.2); Carbon Dioxide 31 mmol/L (22-29); Chloride 102 mmol/L (96-108); Creatinine Clr Calc Pharmacy 104.2; Estimated Glomerular Filt Rate > 60; Glucose Random 87 mg/dL (60-115); Potassium 4.4 mmol/L (3.3-5.1); Sodium 141 mmol/L (135-145); Total Protein 7.5 g/dL (6.5-8.0)
[2024-06-16] VITALS (27 sets, daily range): BP systolic 117–164; BP diastolic 55–85; PULSE 78–94; RESP 14–24; TEMP 36.1–36.8; O2SAT 90–97; BMI 45.2
--- NOTE | ~2024-06-16 | FL_ITS ---
EXAMINATION: XR FLUOROSCOPY WITH IMAGES CLINICAL INFORMATION: L4-L5 OLIF COMPARISON: Lumbar spine radiographs 05/29/2024 TECHNIQUE: Fluoroscopy Supervised By: Dr. Luis Dove Fluoroscopy Time: 0.7 minutes Cumulative Dose: 63.6 mGy-cm DAP: 16.7 Gy-cm2 Images: 3. FINDINGS: Intraoperative fluoroscopy and spot films were performed during a procedure in the OR. Images demonstrate posterior pedicular screws at L4-L5 with an interbody device. At L5-S1, there is also an interbody disc spacer present, which was present prior. Please correlate with Dr. Luis Dove' report for complete details. FL/FL guidance in OR IMPRESSION: Intraoperative fluoroscopy and spot films were obtained. Please see Dr. Luis Dove' report for complete details.
[2024-06-16 06:31] LABS: Glucose, Whole Blood 117 mg/dL (60-115)
[2024-06-16] MEDS: Lactated Ringers 1,000 ML 50 ML IVCONT (06:34)
[2024-06-16] MEDS: methocarbamoL 750 MG TABLET PO ×2 (06:43)
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
--- NOTE | 2024-06-16 07:25 | MHC.SHP ---
Pre-Procedural Eval Section A - 24 Hr Update-Section A only Date of Service: 06/16/24 Section B - Complete if H&P > 30 days Chief Complaint: LUMBAGO Allergies: Allergies Allergy/AdvReac Type Severity Reaction Status Date / Time fentanyl [FENTANYL] Allergy Unknown NAUSEA & Verified 05/29/24 17:07 VOMITING lithium [LITHIUM] Allergy Unknown RASH/HIVES/ Verified 05/29/24 17:07 VOMITING naproxen [From NAPROSYN] Allergy Unknown N/V Verified 05/29/24 17:07 gabapentin AdvReac Severe lethargy Verified 05/29/24 17:07 Adhesive Bandages Allergy Unknown Rash Uncoded 05/12/24 15:56 PLASTIC TAPE Allergy Unknown REDNESS Uncoded 05/12/24 15:56 Review of Systems Sugical H&P ROS: Negative: Constitution, Cardiovascular, Respiratory, Neurological, Psychiatric, Hem-Onc, Allergic/Immunologic, Gastrointestinal, Genitourinary, Musculoskeletal, Integumentary, Endocrine and Eyes/Ears/Nose/Throat Exam Surgical H&P Exam: Not Evaluated: HEENT, Not Evaluated: Heart, Not Evaluated: Lungs, Not Evaluated: Extremities, Not Evaluated: Abdomen, Not Evaluated: Skin and Not Evaluated: Neurological Exam Comment: This is a patient with known chronic pulmonary issues. Patient is aware this is a high-risk surgery given her medical history. This was discussed. She would like to proceed anyways. On examination she has normal unlabored respirations. No evidence of recent abdominal surgery have proposed surgical site. Patient appears A&OX4, well appearing in no acute distress. Plan Diagnosis/Plan: Unchanged I have reviewed the history and physical and performed a pertinent physical examination on my patient. No changes have occurred unless specified. After examining the patient this morning we will proceed as planned with an L4-5 OLIF. Time Spent With Patient Time: Total time managing care of this patient today __15__ minutes.
--- NOTE | 2024-06-16 10:20 | P.OP_ITS ---
Operative Note Operative Note Date of Service: 06/16/24 Narrative: Preop Diagnosis: 1.) L4-5 lumbar spondylolisthesis 2.) Neurogenic claudication Procedure: 1) L4-5 discectomy, arthrodesis and implantation cage through an anterolateral, retroperitoneal approach 2) L4-5 posterior instrumented fusion 3) allograft 4) injection of 10 cc of Exparel at the bilateral L4 transverse process for a muscular erector spinae block and additional Exparel in paravertebral tissue for postop management Consent Informed Consent was obtained for this operation. I have explained the nature, purpose and benefits of the operation. I have discussed the risks and benefit of the operation including possible complications or adverse events with patient/family. Alternative(s) were discussed with the patient with their relative benefits and risks as well as the consequences of not accepting the operation were included in obtaining consent. Surgeon: ENREIDA WAGGONER MD, PHD Procedure Assisted By: BLANCA Davis Description of Procedure This morbidly obese patient with an extensive medical history is suffering from neurogenic claudication and weakness due to an L4-5 spondylolisthesis and spinal stenosis at prevents her from mobilizing. Anesthesia agreed that despite the patient being very high-risk, her clinical situation warrants a surgical intervention. The patient was offered an oblique lumbar interbody fusion L4-5. The procedure complications were explained. The patient was consented. The patient was brought to the operating room and endotracheally intubated. The patient was turned in a lateral position with the left side up. Prep and drape was done followed by timeout. A small incision was made in the left lower abdominal quadrant. The muscle fascia was opened after which the 3 muscle layer was split to enter the retroperitoneal space. Dilators were docked in the anter ior one third of the L4-5 disc space followed by a retractor. The retractor was opened. The L4-5 disc space was exposed. An annulotomy was done after which an elevator Cameron was used to release the disc material from its endplates and to perforate the contralateral side. A partial discectomy was done. An 8 mm height trial implant was inserted. The discectomy was completed. The endplates were prepared. An 8 x 45 mm with 0 degree lordosis 4 web cage filled with allograft was inserted into the disc space under fluoroscopic guidance. This resulted in reduction of the spondylolisthesis. The retractor was removed. Hemostasis was done. The incision was closed in 2 layers. Steri-Strips used to approximate incision. An OpSite with Tegaderm was used to cover the incision. This marked first part of the procedure. The patient was turned prone on the [place] spine table. 2C arms were installed for fluoroscopy. Prep and drape was done followed by a second timeout. 2 paramedian incisions were made lateral from the L4 and L5 pedicles. The muscle fascia was opened after which the muscle layer was split bluntly to expose the posterolateral gutter. The following steps were taken. A pediguard tap was used to create a transpedicular trajectory into the vertebral body. A K wire was placed. A specially designed instrument was advanced over the K wire to decorticate the posterolateral gutter in preparation for the posterolateral fusion. A pedicle screw was advanced over the K wire and the K wire was removed. The steps were done for the bilateral L4 and L5 pedicles. A total of 4 screws were placed with a diameter of 6.5 x 45 mm. Pedicle screws were connected with forward mm fantasma bilaterally and locked down with locking caps. This resulted in a further reduction of the spondylolisthesis. The extension towers were removed. The posterolateral gutter was filled with allograft to complete the posterolateral L4-5 fusion Hemostasis was done and the incision was closed in 2 layers. Steri-Strips were used to approximate the incision. An OpSite were taken and was used to cover the incision. All sponge and needle counts were correct. Patient was extubated and transferred in stable is to recovery room. Anesthesia: General Estimated Blood Loss (ml): 50 Duration of Surgery: 2 hours and 15 minutes Complications: None Postoperative Plan: Admit to inpatient for observation
[2024-06-16] MEDS: HYDROmorphone HCl 0.5 MG/0.5 ML SYRINGE IVPUSH ×2 (11:30→15:30)
[2024-06-16] MEDS: oxyCODONE HCl Immed Release 5 MG TABLET PO (13:07)
[2024-06-16 15:59] LABS: Glucose, Whole Blood 193 mg/dL (60-115)
[2024-06-16] MEDS: Acetaminophen 325 MG TABLET 975 MG PO ×2 (16:30→21:58)
[2024-06-16] MEDS: 0.9 % Sodium Chloride 1,000 ML 75 ML IVCONT (16:36)
--- NOTE | 2024-06-16 17:05 | PC.RT ---
RT d/c bipap used post op. Pt has BASSEM and has home unit present for tonight with 3 lpm O2 titrated. [employer] orders unable to be entered without Ipap/Epap. This is a home unit preprogrammed and pt does not know her settings. 10/29 may not be was is programmed into her bipap but was a required failed despite being a home unit.
[2024-06-16] MEDS: ceFAZolin Sodium 3 GM in 0.9 % Sodium Chloride 100 ML IV (18:00)
[2024-06-16] MEDS: oxyCODONE HCl Immed Release 5 MG TABLET 10 MG PO ×2 (18:15→22:34)
[2024-06-16] MEDS: HYDROmorphone HCl 1 MG/ML SYRINGE IVPUSH ×2 (19:56→23:55)
--- NOTE | 2024-06-16 20:19 | PHA.MEDREC ---
Addendum entered by Florentino Escalera 06/16/24 22:01: Around 2129 I went back too see if patient had a list or not and she was able to provide me one with the medications I needed to confirm for the med rec. Original Note: Pharmacy Consult ? Medication Reconciliation Pharmacy has completed the medication reconciliation. Spoke to patient and got a list from facility. Went back to [facility] and started imputting the meds from the list around 18:36 and noticed some dosings were differnt from in claims. I went back around 19:30 to spoke to and get confirmation on them but the patient didnt remember her dosings since she is taking so many medications. She sent a list of the meds to her mom to see if she can confirm what dosing's those are for us.
[2024-06-16] MEDS: Docusate Sodium 100 MG CAPSULE PO (20:37)
[2024-06-16] MEDS: Montelukast Sodium 10 MG TABLET PO (20:37)
[2024-06-16] MEDS: Calcium Oyster Shell Elemental 500 MG TABLET PO (20:37)
[2024-06-16] MEDS: Atorvastatin Calcium 80 MG TABLET PO (20:37)
[2024-06-16] MEDS: Insulin Glargine,Hum.rec.anlog 100 UNIT/ML 10 ML VIAL SUBCUT (20:39)
[2024-06-16 20:41] LABS: Glucose, Whole Blood 140 mg/dL (60-115)
[2024-06-16] MEDS: Sacubitril/Valsartan 49/51 1 TAB TABLET PO (22:29)
[2024-06-16] MEDS: Clotrimazole 1 % Cream 15 GM TUBE 1 APPL TOPICAL (23:48)
[2024-06-16] MEDS: Azelastine HCl Nasal 137 MCG/Spray 30 ML 1 SPRAY NOSTRIL-B (23:48)
[2024-06-17] MEDS: oxyCODONE HCl Immed Release 5 MG TABLET 10 MG PO ×2 (03:25→08:12)
[2024-06-17 04:00] VITALS: BP 135/63; PULSE 92; RESP 20; TEMP 36.6; O2SAT 97
[2024-06-17] MEDS: Omeprazole 20 MG CAPSULE.DR PO (05:17)
[2024-06-17] MEDS: Acetaminophen 325 MG TABLET 975 MG PO ×2 (05:17→10:16)
--- NOTE | 2024-06-17 06:58 | P.DS_ITS ---
DS: Providers Provider Date of Service: 06/17/24 Date of admission: 06/16/24 05:57 Primary care physician: Jairon Harry NP DS: Summary Time Attestation Discharge Coordination Time (in mins): 15 Quality: Safe Use of Opioids Does Pt have an Active Cancer Diagnosis on the Problem List?: No Quality: Stroke Does the patient have a stroke diagnosis?: No Physical Exam Vital Signs: Vital Signs: Last Vital Signs Temp 97.9 F 06/17/24 04:00 Pulse 92 06/17/24 04:00 Resp 20 06/17/24 04:00 BP 135/63 06/17/24 04:00 Pulse Ox 97 06/17/24 04:00 O2 Del Method Nasal Cannula 06/17/24 04:00 O2 Flow Rate 3 06/17/24 04:00 Oxygen Flow Rate 3 06/16/24 12:41 BMI result Body Mass Index 45.2 DS: Data Data Completed and Pending Completed studies during hospitalization [Text1]: Procedures Assistance with Respiratory Ventilation, Less than 24 Consecutive Hours, Continuous Positive Airway Pressure (08/14/23) Detoxification Services for Substance Abuse Treatment (08/14/23) Labs on day of discharge: Laboratory Results - last 24 hr 06/16/24 06/16/24 15:55 20:25 POC Glucose 193 H 140 H Discharge Plan Discharge Anticipated Discharge Date/Time: 06/17/24 06:58 Patient Disposition: Home, Self-Care Discharge Diagnosis: s/p L4-5 lumbar fusion Referrals: Jairon Harry NP [Primary Care Provider] - 1 Week Discharge Medications: New oxycodone 5 mg tablet 5 mg PO Q4-6H PRN (Reason: severe pain (scale score 7-10)) Qty: 30 0RF Rx Instructions: Partial Fill upon patient request. Continued atorvastatin 80 mg Tablet 80 mg PO BEDTIME albuterol sulfate 2.5 mg /3 mL (0.083 %) Solution For Nebulization 2.5 mg INHALATION BID PRN (Reason: Wheezing) calcium carbonate 600 mg calcium (1,500 mg) Tablet 600 mg PO BID amiodarone 400 mg Tablet 400 mg PO DAILY ascorbic acid (vitamin C) 250 mg Tablet 1,000 mg PO DAILY albuterol sulfate 90 mcg/actuation Hfa Aerosol Inhaler 1 inh INHALATION QID PRN (Reason: Wheezing) aripiprazole [Abilify] 10 mg Tablet 10 mg PO DAILY bupropion HCl 150 mg Tablet Extended Release 24 Hr 150 mg PO DAILY clonazepam 0.5 mg Tablet 0.5 mg PO BID PRN (Reason: Anxiety) dicyclomine 10 mg Capsule 10 mg PO TID PRN (Reason: Spasms) diclofenac sodium 1 % Gel 2 g TOPICAL TID Rx Instructions: APPLY TO BILATERAL IT BANDS roflumilast [Daliresp] 500 mcg Tablet 500 mcg PO DAILY cyanocobalamin (vitamin B-12) 2,500 mcg Tablet 5,000 mcg PO DAILY fenofibrate micronized 134 mg Capsule 134 mg PO DAILY hydroxyzine HCl 25 mg Tablet 50 mg PO BID PRN (Reason: Itching) magnesium 250 mg Tablet 500 mg PO DAILY loratadine 10 mg Tablet 10 mg PO DAILY insulin lispro 100 unit/mL Insulin Pen 1 sliding scale dose SUBCUT TIDAC insulin glargine [Lantus Solostar U-100 Insulin] 100 unit/mL (3 mL) Insulin Pen 5 unit SUBCUT BEDTIME multivitamin Tablet 1 tab PO DAILY nystatin 100,000 unit/mL Suspension 15 ml PO QID PRN (Reason: Sore Throat) Rx Instructions: swish and swallow ropinirole 1 mg Tablet 1 - 2 mg PO BEDTIME PRN (Reason: Restless Leg(S)) Rx Instructions: administer 1-3 hours before bedtime Zyflo 600 mg Tablet 600 mg PO QID omeprazole 20 mg Capsule,Delayed Release(Dr/Ec) 20 mg PO BID montelukast 10 mg Tablet 10 mg PO BEDTIME nystatin 100,000 unit/gram Powder 1 appl TOPICAL BID PRN (Reason: Skin Irritation) cholecalciferol (vitamin D3) [Vitamin D3] 50 mcg (2,000 unit) Capsule 50 mcg PO DAILY omega 9-fbf-boh-fish oil [Fish Oil] 1,000 mg (120 mg-180 mg) Capsule 1 cap PO DAILY Entresto 49-51 mg Tablet 1 tab PO BID prednisone 5 mg Tablet 5 mg PO DAILY torsemide 40 mg Tablet 40 mg PO DAILY lidocaine 5 % adhesive patch,medicated 1 patch topical DAILY PRN (Reason: Pain) celecoxib 100 mg capsule 100 mg PO BID buspirone 15 mg tablet 15 mg PO TID topiramate 50 mg tablet 50 mg PO BID alpha lipoic acid 600 mg capsule 600 mg PO DAILY meloxicam 7.5 mg tablet 7.5 mg PO DAILY Xerac AC 6.25 % solution 1 appl topical BEDTIME carvedilol 12.5 mg tablet 12.5 mg PO BID amlodipine 5 mg tablet 5 mg PO DAILY azelastine 137 mcg (0.1 %) aerosol,spray 1 spray intranasal BID budesonide-formoterol [Symbicort] 160-4.5 mcg/actuation HFA aerosol inhaler 2 puff INHALATION BID dapagliflozin propanediol [Farxiga] 10 mg tablet 10 mg PO DAILY duloxetine 60 mg capsule,delayed release(DR/EC) 60 mg PO DAILY L. acidophilus/Bifid. animalis 2 billion cell Capsule 1 cap PO BID ondansetron HCl 4 mg tablet 4 mg PO Q8-12H PRN (Reason: Nausea) sumatriptan succinate 50 mg tablet 50 mg PO DAILY PRN (Reason: Migraine Headache) tobramycin with nebulizer 300 mg/5 mL Solution For Nebulization 300 mg INHALATION BID Rx Instructions: separate doses by at least 6 hours tiotropium bromide 1.25 mcg/actuation Mist 2 puff INHALATION DAILY pyridoxine (vitamin B6) 100 mg tablet 100 mg PO DAILY 90 Days Qty: 90 1RF Held aspirin 81 mg Tablet,Delayed Release (Dr/Ec) 81 mg PO DAILY Hold Instructions: Resume on 06/20/24. hold 72 hours Dupixent Pen 300 mg/2 mL Pen Injector 300 mg SUBCUT Q2W Hold Instructions: Resume on 07/18/24. as long as possible without adverse side effects. Talk to prescriber. May delay wound healing. Ozempic 0.25 mg or 0.5 mg (2 mg/3 mL) pen injector 0.5 mg subcut WOLFE Hold Instructions: Resume on 06/20/24. hold 72 hours Patient Comments: patient takes on Friday Discharge Orders: Discharge Order (Routine); Ordered 06/17/24 Ordered By: Maicol Chavez Diet: Advance to usual diet Activity on Discharge: As tolerated Stand Alone Forms: Patient Portal Discharge page Print Language: Arabic Activity Restrictions/Additional Instructions: After your spinal surgery we ask you to observe the following restriction s/guidelines: Activity: With lumbar fusion surgery it is normal to have days in the first couple of weeks where you have increased leg pain. This usually lasts 1-2 days and self resolves with the continuation of medication. Attempt to stay mobile and continue activity as tolerated. It is normal to feel some discomfort as you increase your activity, but that will improve with time. We ask you avoid heavy lifting or activities that cause pain. As a general rule, 8lbs is a safe limit for lifting right after surgery. Walk as much as you feel comfortable but not to exhaustion. You will feel extra tired the first few days after surgery. Stay well hydrated. It is OK to walk up and down stairs You may return to driving when you are off narcotics (such as vicodin, oxycodone, dilaudid, etc), and you are back to normal functional capacity. If you have any concerns please check with office before driving. Return to work is specific to each patient and each surgery, so please speak with your doctor/PA at first follow up. Please bring paperwork such as FMLA at that time if you need it filled out. Medications: It is recommended that you take Tylenol 500 mg every 4 hours for the 1st week postoperatively. We will give you a short supply of narcotics after surgery (usually one weeks worth). ??Please use this for breakthrough pain that is refractory to the Tylenol ibuprofen and gabapentin. If you need more please call the office but do not use more than prescribed. You will need to give our office 48 hours notice if you need narcotics refilled and we do not fill narcotics on weekends or evenings. If you are on a narcotic, it is a good idea to take a stool softener such as colace or senna to avoid constipation If you take blood thinner such as aspirin, Plavix, Coumadin, Effient, Eliquis etc for conditions such as Afib, DVT, Pulmonary embolus, coronary disease, stents etc please speak with your surgeon about specific details as to when you can resume these medications. You can resume NSAIDs on post op day 1 (eg: Motrin, Naproxen, etc). Follow up: Please call the office, , after surgery to arrange a 3 week follow up for wound check. Discussed restarting any disease modifying drugs with your medication prescriber before restarting. Wound Care: You may remove your dressing on the first day after surgery. ?You may ?leave open to air. Please do not remove the steri strips underneath. they will fall off on their own in one week. IT IS NORMAL FOR THE WOUND TO OOZE OR BE BLOODY FOR A FEW DAYS AFTER SURGERY. ?IF THIS HAPPENS JUST PLACE NEW DRESSING OVER IT TO AVOID STAINING CLOTHES. You may shower on post op day # 1 We ask that you do not let the water soak the wound. If it does get wet, just towel dry lightly. Please do not scrub your incision or place any type of chemical/ointment on the wound. No tub baths, pools or jacuzzis for one month. If you have any leaking or redness from your wound, or fevers, please call office Care Plan Goals: Returned to normal activity as tolerated Health Concerns: Patient has many comorbidities including pulmonary complications. It is paramount that she follow up with her primary care physician as soon as possible after hospital discharge. Plan of Treatment: Follow-up in clinic in 2-3 weeks Assessment: POD: 1 Procedure: L4-5 CAMERON Bloom was seen this morning sitting upright in recliner on med/tele. She reports she is up oob standing & is otherwise doing well. She feels his symptoms are much better than pre-operatively. She feels she is able to stand up much straighter. She still reports mild pain in her low back, with good relief with pain medication. She does report that she feels stiff and would like to get up & walk around more. She is getting to the bedside commode, voiding well, tolerating diet. Afebrile, vital signs stable. Full strength 5/5 LE. Back dressings have no signs of hematoma. No active sanguineous drainage. Area is dry. Patient is able to stand upright without pain. Plan: Patient meets criteria to be medically discharged home. She was seen at bedside with Dr. Dove. I will complete a face to face for PT. She has a visiting nurse who sees her 3 x weekly and her daughter is a nurse here at [facility] who will be assisting with care. She may resume home medications as stated above. Rx of Oxycodone will be sent to her pharmacy. This plan was discussed with the patient and her daughter who understands and agrees. Maicol Dove MD,PhD [facility]
[2024-06-17 07:27] VITALS: BP 145/64; PULSE 96; RESP 20; TEMP 36.6; O2SAT 96
[2024-06-17] MEDS: Fluticasone/Vilanterol 200/25 BLST.W.DEV 1 PUFF INHALE (07:31)
[2024-06-17] MEDS: Tiotropium Bromide 2.5 mcg 1 PUFF/2.5 MCG MIST.INHAL 2 PUFF INHALE (07:31)
[2024-06-17 07:34] LABS: Glucose, Whole Blood 149 mg/dL (60-115)
[2024-06-17 07:35] VITALS: PULSE 96; RESP 18; O2SAT 96
--- NOTE | 2024-06-17 07:57 | W.MHC.F2F ---
Service Date Service Date: 06/17/24 Encounter Date of encounter: 06/17/24 Reasons for Services Signs and symptoms assessed: Lumbago s/p l4-5 lumbar fusion Reason for physical therapy: home safety and mobility, therapeutic exercises, gait/transfer training and ADL training Homebound: Leaving the home is medically contraindicated at this time without the asist of a device and/or another person due th the listed conditions above and below. Reason homebound: unsteady gait / fall risk, pain with ambulation, pain with transfers and poor balance / fall risk Certification: Based on the above findings, I certify that this patient is confined to the home and needs intermittent mcc care, physical therapy and/or speech therapy, or continues to need occupational therapy. The patient is under my care, and I have initiated the establishment of the plan of care. The patient will be followed by a physician who will periodically review the plan of care. Time Spent With Patient Time: Total time managing care of this patient today ___15_ minutes.
[2024-06-17] MEDS: Loratadine 10 MG TABLET PO (08:20)
[2024-06-17] MEDS: Cholecalciferol (Vitamin D3) 25 MCG TABLET 50 MCG PO (08:20)
[2024-06-17] MEDS: Fenofibrate,Micronized 134 MG CAPSULE PO (08:20)
[2024-06-17] MEDS: Azelastine HCl Nasal 137 MCG/Spray 30 ML 1 SPRAY NOSTRIL-B (08:20)
[2024-06-17] MEDS: carvediloL 12.5 MG TABLET PO (08:20)
[2024-06-17] MEDS: amLODIPine Besylate 5 MG TABLET PO (08:20)
[2024-06-17] MEDS: Torsemide 20 MG TABLET 40 MG PO (08:20)
[2024-06-17] MEDS: Pyridoxine HCl (Vitamin B6) 50 MG TABLET 100 MG PO (08:20)
[2024-06-17] MEDS: Sacubitril/Valsartan 49/51 1 TAB TABLET PO (08:20)
[2024-06-17] MEDS: DULoxetine HCl 60 MG CAPSULE.DR PO (08:21)
[2024-06-17] MEDS: Calcium Oyster Shell Elemental 500 MG TABLET PO (08:21)
[2024-06-17] MEDS: Cyanocobalamin (Vitamin B-12) 1,000 MCG TABLET 5000 MCG PO (08:21)
[2024-06-17] MEDS: Ascorbic Acid 500 MG TABLET 1000 MG PO (08:21)
[2024-06-17] MEDS: Docusate Sodium 100 MG CAPSULE PO (08:21)
[2024-06-17] MEDS: Roflumilast 500 MCG TABLET PO (08:21)
[2024-06-17] MEDS: Amiodarone HCL 200 MG TABLET 400 MG PO (08:21)
[2024-06-17] MEDS: Multivitamin TABLET 1 TAB PO (08:21)
[2024-06-17] MEDS: ARIPiprazole 10 MG TABLET PO (08:21)
[2024-06-17] MEDS: Magnesium Oxide 400 MG TABLET PO (08:21)
[2024-06-17] MEDS: Clotrimazole 1 % Cream 15 GM TUBE 1 APPL TOPICAL (08:25)
[2024-06-17] MEDS: hydrOXYzine HCL 50 MG TABLET PO (08:27)
--- NOTE | 2024-06-17 08:29 | HO.POSTANES ---
Post Anesthesia Evaluation Post Anesthesia Evaluation Date of Service: 06/16/24 Vital Signs: Vital Signs Temp Pulse Resp BP Pulse Ox O2 Del Method O2 Flow Rate 06/17/24 07:35 96 18 06/17/24 07:27 97.9 F 96 20 145/64 H 96 BiPAP 3 06/17/24 04:00 97.9 F 92 20 135/63 97 Nasal Cannula 3 06/16/24 23:20 97.9 F 94 20 140/63 H 96 Nasal Cannula 3 Anesthesia: General Mental Status: Awake Pain Control: Satisfactory Nausea/Vomiting: None Hydration: Adequate
--- NOTE | 2024-06-17 08:52 | MHC.CM.PN ---
Pt has been medically cleared for DC. She will go home via family transport, and resume her services from [facility], with the addition of PT.
== END 2024-06-17 10:39 | disposition home or self-care (01) | DRG 304 ==
LOC: HO.SSSA 06:52 → HO.S3 11:31 → HO.SSSA 11:51 → HO.IMC 14:17
PROVIDERS: Neurological Surgery; Nurse Practitioner; Admitting Provider Physician Assistant; PCP Nurse Practitioner Primary Care; Visit Provider Physician Assistant
PROC: 0SG00A0 Fusion of Lumbar Vertebral Joint with Interbody Fusion Device, Anterior Approach, Anterior Column, Open Approach (ICD-10-PCS; principal; 2024-06-16 07:30)
DX: M43.16 Spondylolisthesis, lumbar region (principal); J44.9 Chronic obstructive pulmonary disease, unspecified; M48.062 Spinal stenosis, lumbar region with neurogenic claudication; Z79.4 Long term (current) use of insulin; Z79.899 Other long term (current) drug therapy
CPT/HCPCS: 36415; 80053; 82947; 85027; 86850; 86900; 86901; 93005; 94660; 97161; C1713; C1889; C9290; J0131; J0665; J0690; J1100; J1170; J2250; J2371; J2405; J2704; J7120; L8699

== ENCOUNTER → 2024-06-16 05:57 | Outpatient (BNV) | payer OTHER, MEDICAID, SELFPAY | PROVIDERS: Admitting Provider Physician Assistant; PCP Nurse Practitioner Primary Care; Visit Provider Neurological Surgery | DX: M43.16 Spondylolisthesis, lumbar region (principal) | CPT/HCPCS: 20930; 22558; 22612; 22840; 22853; 99499; G0180 ==

== ENCOUNTER 2024-07-08 15:27 | Outpatient (REF) | payer MEDICAID, SELFPAY | END 2024-07-08 15:28 | disposition home or self-care (01) | LOC: HO.HOSX 15:27 | PROVIDERS: PCP Nurse Practitioner Primary Care; Visit Provider Physician Assistant | DX: M43.16 Spondylolisthesis, lumbar region (principal); Z98.1 Arthrodesis status; Z79.899 Other long term (current) drug therapy | CPT/HCPCS: 99212 ==

== ENCOUNTER 2024-07-08 15:27 | Outpatient (AMB) | payer MEDICAID, SELFPAY ==
--- NOTE | 2024-07-08 15:40 | HO.SPINEOV ---
Intake Visit Reasons: 1st post op Intake Note: Ms. Guillen is here today for 1st post-op visit. Chief Analytics Officer Required: No Allergies fentanyl [FENTANYL] Allergy (Unknown, Verified 05/29/24 17:07) NAUSEA & VOMITING lithium [LITHIUM] Allergy (Unknown, Verified 05/29/24 17:07) RASH/HIVES/VOMITING naproxen [From NAPROSYN] Allergy (Unknown, Verified 05/29/24 17:07) N/V gabapentin Adverse Reaction (Severe, Verified 05/29/24 17:07) lethargy Adhesive Bandages Allergy (Unknown, Uncoded 05/12/24 15:56) Rash PLASTIC TAPE Allergy (Unknown, Uncoded 05/12/24 15:56) REDNESS Assessment & Plan Assessment & Plan (1) Spondylolisthesis, lumbar region: Code(s): M43.16 - Spondylolisthesis, lumbar region Category: Medical Plan Mrs Guillen came in today for her 1st postoperative visit. She is about 3 weeks out from her L4-5 oblique lumbar interbody fusion. Her daughter is here with her today. She is a preoperative nurse and has been helping her at home. She feels as though she has been standing up straighter. The patient reports that she has had some back pain and pain down both of her legs but overall she is healing up well. She has been taking pain medications only as needed. Preoperatively she was in significant pain had trouble just getting up out of a chair. Today in the office she was able to stand up independently on her own walk around the hallways. Her wounds have healed up beautifully. We discussed activity guidelines, restrictions expectations after lumbar fusion surgery. I would like to see her back in 6 weeks with a set of x-rays. I did refill her oxycodone. Garret Dove MD, PhD [facility] Orders: Orders XR lumbar spine 4V min Today M43.16 - Spondylolisthesis, lumbar region Medications: Refilled oxycodone Partial Fill upon patient request. 5 mg PO Q6H PRN 30 tabs 0RF severe pain (scale score 7-10) Coding Level of Care Code Global (81197) Diagnoses Spondylolisthesis, lumbar region M43.16
== END 2024-07-08 16:11 | disposition home or self-care (01) ==
PROVIDERS: PCP Nurse Practitioner Primary Care; Visit Provider Physician Assistant
DX: M43.16 Spondylolisthesis, lumbar region (principal)
CPT/HCPCS: 99024

== ENCOUNTER 2024-07-10 01:46 | Inpatient (IN) | payer MEDICAID, SELFPAY ==
[2024-07-10] VITALS (109 sets, daily range): BP systolic 0–165; BP diastolic 0–98; PULSE 0–129; RESP 0–22; TEMP 33.7–36.7; O2SAT 84–99; BMI 44.2
--- NOTE | 2024-07-10 | ECG_ITS ---
Test Reason : post cardiac arrest Blood Pressure : / mmHG Vent. Rate : 087 BPM Atrial Rate : 087 BPM P-R Int : 166 ms QRS Dur : 102 ms QT Int : 390 ms P-R-T Axes : 031 -02 054 degrees QTc Int : 469 ms Normal sinus rhythm Normal ECG When compared with ECG of 10-JUL-2024 02:07, VA interval has decreased Right bundle branch block is no longer Present Criteria for Inferior infarct are no longer Present Referred By: Alberto Starkey Electronically Signed By:VIRA CONNELLY
--- NOTE | ~2024-07-10 | XR_ITS ---
EXAMINATION: XR CHEST CLINICAL INFORMATION: Hypoxia COMPARISON: 07/10/2024 TECHNIQUE: Frontal view of the chest was obtained. FINDINGS: ET tube terminates 2.5 cm from the jamaal. Right IJ centimeters catheter tip overlies the cavoatrial junction. Numerous EKG leads are noted. Small bilateral pleural effusions. Associated lower lobe opacity likely correspond to atelectasis. Superimposed consolidation is suspected in the lower lobes, right greater than left. There is pulmonary venous congestion and mild interstitial edema. No pneumothorax. Prior reverse total shoulder arthroplasty. XR/XR chest 1V IMPRESSION: 1. ET tube terminates 2.5 cm from the jamaal. 2. Small bilateral pleural effusions with associated bibasilar atelectasis. Superimposed consolidation is suspected in the lower lobes, right greater than left, increased as compared to prior. 3. Pulmonary venous congestion and interstitial edema.
--- NOTE | ~2024-07-10 | CT_ITS ---
EXAMINATION: CT ANGIOGRAM OF THE CHEST WITH AND WITHOUT CONTRAST (CT PULMONARY ANGIOGRAM FOR PE), CT ABDOMEN AND PELVIS WITH CONTRAST CLINICAL INFORMATION: Reason for Exam Acute shortness of breath COMPARISON: None available. TECHNIQUE: Prior to contrast administration, noncontrast localization images were obtained. Subsequently, multidetector volumetric imaging was performed from the thoracic inlet to below the diaphragms following the administration of 99 mL Omnipaque [address] scan images of the abdomen and pelvis also performed. No contrast reaction reported Sagittal, coronal, and MIP oblique sagittal reformatted images were obtained on the CT workstation, uploaded to PACS, and reviewed. This CT examination was performed using dose optimization techniques as appropriate, variously including the following: *Automated exposure control *Adjustment of mA and/or kV according to patient size (this includes techniques or standardized protocols for targeted exams where dose is matched to indication/reason for exam; i.e. extremities or head) *Use of iterative reconstruction technique Total exam dose-length product 1492 mGy-cm FINDINGS: Motion slightly limits evaluation QUALITY OF STUDY/CONTRAST BOLUS: Satisfactory. PULMONARY ARTERIES: No pulmonary emboli. THORACIC AORTA: There is atherosclerotic plaque of the thoracic aorta without aneurysm. LUNG: There is an endotracheal tube seen 1.5 cm above the jamaal. There is bilateral interstitial prominence. There is diffuse right-sided infiltrates/groundglass infiltrates. There is a small left pleural effusion with left lung base consolidation. Left lung groundglass attenuation/infiltrates also seen. PLEURA: There is a small left pleural effusion. MEDIASTINUM: The heart is enlarged. No pericardial effusion. No hilar or mediastinal lymphadenopathy. No evidence of septal bowing or right heart strain. CORONARY ARTERY CALCIFICATION: [id number]. CHEST WALL/AXILLA: No axillary or internal mammary lymphadenopathy. OSSEOUS STRUCTURES: There are numerous bilateral healed rib fractures. There are mildly displaced anterior right fifth and sixth rib fractures. Mildly displaced fractures of the anterior left fourth, fifth and sixth ribs. LIVER, GALLBLADDER, AND BILIARY TREE: The liver is normal in size, shape, and attenuation. No focal hepatic lesion or biliary ductal dilatation is present. There are a few gallstones within a nondistended gallbladder. PANCREAS: Unremarkable SPLEEN: Unremarkable ADRENAL GLANDS: Unremarkable KIDNEYS AND URETERS: The kidneys are normal in size, shape, and attenuation. There appear to be scattered renal calculi although evaluation is somewhat limited due to contrast administration. There is no hydronephrosis. BLADDER: There is a Goodman catheter in place. GASTROINTESTINAL TRACT: There are prominent fluid-filled small bowel loops throughout without definitive transition. The appendix is not seen. A gastric tube is in place. ABDOMINAL WALL: No significant hernia is appreciated. LYMPH NODES: Normal VASCULAR: There is atherosclerotic plaque of the abdominal aorta and proximal branches. PELVIC VISCERA: Unremarkable OSSEOUS STRUCTURES: There is thoracolumbar disc degenerative change and lower lumbar postoperative pain with L4-L5 fusion. CT/CT angio chest PE protocol IMPRESSION: 1. No evidence of pulmonary embolism. 2. Bilateral interstitial prominence as well as bilateral groundglass infiltrates/attenuation greater on the right. There is right lower lobe consolidation and less pronounced left lower lobe consolidation. Findings suggests a component of interstitial and pulmonary edema although the basilar consolidation is more suggestive of pneumonia. 3. Bilateral acute rib fractures and multiple bilateral old rib fractures 4. Gallstones. Probable bilateral renal calculi. 5. Prominent fluid-filled small bowel loops without definitive transition zone. Suspect an enteritis/ileus.. Developing obstruction considered less likely. VTE: negative.
--- NOTE | ~2024-07-10 | XR_ITS ---
EXAMINATION: XR CHEST CLINICAL INFORMATION: Respiratory failure. Post intubation. COMPARISON: 08/14/2023. TECHNIQUE: Frontal view of the chest was obtained. FINDINGS: The cardiac silhouette is enlarged. There is pulmonary vascular congestion, diffuse increased markings and faint diffuse opacities/patchy infiltrative change. There is an endotracheal tube seen 1.9 cm above the jamaal. A right central line is at the lower SVC. Gastric tube extends below the diaphragm beyond the field of imaging. The bony structures and soft tissues are unremarkable. XR/XR chest 1V IMPRESSION: 1. Cardiomegaly and pulmonary vascular congestion. Diffuse increased interstitial markings and faint diffuse opacities/patchy infiltrative change suggests pulmonary edema. 2. Endotracheal tube tip is seen 1.9 cm above the jamaal. 3. Gastric tube and right central line are in place.
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
--- NOTE | 2024-07-10 02:05 | ECG_ITS ---
Test Reason : ARREST Blood Pressure : / mmHG Vent. Rate : 061 BPM Atrial Rate : 061 BPM P-R Int : 224 ms QRS Dur : 162 ms QT Int : 532 ms P-R-T Axes : 053 -59 030 degrees QTc Int : 535 ms Sinus rhythm with 1st degree A-V block Left axis deviation Right bundle branch block Inferior infarct , age undetermined Abnormal ECG When compared with ECG of 02-JUN-2024 13:41, Significant changes have occurred Referred By: Jason Shaw Electronically Signed By:VIRA CONNELLY
[2024-07-10] MEDS: 0.9 % Sodium Chloride 1,000 ML 999 ML IV ×2 (02:08→03:04)
[2024-07-10] MEDS: Heparin Sodium,Porcine 5,000 UNIT/ML VIAL 5000 UNIT IVPUSH (02:09)
[2024-07-10] MEDS: Norepinephrine Bitartrate/D5W 8 MG/250 ML PLAST..BAG 10.95 MG IV (02:15)
--- NOTE | 2024-07-10 02:23 | PC.NURSE ---
Verbal order from Dr. Correa to increase Levophed to 0.10mcg/kg.
[2024-07-10 02:29] LABS: Hematocrit 36.6 % (37.0-47.0); Hemoglobin 11.2 g/dl (12.0-16.0); Mean Corpuscular HGB Conc 30.6 g/dl (31.0-35.0); Mean Corpuscular Hemoglobin 29.5 pg (27.0-33.0); Mean Corpuscular Volume 96.3 fL (80.0-98.0); Mean Platelet Volume 9.7 fL (9.4-12.3); NRBC Pct Auto 0.4 /100WBC (0.0-0.2); Platelet Count 226 X10*3/uL (160-400); Red Cell Distribution Width 13.4 % (11.0-16.0); White Blood Count 10.6 X10*3/uL (4.8-10.8)
[2024-07-10 02:50] LABS: Venous Blood Gas Refer to POC result
[2024-07-10 02:52] LABS: Troponin-I High Sensitivity 28.4 ng/L (<3.5-17.0)
[2024-07-10 02:55] LABS: Lactic Acid 12.8 mmol/L (0.5-2.0)
[2024-07-10 02:56] LABS: Alanine Aminotransferase 509 U/L (0-31); Albumin Level 3.7 g/dL (3.5-5.0); Alkaline Phosphatase 143 U/L (39-117); Anion Gap 28 (12-20); Aspartate Amino Transferase 606 U/L (5-31); Bilirubin Total 0.2 mg/dL (0.0-1.0); Blood Urea Nitrogen 20 mg/dL (9-16); Calcium 9.2 mg/dL (8.4-10.2); Carbon Dioxide 18 mmol/L (22-29); Chloride 100 mmol/L (96-108); Creatinine Clr Calc Pharmacy 61.6; Estimated Glomerular Filt Rate 42; Glucose Random 390 mg/dL (60-115); Magnesium 4.2 mg/dL (1.6-2.6); Potassium 5.9 mmol/L (3.3-5.1); Sodium 140 mmol/L (135-145); Total Protein 5.8 g/dL (6.5-8.0)
[2024-07-10 02:58] LABS: Prothrombin Time 11.9 SEC (11.1-13.3)
[2024-07-10 03:01] LABS: VBG Base Excess -14.4 mmol/L; VBG HCO3 18 mmol/L (22-26); VBG pCO2 78 mmHg; VBG pH 6.96 (7.32-7.43); VBG pO2 67 mmHg
--- NOTE | 2024-07-10 03:02 | PC.NURSE ---
Verbal order per Dr. Correa to increase Levophed to 0.2mcg
[2024-07-10] MEDS: cefTRIAXone sodium 2 GM in 0.9 % Sodium Chloride 50 ML IV (03:06)
[2024-07-10] MEDS: Insulin Regular, Human 100 UNIT/ML 10 ML VIAL IVPUSH (03:09)
[2024-07-10 03:12] LABS: Atypical Lymph Absolute Manual 0.4 x10*3/uL; Atypical Lymphs Percent Manual 4 % (0-6); Band Neutrophils Percent 5 % (3-5); Basophils Abs Manual 0.1 X10*3/uL (0.0-0.2); Basophils Percent Manual 1 % (0-2); Eosinophils Absolute Manual 0.2 X10*3/uL (0.0-0.4); Eosinophils Percent Manual 2 % (0-4); Lymphocytes Absolute Manual 3.1 X10*3/uL (1.2-4.9); Lymphocytes Percent Manual 29 % (20-40); Metamyelocytes Absolute 0.3 X10*3/uL; Metamyelocytes Percent 3 %; Monocytes Absolute Manual 0.2 X10*3/uL (0.1-1.2); Monocytes Percent Manual 2 % (2-11); Neutrophils Absolute Manual 6.3 X10*3/uL (2.0-8.3); Neutrophils Percent Manual 54 % (45-73)
[2024-07-10 03:14] LABS: Large Platelet PRESENT; Macrocytosis 1+ (5-14) /OIF; Platelet Estimate NORMAL (NORMAL); Platelet Morphology Comment NOTED; Polychromasia 1+ (0-2) /OIF; RBC Morphology NOTED; Smudge Cells PRESENT
[2024-07-10] MEDS: Furosemide 40 MG/4 ML VIAL IVPUSH (03:14)
[2024-07-10 03:19] LABS: Partial Thromboplastin Time > 200.0 SEC (26.0-36.8)
[2024-07-10 03:25] LABS: COVID-19 Test Negative (Negative); IDNOW Serial# 6674DD1D
[2024-07-10 03:26] LABS: B Type Natriuretic Peptide 129 pg/mL (<100)
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
--- NOTE | 2024-07-10 03:28 | PC.NURSE ---
verbal report provided to Miracle CONTRERAS. Pt remains stable at this time, noted to begin to occasionally bravo at the vent. ICU AUTO REBUILDER made aware and new orders to be obtained. Plan is for the pt to be brought to CT for imaging and then brought over to unit
[2024-07-10] MEDS: propofoL 1,000 MG/100 ML VIAL 21.02 MG IVCONT (03:37)
[2024-07-10 03:58] LABS: Influenza A PCR NEGATIVE (Negative); Influenza B PCR NEGATIVE (Negative); Resp Syncy Virus RNA Qual PCR NEGATIVE (Negative); SARS COV2 PCR INHOUSE NEGATIVE (Negative)
[2024-07-10 03:59] LABS: Glucose, Whole Blood 262 mg/dL (60-115)
[2024-07-10 03:59] LABS: Venous Blood Gas Refer to POC result
[2024-07-10 04:03] LABS: VBG Base Excess -9.8 mmol/L; VBG HCO3 20 mmol/L (22-26); VBG pCO2 62 mmHg; VBG pH 7.11 (7.32-7.43); VBG pO2 75 mmHg
[2024-07-10] MEDS: iohexoL 350 MG/ML 100 ML INFUS..BTL 99 ML IV (04:32)
[2024-07-10] MEDS: Piperacillin Sodium/Tazobactam 4.5 GM in 0.9 % Sodium Chloride 100 ML IV ×3 (04:50→21:10)
[2024-07-10 04:53] LABS: Reflex Lactate? Lactic Acid Added
[2024-07-10 04:55] LABS: Glucose, Whole Blood 213 mg/dL (60-115)
--- NOTE | 2024-07-10 05:21 | PC.NURSE ---
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 Upon arrival the left lower extremity around the IO was noticeably blanched and extremely pale compared to the rest of the leg. Epi x1 was given through the IO however it was determined by the PA and MD that the IO to the left tibia was also infiltrated. Staff worked to obtain IV access with great difficulty. Delay in epinephrine administration was related to the lack of adequate access s/t to difficulty. Once IV access obtained medications were administered without issue.
[2024-07-10 05:23] LABS: VBG Base Excess -3.7 mmol/L; VBG HCO3 25 mmol/L (22-26); VBG pCO2 61 mmHg; VBG pH 7.21 (7.32-7.43); VBG pO2 48 mmHg
[2024-07-10 05:28] LABS: MANUAL DIFF FLAG NO
[2024-07-10 05:31] LABS: Basophils Percent Auto 0.3 % (0-2); Eosinophils Absolute Auto 0.1 X10*3/uL (0.0-0.4); Eosinophils Percent Auto 0.4 % (0-4); Hematocrit 42.2 % (37.0-47.0); Hemoglobin 13.2 g/dl (12.0-16.0); Imm Gran Abs Auto 0.28 X10*3/uL (0.00-0.03); Imm Gran Pct Auto 2.1 % (0.0-0.4); Lymphocytes Absolute Auto 2.4 X10*3/uL (1.2-4.9); Lymphocytes Percent Auto 18.2 % (20-40); Mean Corpuscular HGB Conc 31.3 g/dl (31.0-35.0); Mean Corpuscular Hemoglobin 29.5 pg (27.0-33.0); Mean Corpuscular Volume 94.4 fL (80.0-98.0); Mean Platelet Volume 9.3 fL (9.4-12.3); Monocytes Absolute Auto 0.2 X10*3/uL (0.1-1.2); Monocytes Percent Auto 1.7 % (2-11); NRBC Pct Auto 0.2 /100WBC (0.0-0.2); Neutrophils Absolute Auto 10.3 x10*3/uL (2.0-8.3); Neutrophils Percent Auto 77.3 % (45-73); Platelet Count 274 X10*3/uL (160-400); Red Blood Count 4.47 X10*6/uL (4.20-5.50); Red Cell Distribution Width 13.6 % (11.0-16.0); White Blood Count 13.3 X10*3/uL (4.8-10.8)
[2024-07-10 05:38] LABS: Venous Blood Gas Refer to POC result
--- NOTE | 2024-07-10 05:50 | PC.NURSE ---
Pt transferred to ICU with RN, EDT, Respiratory and family. The pt had soft restraints applied shortly after 0330 as she was noted to begin bucking at the vent and daughter who was at bedside and is a RN had reported the pt has been known to previously awaken and pull at tubes/lines in the past almost extubating herself previously. Although there were no attempts this date, staff decided to place soft/nonbehavioral restraints on the patient to ensure we maintained a patent airway and to prevent possible extubation. The pt was transferred out of the unit immediately after her CT imaging/studies were complete, she was not here in the ED 2 hours after the initiation of the restraints. Nonbehavioral restraint paperwork initiated and then brought to ICU for completion as needed
[2024-07-10 05:56] LABS: Alanine Aminotransferase 1854 U/L (0-31); Albumin Level 4.1 g/dL (3.5-5.0); Alkaline Phosphatase 170 U/L (39-117); Anion Gap 20 (12-20); Aspartate Amino Transferase 2193 U/L (5-31); Bilirubin Total 0.5 mg/dL (0.0-1.0); Blood Urea Nitrogen 24 mg/dL (9-16); Calcium 8.5 mg/dL (8.4-10.2); Carbon Dioxide 23 mmol/L (22-29); Chloride 101 mmol/L (96-108); Creatinine Clr Calc Pharmacy 64.1; Estimated Glomerular Filt Rate 44; Glucose Random 285 mg/dL (60-115); Magnesium 3.2 mg/dL (1.6-2.6); Phosphorus 9.4 mg/dL (2.7-4.5); Potassium 6.1 mmol/L (3.3-5.1); Sodium 138 mmol/L (135-145); Total Protein 6.6 g/dL (6.5-8.0); ~Lactic Acid-LAB USE ONLY 2.9 mmol/L (0.5-2.0)
[2024-07-10 05:57] LABS: Troponin-I High Sensitivity 76.2 ng/L (<3.5-17.0)
[2024-07-10] MEDS: Furosemide 200 MG in 0.9 % Sodium Chloride 80 ML IVCONT (06:14)
[2024-07-10] MEDS: Calcium Gluconate/NaCl,Iso-Osm 1 GM/50 ML PLAST..BAG IV (06:17)
[2024-07-10] MEDS: propofoL 1,000 MG/100 ML VIAL 28.03 MG IVCONT (06:23)
--- NOTE | 2024-07-10 06:31 | PC.NURSE ---
Per SCHOOL COUNSELLOR cool pt to 93 degrees F, cooling blanket placed under pt, core temp being monitored. OG tube hooked to suction small amount small amount of orange emesis back. SCHOOL COUNSELLOR aware.
--- NOTE | 2024-07-10 07:09 | PHA.PROG ---
Admission Date/Time: July 10, 2024 03:29 Indication: OTHER Weight in k.8 kg Serum Creatinine - Last 168 Hours 07/10/24 07/10/24 02:24 05:17 Creatinine 1.31 1.26 Estimated CrCl and GFR - Last 168 Hours 07/10/24 07/10/24 02:24 05:17 Estim Creat Clear Calc 61.6 64.1 Estimated GFR 42 44 Vancomycin Loading Dose: 2000 Current Vancomycin Dosing Regimen: 1250 Q 24 Vancomycin Monitoring using AUC goal of 400 - 600 range with trough as surrogate marker: 486 Date and Time for next Vancomycin Level to be drawn 07/12 @ 2100: Pharmacist Comments on Vancomycin Plan: Vancomycin dosing will take advantage of [employer]ries[employer] as a clinical decision support tool that uses Bayesian modeling to calculate individual patient's pharmacokinetic parameters and forecast the patient's drug concentration time course with the target goal AUC 24 range of 400 - 600 mg/L/hr.
[2024-07-10 07:24] LABS: Reflex Lactate? 2 Y
[2024-07-10 07:55] LABS: ~Lactic Acid-LAB USE ONLY 2.5 mmol/L (0.5-2.0)
[2024-07-10] MEDS: Norepinephrine Bitartrate/D5W 8 MG/250 ML PLAST..BAG 52.56 MG IV (08:22)
[2024-07-10 09:01] LABS: VBG Base Excess -2.7 mmol/L; VBG HCO3 25 mmol/L (22-26); VBG pCO2 56 mmHg; VBG pH 7.25 (7.32-7.43); VBG pO2 52 mmHg
[2024-07-10 09:23] LABS: Troponin-I High Sensitivity 253.4 ng/L (<3.5-17.0)
[2024-07-10] MEDS: Heparin Sodium,Porcine 5,000 UNIT/ML VIAL 5000 UNIT SUBCUT (09:24)
[2024-07-10] MEDS: Famotidine/PF 20 MG/2 ML VIAL IVPUSH (09:24)
[2024-07-10] MEDS: Chlorhexidine Gluc Oral Rinse 15 ML MOUTHWASH BUCCAL ×3 (09:25→21:10)
[2024-07-10 09:27] LABS: Anion Gap 19 (12-20); Blood Urea Nitrogen 29 mg/dL (9-16); Calcium 8.7 mg/dL (8.4-10.2); Carbon Dioxide 22 mmol/L (22-29); Chloride 104 mmol/L (96-108); Creatinine Clr Calc Pharmacy 54.5; Estimated Glomerular Filt Rate 37; Glucose Random 160 mg/dL (60-115); Magnesium 2.8 mg/dL (1.6-2.6); Potassium 3.9 mmol/L (3.3-5.1); Sodium 141 mmol/L (135-145)
--- NOTE | 2024-07-10 09:33 | PHA.MEDREC ---
Addendum entered by Kelly Ritchie [facility] 07/10/24 09:37: Dupixent was held in last admission with notes to resume on 07/18/24, however when asking the daughter she said the last dose was on Wednesday 07/04. Original Note: Pharmacy Consult ? Medication Reconciliation Pharmacy has completed the medication reconciliation. Spoke with pt's daughter Gloria, she confirmed there has been no changes since pt's discharge on 06/17/24. Pt's daughter confirmed she last took Ozempic and Dupixent on Wednesday 07/04.
--- NOTE | 2024-07-10 10:35 | CA_ITS ---
Transthoracic Echocardiogram Patient (Last, First, Middle): Merle Guillen M Gender: Female Date of : 1970 Age: 54 Procedure Date: 07/10/2024 Procedure Type: Transthoracic Echocardiogram Location: ICU Height: 162.56 cm Weight: 116.58 kg BSA: 2.18 m2 Heart Rate: bpm BP: 131 / 65 mmHg President Sales And Marketing: GURU Referring MD: Alberto Starkey NP Symptoms: Post cardiac arrest Study Quality: Fair, contrast ECG Rhythm: Sinus Conclusions: - The left ventricular systolic function is severely decreased. The visually estimated ejection fraction is between 15-20%. - No obvious valvular pathology seen on this study. Findings Procedure Information Contrast agent, definity, is being given per protocol without apparent complications. Left Ventricle Moderately increased left ventricular cavity size. There is normal left ventricular wall thickness. The left ventricular systolic function is severely decreased. The visually estimated ejection fraction is between 15 20%. There is severe global hypokinesis. Diastolic function is indeterminate on the basis of available data. Right Ventricle Normal right ventricular cavity size and systolic function. Atria The left atrium is normal in size. The right atrium is normal in size. Aortic Valve The aortic valve was not well visualized. There is no aortic valve stenosis. There is no aortic valve regurgitation. Mitral Valve There is mild mitral annular calcification. There is no mitral valve regurgitation. There is no mitral valve stenosis. Pulmonic Valve The pulmonic valve was not well visualized. Tricuspid Valve There is trace tricuspid valve regurgitation. Tricuspid regurgitation envelope is inadequate for calculation of right ventricular systolic pressure. Great Vessels The aorta was not well visualized. Venous The inferior vena cava is normal in size and collapses less than 50% with inspiration. (intubated). Pericardium/Pleural There is no evidence of pericardial effusion. Prior Study Comparison Changes noted compared to prior study dated: 01/22/2023. Recommendations, Care & Conclusions No obvious valvular pathology seen on this study. Measurements 2D Linear Measurements IVSd: 0.97 0.6-0.9/0.6-1.0 cm LVIDd: 6.69 3.9-5.3/4.2-5.9 cm LVIDd Index: 3.07 2.4-3.2/2.2-3.1 cm/m2 LVIDs: 6.36 2.0-3.6 cm LVPWd: 1.24 0.7-1.1 cm LA Diam: 3.80 2.7-3.8/3.0-4.0 cm LAIDs Index: 1.74 1.5-2.3 cm/m2 LV Mass: 422.02 67-162/88-224 g LV Mass Index: 193.59 43-95/49-115 g/m2 LVOT Diam: 2.20 3.0+(-)1.3 cm 2D Systolic Function EF 4C: 33.90 >55% EF 2C: 21.10 >55% EF BiP: 28.00 >55% Mitral Valve MV Pk E: 0.56 MV PK A: 0.47 MV Decel Time: 210.00 E/A: 1.20 E'Lateral: 4.68 E'Medial: 3.48 E/E' Med: 16.00 E/E' Lat: 11.90 PHT: 62.00 MVA PHT: 3.55 Decel Flagler: 2.65 Aortic Valve AoV Pk Wade: 1.44 AoV Mn Wade: 1.02 AoV VTI: 0.22 AoV Pk Grad: 8.00 Aov Mn Grad: 5.00 DUNIA Cont.VTI: 2.69 LVOT LVOT Pk Wade: 1.18 LVOT Mn Wade: 0.80 LVOT VTI: 0.16 LVOT Pk Grad: 6.00 LVOT Mn Grad: 3.00 LVOT Diam: 2.20 LVOT Area: 3.80 Diastolic Function MV Pk E: 0.56 MV Pk A: 0.47 E/A: 1.20 E'Medial: 3.48 E/E' Med: 16.00 E' Laterial: 4.68 E/E' Lat: 11.90 Right Ventricle TAPSE (mm): 21.40 TVS' Wade: 14.80 Great Vessels Aorta Sinus of Valsalva: 3.05 2.0-3.5 cm Updated in Other Vendor System with Status of Final Rosendo Irby MD electronically signed on 07/10/2024 12:33:52 PM with status of Final
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
[2024-07-10 11:39] LABS: Glucose, Whole Blood 114 mg/dL (60-115)
[2024-07-10 11:43] LABS: INTERNATIONAL NORM RATIO 1.3 (0.9-1.1); Prothrombin Time 16.2 SEC (11.1-13.3)
[2024-07-10 11:46] LABS: PTT Heparin Drip 29.6 SEC (53-77.9)
[2024-07-10] MEDS: Heparin Sodium,Porcine/1/2NS 25,000 UNIT/250 ML IV.SOLN 16.35 UNIT IVCONT ×2 (11:47→19:52)
[2024-07-10] MEDS: Aspirin 300 MG SUPP.RECT PR (11:49)
[2024-07-10] MEDS: Norepinephrine Bitartrate/D5W 8 MG/250 ML PLAST..BAG 70.08 MG IV (12:45)
[2024-07-10 12:53] LABS: Venous Blood Gas Refer to POC result
[2024-07-10] MEDS: Albuterol/Iprat 2.5/0.5MG 3 ML AMPUL.NEB INHALE ×2 (14:21→19:16)
[2024-07-10 14:51] LABS: VBG Base Excess -2.3 mmol/L; VBG HCO3 25 mmol/L (22-26); VBG pCO2 53 mmHg; VBG pH 7.28 (7.32-7.43); VBG pO2 44 mmHg
[2024-07-10 14:59] LABS: MANUAL DIFF FLAG NO
[2024-07-10 15:13] LABS: Basophils Percent Auto 0.3 % (0-2); Eosinophils Absolute Auto 0.3 X10*3/uL (0.0-0.4); Eosinophils Percent Auto 3.6 % (0-4); Hematocrit 44.1 % (37.0-47.0); Hemoglobin 14.6 g/dl (12.0-16.0); Imm Gran Abs Auto 0.04 X10*3/uL (0.00-0.03); Imm Gran Pct Auto 0.5 % (0.0-0.4); Lymphocytes Absolute Auto 1.6 X10*3/uL (1.2-4.9); Lymphocytes Percent Auto 20.4 % (20-40); Mean Corpuscular HGB Conc 33.1 g/dl (31.0-35.0); Mean Corpuscular Hemoglobin 29.8 pg (27.0-33.0); Monocytes Absolute Auto 0.1 X10*3/uL (0.1-1.2); NRBC Pct Auto 0.9 /100WBC (0.0-0.2); Neutrophils Absolute Auto 5.8 x10*3/uL (2.0-8.3); Neutrophils Percent Auto 74.2 % (45-73); Platelet Count 285 X10*3/uL (160-400); Red Cell Distribution Width 13.6 % (11.0-16.0); White Blood Count 7.9 X10*3/uL (4.8-10.8)
[2024-07-10] MEDS: Norepinephrine Bitartrate/D5W 8 MG/250 ML PLAST..BAG 131.4 MG IV (15:22)
[2024-07-10 15:23] LABS: B Type Natriuretic Peptide 568 pg/mL (<100)
[2024-07-10 16:05] LABS: Venous Blood Gas Refer to POC result
[2024-07-10 16:08] LABS: Anion Gap 19 (12-20); Blood Urea Nitrogen 33 mg/dL (9-16); Calcium 8.5 mg/dL (8.4-10.2); Carbon Dioxide 21 mmol/L (22-29); Chloride 105 mmol/L (96-108); Creatinine Clr Calc Pharmacy 47.2; Estimated Glomerular Filt Rate 31; Glucose Random 138 mg/dL (60-115); Potassium 3.1 mmol/L (3.3-5.1); Sodium 142 mmol/L (135-145)
[2024-07-10] MEDS: EPINEPHrine 5 MG in Dextrose 5 % 250 ML 71.48 MG IVCONT (16:50)
[2024-07-10] MEDS: Norepinephrine Bitartrate/D5W 8 MG/250 ML PLAST..BAG 153.3 MG IV (16:50)
[2024-07-10] MEDS: Sodium Bicarbonate 8.4% 50 MEQ/50 ML SYRINGE IVPUSH ×3 (17:19→20:15)
[2024-07-10] MEDS: Calcium Chloride 1 GM/10 ML SYRINGE IVPUSH ×2 (17:19→21:54)
[2024-07-10 17:36] LABS: Glucose, Whole Blood 160 mg/dL (60-115)
[2024-07-10] MEDS: Magnesium Sulfate/H2O 2 GM/50 ML PIGGYBACK IV (17:58)
[2024-07-10] MEDS: EPINEPHrine 5 MG in Dextrose 5 % 250 ML 214.45 MG IVCONT (17:59)
[2024-07-10] MEDS: Norepinephrine Bitartrate/D5W 8 MG/250 ML PLAST..BAG 205.86 MG IV (18:09)
[2024-07-10 18:58] LABS: PTT Heparin Drip 31.9 SEC (53-77.9)
[2024-07-10 19:22] LABS: Troponin-I High Sensitivity 771.5 ng/L (<3.5-17.0)
[2024-07-10] MEDS: Norepinephrine Bitartrate/D5W 8 MG/250 ML PLAST..BAG 219 MG IV (19:28)
[2024-07-10] MEDS: Midazolam HCl/PF 2 MG/2 ML VIAL IVPUSH (19:38)
[2024-07-10] MEDS: Norepinephrine Bitartrate/NS 32 MG/250 ML PLAST..BAG 54.75 MG IVCONT ×2 (19:43→23:55)
[2024-07-10] MEDS: EPINEPHrine 5 MG in Dextrose 5 % 250 ML 428.89 MG IVCONT (20:01)
[2024-07-10 20:21] LABS: VBG Base Excess -9.4 mmol/L; VBG HCO3 19 mmol/L (22-26); VBG pCO2 49 mmHg; VBG pH 7.18 (7.32-7.43); VBG pO2 44 mmHg
[2024-07-10 20:25] LABS: Venous Blood Gas Refer to POC result
[2024-07-10] MEDS: Phenylephrine HCL 100 MG in 0.9 % Sodium Chloride 250 ML 9.11 MG IVCONT (20:37)
[2024-07-10] MEDS: EPINEPHrine 5 MG in Dextrose 5 % 250 ML 285.93 MG IVCONT ×4 (20:44→23:22)
--- NOTE | 2024-07-10 21:06 | HO.HCP ---
Health Care Proxy Invocation Health Care Proxy Declaration: I, , on the date cited below, have determined that, , lacks the capacity to make or communicate, informed health care decision. This determination is made in accordance with accepted standards of medical judgment and pursuant to [place], the [place] Health Care Proxy Law. The cause, nature, extent and probable duration of the patient's inapacity are described below: Cause:Patient post caradiac arrest, intubated Nature:natural Extent:critical Probable Duration of Patient's Incapacity:unsure
--- NOTE | 2024-07-10 21:07 | PM.EVENT ---
Documented by User: Alberto Starkey NP 07/10/24 21:08 Event Note Date of Service: 07/10/24 Event Note: Patient clinical status worsening, require significant amount of pressors, PH now worsening. Goals of care discussed with daughter, Gloria, she would like for patient to be DNR at this time Time Spent With Patient Time: Total time managing care of this patient today ____ minutes. Documented by User: James Carson MD 07/11/24 09:15 Event Note Date of Service: 07/11/24
[2024-07-10 21:38] LABS: Albumin Level 3.1 g/dL (3.5-5.0); Anion Gap 21 (12-20); Blood Urea Nitrogen 35 mg/dL (9-16); Calcium 8.6 mg/dL (8.4-10.2); Carbon Dioxide 21 mmol/L (22-29); Chloride 101 mmol/L (96-108); Creatinine Clr Calc Pharmacy 35.1; Estimated Glomerular Filt Rate 22; Glucose Random 230 mg/dL (60-115); Magnesium 2.5 mg/dL (1.6-2.6); Phosphorus 2.1 mg/dL (2.7-4.5); Potassium 2.6 mmol/L (3.3-5.1); Sodium 140 mmol/L (135-145)
[2024-07-10] MEDS: Potassium Chloride/H20 40 MEQ/100 ML PIGGYBACK 100 MEQ IV ×2 (21:58→22:57)
[2024-07-10] MEDS: Potassium Phosphate/NS 15 MMOL/250 ML PLAST..BAG 62.5 MMOL IV (22:03)
[2024-07-10] MEDS: vancomycin HCL 1,250 MG in 0.9 % Sodium Chloride 250 ML 166.67 MG IV (23:07)
[2024-07-11] VITALS (46 sets, daily range): BP systolic 90–148; BP diastolic 22–63; PULSE 11–118; RESP 22–25; TEMP 36.9–38.3; O2SAT 90–96; BMI 45.4
[2024-07-11] LABS: Venous Blood Gas Refer to POC result
[2024-07-11 00:04] LABS: VBG Base Excess -12.7 mmol/L; VBG HCO3 14 mmol/L (22-26); VBG pCO2 39 mmHg; VBG pH 7.17 (7.32-7.43); VBG pO2 71 mmHg
[2024-07-11] MEDS: Potassium Chloride/H20 40 MEQ/100 ML PIGGYBACK 100 MEQ IV (00:05)
[2024-07-11] MEDS: EPINEPHrine 5 MG in Dextrose 5 % 250 ML 357.41 MG IVCONT ×4 (00:06→02:11)
[2024-07-11] MEDS: Sodium Bicarbonate 8.4% 50 MEQ/50 ML SYRINGE IVPUSH ×5 (00:14→07:28)
[2024-07-11 00:16] LABS: Albumin Level 2.7 g/dL (3.5-5.0); Anion Gap 22 (12-20); Blood Urea Nitrogen 34 mg/dL (9-16); Calcium 8.8 mg/dL (8.4-10.2); Carbon Dioxide 16 mmol/L (22-29); Chloride 103 mmol/L (96-108); Creatinine Clr Calc Pharmacy 32.4; Estimated Glomerular Filt Rate 20; Glucose Random 262 mg/dL (60-115); Magnesium 2.2 mg/dL (1.6-2.6); Phosphorus 2.4 mg/dL (2.7-4.5); Potassium 3.9 mmol/L (3.3-5.1); Sodium 137 mmol/L (135-145)
[2024-07-11] MEDS: Phenylephrine HCL 100 MG in 0.9 % Sodium Chloride 250 ML 91.1 MG IVCONT (01:11)
[2024-07-11] MEDS: Vasopressin 20 UNIT/100 ML INFUS..BTL 12 UNIT IVCONT ×2 (01:58→08:07)
[2024-07-11 02:39] LABS: PTT Heparin Drip 82.5 SEC (53-77.9)
[2024-07-11] MEDS: EPINEPHrine 5 MG in Dextrose 5 % 250 ML 428.89 MG IVCONT ×8 (02:52→07:01)
[2024-07-11] MEDS: Phenylephrine HCL 100 MG in 0.9 % Sodium Chloride 250 ML 109.33 MG IVCONT ×3 (03:30→07:36)
[2024-07-11] MEDS: Albumin Human 25 % 100 ML IV (03:53)
[2024-07-11] MEDS: Norepinephrine Bitartrate/NS 32 MG/250 ML PLAST..BAG 54.75 MG IVCONT (04:40)
[2024-07-11] MEDS: Piperacillin Sodium/Tazobactam 4.5 GM in 0.9 % Sodium Chloride 100 ML IV (05:16)
[2024-07-11 05:41] LABS: VBG Base Excess -9.7 mmol/L; VBG HCO3 17 mmol/L (22-26); VBG pCO2 43 mmHg; VBG pH 7.21 (7.32-7.43); VBG pO2 59 mmHg
[2024-07-11 05:53] LABS: Venous Blood Gas Refer to POC result
[2024-07-11 06:03] LABS: Hematocrit 36.5 % (37.0-47.0); Hemoglobin 11.7 g/dl (12.0-16.0); Mean Corpuscular HGB Conc 32.1 g/dl (31.0-35.0); Mean Corpuscular Hemoglobin 29.4 pg (27.0-33.0); Mean Corpuscular Volume 91.7 fL (80.0-98.0); Mean Platelet Volume 9.8 fL (9.4-12.3); Platelet Count 271 X10*3/uL (160-400); Red Blood Count 3.98 X10*6/uL (4.20-5.50); Red Cell Distribution Width 14.1 % (11.0-16.0); White Blood Count 18.5 X10*3/uL (4.8-10.8)
[2024-07-11 06:04] LABS: NRBC Pct Auto 2.4 /100WBC (0.0-0.2)
[2024-07-11 06:10] LABS: INTERNATIONAL NORM RATIO 1.8 (0.9-1.1); Prothrombin Time 22.3 SEC (11.1-13.3)
[2024-07-11 06:30] LABS: Alanine Aminotransferase 2143 U/L (0-31); Albumin Level 2.8 g/dL (3.5-5.0); Alkaline Phosphatase 109 U/L (39-117); Anion Gap 22 (12-20); Aspartate Amino Transferase 2613 U/L (5-31); Bilirubin Total 1.5 mg/dL (0.0-1.0); Blood Urea Nitrogen 38 mg/dL (9-16); Carbon Dioxide 16 mmol/L (22-29); Chloride 100 mmol/L (96-108); Creatinine Clr Calc Pharmacy 29.4; Estimated Glomerular Filt Rate 18; Glucose Random 254 mg/dL (60-115); Potassium 4.2 mmol/L (3.3-5.1); Sodium 134 mmol/L (135-145); Total Protein 4.3 g/dL (6.5-8.0)
[2024-07-11 07:32] LABS: Band Neutrophils Percent 12 % (3-5); Eosinophils Absolute Manual 0.2 X10*3/uL (0.0-0.4); Eosinophils Percent Manual 1 % (0-4); Lymphocytes Absolute Manual 4.4 X10*3/uL (1.2-4.9); Lymphocytes Percent Manual 24 % (20-40); Neutrophils Absolute Manual 13.9 X10*3/uL (2.0-8.3); Neutrophils Percent Manual 63 % (45-73); Nucleated Red Blood Cells 4 /100WBC (0-0)
[2024-07-11 07:34] LABS: Burr Cells 1+ (0-2) /OIF; RBC Morphology NOTED
[2024-07-11 07:35] LABS: Platelet Estimate NORMAL (NORMAL); Platelet Morphology Comment NORMAL
[2024-07-11] MEDS: EPINEPHrine 5 MG in Dextrose 5 % 250 ML 714.82 MG IVCONT ×5 (07:35→08:56)
[2024-07-11] MEDS: Albuterol/Iprat 2.5/0.5MG 3 ML AMPUL.NEB INHALE (07:57)
--- NOTE | 2024-07-11 09:09 | PM.CCN ---
Critical Care Event Note Summary Date of Service: 07/11/24 Code activated: No Narrative: Overall very poor clinical status and terminal prognosis discussed with patient's daughter/family who decided to switch goals of care to palliation. Code status changed to comfort measures only. Critical Care Time (minutes): 0
[2024-07-11] MEDS: fentaNYL citrate/PF 100 MCG/2 ML VIAL IVPUSH (09:10)
[2024-07-11] MEDS: fentaNYL citrate/NS 1,000 MCG/100 ML PLAST..BAG 10 MCG IVCONT (09:14)
--- NOTE | 2024-07-11 10:09 | P.DN_ITS ---
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: (5) MARIKA (acute kidney injury): (6) Ischemic hepatitis: Discharge Sum: Summary Date and Time Date of admission: 07/10/24 03:29 Date of : 07/11/24 Time of : 09:25 Summary Details: 54-year-old lady with underlying history COPD with hyperventilation and chronic hypoxia on 3 L of supplemental oxygen, congestive heart failure with decreased EF, but no significant coronary artery disease, diabetes mellitus, obesity admitted on 07/08/2024 with [id number] 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 Patient intubated during the CPR and admitted to intensive care unit. Hospital course significant for no return to baseline mental status after CPR with patient started on hypothermia protocol, acute kidney injury, ischemic hepatitis, acute on chronic hypoxic respiratory failure. Patient evaluated by Cardiology service started on heparin drip. Further hospital course with development of progressive shock refractory to four-pressor support, also with development of progressive hypoxia refractory to maximal ventilatory support. Several discussions of code status held with family and overall terminal clinical prognosis discussed with family electing to switch goals of care to palliation. Code status changed to comfort measures only and patient extubated on 07/11/2024, passing comfortably with family at bedside at 09:25. Additional Data Confirmation of as documented by pronouncing clinician: no pulse, no respirations, no heart sounds and pupils fixed and dilated Family: at bedside Attending physician: James Carson MD
== END 2024-07-11 09:25 | disposition expired | DRG 196 ==
LOC: HO.ED 02:49 → HO.EDOVER 03:30 → HO.ICU 03:42
PROVIDERS: Admitting Provider Registered Nurse Community Health; Emergency Provider Internal Medicine; PCP Nurse Practitioner Primary Care; Visit Provider Internal Medicine Pulmonary Disease
DX: I46.9 Cardiac arrest, cause unspecified (principal); K72.00 Acute and subacute hepatic failure without coma; J96.21 Acute and chronic respiratory failure with hypoxia; I50.23 Acute on chronic systolic (congestive) heart failure; N17.9 Acute kidney failure, unspecified; E66.2 Morbid (severe) obesity with alveolar hypoventilation; Z99.81 Dependence on supplemental oxygen; E78.5 Hyperlipidemia, unspecified; I25.10 Atherosclerotic heart disease of native coronary artery without angina pectoris; I42.9 Cardiomyopathy, unspecified; E11.9 Type 2 diabetes mellitus without complications; M79.7 Fibromyalgia; Z20.822 Contact with and (suspected) exposure to COVID-19; Z98.1 Arthrodesis status; Z68.42 Body mass index [BMI] 45.0-49.9, adult; Z51.5 Encounter for palliative care; Z91.199 Patient's noncompliance with other medical treatment and regimen due to unspecified reason; Z79.4 Long term (current) use of insulin; Z87.891 Personal history of nicotine dependence; Z79.82 Long term (current) use of aspirin; Z79.899 Other long term (current) drug therapy
CPT/HCPCS: 0241U; 36415; 71045; 71275; 74177; 80048; 80053; 82040; 82803; 82947; 83605; 83735; 83880; 84100; 84484; 85007; 85025; 85027; 85610; 85730; 87040; 87076; 87077; 87147; 87205; 87635; 93005; 93306; 94002; 94003; 94640; 94799; 99285; C1758; J0171; J0613; J0696; J1644; J1940; J2250; J2371; J2543; J2598; J2704; J3010; J3370; J3371; J3475; J3480; P9047; Q9967

== ENCOUNTER → 2024-07-10 03:29 | Outpatient (BNV) | payer MEDICAID, SELFPAY | PROVIDERS: Admitting Provider Registered Nurse Community Health; Emergency Provider Internal Medicine; Visit Provider Registered Nurse Community Health | DX: I46.9 Cardiac arrest, cause unspecified (principal); J96.01 Acute respiratory failure with hypoxia; J81.1 Chronic pulmonary edema; R79.89 Other specified abnormal findings of blood chemistry; N17.9 Acute kidney failure, unspecified; R74.01 Elevation of levels of liver transaminase levels | CPT/HCPCS: 99291; 99292; 99499 ==

== ENCOUNTER → 2024-07-10 03:29 | Outpatient (BNV) | payer MEDICAID, SELFPAY | PROVIDERS: Admitting Provider Registered Nurse Community Health; Emergency Provider Internal Medicine; Visit Provider Internal Medicine | DX: I46.9 Cardiac arrest, cause unspecified (principal); J81.1 Chronic pulmonary edema; J96.01 Acute respiratory failure with hypoxia | CPT/HCPCS: 93306; 99291 ==

== ENCOUNTER → 2024-07-10 03:29 | Outpatient (BNV) | payer MEDICAID, SELFPAY | PROVIDERS: Admitting Provider Registered Nurse Community Health; Emergency Provider Internal Medicine; Visit Provider Internal Medicine Pulmonary Disease | DX: I46.9 Cardiac arrest, cause unspecified (principal); J81.1 Chronic pulmonary edema; J96.01 Acute respiratory failure with hypoxia; I50.20 Unspecified systolic (congestive) heart failure; I42.9 Cardiomyopathy, unspecified; N17.9 Acute kidney failure, unspecified; K72.00 Acute and subacute hepatic failure without coma | CPT/HCPCS: 99238 ==